=== PATIENT | male | born 1980 | race Caucasian/White ===

== ENCOUNTER 2020-04-30 06:59 | Inpatient (IN) | payer OTHER, SELFPAY ==
[2020-04-30] VITALS (28 sets, daily range): BP systolic 73–108; BP diastolic 28–63; PULSE 82–137; RESP 14–44; TEMP 35.7–36.3; O2SAT 95–100
--- NOTE | ~2020-04-30 | XR_ITS ---
EXAMINATION: XR chest port-a-cath/central EXAM DATE: 05/17/2020 18:12 INDICATION: Dialysis catheter placement. TECHNIQUE: Portable AP frontal chest x-ray was obtained. Comparison is made to prior examination from earlier same date. FINDINGS: Interval placement of a right IJ approach double lumen dialysis catheter. The tip appears t o have retracted compared to fluoroscopic images, tip is at mid SVC level. No postprocedure pneumotho rax. Endotracheal tube and nasogastric tube are both in position. Patchy bilateral atelectasis and/or pneu monia. No sizable pleural effusion. The cardiomediastinal silhouette is prominent but magnified on th is AP technique. There are no osseous abnormalities identified. IMPRESSION: 1. Dialysis catheter tip at mid SVC level. No postprocedure pneumothorax. 2. ET, NG tube in position. 3. Patchy bilateral airspace disease unchanged. Reviewed, dictated and finalized at location A. AND SCIENCE DIVISION CHAIR
--- NOTE | ~2020-04-30 | XR_ITS ---
EXAMINATION: XR chest 1V portable DATE: 05/12/2020 05:51 INDICATION: Respiratory failure. TECHNIQUE: A single frontal view of the chest was obtained. COMPARISON: Chest single view 05/11/2020 FINDINGS: There is airspace opacities in all lung zones bilaterally with a lower lung predominance. N o pleural effusion or pneumothorax. Cardiomegaly is noted. The endotracheal tube tip is 3.9 cm above the candy. The nasogastric tube tip is beyond the inferior margin of the radiograph, but at least to the stomach. A right internal jugular central venous catheter is seen with tip at the superior cavoa trial junction. IMPRESSION: 1. Stable diffuse lung disease, consistent with pulmonary edema versus pneumonia. 2. Cardiomegaly. Reviewed, dictated and finalized at location A. D LOGISTICS COORDINATOR IMPRESSION: 1. Stable diffuse lung disease, consistent with pulmonary edema versus pneumoni a. 2. Cardiomegaly.
--- NOTE | ~2020-04-30 | US_ITS ---
EXAMINATION: US venous doppler [facility] DATE: 05/01/2020 09:30 INDICATION: Lower limb edema. TECHNIQUE: Grayscale ultrasound images without and with compression and Doppler ultrasound images of the bilateral lower extremity veins were obtained. COMPARISON: Ultrasound 06/07/2016 FINDINGS: The visualized portions of right common femoral vein, profunda (deep) femoral vein, femoral vein, pop liteal vein, peroneal veins, posterior tibial veins, and greater saphenous vein outflow are patent. The visualized portions of left common femoral vein, profunda femoral vein, femoral vein, popliteal v ein, peroneal veins, posterior tibial veins, and greater saphenous vein outflow are patent. IMPRESSION: 1. No deep venous thrombosis. Reviewed, dictated and finalized at location A. HANDISE FLOW TEAM LEADER
--- NOTE | ~2020-04-30 | XR_ITS ---
EXAMINATION: XR chest 1V portable INDICATION: Respiratory failure TECHNIQUE: Portable AP chest at 0510 hours COMPARISON: 05/15/2020 FINDINGS: The endotracheal tube ends approximately 3.5 cm above the candy. The nasogastric tube is f ollowed as far as the stomach. Its tip is beyond the inferior margin of the radiograph. A right inter nal jugular central venous catheter ends with its tip in the superior cavoatrial junction. Patchy opa cities persist throughout all lung zones but have improved. There is no pleural effusion or pneumotho rax. Stable cardiomegaly is noted. IMPRESSION: 1. Diffuse lung disease with interval improvement, consistent with pneumonia and/or pulmonary edema. 2. Cardiomegaly. Reviewed, dictated and finalized at location A. ANALYST IMPRESSION: 1. Diffuse lung disease with interval improvement, consistent with pneumonia an d/or pulmonary edema. 2. Cardiomegaly.
--- NOTE | ~2020-04-30 | XR_ITS ---
XR chest 1V portable DATE: 05/05/2020 05:34 INDICATION: Acute respiratory failure TECHNIQUE: Portable AP chest on May 05, 2020 at 0507 hours COMPARISON: Portable AP chest on May 04, 2020 at 0029 hours FINDINGS: Left and right internal jugular central venous catheters are unchanged in position. ET tube satisfactory position. NG tube noted passing into the stomach. Stable patchy bilateral pulmonary infiltrates. Cardiomegaly. Elevated right diaphragm. No pleural effusion or pneumothorax is evident. Diffuse osteopenia. IMPRESSION: Bilateral patchy pulmonary infiltrates, not significant change since May 04, 2020 Reviewed, dictated and finalized at location A. ICE CENTER TECHNICIAN IMPRESSION: Bilateral patchy pulmonary infiltrates, not significant change sin e May 04, 2020
--- NOTE | ~2020-04-30 | XR_ITS ---
EXAMINATION: XR chest 1V portable INDICATION: Respiratory failure TECHNIQUE: Portable AP chest at 0507 hours COMPARISON: 05/14/2020 FINDINGS: The endotracheal tube ends approximately 2.9 cm above the candy. The nasogastric tube is f ollowed as far as the stomach. Its tip is beyond the inferior margin of the radiograph. A right inter nal jugular catheter ends with its tip in the distal superior vena cava. There is stable cardiomegaly . There are diffuse opacities in all lung zones without significant change. No definite pleural effus ion or pneumothorax is identified. IMPRESSION: 1. Stable diffuse lung disease, consistent with pneumonia and/or pulmonary edema. 2. Stable cardiomegaly. Reviewed, dictated and finalized at location A. TESTER AND INSPECTOR IMPRESSION: 1. Stable diffuse lung disease, consistent with pneumonia and/or pulmonary heber a. 2. Stable cardiomegaly.
--- NOTE | ~2020-04-30 | XR_ITS ---
XR chest 1V portable DATE: 05/04/2020 00:33 INDICATION: Acute respiratory failure TECHNIQUE: Portable AP chest on May 04, 2020 1229 hours COMPARISON: May 03, 2020 portable AP chest at 1110 hours FINDINGS: Bilateral internal jugular central venous catheters, the left in the proximal superior vena cava, the right near the superior cavoatrial junction. ET tube 3.8 cm (satisfactory position. A naso gastric tube is noted, but the distal portion is obscured. There are persistent patchy bilateral pulmonary infiltrates involving particularly the mid and lower lung zones. Moderate elevation of the right leaf of the diaphragm. No pleural effusion or pneumothorax. IMPRESSION: Persistent relatively stable bilateral pulmonary infiltrates Reviewed, dictated and finalized at location A. EAR WORKER TECHNICIAN
--- NOTE | ~2020-04-30 | XR_ITS ---
EXAMINATION: XR chest 1V portable DATE: 05/08/2020 05:59 INDICATION: Respiratory failure. TECHNIQUE: A single frontal view of the chest was obtained. COMPARISON: Chest single view 05/07/2020 FINDINGS: The patient is rotated to his right. Sensitivity is decreased by obesity. There are airspac e opacities in all lung zones bilaterally with a perihilar predominance. No pleural effusion or pneum othorax. Cardiomegaly is noted. The endotracheal tube tip is 3.8 cm above the candy. The nasogastric tube tip is beyond the inferior margin of the radiograph, but at least to the stomach. A right inter nal jugular central venous catheter is seen with tip at the superior cavoatrial junction. A left inte rnal jugular central venous catheter is seen with tip in the superior vena cava. IMPRESSION: 1. Diffuse lung disease with mild improvement, consistent with pulmonary edema versus pneumonia. 2. Cardiomegaly. Reviewed, dictated and finalized at location A. AL FITTER
--- NOTE | ~2020-04-30 | CT_ITS ---
EXAMINATION: CT chest abdomen pelvis wo con EXAM DATE: 05/22/2020 09:38 INDICATION: Abdomen wall abscess, necrotizing fasciitis. TECHNIQUE: Spiral CT of the chest, abdomen and pelvis was performed without contrast. Axial, lee l and sagittal images were reviewed. Coronal maximum intensity pixel images of chest reviewed. The dose-length product (DLP) for this examination was 1859.43 mGy-cm. The exposure was tailored accordi ng to patient size (auto mA exposure control), and iterative reconstruction (ASIR) was used as additi onal dose reduction technique. Comparison is made to prior examination from 07/26/2016. FINDINGS: CHEST: Endotracheal tube is in position. There is a right-sided PICC line in position. There is conf luent right lower lobe consolidation with volume loss, and left basilar subsegmental airspace disease , appearance most consistent with atelectasis and pneumonia. There are no pleural or pericardial eff usions. Tracheobronchial tree is patent. There is no mediastinal, hilar or axillary lymphadenopat hy. There is no pneumothorax. Heart normal in size. No evidence of coronary arterial calcificat ion. ABDOMEN PELVIS: Patient has a gastrostomy tube in position. Lateral to the gastrostomy tube along the left anterolateral aspect of abdominal wall extending to the pelvis there are numerous foci of gas. No tract of gas identified from the gastrostomy tube placement to the left abdominal superficial gas to explain this. Appearance is suspicious for gas forming bacteria, necrotizing fasciitis. No drainab le fluid collection. Small amount of pelvic fluid located anteriorly, and probable tiny amount of free intraperitoneal air . No contained appearing drainable intra-abdominal abscess. Possible atelectasis from the gastrostomy tube, may be could have been underlying etiology of the suspected fasciitis. The liver, spleen, adrenal glands and pancreas are unremarkable. Gallbladder is unremarkable. No bi liary obstruction. There is no nephrolithiasis or hydronephrosis. The prostate is unremarkable. T here is a Guan catheter. There is no retroperitoneal or pelvic lymphadenopathy. There are no findings to suggest appendicitis. The stomach and small bowel are unremarkable. There is a rectal tube. No free intraperitoneal gas. There are no osteoblastic or osteolytic lesions id entified. IMPRESSION: 1. Findings consistent with left-sided superficial gas forming bacteria, necrotizing fasciitis. 2. Small amount of pelvic fluid and probable small foci of free intraperitoneal gas. Could be from g astrostomy tube. No drainable intra-abdominal abscess. 3. Basilar atelectasis and pneumonia, with completely collapsed right lower lobe. I discussed suspected necrotizing fasciitis with Dr. Babatunde Root MD Reviewed, dictated and finalized at location B. RICT COMMERCIAL SUPERINTENDENT IMPRESSION: 1. Findings consistent with left-sided superficial gas forming bacteria, necro tizing fasciitis. 2. Small amount of pelvic fluid and probable small foci of free intraperitonea l gas. Could be from gastrostomy tube. No drainable intra-abdominal abscess. 3. Basilar atelectasis and pneumonia, with completely collapsed right lower lo be. I discussed suspected necrotizing fasciitis with Dr. Babatunde Root MD
--- NOTE | ~2020-04-30 | XR_ITS ---
EXAMINATION: XR chest ET placement INDICATION: Endotracheal tube repositioning TECHNIQUE: Portable AP chest at 1434 hours COMPARISON: 1336 hours FINDINGS: The repositioned endotracheal tube ends 3.6 cm above the candy. The nasogastric tube is fo llowed as far as the stomach. Its tip is beyond the inferior margin of the radiograph. A left interna l jugular central venous catheter ends with its tip in the proximal superior vena cava. A right inter nal jugular central venous catheter ends with its tip at the superior cavoatrial junction. The lung v olumes are low. Airspace opacities of the mid and lower lung zones persist with slight improvement in the left lung base. There is no pleural effusion or pneumothorax. Stable cardiomegaly is noted. IMPRESSION: 1. Repositioned endotracheal tube ending approximately 3.6 cm above the candy. 2. Opacities of the mid and lower lung zones with slight improvement in the left lung base, consisten t with pulmonary edema and/or pneumonia. 3. Stable cardiomegaly. Reviewed, dictated and finalized at location A. MACHINE OFFBEARER IMPRESSION: 1. Repositioned endotracheal tube ending approximately 3.6 cm above the candy. 2. Opacities of the mid and lower lung zones with slight improvement in the lef t lung base, consistent with pulmonary edema and/or pneumonia. 3. Stable cardiomegaly.
--- NOTE | ~2020-04-30 | US_ITS ---
EXAMINATION: US renal BI DATE: 05/01/2020 09:29 INDICATION: Acute kidney injury. TECHNIQUE: Multiple ultrasound grayscale images of the kidneys were obtained. COMPARISON: None. FINDINGS: Sensitivity is decreased by obesity. The right kidney measures 10.5 x 5.9 x 4.7 cm. The left kidney m easures 12.5 x 6.8 x 6.6 cm. The kidneys demonstrate normal parenchymal echogenicity. There is no hyd ronephrosis. The bladder is decompressed by a Guan catheter. IMPRESSION: 1. Normal kidneys. No hydronephrosis. Reviewed, dictated and finalized at location A. IC INFORMATION OFFICER
--- NOTE | ~2020-04-30 | XR_ITS ---
EXAMINATION: XR chest 1V portable DATE: 05/10/2020 05:46 INDICATION: Respiratory failure. TECHNIQUE: A single frontal view of the chest was obtained. COMPARISON: Chest single view 05/09/2020 FINDINGS: There are airspace opacities in the mid and lower lung zones. No pleural effusion or pneumo thorax. Cardiomegaly is noted. The endotracheal tube tip is 5.0 cm above the candy. A left internal jugular central venous catheter is seen with tip in the superior vena cava. A right internal jugular central venous catheter is seen with tip at the superior cavoatrial junction. IMPRESSION: 1. Stable airspace opacities in the mid and lower lung zones, consistent with pulmonary edema versus pneumonia. Sensitivity and specificity are decreased by obesity. 2. Cardiomegaly. Reviewed, dictated and finalized at location A. IN TRIMMER IMPRESSION: 1. Stable airspace opacities in the mid and lower lung zones, consistent with p ulmonary edema versus pneumonia. Sensitivity and specificity are decreased by o besity. 2. Cardiomegaly.
--- NOTE | ~2020-04-30 | US_ITS ---
EXAMINATION: US venous doppler [facility] DATE: 05/12/2020 15:26 INDICATION: Shortness of breath TECHNIQUE: Zepeda scale images without and with compression and Doppler images of the bilateral lower e xtremity veins were obtained. COMPARISON: 05/01/2020 FINDINGS: The right common femoral vein, profunda femoral vein, femoral vein, popliteal vein, peroneal trunk, p osterior tibial veins, and greater saphenous vein are patent. The left common femoral vein, profunda femoral vein, femoral vein, popliteal vein, peroneal trunk, po sterior tibial veins, and greater saphenous vein are patent. IMPRESSION: 1. Patent bilateral lower extremity veins. No evidence of deep venous thrombosis. Reviewed, dictated and finalized at location A. PMENT PROCESSOR IMPRESSION: 1. Patent bilateral lower extremity veins. No evidence of deep venous thrombosi s.
--- NOTE | ~2020-04-30 | XR_ITS ---
EXAMINATION: XR chest 1V portable INDICATION: Respiratory failure TECHNIQUE: Portable AP chest at 0518 hours COMPARISON: 05/17/2020 FINDINGS: The endotracheal tube ends approximately 3.4 cm above the candy. The nasogastric tube is f ollowed as far as the stomach. Its tip is beyond the inferior margin of the radiograph. A right inter nal jugular dialysis catheter ends with its tip in the midsuperior vena cava. Small pleural effusions are present. There is no pneumothorax. Cardiomegaly is noted. Diffuse airspace opacities persist wit h slight worsening in the lung bases. IMPRESSION: 1. Diffuse lung disease with interval worsening in the lung bases, consistent with pneumonia and/or p ulmonary edema and/or acute respiratory distress syndrome (ARDS). Reviewed, dictated and finalized at location A. T FACILITIES TECHNICIAN IMPRESSION: 1. Diffuse lung disease with interval worsening in the lung bases, consistent w ith pneumonia and/or pulmonary edema and/or acute respiratory distress syndrome (ARDS).
--- NOTE | ~2020-04-30 | XR_ITS ---
EXAMINATION: XR chest 1V portable DATE: 05/07/2020 05:43 INDICATION: Respiratory failure. TECHNIQUE: A single frontal view of the chest was obtained. COMPARISON: Chest single view 05/06/2020, chest CT 07/26/2016 FINDINGS: The patient is rotated to his right. There are airspace opacities in all lung zones bilater ally. No pleural effusion or pneumothorax. Cardiomegaly is noted. The endotracheal tube tip is 5.0 cm above the candy. The nasogastric tube tip is beyond the inferior margin of the radiograph, but at l east to the stomach. A right internal jugular central venous catheter is seen with tip at the superio r cavoatrial junction. A left internal jugular central venous catheter is seen with tip in the superi or vena cava. IMPRESSION: 1. Stable diffuse lung disease, consistent with pulmonary edema versus pneumonia. 2. Cardiomegaly. Reviewed, dictated and finalized at location A. LTY SUPPORT COORDINATOR IMPRESSION: 1. Stable diffuse lung disease, consistent with pulmonary edema versus pneumoni a. 2. Cardiomegaly.
--- NOTE | ~2020-04-30 | XR_ITS ---
EXAMINATION: XR chest 1V portable DATE: 05/11/2020 05:40 INDICATION: Respiratory failure. TECHNIQUE: A single frontal view of the chest was obtained. COMPARISON: Single view 05/10/2020 FINDINGS: There are airspace opacities in all lung zones bilaterally. No pleural effusion or pneumoth orax. Cardiomegaly is noted. The endotracheal tube tip is 3.1 cm above the candy. A left internal ju gular central venous catheter is seen with tip in the superior vena cava. A right internal jugular ce ntral venous catheter is seen with tip at the superior cavoatrial junction. The nasogastric tube tip is beyond the inferior margin of the radiograph, but at least to the stomach. IMPRESSION: 1. Worsened diffuse lung disease, consistent with pulmonary edema versus pneumonia. 2. Cardiomegaly. Reviewed, dictated and finalized at location A. R SHOVEL MECHANIC IMPRESSION: 1. Worsened diffuse lung disease, consistent with pulmonary edema versus pneumo [place]oston. 2. Cardiomegaly.
--- NOTE | ~2020-04-30 | US_ITS ---
US renal BI 05/16/2020 11:36 Procedure: Realtime transabdominal ultrasound of the kidneys and bladder. Indication: Elevated creatinine. Comparison: 05/01/2020 Findings: Renal echotexture is normal bilaterally without hydronephrosis, contour deforming mass or r enal calculus. The lower pole of the left kidney is obscured by bowel gas. The right kidney measures 13.6 cm and left kidney measures 11.7 cm. There is a Guan catheter in the bladder. Impression: 1: Unremarkable renal ultrasound. No stones, masses or hydronephrosis. Reviewed, dictated and finalized at location A. NG RAMMER Impression: 1: Unremarkable renal ultrasound. No stones, masses or hydronephrosis.
--- NOTE | ~2020-04-30 | XR_ITS ---
EXAMINATION: XR chest port-a-cath/central EXAM DATE: 05/03/2020 11:18 INDICATION: Dialysis catheter placement. TECHNIQUE: Portable AP frontal chest x-ray was obtained. Comparison is made to prior examination from earlier same date. FINDINGS: There is a new right-sided IJ venous catheter, double-lumen with tip overlying the cavoatr ial junction. There is a left subclavian venous line in position. The endotracheal and nasogastric tu bes are in position. Exam is somewhat underpenetrated. Moderate amount of bilateral edema and/or pneumonia. Cardiac silhou ette is enlarged but stable in size compared to prior exam. No sizable pleural effusion. There are bony degenerative changes. There is no significant interval change in airspace disease compared to prior exam. IMPRESSION: 1. Line and tube(s) in position. No evidence postprocedure pneumothorax. 2. Moderate bilateral edema and/or infection. Reviewed, dictated and finalized at location B. E SPLITTER
--- NOTE | ~2020-04-30 | XR_ITS ---
XR chest ET placement 05/10/2020 13:40 Indication: Respiratory failure Procedure: AP portable chest Comparison: Comparison to multiple prior studies sequentially, with oldest reviewed study dated 10/2020. Findings: Endotracheal tube tip 9.3 cm above the endotracheal tube. Left IJ central line tip in SVC. Right IJ large bore central venous catheter tip in the SVC. Cardiomegaly. Interstitial edema. Small r ight pleural effusion. No pneumothorax. Small right pleural effusion. Impression: 1: Cardiomegaly with interstitial edema. Superimposed pneumonia not excluded. 2: Small right pleural effusion. Reviewed, dictated and finalized at location B. NG MILL OPERATOR FOR METAL Impression: 1: Cardiomegaly with interstitial edema. Superimposed pneumonia not excluded. 2: Small right pleural effusion.
--- NOTE | ~2020-04-30 | XR_ITS ---
EXAMINATION: XR fl guide central line place EXAM DATE: 05/17/2020 17:35 INDICATION: Placement of tunneled dialysis catheter. TECHNIQUE: Fluoroscopy used during right-sided IJ dialysis catheter performed by Dr. Asim nieto MD. The DAP for this procedure was 1.7 mGym2. FINDINGS: Total/demonstrate a right-sided IJ approach double-lumen dialysis catheter, tip projecting over the cavoatrial junction. Correlate with procedure note. IMPRESSION: Fluoroscopy used during dialysis catheter placement. Reviewed, dictated and finalized at location A. OR LEGAL SECRETARY
--- NOTE | ~2020-04-30 | XR_ITS ---
EXAMINATION: XR chest 1V portable DATE: 04/30/2020 08:24 INDICATION: COVID positive. Shortness of breath. TECHNIQUE: frontal view of the chest was obtained. COMPARISON: Chest radiograph dated 06/06/2016 FINDINGS: Volume loss in the right hemithorax with elevation of the right hemidiaphragm. Patchy and bandlike op acities in the bilateral mid and lower lung zones. No pleural effusion or pneumothorax. Cardiomegaly. IMPRESSION: 1. Patchy and bandlike opacities in the bilateral mid and lower lung zones which could represent atel ectasis and/or pneumonia. 2. Volume loss in the right hemithorax with elevation the right hemidiaphragm. 3. Cardiomegaly. Reviewed, dictated and finalized at location A. MAKER IMPRESSION: 1. Patchy and bandlike opacities in the bilateral mid and lower lung zones whic h could represent atelectasis and/or pneumonia. 2. Volume loss in the right hemithorax with elevation the right hemidiaphragm. 3. Cardiomegaly.
--- NOTE | ~2020-04-30 | XR_ITS ---
XR chest 1V portable DATE: 05/13/2020 06:09 INDICATION: Respiratory failure TECHNIQUE: Portable AP chest on May 13, 2020 0505 hours COMPARISON: Portable AP chest on May 12, 2020 0521 hours FINDINGS: ET tube in satisfactory position 4.5 cm above candy. NG tube in stomach. Right internal ju gular central venous catheter tip is situated near the superior cavoatrial junction. Again noted are diffuse bilateral pulmonary infiltrates with mild improvement since May 12, 2020 . The right leaf of the diaphragm is elevated. No pneumothorax is evident. IMPRESSION: Mild improvement of diffuse bilateral pulmonary infiltrates since May 12, 2020 Reviewed, dictated and finalized at location A. E BEATER MACHINE OPERATOR IMPRESSION: Mild improvement of diffuse bilateral pulmonary infiltrates since [facility] 2020
--- NOTE | ~2020-04-30 | XR_ITS ---
EXAMINATION: XR chest 1V portable EXAM DATE: 05/01/2020 09:19 INDICATION: Acute respiratory failure, shock. Pulmonary arterial hypertension. TECHNIQUE: Portable AP frontal chest x-ray was obtained. Comparison is made to prior examination from 04/30. FINDINGS: The endotracheal tube has been retracted, is about 4 cm above the candy, adequate. Feedin g tube less well visualized on this exam but tip is below the left hemidiaphragm. There is a left IJ venous line. Lungs are considerably more opacified on this examination, could be partly technical from a less well penetrated study, but there may also be progression of airspace disease. There are no sizable pleura l effusions. There is no pneumothorax suspected. The cardiac silhouette is enlarged. The bones and soft tissues are unremarkable. IMPRESSION: 1. Line and tube(s) in position. 2. Increase in lung opacity, probably partly technical and partly progression of edema and/or pneumo [place]. Reviewed, dictated and finalized at location B. COATING OPERATOR METAL IMPRESSION: 1. Line and tube(s) in position. 2. Increase in lung opacity, probably partly technical and partly progression of edema and/or pneumonia.
--- NOTE | ~2020-04-30 | XR_ITS ---
EXAMINATION: XR chest port-a-cath/central DATE: 04/30/2020 09:57 INDICATION: Central line placement TECHNIQUE: frontal view of the chest was obtained. COMPARISON: Chest radiograph dated 04/30/2020 FINDINGS: Left internal jugular central venous catheter with distal tip at the cephalad superior vena cava. Vol ume loss right hemithorax with elevation the right hemidiaphragm. Unchanged airspace opacities in the bilateral mid and lower lung zones. Borderline heart size accounting for AP technique. IMPRESSION: 1. Left internal jugular central venous catheter with tip in the cephalad superior vena cava. 2. Unchanged opacities in the bilateral mid and lower lung zones which could represent atelectasis an d/or pneumonia. 3. Volume loss the right hemithorax with elevation of the right hemidiaphragm. 4. Borderline heart size. Reviewed, dictated and finalized at location A. E WORKER IMPRESSION: 1. Left internal jugular central venous catheter with tip in the cephalad super ior vena cava. 2. Unchanged opacities in the bilateral mid and lower lung zones which could re present atelectasis and/or pneumonia. 3. Volume loss the right hemithorax with elevation of the right hemidiaphragm. 4. Borderline heart size.
--- NOTE | ~2020-04-30 | XR_ITS ---
EXAMINATION: XR abdomen/kub 1V INDICATION: Femoral PICC insertion TECHNIQUE: Supine view of the abdomen is obtained. COMPARISON: 04/02/2020 FINDINGS: A nasogastric tube is in the stomach. The tip of a vascular catheter projects in the mid ab domen to the right of midline, likely within the inferior vena cava. The bowel gas pattern is unremar kable. IMPRESSION: 1. Catheter tip projecting in the expected location of the inferior vena cava. 2. Nasogastric tube in the stomach. Reviewed, dictated and finalized at location A. ATIONAL INTELLIGENCE OFFICER
--- NOTE | ~2020-04-30 | US_ITS ---
EXAMINATION: US venous doppler UE DATE: 05/12/2020 15:27 INDICATION: Arm edema TECHNIQUE: Zepeda scale images with and without compression and Doppler images of the upper extremity v eins were obtained. COMPARISON: None. FINDINGS: The axillary vein, brachial veins, basilic vein, cephalic vein, radial vein, and ulnar vein are paten t. The internal jugular veins are not visualized. IMPRESSION: 1. Patent bilateral upper extremity veins. No evidence of deep venous thrombosis. Internal jugular ve ins not visualized. Reviewed, dictated and finalized at location B. MOBILES SALESPERSON IMPRESSION: 1. Patent bilateral upper extremity veins. No evidence of deep venous thrombosi s. Internal jugular veins not visualized.
--- NOTE | ~2020-04-30 | XR_ITS ---
XR chest 1V portable DATE: 05/03/2020 05:30 INDICATION: Acute respiratory failure TECHNIQUE: Portable AP chest on May 03, 2020 at 0515 hours COMPARISON: May 01, 2020 portable AP chest at 0916 hours 04/30/2020 portable AP chest at 1049 hours FINDINGS: Left internal urinary stent of venous catheter tip overlies superior vena cava. ET tube tip approximately 3.8 cm above candy. A nasogastric tube appears to be extending as far as t he distal esophagus but is not optimally visualized due to underpenetration. Cardiomegaly. There is pulmonary vascular congestion. There are bilateral primarily central and lower lung zone infiltrates. Differential diagnosis includes pulmonary edema and bilateral pneumonia. There is elevation of the right leaf of the diaphragm. Diffuse osteopenia. IMPRESSION: Increased congestive changes and infiltrates since 04/30/2020 Reviewed, dictated and finalized at location A. CTOR OF LAND ACQUISITION
--- NOTE | ~2020-04-30 | XR_ITS ---
XR chest 1V portable DATE: 05/14/2020 06:22 INDICATION: Respiratory failure TECHNIQUE: Portable AP chest on May 14, 2020 at 0516 hours COMPARISON: May 13, 2020 portable AP chest at 0505 hours FINDINGS: Cardiomegaly. There is pulmonary vascular congestion. There are bilateral pulmonary infiltr ates which may be due to pulmonary edema and/or pneumonia. The infiltrates are increased since 021. Minimal if any pleural effusion. No pneumothorax. ET tube in satisfactory position. NG tube in stomach. Right internal jugular central venous catheter tip overlies the superior vena cava near the superior cavoatrial junction. IMPRESSION: Cardiomegaly, pulmonary vascular congestion and bilateral pulmonary infiltrates; the infi ltrates appear increased since May 13, 2020. Pulmonary edema is suggested. Pneumonia is not excl uded. Reviewed, dictated and finalized at location A. ICAL MACHINE TENDER IMPRESSION: Cardiomegaly, pulmonary vascular congestion and bilateral pulmonary infiltrates; the infiltrates appear increased since May 13, 2020. Pulmona ry edema is suggested. Pneumonia is not excluded.
--- NOTE | ~2020-04-30 | XR_ITS ---
EXAMINATION: XR chest 1V portable DATE: 05/09/2020 05:51 INDICATION: Respiratory failure. TECHNIQUE: A single frontal view of the chest was obtained. COMPARISON: Chest single view 05/08/2020 FINDINGS: There are airspace opacities in all lung zones bilaterally with a perihilar predominance. N o pleural effusion or pneumothorax. There are irregular is noted. The endotracheal tube tip is 3.5 cm above the candy. A right internal jugular central venous catheter is seen with tip at the superior vena cava. A left internal jugular central venous catheter is seen with tip in the superior vena cava . The nasogastric tube tip is beyond the inferior margin of the radiograph, but at least to the stoma ch. IMPRESSION: 1. Stable diffuse lung disease, consistent with pulmonary edema versus pneumonia. Sensitivity and spe cificity are decreased by obesity. 2. Cardiomegaly. Reviewed, dictated and finalized at location A. RTISING DISPATCH CLERKS SUPERVISOR IMPRESSION: 1. Stable diffuse lung disease, consistent with pulmonary edema versus pneumoni a. Sensitivity and specificity are decreased by obesity. 2. Cardiomegaly.
--- NOTE | ~2020-04-30 | CT_ITS ---
EXAMINATION: CT brain wo con DATE: 05/13/2020 16:56 INDICATION: Left sided weakness TECHNIQUE: Computed tomography (CT) of the head was performed without intravenous contrast. Sagittal and coronal reconstructions were performed. The mA was adjusted according to patient size. Iterative reconstruction technique was employed. The dose-length product was 681.00 mGy-cm. COMPARISON: None FINDINGS: No acute intracranial hemorrhage, acute infarction or abnormal extra axial fluid collection. Ventricl es are normal and symmetric. No mass/mass effect. Changes of bilateral intraocular lens replacement. Bilateral mastoid effusions, left greater than right. Mild mucosal thickening with small amount of de pendent mucus in the left sphenoid sinus. Orogastric tube and nasogastric tube extending across the o ral cavity. IMPRESSION: 1. Normal brain. No acute intracranial process. Reviewed, dictated and finalized at location A. BLE TRACER
--- NOTE | ~2020-04-30 | XR_ITS ---
EXAMINATION: XR abdomen NG/feed tube insert, XR chest ET placement DATE: 04/30/2020 10:54 INDICATION: Intubation and nasogastric tube insertion. TECHNIQUE: 1. Portable AP supine view of the chest was obtained. 2. A supine view of the abdomen and lower chest was obtained for evaluation of feeding tube placement . COMPARISON: None. FINDINGS: Chest: Endotracheal tube extends into the right mainstem bronchus with distal tip approximately 2 cm above t he candy. Left internal jugular central venous catheter with distal tip in the proximal superior nandini a cava. Again seen is volume loss in the right hemithorax with elevation of right hemidiaphragm. Unchanged ai rspace opacities in the bilateral mid and lower lung zones. No pleural effusion or pneumothorax. Card iomegaly. Abdomen: Nasogastric tube tip in proximal side port in the body of the stomach. Nonspecific bowel gas pattern with gas within a few nondilated loops of small bowel. IMPRESSION: 1. Endotracheal tube tip in the right mainstem bronchus. Recommend withdrawal by 3-[address] Barnett discussed these findings with Dr. Ortega at 11:15 AM. 2. Unchanged elevation of the right hemidiaphragm and airspace opacities in the bilateral mid and low er lung zones which could represent atelectasis and/or pneumonia. 3. Cardiomegaly. Reviewed, dictated and finalized at location A. ER HANDLER IMPRESSION: 1. Endotracheal tube tip in the right mainstem bronchus. Recommend withdrawal b y 3-[address] Barnett discussed these findings with Dr. Ortega at 11:15 AM. 2. Unchanged elevation of the right hemidiaphragm and airspace opacities in the bilateral mid and lower lung zones which could represent atelectasis and/or pn eumonia. 3. Cardiomegaly.
--- NOTE | ~2020-04-30 | XR_ITS ---
EXAMINATION: XR chest 1V portable DATE: 05/06/2020 05:54 INDICATION: Acute respiratory failure. TECHNIQUE: A single frontal view of the chest was obtained. COMPARISON: Chest single view 05/05/2010, chest CT 06/06/2016 FINDINGS: Sensitivity is decreased by obesity. There are airspace opacities in all lung zones bilater ally. No pleural effusion or pneumothorax. Cardiomegaly is noted. The endotracheal tube tip is 3.6 cm above the candy. A left internal jugular central venous catheter is seen with tip in the superior v anthony cava. The nasogastric tube is not well-visualized beyond the distal esophagus. A right internal j ugular central venous catheter is seen with tip at the superior cavoatrial junction. IMPRESSION: 1. Diffuse lung disease with worsening on the left, consistent with pulmonary edema versus pneumonia. 2. Cardiomegaly. Reviewed, dictated and finalized at location A. MAN OR SUPERVISOR AND OPERATOR IMPRESSION: 1. Diffuse lung disease with worsening on the left, consistent with pulmonary e deb versus pneumonia. 2. Cardiomegaly.
--- NOTE | ~2020-04-30 | XR_ITS ---
EXAMINATION: XR chest PICC line EXAM DATE: 05/21/2020 15:28 INDICATION: PICC line placement. TECHNIQUE: Portable AP frontal chest x-ray was obtained. Comparison is made to prior examination from 05/18/2020. FINDINGS: There is a right-sided PICC line with tip projecting over the cavoatrial junction. Endotra cheal tube is adequately positioned. Difficult to identify the orogastric tube. Removal of previously seen right-sided double-lumen dialysis catheter. Moderate amount of patchy bilateral nonspecific airspace disease, could be combination of atelectasis and pneumonia. Possible small pleural effusions. There is no pneumothorax suspected. The cardiom ediastinal silhouette is prominent but magnified on this AP technique. The bones and soft tissues a re unremarkable. Airspace disease not significantly changed. IMPRESSION: 1. Line and tube(s) in position. 2. Stable airspace disease . Reviewed, dictated and finalized at location A. ING EQUIPMENT OPERATOR
--- NOTE | ~2020-04-30 | XR_ITS ---
EXAMINATION: XR chest 1V portable INDICATION: Respiratory failure TECHNIQUE: Portable AP chest at 0520 hours COMPARISON: 05/16/2020 FINDINGS: The endotracheal tube ends approximately 3.2 cm above the candy. The nasogastric tube is f ollowed as far as the stomach. Its tip is beyond the inferior margin of the radiograph. A right inter nal jugular catheter ends with its tip at the superior cavoatrial junction. Diffuse airspace opacitie s persist with slight worsening in the lung bases and left midlung zone. Stable cardiomegaly is noted . IMPRESSION: 1. Diffuse lung disease with worsening in the lung bases and left midlung zone, consistent with pneum onia and/or pulmonary edema and/or atelectasis. Reviewed, dictated and finalized at location A. [facility] IMPRESSION: 1. Diffuse lung disease with worsening in the lung bases and left midlung zone, consistent with pneumonia and/or pulmonary edema and/or atelectasis.
--- NOTE | 2020-04-30 07:06 | ECG_ITS ---
Measurements Intervals [place] Rate: 105 P: 19 WV: 155 QRS: 15 QRSD: 103 T: 12 QT: 329 QTc: 436 Interpretive Statements SINUS TACHYCARDIA LOW QRS VOLTAGE IN PRECORDIAL LEADS BASELINE WANDER- I, II, AVR, V1, V3-V5 BORDERLINE ECG Electronically Signed On 04-30-2020 14:51:05 HORSE SHOER by Chito Patel D.O.
[2020-04-30] MEDS: SODIUM CHLORIDE 0.9% IV 1,000 ML 999 ML IV CONT ×3 (07:20→12:16)
--- NOTE | 2020-04-30 07:50 | ED.SOB ---
HPI - SOB/Dyspnea General Chief Complaint: Shortness of Breath/Dyspnea Stated Complaint: SOB Time Seen by Provider: 04/30/20 07:05 Source: EMS Mode of arrival: EMS Limitations: clinical condition History of Present Illness HPI Narrative: Patient is a 39 year old male with history of asthma, chronic respiratory failure, morbid obesity who presents from the senior care for evaluation shortness of breath. EMS reports patient's oxygen was 80% when nursing rounded this morning. EMS found patient to be 100% on his normal 4L NC but he is tachypneic. He was positive for covid in February 2020. Patient is awake but he is unable to give history. Related Data Home Medications Medication Instructions Recorded Confirmed montelukast 10 mg tablet 10 mg PO DAILY 05/12/19 04/30/20 ergocalciferol (vitamin D2) 1,250 mcg PO WEEKLY 04/30/20 04/30/20 ferrous sulfate 325 mg PO DAILY 04/30/20 04/30/20 fluticasone propionate 1 spray INTRANASAL DAILY 04/30/20 04/30/20 ipratropium-albuterol 3 ml INHALATION TID 04/30/20 04/30/20 loratadine 10 mg PO DAILY 04/30/20 04/30/20 metoprolol tartrate 25 mg PO DAILY 04/30/20 04/30/20 pantoprazole 40 mg PO DAILY 04/30/20 04/30/20 prednisone 5 mg PO DAILY 04/30/20 04/30/20 risperidone 2 mg PO HS 04/30/20 04/30/20 Allergies Allergy/AdvReac Type Severity Reaction Status Date / Time cefaclor Allergy Unknown Verified 07/25/17 07:48 latex Allergy Unknown Verified 07/28/17 09:37 Penicillins Allergy Unknown Verified 07/25/17 07:48 Review of Systems Review of Systems: ROS unobtainable: Yes unobtainable due to medical condition PMFSH Past Medical History Medical History (Updated 04/30/20 @ 18:35 by Shira Ortega MD) Asthma Atopy Autism Body mass index (BMI) of 50-59.9 in adult (01/26/18) Chronic respiratory failure with hypercapnia [place] (obstructive sleep apnea) It was noted on [facility] note from 05/14/2019 that it was a follow-up visit for trilogy. Pulmonary hypertension Seasonal allergic rhinitis Surgical History Surgical History History of carpal tunnel release History of eye surgery History of testicular surgery Family History Family History Father Diabetes mellitus, Onset Age: 46 Acute myocardial infarction, Onset Age: 46 Mother Family history of throat cancer Other Carcinoma of colon Family history of chronic obstructive pulmonary disease Social History Social History (Updated 04/30/20 @ 15:30 by Cathy Dunham NP) Social History: the patient is single and has no children. The patient is listed as a full code. He resides at at [facility]. The patient has only been a resident there for the last week. The brother Delgado his the contact lens flashing puncher at [phone]. the patient is disabled. Smoking status: Never smoker Second hand tobacco smoke exposure: Yes Exam Const: General: alert and ill appearing acutely Nutritional Appearance: obese HENMT: Head: normocephalic and atraumatic Face and sinus: face symmetric Mouth: Yes dry mucous membranes Eyes: EOM: EOMs intact bilaterally Resp: Effort & Inspection: labored, tachypneic and no use of accessory muscles Auscultation: clear to auscultation bilaterally Cardio: Rate: tachycardic Rhythm: regular rhythm Heart sounds: no murmurs GI: GI Palp: Yes Soft to palpation, No Tenderness to palpation present (GI) and No Guarding due to palpation present (GI) Auscultation: normal bowel sounds Skin: General skin exam: normal color Neuro: Other: disoriented Course Reevaluation(s) Reevaluation #1: Patient presented tachypneic likely due to septic shock. He was given IVF without improvement in pressure so CVL placed to start vasopressor. Will intubate given RR 40 Date: 04/30/20 Time: 09:15 Consultations Consultation #1: I discussed case with Dr. Naidu
[2020-04-30 08:01] LABS: Alveolar/Arterial O2 Gradient 125.9 mmHg; Base Excess ABG -10.7 mEq/l (+/-2.0); Carboxyhemoglobin 0.4 % THb (0-2.0); Fractional Inspired Oxygen 36 %; HCO3 ABG 15.6 mEq/l (22.0-26.0); Methemoglobin ABG 0.4 %THb (0-1.5); Oxygen Content ABG 11.8 %vol (16.0-22.0); Oxygen Saturation ABG 95.5 % (95.0-100.0); Oxyhemoglobin 93.8 % THb (90.0-100.0); PCO2 ABG 36.2 mmHg (35.0-45.0); PO2 ABG 88.8 mmHg (80.0-100.0); PO2 FiO2 Ratio Arterial Blood 2.47 %; Reduced Hemoglobin 5.4 %THb (0-5.0); Total Hemoglobin 8.8 g/dL (12.0-18.0)
[2020-04-30 08:02] LABS: Device NASAL CANNULA; Modified Allen's Test Pass; Site Drawn LEFT RADIAL; pH ABG 7.253 (7.350-7.450)
[2020-04-30 08:12] LABS: Glucose Point of Care 108 (65-105)
[2020-04-30 08:29] LABS: Hematocrit 25.3 % (42.0-52.0); Hemoglobin 7.7 g/dL (14.0-18.0); Mean Corpuscular HGB Conc 30.4 g/dl (32-36); Mean Corpuscular Hemoglobin 30.2 pg (26-34); Mean Corpuscular Volume 99.2 fl (80-100); Mean Platelet Volume 11.1 fl (7.4-10.4); Platelet Count Result 392 k/mm3 (150-375); Red Blood Count 2.55 M/mm3 (4.6-6.20); Red Cell Distribution Width 20.7 % (11.5-14.5); White Blood Count 23.7 K/mm3 (4.5-10.0)
[2020-04-30 08:36] LABS: Add Urine Microscopic? YES; Appearance Urine Turbid (Clear); Bacteria Urine 4+ /hpf; Bilirubin Urine Negative (Negative); Blood Urine 2+ (Negative); Color Urine Yellow (Yellow); Glucose Urine UA Negative (Negative); Ketones Urine Negative (Negative); Leukocyte Esterase Ur 2+ LEU/UL (Negative); Nitrate Urine Negative (Negative); Protein Urine 2+ mg/dL (Negative); RBC Urine 51-75 /hpf (0-2); Specific Grav Ur 1.014 (1.001-1.035); WBC Urine >75 /hpf
[2020-04-30 08:38] LABS: Band Neutrophils Percent 10 % (0-6); Lymphocytes Absolute Manual 2.37 K/mm3 (1.1-4.5); Monocytes Absolute Manual 1.18 K/mm3 (0.1-0.90); Monocytes Percent Manual 5 % (3-9); Neutrophils Absolute Manual 20.14 K/mm3 (1.3-6.7); Neutrophils Percent Manual 75 % (46-73); Platelet Estimate Adequate (Adequate); Polychromasia 1+ (NORMAL); Total Cells Counted 100
[2020-04-30 08:39] LABS: INR 1.1; Partial Thromboplastin Time 29.7 SECONDS (22.3-36.8); Prothrombin Time 15.1 Seconds (11.1-14.7)
[2020-04-30 08:41] LABS: Lactic Acid Reflex 1.5 mmol/L (0.7-2.1)
[2020-04-30 08:43] LABS: Alanine Aminotransferase 34 U/L (4-50); Albumin Level 2.6 g/dL (3.5-5.1); Alkaline Phosphatase 716 U/L (38-126); Anion Gap 11 mmol/L (8-16); Aspartate Amino Transferase 41 U/L (17-59); Bilirubin Direct 0.3 mg/dL (0-0.3); Bilirubin,Total 3.1 mg/dL (0.2-1.3); Blood Urea Nitrogen 102 mg/dL (9-20); Calcium 6.2 mg/dL (8.4-10.2); Carbon Dioxide 16 mmol/L (22-30); Chloride 102 mmol/L (98-107); Glucose 110 mg/dL (75-110); Magnesium 2.1 mg/dL (1.6-2.3); Potassium 5.8 mmol/L (3.4-5.0); Sodium 129 mmol/L (137-145)
[2020-04-30 08:53] LABS: NT Pro B Type Natriuretic Pept 1580 PG/ML (5-100); Troponin I < 0.012 ng/mL (0.000-0.034)
[2020-04-30] MEDS: ALBUTEROL SULFATE NEB 2.5 MG/0.5 ML INH 10 MG INHALATION (08:54)
--- NOTE | 2020-04-30 09:04 | PC.NURSE ---
Patient's brother attempted to contact for verbal consent for central line placement at this time. No answer and no ability to leave voicemail message at this time.
[2020-04-30 09:09] LABS: Estimated Glomerular Filt Rate 20
[2020-04-30] MEDS: DEXTROSE 50% 25 GM/50 ML SYRINGE IV PUSH (09:09)
[2020-04-30] MEDS: SODIUM BICARBONATE 8.4% 50 MEQ/50 ML VIAL IV PUSH (09:12)
--- NOTE | 2020-04-30 09:12 | PC.NURSE ---
EDP at bedside to place central line.
[2020-04-30] MEDS: INSULIN HUMAN REGULAR (*BKC) 100 UNITS/ML 10 UNITS IV PUSH (09:16)
[2020-04-30] MEDS: CALCIUM GLUC 1,000 MG/NS 50 ML 1,000 MG/50 ML BAG 100 MG IVPB (09:16)
[2020-04-30] MEDS: NOREPINEPHRINE 8 MG/D5W 250 ML 8 MG/250 ML BAG 9.38 MG IV CONT (09:27)
--- NOTE | 2020-04-30 10:32 | PC.NURSE ---
Intubated per Dr. Ortega using glidescope at this time. Etomidate 20 mg/10 ml IVP at this time v.o. Dr. Ortega. Intubated using a size 7.5 ET tube that is 26 at lip, good color change noted in CO2 detector with good rise and fall of chest using ventilation. Rocuronium 50 mg/5ml IVP verbal order Dr. Ortega at 1035. Versed 2 mg given IVP at [address] Ortega. Pulse rate 108, RR 37, Pulse ox 100% with BP 91/48.
--- NOTE | 2020-04-30 10:42 | PC.NURSE ---
OG placed at this time using 16 nigerian that is 60 at the lip. Patient tolerated well.
--- NOTE | 2020-04-30 10:50 | PC.NURSE ---
Spoke with [facility] states current weight per facility is 316 pounds/143.6 kg
--- NOTE | 2020-04-30 11:25 | PCDIET ---
Called patients brother Delgado Holbrook and updated him on patients condition and that he was now intubated. Told Delgado that his brother would be going to ICU. All questions were answered at this time.
--- NOTE | 2020-04-30 11:34 | PC.NURSE ---
Patient's tube now at 22 at the lip, respiratory at bedside.
[2020-04-30] MEDS: PROPOFOL IV EMULSION 100 ML 12.92 MG IV CONT (13:30)
--- NOTE | 2020-04-30 13:56 | PC.NURSE ---
Pt admitted to ICU 11 from ED, arrives intubated and on Norepi 15mcg, pt minimally arousable. Sats 100% on 40% Fio2, NS bolus infusing, MD aware of pt arrival. BP stable.
[2020-04-30] MEDS: SODIUM CHLORIDE 0.9% IV 1,000 ML 125 ML IV CONT (14:10)
--- NOTE | 2020-04-30 14:37 | WPDCNINT ---
Assessment and Plan Assessment and plan (1) Asthma: Qualifiers: Asthma severity: unspecified severity Asthma persistence: unspecified Asthma complication type: unspecified Qualified Code(s): J45.909 - Unspecified asthma, uncomplicated Code(s): J45.909 - Unspecified asthma, uncomplicated Status: Acute Assessment and Plan: Will start scheduled albuterol 2.5 mg q.6 hours along with Pulmicort 0.5 mg q.12 hours nebulized. (2) [place] (obstructive sleep apnea): Code(s): G47.33 - Obstructive sleep apnea (adult) (pediatric) Status: Acute (3) Septic shock: Code(s): A41.9 - Sepsis, unspecified organism; R65.21 - Severe sepsis with septic shock Status: Acute Assessment and Plan: Leukocytosis with significant bandemia and putrid urine consistent with UTI and septic shock Will start broad-spectrum antibiotics with cefepime, Levaquin and vancomycin with pharmacy to dose (4) UTI (urinary tract infection): Code(s): N39.0 - Urinary tract infection, site not specified Status: Acute Assessment and Plan: See above (5) COVID-19: Code(s): U07.1 - COVID-19 Status: Acute Assessment and Plan: Remote history of COVID-19 we are still trying to get details he was on prednisone at 5 mg daily were not sure how long he has been on systemic steroids and what doses. He does not appear to have any significant infiltrates on chest x-ray and he is not requiring high amounts of ventilator support or oxygenation. He will remain on isolation until we can get a clear history of when symptoms began and when he turned positive and how he was treated. Additional Plan Code Status is Full Total Critical Care Time - 34 minutes Due to a high probability of clinically significant, life threatening deterioration, the patient required my highest level of preparedness to intervene emergently and I personally spent this critical care time directly and personally managing the patient. This critical care time included obtaining a history; examining the patient; pulse oximetry; ordering and review of studies; arranging urgent treatment with development of a management plan; evaluation of patient's response to treatment; frequent reassessment; and discussions with other providers. It was exclusive of separately billable procedures and treating other patients and teaching time. Please see Assessment and Plan section and the rest of the note for further information on patient assessment and treatment Infant Lead Teacher Consult Note Consult date: 04/30/20 Time Seen: 14:00 HPI: Francisco Holbrook is a 39 year old male obese male who presents with septic shock, hypotension, tachypnea from a assisted. Apparently he recently had a history of COVID 19 but we do not know the exact timeline of when he was diagnosed and how he was treated. He was not hypoxic and saturating in the 90% on 4 L of blood he was intubated for mental status changes tachypnea and septic shock. His urine is putrid and consistent with urinary tract infection. Chest x-ray was normal and shows no significant pneumonia. I am not quite sure why he is in the assisted but he has a history of asthma and obstructive sleep apnea as well as allergic rhinitis. Review of Systems Review of Systems: All systems reviewed & are unremarkable except as noted in HPI and below PMFSH Past Medical History Medical History (Updated 04/30/20 @ 14:42 by Cherie Grant MD) Asthma Atopy Body mass index (BMI) of 50-59.9 in adult (01/26/18) Chronic respiratory failure with hypercapnia [place] (obstructive sleep apnea) Pulmonary hypertension Seasonal allergic rhinitis Surgical History Surgical History (Updated 05/12/19 @ 16:17 by Gonzalez Banerjee CMA) History of carpal tunnel release History of eye surgery History of testicular surgery Family History Family History (Updated 07/25/17 @ 07:54 by DOCTOR UNKNOWN) Father Diabetes m
--- NOTE | 2020-04-30 15:07 | PM.IMHP ---
H&P: HPI History of Present Illness Date/Time: 04/30/20 15:07 Chief Complaint: Shortness of breath Narrative: Francisco Holbrook is a 39 year old male WHO WAS A RESIDENT AT [facility]. The patient had tested positive for COVID-19 on 03/05/2020 and went to [facility] he was there until 03/10/2020 and he was transferred to [facility] he had been there until about a week ago and then was transferred to [facility]. It looks like the patient is still on Decadron. White count was noted to be 23.7, neutrophils 20.14. Arterial blood gases were performed pH was 7.253. Bicarb 15.6. BNP 1500. patient was positive for UTI. Patient was found to be septic. A central line was placed in the emergency room and the patient was intubated at that time. I am not able to obtain any information from the patient as he is intubated and on sedation. The patient came into the emergency room septic shock, hypotension, tachypnea from the long-term. Patient was intubated due to altered mental status changes. The patient has seen our lime kiln and recausticizing operator here in the past although it has been quite sometime it looks like a last note was from [facility] on 05/14/2019. Is a follow-up regarding [place] on trilogy in asthma. He also has a history of autism. He has hyper IgE syndrome. but he was not able to get xolair. however his insurance would not cover it. Chest x-ray was read as endotracheal tube tip and the right main stream bronchus recommend withdrawal he chest x-ray was read as patchy and bandlike opacities in the bilateral mid and lower lung zones which could represent atelectasis and/or pneumonia. Volume loss in the right hemo thorax with elevation the right hemidiaphragm. Cardiomegaly. The patient is on Levophed currently. He is also sedated with propofol. His potassium was found to be 5.8 is sodium 129. Creatinine 3.4. The patient was given a nebulizer treatment. He was given sodium bicarb, regular insulin and calcium gluconate. patient was started on Levaquin and vancomycin in the emergency room. The supervisor underwriting clerks has seen the patient. I did call the [facility]. They did give me the phone number of his brother Delgado. The [phone]. the patient is being admitted to ICU inpatient. Date of service 04/30/2020 Review of Systems Review of Systems: ROS unobtainable: Yes unobtainable due to endotracheal tube Constitutional: Constitutional: Reports as per HPI and Reports no additional constitutional complaints Eyes: Eyes: Reports as per HPI and Reports no additional eye complaints ENT: Reports system reviewed and no additional complaints, except as documented and Reports Normal hearing present Cardiovascular: Cardiovascular: Reports no additional cardiovascular complaints Respiratory: Respiratory: Reports no additional respiratory complaints and Reports no additional respiratory complaints Gastrointestinal: Gastrointestinal: Reports as per HPI and Reports no additional gastrointestinal complaints Musculoskeletal: Musculoskeletal: Reports no additional musculoskeletal complaints Integumentary/Breasts: Skin/Breast: Reports system reviewed and no additional complaints, except as docu and Reports as per HPI Neurologic: Reports system reviewed and no additional complaints, except as documented, Reports as per HPI and Reports Normal hearing present Psychiatric: Psychiatric: Reports no additional psychiatric complaints and Reports as per HPI Endocrine: Endocrine: Reports no additional endocrine complaints Hematologic/Lymphatic: Hematologic/Lymphatic: Reports no additional hematologic/lymphatic complaints Allergic/Immunologic: Allergic/Immunologic: Reports no additional allergic/immunologic complaints [facility] Past Medical History Medical History (Updated 04/30/20 @ 15:59 by Cathy Dunham NP) Asthma Atopy Autism Body mass index (BMI) of 50-59.9 in adult (01/26/18) Chronic r
[2020-04-30] MEDS: LACTATED RINGERS 1,000 ML 75 ML IV CONT (15:15)
[2020-04-30] MEDS: LACTATED RINGERS 1,000 ML 1000 ML IV CONT ×2 (15:15→19:56)
[2020-04-30] MEDS: CENTRAL LINE FLUSH 10 ML IV PUSH ×2 (15:22→21:39)
[2020-04-30 16:32] LABS: Anion Gap 8 mmol/L (8-16); Blood Urea Nitrogen 91 mg/dL (9-20); Calcium 5.7 mg/dL (8.4-10.2); Carbon Dioxide 18 mmol/L (22-30); Chloride 103 mmol/L (98-107); Glucose 144 mg/dL (75-110); Magnesium 1.8 mg/dL (1.6-2.3); Potassium 5.1 mmol/L (3.4-5.0); Sodium 129 mmol/L (137-145)
[2020-04-30 16:38] LABS: Estimated CRCL calculation 42 ml/min; Estimated Glomerular Filt Rate 22
--- NOTE | 2020-04-30 17:08 | PC.NURSE ---
Attempted to call patients brotherDelgado at [phone] and at [phone] with no answer x 2, will continue to try and contact for inpatient admission information.
[2020-04-30] MEDS: LACTATED RINGERS 1,000 ML 999 ML IV CONT ×2 (18:42→19:57)
[2020-04-30] MEDS: FENTANYL 2,500MCG/NS250ML(*CRX 2,500 MCG/250 ML BAG 7.5 MCG IV CONT (21:19)
[2020-04-30] MEDS: HEPARIN SODIUM 5,000 UNITS/ML VIAL 5000 UNITS SUB-Q (21:39)
[2020-04-30] MEDS: ALBUTEROL SULFATE NEB 2.5 MG/0.5 ML INH INHALATION (21:50)
[2020-04-30] MEDS: BUDESONIDE RESPULE NEB 0.5 MG/2 ML AMP INHALATION (21:51)
[2020-05-01] VITALS (48 sets, daily range): BP systolic 70–151; BP diastolic 38–92; PULSE 87–109; RESP 15–30; TEMP 36.2–37.1; O2SAT 95–99; BMI 41.9
[2020-05-01] MEDS: NOREPINEPHRINE 8 MG/D5W 250 ML 8 MG/250 ML BAG 82.5 MG IV CONT ×3 (00:08→06:03)
[2020-05-01] MEDS: SODIUM CHLORIDE 0.9% IV 500 ML IV CONT (00:40)
[2020-05-01] MEDS: VASOPRESSIN INJ 100 UNITS in DEXTROSE 5% 95 ML IV CONT (01:00)
[2020-05-01 01:10] LABS: Alveolar/Arterial O2 Gradient 90.4 mmHg; Carboxyhemoglobin 0.3 % THb (0-2.0); Fractional Inspired Oxygen 30 %; HCO3 ABG 15.1 mEq/l (22.0-26.0); Methemoglobin ABG 0.5 %THb (0-1.5); Oxygen Content ABG 12.1 %vol (16.0-22.0); Oxygen Saturation ABG 94.8 % (95.0-100.0); Oxyhemoglobin 92.9 % THb (90.0-100.0); PCO2 ABG 34.4 mmHg (35.0-45.0); PO2 ABG 83.1 mmHg (80.0-100.0); PO2 FiO2 Ratio Arterial Blood 2.77 %; Reduced Hemoglobin 6.3 %THb (0-5.0); Total Hemoglobin 9.2 g/dL (12.0-18.0)
[2020-05-01 01:11] LABS: Modified Allen's Test Pass; Site Drawn LEFT RADIAL; pH ABG 7.261 (7.350-7.450)
[2020-05-01 01:12] LABS: Arterial Blood Gas PEEP 8 cmH2O; Arterial Blood Gas Tidal Volume 450 ml; Arterial Blood Gas Vent Mode CMV; Arterial Blood Gas Ventilator rate 15 /MIN; Device VENTILATOR
[2020-05-01 01:31] LABS: Lactic Acid Reflex 1.2 mmol/L (0.7-2.1)
--- NOTE | 2020-05-01 01:59 | WPDPROCEDUR ---
Procedures Arterial Line Arterial Line Date: 05/01/20 Arterial Line Time: 01:45 Discussed with the patient/family/POA, the placement of an arterial catheter, including its clinical necessity/indication and associated potential risks, benefits and alternatives.: Yes Patient Position: supine Teletype Technician Prep: sterile gown, sterile gloves, mask and hat Site: right and radial Site Prep: chlorhexidine Skin Anesthesia: placed under general anesthesia Technique used: ultrasound-guided Size (Gauge): 16 Length: 4.4 cm Closure/Dressing: suture, transparent dressing and securement product Patient tolerated procedure: well and no complications Complications: none Additional comments: Date of service was 05/01/2020 01:45 am.
[2020-05-01] MEDS: SODIUM BICARBONATE 8.4% 50 MEQ/50 ML SYRINGE (02:24)
[2020-05-01] MEDS: ALBUTEROL SULFATE NEB 2.5 MG/0.5 ML INH INHALATION ×4 (02:56→19:58)
[2020-05-01] MEDS: SODIUM BICARBONATE 8.4% 150 MEQ in DEXTROSE 5% 1,000 ML 950 ML 100 MEQ IV CONT ×2 (03:00→15:30)
[2020-05-01 05:00] LABS: Alveolar/Arterial O2 Gradient 128.4 mmHg; Carboxyhemoglobin 0.3 % THb (0-2.0); Fractional Inspired Oxygen 40 %; HCO3 ABG 15.8 mEq/l (22.0-26.0); Methemoglobin ABG 0.6 %THb (0-1.5); Oxygen Saturation ABG 97.3 % (95.0-100.0); Oxyhemoglobin 96.1 % THb (90.0-100.0); Total Hemoglobin 8.7 g/dL (12.0-18.0)
[2020-05-01 05:03] LABS: Device VENTILATOR; Site Drawn ARTLINE; pH ABG 7.226 (7.350-7.450)
[2020-05-01 05:06] LABS: Arterial Blood Gas PEEP 5 cmH2O; Arterial Blood Gas Tidal Volume 450 ml; Arterial Blood Gas Vent Mode ASSIST CONTROL; Arterial Blood Gas Ventilator rate 15 /MIN
[2020-05-01 05:07] LABS: Hematocrit 25.2 % (42.0-52.0); Hemoglobin 7.5 g/dL (14.0-18.0); Mean Corpuscular HGB Conc 29.8 g/dl (32-36); Mean Corpuscular Hemoglobin 29.4 pg (26-34); Mean Corpuscular Volume 98.8 fl (80-100); Mean Platelet Volume 10.4 fl (7.4-10.4); Platelet Count Result 393 k/mm3 (150-375); Red Blood Count 2.55 M/mm3 (4.6-6.20); Red Cell Distribution Width 19.9 % (11.5-14.5); White Blood Count 39.5 K/mm3 (4.5-10.0)
[2020-05-01 05:36] LABS: Alanine Aminotransferase 30 U/L (4-50); Albumin Level 2.3 g/dL (3.5-5.1); Alkaline Phosphatase 666 U/L (38-126); Anion Gap 11 mmol/L (8-16); Aspartate Amino Transferase 35 U/L (17-59); Bilirubin,Total 2.4 mg/dL (0.2-1.3); Blood Urea Nitrogen 81 mg/dL (9-20); Calcium 6.2 mg/dL (8.4-10.2); Carbon Dioxide 17 mmol/L (22-30); Chloride 103 mmol/L (98-107); Estimated CRCL calculation 53 ml/min; Estimated Glomerular Filt Rate 29; Glucose 159 mg/dL (75-110); Potassium 4.8 mmol/L (3.4-5.0); Sodium 131 mmol/L (137-145)
[2020-05-01] MEDS: HYDROCORTISONE SODIUM SUCCINATE 100 MG/2 ML VIAL IV PUSH ×3 (05:51→20:43)
[2020-05-01] MEDS: CENTRAL LINE FLUSH 10 ML IV PUSH ×4 (05:51→21:02)
[2020-05-01] MEDS: HEPARIN SODIUM 5,000 UNITS/ML VIAL 5000 UNITS SUB-Q ×3 (05:52→21:02)
[2020-05-01 06:24] LABS: Band Neutrophils Percent 5 % (0-6); Lymphocytes Absolute Manual 1.97 K/mm3 (1.1-4.5); Metamyelocytes Percent 2 %; Monocytes Absolute Manual 0.79 K/mm3 (0.1-0.90); Monocytes Percent Manual 2 % (3-9); Neutrophils Absolute Manual 35.94 K/mm3 (1.3-6.7); Neutrophils Percent Manual 86 % (46-73); Nucleated Red Blood Cells 2 %; Platelet Estimate Adequate (Adequate); Total Cells Counted 100
[2020-05-01 06:25] LABS: Anisocytosis 1+ (NORMAL); Hypochromasia 1+ (NORMAL)
[2020-05-01] MEDS: BUDESONIDE RESPULE NEB 0.5 MG/2 ML AMP INHALATION ×2 (08:40→19:58)
[2020-05-01] MEDS: NOREPINEPHRINE 8 MG/D5W 250 ML 8 MG/250 ML BAG 56.25 MG IV CONT ×2 (09:11→13:47)
--- NOTE | 2020-05-01 10:47 | ECHO_ITS ---
Patient Info Name: Francisco Holbrook Age: 39 years : 1980 Gender: Male Ht: 72 in Wt: 309 lbs BSA: 2.73 m2 HR: 108 bpm BP: 70 / 38 mmHg Heart Rhythm: Tachycardia Technical Quality: Fair Exam Date: 05/01/2020 11:31 AM Exam Location: [facility] Patient Status: Inpatient Admit Date: 04/30/2020 Staff Ordering Physician: Babatunde Root MD Machine Turner: Dorcas Damon RDCS Attending Provider: Cornel Li MD Referring Physician: Ivett CERVANTES; Exam Type: CA echo doppler color flow Study Info Indications R57.0 - Cardiogenic shock Complete two-dimensional, color flow and Doppler transthoracic echocardiogram is performed. Summary 1. Complete two-dimensional, color flow and Doppler transthoracic echocardiogram is performed. 2. Technically difficult study with limited views. Regional wall motion assessment limited due to poor endomyocardial border definition. 3. Left ventricular chamber dimension is normal. 4. Left ventricular systolic function is hyperdynamic, estimated at >70%. 5. There is no aortic valve stenosis. 6. There is trace mitral valve regurgitation. 7. There is trace tricuspid valve regurgitation. 8. No pulmonary hypertension, estimated pulmonary arterial systolic pressure is 23 mmHg. 9. Normal inferior vena cava with >50% collapse upon inspiration consistent with normal right atrial pressure, 5 mmHg. 10. There is small pericardial effusion. Recommendations * Consider repeat study with echo contrast administration to delineate wall motion abnormality if clinically indicated. Left Ventricle Left ventricular chamber dimension is normal. Left ventricular systolic function is hyperdynamic, estimated at >70%. There is mildly increased left ventricular wall thickness. The left ventricular diastolic function is normal. Technically difficult study with limited views. Regional wall motion assessment limited due to poor endomyocardial border definition. Right Ventricle Right ventricular chamber dimension is not well visualized. Left Atria Left atrial chamber dimension is normal. Right Atria Right atrial chamber dimension is normal. Aortic Valve The aortic valve is not well visualized. There is no aortic valve stenosis. There is no aortic valve regurgitation. Pulmonic Valve The pulmonic valve is not well visualized. Mitral Valve The mitral valve has normal leaflets. There is trace mitral valve regurgitation. Tricuspid Valve The tricuspid valve leaflets are not well visualized. There is trace tricuspid valve regurgitation. No pulmonary hypertension, estimated pulmonary arterial systolic pressure is 23 mmHg. Pericardium/Pleural The pericardium appears normal. There is small pericardial effusion. Inferior Vena Cava Normal inferior vena cava with >50% collapse upon inspiration consistent with normal right atrial pressure, 5 mmHg. Aorta The aortic root size at the sinus of Valsalva is normal. Left Ventricular Outflow Tract Name Value Normal LVOT 2D LVOT Diameter 2.0 cm LVOT Doppler LVOT Peak Velocity 192 cm/s LVOT Peak Grad
--- NOTE | 2020-05-01 11:36 | WPDINFPN2 ---
Progress Note: A&P Assessment and Plan (1) Septic shock: Code(s): A41.9 - Sepsis, unspecified organism; R65.21 - Severe sepsis with septic shock Status: Acute Assessment and Plan: Septic shock due to gram negative bacteremia with infection REC Cefepime and levofloxacin #2, f/u micro Subjective Date/time seen: 05/01/20 11:36 Objective Data Vital Signs Vital Signs: Vital Signs - 24 hr 04/30/20 12:23 04/30/20 13:57 04/30/20 16:00 Temperature 35.7 C L Pulse Rate 112 H 103 H 93 Respiratory Rate 25 H 29 H 24 H Blood Pressure 82/32 L 91/46 L 106/63 Pulse Oximetry 98 95 97 04/30/20 17:57 04/30/20 18:09 04/30/20 18:19 Temperature Pulse Rate 84 82 87 Respiratory Rate 25 H 28 H Blood Pressure 93/31 L 93/38 L Pulse Oximetry 100 04/30/20 19:53 04/30/20 19:54 04/30/20 19:55 Temperature Pulse Rate 87 87 89 Respiratory Rate 28 H 26 H Blood Pressure 102/52 L Pulse Oximetry 100 99 04/30/20 20:00 04/30/20 21:19 04/30/20 21:21 Temperature Pulse Rate 95 96 96 Respiratory Rate 22 H 24 H 25 H Blood Pressure Pulse Oximetry 04/30/20 21:22 04/30/20 21:50 04/30/20 22:00 Temperature 36.2 C L Pulse Rate 96 95 95 Respiratory Rate 25 H 24 H 27 H Blood Pressure 108/55 L Pulse Oximetry 97 04/30/20 22:01 05/01/20 00:00 05/01/20 00:08 Temperature 36.2 C L Pulse Rate 97 99 100 Respiratory Rate 22 H 19 Blood Pressure 105/42 L 105/42 L Pulse Oximetry 97 05/01/20 01:00 05/01/20 02:00 05/01/20 02:56 Temperature 36.6 C Pulse Rate 95 94 95 Respiratory Rate 24 H 16 Blood Pressure 74/48 L 106/73 Pulse Oximetry 95 05/01/20 03:05 05/01/20 03:30 05/01/20 04:00 Temperature 36.4 C Pulse Rate 93 94 94 Respiratory Rate 20 20 Blood Pressure 104/60 100/39 L Pulse Oximetry 97 05/01/20 04:55 05/01/20 06:00 05/01/20 06:03 Temperature 36.6 C Pulse Rate 102 H 96 96 Respiratory Rate 25 H 20 Blood Pressure 105/56 L 108/44 L Pulse Oximetry 96 05/01/20 07:52 05/01/20 07:59 05/01/20 08:06 Temperature Pulse Rate 97 96 98 Respiratory Rate Blood Pressure 88/62 L 89/58 L 101/66 Pulse Oximetry 05/01/20 08:07 05/01/20 08:11 05/01/20 08:16 Temperature Pulse Rate 98 98 98 Respiratory Rate Blood Pressure 108/62 103/63 95/59 L Pulse Oximetry 05/01/20 08:17 05/01/20 08:41 05/01/20 08:55 Temperature Pulse Rate 97 99 101 H Respiratory Rate 20 30 H Blood Pressure 96/56 L 89/71 L Pulse Oximetry 05/01/20 08:56 05/01/20 09:09 05/01/20 09:11 Temperature Pulse Rate 101 H 99 100 Respiratory Rate 25 H 20 Blood Pressure 96/52 L Pulse Oximetry 05/01/20 09:19 05/01/20 10:03 05/01/20 10:34 Temperature Pulse Rate 100 105 H 109 H Respiratory Rate 25 H 26 H 27 H Blood Pressure 85/41 L Pulse Oximetry 05/01/20 10:35 Temperature Pulse Rate 109 H Respiratory Rate Blood Pressure 70/38 L Pulse Oximetry Intake/Output Intake/Output: Intake & Output 04/28/20 04/29/20 04/30/20 05/01/20 23:59 23:59 23:59 23:59 Intake Total 6352 1950 Output Total 90 205 Balance 6217 6442 Meds/Results Medications: Active Medications Generic Name Dose Route Start Last Admin Trade Name Freq PRN Reason Stop Dose Admin Albuterol 2.5 mg 04/30/20 14:55 05/01/20 08:40 Albuterol Sulfate Neb 2.5 Mg/0.5 Ml Inh INHALATION 2.5 mg Q6HRT DANIEL Administration Budesonide 0.5 mg 04/30/20 14:55 05/01/20 08:40 Budesonide Respule Neb 0.5 Mg/2 Ml Amp INHALATION 0.5 mg Q12HRT DANIEL Administration Heparin Sodium (Porcine) 5,000 units 04/30/20 22:00 05/01/20 05:52 Heparin Sodium 5,000 Units/Ml Vial SUB-Q 5,000 units Q8HR DANIEL Administration Hydrocortisone Sodium Succinate 100 mg 05/01/20 05:00 05/01/20 05:51 Hydrocortisone Sodium Succinate 100 Mg/2 Ml Vial IV PUSH 100 mg Q8H DANIEL Administration Lactated Ringer's 1,000 mls @ 75 mls/hr 04/30/20 16:50 05/01/20 06:
--- NOTE | 2020-05-01 11:51 | WPDINTPN ---
Progress Note: A&P Assessment and Plan (1) Acute respiratory failure: Code(s): J96.00 - Acute respiratory failure, unspecified whether with hypoxia or hypercapnia Status: Acute Assessment and Plan: Acute respiratory failure likely related to septic shock, altered mental status, metabolic acidosis -on CMV mode of ventilation peep of 5, 40% FiO2 (2) Septic shock: Code(s): A41.9 - Sepsis, unspecified organism; R65.21 - Severe sepsis with septic shock Status: Acute Assessment and Plan: Worsening leukocytosis bandemia, putrid urine consistent with UTI patient currently in septic shock -lactic acid 1.2 this morning -requiring Levophed, vasopressin and Zane-Synephrine. Maintain MAP > 65 mmHg -continue cefepime and Levaquin. Appreciate ID evaluation, vancomycin was discontinued -blood cultures growing gram-negative bacilli 2/2 bottles -urine cultures pending -echocardiogram has been ordered -venous Dopplers 05/01/2020: Negative for DVT (3) UTI (urinary tract infection): Code(s): N39.0 - Urinary tract infection, site not specified Status: Acute Assessment and Plan: See above (4) GONZALO (acute kidney injury): Code(s): N17.9 - Acute kidney failure, unspecified Status: Acute Assessment and Plan: Acute kidney injury, patient oliguric/anuric -adequate fluids were infused in the ED as well as in the ICU -patient on 3 pressors -nephrology has been consulted -renal ultrasound normal kidneys with no hydronephrosis -urine lytes have been ordered (5) COVID-19: Code(s): U07.1 - COVID-19 Status: Acute Assessment and Plan: Remote history of COVID-19 we are still trying to get details he was on prednisone at 5 mg daily were not sure how long he has been on systemic steroids and what doses. He does not appear to have any significant infiltrates on chest x-ray and he is not requiring high amounts of ventilator support or oxygenation. He will remain on isolation until we can get a clear history of when symptoms began and when he turned positive and how he was treated. (6) Asthma: Qualifiers: Asthma severity: unspecified severity Asthma persistence: unspecified Asthma complication type: unspecified Qualified Code(s): J45.909 - Unspecified asthma, uncomplicated Code(s): J45.909 - Unspecified asthma, uncomplicated Status: Acute Assessment and Plan: Continue scheduled albuterol 2.5 mg q.6 hours along with Pulmicort 0.5 mg q.12 hours nebulized. (7) DVT prophylaxis: Code(s): Z29.9 - Encounter for prophylactic measures, unspecified Status: Acute Assessment and Plan: Heparin subcu (8) Dietary counseling and surveillance: Code(s): Z71.3 - Dietary counseling and surveillance Status: Acute Assessment and Plan: Stress ulcer prophylaxis: Protonix Additional Plan Called Delgado Holbrook, Pt's brother, he does not have a voicemail on his phone so could not leave a message. Will try again Code Status is Full Total Critical Care Time -35 minutes Due to a high probability of clinically significant, life threatening deterioration, the patient required my highest level of preparedness to intervene emergently and I personally spent this critical care time directly and personally managing the patient. This critical care time included obtaining a history; examining the patient; pulse oximetry; ordering and review of studies; arranging urgent treatment with development of a management plan; evaluation of patient's response to treatment; frequent reassessment; and discussions with other providers. It was exclusive of separately billable procedures and treating other patients and teaching time. Please see Assessment and Plan section and the rest of the note for further information on patient assessment and treatment Subjective Date/time seen: 05/01/20 11:51 Interval history: Reason for consult: Septic shock, U
--- NOTE | 2020-05-01 12:52 | PM.CNNEP ---
Assessment and Plan Assessment and plan (1) GONZALO (acute kidney injury): Code(s): N17.9 - Acute kidney failure, unspecified Status: Acute Assessment and Plan: Francisco has acute kidney injury. He does not come to this hospital very often but in 2018 his creatinine was normal. Most likely is acute kidney injuries related to the severe hypotension and septic syndrome. He could have obstruction as well so ultrasound has been ordered. Allergic interstitial nephritis is possible because of the multiple medications he has been on over the last month or so but he does not have a rash or eosinophilia. He is unlikely to have glomerulonephritis in this setting. Will check urine electrolytes and eosinophils. Check an ultrasound of the kidneys. Will follow labs. (2) Hyponatremia: Code(s): E87.1 - Hypo-osmolality and hyponatremia Status: Acute Assessment and Plan: Sodium level is mildly low. This is most likely due to the renal failure. Will watch this as we go along. (3) Hyperkalemia: Code(s): E87.5 - Hyperkalemia Status: Acute Assessment and Plan: Potassium was high on admission but is normal now. We will keep an eye on this (4) Septic shock: Code(s): A41.9 - Sepsis, unspecified organism; R65.21 - Severe sepsis with septic shock Status: Acute Assessment and Plan: the patient has low blood pressure and is on pressors. Blood cultures are negative so far on paper. he is on antibiotics covering a broad-spectrum. (5) Acute respiratory failure: Code(s): J96.00 - Acute respiratory failure, unspecified whether with hypoxia or hypercapnia Status: Acute Assessment and Plan: He is now on the ventilator. He has multiple underlying diseases as well. (6) COVID-19: Code(s): U07.1 - COVID-19 Status: Acute Assessment and Plan: This was positive on 03/25. (7) Autism: Code(s): F84.0 - Autistic disorder Status: Chronic (8) UTI (urinary tract infection): Code(s): N39.0 - Urinary tract infection, site not specified Status: Acute Assessment and Plan: His urine has lots of white cells in it. This may be the source of his infection (9) [place] (obstructive sleep apnea): Code(s): G47.33 - Obstructive sleep apnea (adult) (pediatric) Status: Chronic History of Present Illness Reason for Consult Consult date: 05/01/20 Chief Complaint Chief complaint: septic shock/uti/chronic respiratory failure/acute History of Present Illness Narrative: Francisco is an unfortunate 39-year-old gentleman who has multiple medical problems including autism, obesity, chronic respiratory failure with hypercapnia, sleep apnea syndrome, pulmonary hypertension, asthma. in late February the patient had a positive COVID-19 test. He went to [facility] was there for a few days and was transferred to [facility] there. He apparently improved enough to be able to be discharged to rehab at [facility]. While he was there he was short of breath. He was evaluated by the staff and found to have an O2 sat of 80%. They called the EMT is and he was taken over to [facility] the emergency room. He did not go to his regular hospitals because of his current location. The patient was evaluated in the ER. He was intubated. He was also hypotensive and so is on pressors. His creatinine was high. He has made a little bit of urine. His potassium was high and he received medications for this and it is back to normal now he cannot give a history. Renal consultation was requested because of his high creatinine. Review of Systems Review of Systems: ROS unobtainable: Yes unobtainable due to medical condition PMFSH Past Medical History Medical History Asthma Atopy Autism Body mass index (BMI) of 50-59.9 in merly
--- NOTE | 2020-05-01 13:29 | CONS_ITS ---
DATE OF CONSULTATION: 05/01/2020 REASON FOR CONSULTATION: Shock. HISTORY OF PRESENT ILLNESS: A 39-year-old male who cannot provide any history as he is sedated and intubated. He was at his shelter for only the last week, prior living arrangements not available. He was sent from his shelter due to respiratory distress yesterday morning. He is now intubated. He was also hypotensive on arrival and remains on pressors. He has had a left IJ triple-lumen catheter, right radial arterial catheter placed. He also had placement of a Guan catheter in the emergency room, not present prior to admission according to the record. No other events here in the hospital and no other symptoms prior to admission noted. ALLERGIES: CEFACLOR, LATEX, PENICILLIN, REACTIONS NOT AVAILABLE. CURRENT MEDICATIONS: At his shelter, he is on prednisone 5 mg daily. He currently is on hydrocortisone. HABITS: No tobacco. No alcohol. PAST MEDICAL HISTORY: Morbid obesity, asthma, chronic respiratory failure, GE[place]GIA, pulmonary hypertension, carpal tunnel surgery, and unspecified eye and testicle surgery. He also carries a diagnosis of autism, developmental delay, and apparently bipolar as well. REVIEW OF SYSTEMS: Decreased urine output since arrival. 14-point review otherwise negative, though not obtainable from the patient in a direct way due to his intubated status. FAMILY HISTORY: Colon cancer, throat cancer, diabetes, [place]. Both parents have . SOCIAL HISTORY: Has a brother. He is single. No children. Disabled. PHYSICAL EXAMINATION: GENERAL: Young male who appears actual age. No respiratory distress. VITAL SIGNS: He is tachypneic on the ventilator at 26, 109, 70/38, MAP 48. He has been afebrile since arrival a day ago. SKIN: Multiple tattoos. No rashes. No skin breakdown. He does have some ecchymosis over the abdominal wall with appearance of mottling, although I cannot exclude port-wine stains. NODES: No cervical adenopathy. EENT: Conjunctivae are clear. There is no icterus. Orally intubated which compromises exam, but inspection otherwise normal. NECK: Without meningismus, mass, tenderness, abnormal contour. CHEST: He has no crepitus. No tenderness is apparent. LUNGS: Coarse breath sounds, vesicular. Clear to percussion. CARDIAC: Tachycardic, regular. No murmurs. No gallops. Unable to palpate PMI. He has no heaves. Pulses are 1+. ABDOMEN: Massively obese. No tenderness is apparent. No masses and no apparent distention. He has absent bowel sounds. : Guan catheter draining scant dark yellow urine. EXTREMITIES: 2+ nonpitting edema of distal legs, none in the upper extremities. LABORATORY DATA: Blood cultures done a day ago, 1 out of 2 sets gram-negative rods. Urine culture not yet available. White count 39.5, up from 23.7 yesterday. His white count 02/08/2018, 10.7, hemoglobin stable at 7.5, platelets 393. Differential shows less marked left shift than yesterday. Prothrombin time 15.1. His blood gases 7.23, 39, 112, 16, 97% on the noted ventilator settings. AA gradient 128, essentially same as yesterday. His sodium up to 131, CO2 is 17, his BUN is 81, creatinine 2.5 down from 3.2. Accu-Cheks mid 100s. Lactate normal. His bilirubin 2.4, down from 3.1. Transaminases normal. His alkaline phosphatase 666, down from 716. BNP 1580. His albumin is 2.3. His urinalysis, multiple abnormalities, which are reviewed. RADIOLOGY: Renal ultrasound normal. His venous Doppler ultrasound showed no DVT. His chest x-ray, bilateral lung opacities. ASSESSMENT: 1. Hypotension and shock. This is likely infectious in nature. He has gram-negative rods seen in 1 of his 2 blood cultures. Sources could include biliary, other right u
[2020-05-01] MEDS: PANTOPRAZOLE SODIUM IV 40 MG VIAL IV PUSH (13:47)
[2020-05-01 16:03] LABS: Creatine Kinase 228 U/L (55-170)
--- NOTE | 2020-05-01 16:49 | PM.IMPN ---
Progress Note: A&P Assessment and Plan (1) Septic shock: Code(s): A41.9 - Sepsis, unspecified organism; R65.21 - Severe sepsis with septic shock Status: Acute Assessment and Plan: Patient was hypotensive and was requiring vasopressors. The patient also is ventilated and sedated. Printer Operator has seen the patient. Most likely is related to his urinary tract infection. Unsure if he has a chronic indwelling Guan catheter. The patient has a Guan catheter now that is draining cloudy urine. Continue with cefepime and Levaquin. Please renal dose per pharmacist. Blood and urine cultures are pending. Lactic was normal 1.5. Further recommendations per stone grader. Patient's blood pressure is sustaining a map greater than 60. Pulse rate has improved to the lower 100s. 05/01/20 16:49 patient is a resident of with hx of autisim, sleep apnea chronic respiratory failure secondary to hypercapnia most likely secondary to hypoventilation patient was diagnosed with COVID-19 it initially he was at the [facility] from the he was transferred to [facility] will he was treated and improved and was sent back to residential for rehab however is today patient was quite hypoxic he would desaturate and patient was brought to the emergency department by EMT, upon arrival patient was hypotensive, and tachypneic with respiratory rate 40 patient was intubated emergency depart and transferred to ICU, patient is currently on vent unable to provide any review of symptom. Patient was seen by Dr. monson and suspect patient has a septic shock as patient is blood culture is growing gram-negative rods started the patient on levofloxacin correct to the dose for chronic kidney disease, patient is seen by stone grader, patient is seen by Nephrology appreciate (2) UTI (urinary tract infection): Code(s): N39.0 - Urinary tract infection, site not specified Status: Acute Assessment and Plan: See above under septic shock. . Renal does cefepime and Levaquin. Urine and blood cultures are pending. Patient has leukocytosis and became hypotensive. He required vasopressors. He had tachycardia as well. (3) GEORGIA (obstructive sleep apnea): Code(s): G47.33 - Obstructive sleep apnea (adult) (pediatric) Status: Chronic Assessment and Plan: The patient is currently intubated. There was some mention about a trilogy in pulmonology notes from 1 year ago. (4) Chronic respiratory failure with hypercapnia: Code(s): J96.12 - Chronic respiratory failure with hypercapnia Status: Acute Assessment and Plan: Patient currently is intubated. May consider a CT pulmonary once his renal function improved since he was diagnosed with covid 19 1 month ago. He could possibly have a PE. (5) Asthma: Qualifiers: Asthma severity: unspecified severity Asthma persistence: unspecified Asthma complication type: unspecified Qualified Code(s): J45.909 - Unspecified asthma, uncomplicated Code(s): J45.909 - Unspecified asthma, uncomplicated Status: Acute Assessment and Plan: Patient was known to have high for IgE syndrome but was not able to get approved for the treatment at the time. Continue with nebulizer treatments. (6) COVID-19: Code(s): U07.1 - COVID-19 Status: Acute Assessment and Plan: Patient was diagnosed earlier in February and we are awaiting records from [facility] as well as [facility]. Apparently the patient had been [facility]ated [facility]. (7) Autism: Code(s): F84.0 - Autistic disorder Status: Chronic Assessment and Plan: Unsure of baseline. The patient had lives home alone at 1 time. (8) GONZALO (acute kidney injury): Code(s): N17.9 - Acute kidney failure, unspecified Status: Acute Assessment and Plan: Continue to hydrate but gently. The patient does have cardiomegaly. Patient's creatinine is 3.4. Ple
[2020-05-01] MEDS: FENTANYL 2,500MCG/NS250ML(*CRX 2,500 MCG/250 ML BAG 7.5 MCG IV CONT (17:09)
[2020-05-01] MEDS: NOREPINEPHRINE 8 MG/D5W 250 ML 8 MG/250 ML BAG 43.13 MG IV CONT (18:19)
[2020-05-01 20:35] LABS: Cortisol Random > 123.00 ug/dL
[2020-05-01 23:15] LABS: Glucose Point of Care 174 (65-105)
[2020-05-02] VITALS (46 sets, daily range): BP systolic 88–170; BP diastolic 42–75; PULSE 77–106; RESP 20–23; TEMP 36.8–37.4; O2SAT 93–100
[2020-05-02] MEDS: NOREPINEPHRINE 8 MG/D5W 250 ML 8 MG/250 ML BAG 43.13 MG IV CONT (00:25)
[2020-05-02] MEDS: ALBUTEROL SULFATE NEB 2.5 MG/0.5 ML INH INHALATION ×4 (02:20→20:38)
[2020-05-02] MEDS: SODIUM BICARBONATE 8.4% 150 MEQ in DEXTROSE 5% 1,000 ML 950 ML 100 MEQ IV CONT ×3 (02:44→21:24)
[2020-05-02] MEDS: HYDROCORTISONE SODIUM SUCCINATE 100 MG/2 ML VIAL IV PUSH ×3 (04:28→21:23)
[2020-05-02] MEDS: CENTRAL LINE FLUSH 10 ML IV PUSH ×2 (04:29→21:22)
[2020-05-02 04:43] LABS: Hematocrit 23.6 % (42.0-52.0); Hemoglobin 7.1 g/dL (14.0-18.0); Mean Corpuscular HGB Conc 30.1 g/dl (32-36); Mean Corpuscular Hemoglobin 29.3 pg (26-34); Mean Corpuscular Volume 97.5 fl (80-100); Mean Platelet Volume 10.3 fl (7.4-10.4); Platelet Count Result 222 k/mm3 (150-375); Red Blood Count 2.42 M/mm3 (4.6-6.20); Red Cell Distribution Width 19.1 % (11.5-14.5); White Blood Count 43.5 K/mm3 (4.5-10.0)
[2020-05-02 05:15] LABS: Alveolar/Arterial O2 Gradient 149.6 mmHg; Base Excess ABG -7.9 mEq/l (+/-2.0); Carboxyhemoglobin 0.3 % THb (0-2.0); Fractional Inspired Oxygen 40 %; HCO3 ABG 18.1 mEq/l (22.0-26.0); Methemoglobin ABG 0.5 %THb (0-1.5); Oxygen Content ABG 10.3 %vol (16.0-22.0); Oxyhemoglobin 94.9 % THb (90.0-100.0); PCO2 ABG 39.3 mmHg (35.0-45.0); PO2 ABG 90.4 mmHg (80.0-100.0); PO2 FiO2 Ratio Arterial Blood 2.26 %; Reduced Hemoglobin 4.3 %THb (0-5.0)
[2020-05-02 05:16] LABS: Total Hemoglobin 7.6 g/dL (12.0-18.0); pH ABG 7.282 (7.350-7.450)
[2020-05-02 05:16] LABS: Anion Gap 11 mmol/L (8-16); Blood Urea Nitrogen 81 mg/dL (9-20); Calcium 5.8 mg/dL (8.4-10.2); Carbon Dioxide 20 mmol/L (22-30); Chloride 92 mmol/L (98-107); Estimated CRCL calculation 62 ml/min; Estimated Glomerular Filt Rate 34; Glucose 192 mg/dL (75-110); Magnesium 1.5 mg/dL (1.6-2.3); Potassium 4.7 mmol/L (3.4-5.0); Sodium 123 mmol/L (137-145)
[2020-05-02 05:17] LABS: Device VENTILATOR; Site Drawn ARTLINE
[2020-05-02 05:18] LABS: Arterial Blood Gas PEEP 5 cmH2O; Arterial Blood Gas Tidal Volume 450 ml; Arterial Blood Gas Vent Mode CMV; Arterial Blood Gas Ventilator rate 20 /MIN
[2020-05-02 05:25] LABS: Creatinine Urine 27.8 mg/dL; Total Protein Urine Random 37 mg/dL; Ur Ttl Prot Creatinine Ratio 1.33 mg/mg (0-0.20)
[2020-05-02] MEDS: NOREPINEPHRINE 8 MG/D5W 250 ML 8 MG/250 ML BAG 46.88 MG IV CONT ×4 (05:30→21:20)
[2020-05-02] MEDS: HEPARIN SODIUM 5,000 UNITS/ML VIAL 5000 UNITS SUB-Q ×3 (05:31→21:23)
[2020-05-02 05:33] LABS: Sodium Urine Random 34 meq/L
[2020-05-02 06:14] LABS: Band Neutrophils Percent 2 % (0-6); Metamyelocytes Percent 2 %; Monocytes Absolute Manual 0.87 K/mm3 (0.1-0.90); Monocytes Percent Manual 2 % (3-9); Neutrophils Absolute Manual 40.45 K/mm3 (1.3-6.7); Neutrophils Percent Manual 91 % (46-73); Total Cells Counted 100
[2020-05-02 06:15] LABS: Platelet Estimate Adequate (Adequate)
[2020-05-02] MEDS: BUDESONIDE RESPULE NEB 0.5 MG/2 ML AMP INHALATION ×2 (08:19→20:38)
[2020-05-02] MEDS: MAGNESIUM SULF 2 GM/WATER 50ML 2 GM/50 ML BAG IVPB (08:45)
[2020-05-02] MEDS: PANTOPRAZOLE SODIUM IV 40 MG VIAL IV PUSH (08:53)
--- NOTE | 2020-05-02 09:15 | PM.PNNEP ---
Progress Note: A&P Assessment and Plan (1) GONZALO (acute kidney injury): Code(s): N17.9 - Acute kidney failure, unspecified Status: Acute Assessment and Plan: Francisco has acute kidney injury. Renal ultrasound is unremarkable Urinalysis shows blood and leukocytes. Urine electrolytes are non pre renal Urine eosinophils pending Urine output is relatively meager. His creatinine has improved Most likely this is acute tubular necrosis secondary to septic shock. He is getting pressors, fluids, and antibiotics. Will check labs again tomorrow and monitor volume status. (2) Hyponatremia: Code(s): E87.1 - Hypo-osmolality and hyponatremia Status: Acute Assessment and Plan: Sodium level is lower. All of his fluids were placed in saline that could be. However he does have lots of hypotonic fluids going in just because of the number of IV meds he is on. He is not making much urine. Will give 3% saline to try to keep the sodium from dropping to much more. (3) Hyperkalemia: Code(s): E87.5 - Hyperkalemia Status: Acute Assessment and Plan: Resolved (4) Septic shock: Code(s): A41.9 - Sepsis, unspecified organism; R65.21 - Severe sepsis with septic shock Status: Acute Assessment and Plan: the patient has low blood pressure and is on pressors. Blood cultures are growing gram-negative rods.. he is on antibiotics covering a broad-spectrum. (5) Acute respiratory failure: Code(s): J96.00 - Acute respiratory failure, unspecified whether with hypoxia or hypercapnia Status: Acute Assessment and Plan: He is now on the ventilator. He has multiple underlying diseases as well. (6) COVID-19: Code(s): U07.1 - COVID-19 Status: Acute Assessment and Plan: This was positive on 03/25. He is in isolation (7) Autism: Code(s): F84.0 - Autistic disorder Status: Chronic (8) UTI (urinary tract infection): Code(s): N39.0 - Urinary tract infection, site not specified Status: Acute Assessment and Plan: His urine has lots of white cells in it. This may be the source of his infection On broad-spectrum antibiotics (9) [place] (obstructive sleep apnea): Code(s): G47.33 - Obstructive sleep apnea (adult) (pediatric) Status: Chronic Assessment and Plan: On the ventilator Subjective Date/time seen: 05/02/20 09:15 Interval history: Francisco looks about the same. Still intubated. He is on numerous pressors. Blood pressure seems relatively stable right now. Review of Systems Review of Systems: ROS unobtainable: Yes unobtainable due to medical condition Exam Narrative: Exam Narrative: WDWN male, intubated on the ventilator in the ICU. skin no rash head ncat lungs coarse bilaterally cor reg no rub abd BS+ nontender and soft ext trace to1+ edema. Objective Data Vital Signs Vital Signs: Vital Signs - 24 hr 05/01/20 09:19 05/01/20 10:03 05/01/20 10:34 Temperature Pulse Rate 100 105 H 109 H Respiratory Rate 25 H 26 H 27 H Blood Pressure 85/41 L Pulse Oximetry 05/01/20 10:35 05/01/20 12:00 05/01/20 13:38 Temperature 36.9 C Pulse Rate 109 H 99 92 Respiratory Rate 25 H Blood Pressure 70/38 L 124/47 L 106/65 Pulse Oximetry 97 05/01/20 13:47 05/01/20 13:48 05/01/20 13:51 Temperature Pulse Rate 92 92 91 Respiratory Rate 22 H Blood Pressure 108/84 103/80 Pulse Oximetry 05/01/20 14:00 05/01/20 14:25 05/01/20 15:48 Temperature Pulse Rate 88 89 90 Respiratory Rate 22 H 20 Blood Pressure 142/52 H 147/49 H Pulse Oximetry 95 05/01/20 16:00 05/01/20 17:09 05/01/20 18:00 Temperature 36.9 C Pulse Rate 88 94 92 Respiratory Rate 22 H 28 H 21 H Blood Pressure 149/51 H 148/55 H Pulse Oximetry 95 98 05/01/20 18:19 05/01/20 18:24 05/01/20 18:25 Temperature Pulse Rate 91 90 89 Respiratory Rate
--- NOTE | 2020-05-02 09:41 | WPDINTPN ---
Progress Note: A&P Assessment and Plan (1) Acute respiratory failure: Code(s): J96.00 - Acute respiratory failure, unspecified whether with hypoxia or hypercapnia Status: Acute Assessment and Plan: Acute respiratory failure likely related to septic shock, altered mental status, metabolic acidosis -on CMV mode of ventilation peep of 5, 40% FiO2 -chest x-ray and ABGs reviewed, ventilator adjusted -sedated with fentanyl and Versed infusion, maintain RASS of 0 to -2 -daily sedation vacation (2) Septic shock: Code(s): A41.9 - Sepsis, unspecified organism; R65.21 - Severe sepsis with septic shock Status: Acute Assessment and Plan: Worsening leukocytosis bandemia, putrid urine consistent with UTI patient currently in septic shock -lactic acid normalized -patient is off vasopressin, weaning Levophed and Zane-Synephrine. Maintain MAP > 70 mmHg for optimal end organ perfusion -continue cefepime and Levaquin. Appreciate ID evaluation, vancomycin was discontinued -blood cultures growing gram-negative bacilli /2 bottles -urine cultures also growing growing gram-negative bacilli -echocardiogram 05/01/2020: Showed EF of >70%, no pulmonary hypertension, no valvular issues -venous Dopplers 05/01/2020: Negative for DVT -continue stress dose steroids (3) UTI (urinary tract infection): Code(s): N39.0 - Urinary tract infection, site not specified Status: Acute Assessment and Plan: Urine cultures Gram-negative bacilli, identification pending continue antibiotics as above, infectious Disease following the patient (4) GONZALO (acute kidney injury): Code(s): N17.9 - Acute kidney failure, unspecified Status: Acute Assessment and Plan: Acute kidney injury, patient oliguric/anuric -adequate fluids were infused in the ED as well as in the ICU -continue pressors and maintain mean arterial pressures greater than 70 mmHg for adequate renal perfusion -continue bicarb infusion -nephrology has been consulted -renal ultrasound normal kidneys with no hydronephrosis -urine lytes have been ordered (5) COVID-19: Code(s): U07.1 - COVID-19 Status: Acute Assessment and Plan: Patient was positive on 03/25/2020 for COVID-19. (6) Asthma: Qualifiers: Asthma severity: unspecified severity Asthma persistence: unspecified Asthma complication type: unspecified Qualified Code(s): J45.909 - Unspecified asthma, uncomplicated Code(s): J45.909 - Unspecified asthma, uncomplicated Status: Acute Assessment and Plan: Continue scheduled albuterol 2.5 mg q.6 hours along with Pulmicort 0.5 mg q.12 hours nebulized. (7) DVT prophylaxis: Code(s): Z29.9 - Encounter for prophylactic measures, unspecified Status: Acute Assessment and Plan: Heparin subcu (8) Dietary counseling and surveillance: Code(s): Z71.3 - Dietary counseling and surveillance Status: Acute Assessment and Plan: Stress ulcer prophylaxis: Protonix -start tube feeds Additional Plan Called Deglado Holbrook, Pt's brother, he does not have a voicemail on his phone so could not leave a message. Will try again Code Status: Full code Total Critical Care Time: 33 minutes Due to a high probability of clinically significant, life threatening deterioration, the patient required my highest level of preparedness to intervene emergently and I personally spent this critical care time directly and personally managing the patient. This critical care time included obtaining a history; examining the patient; pulse oximetry; ordering and review of studies; arranging urgent treatment with development of a management plan; evaluation of patient's response to treatment; frequent reassessment; and discussions with other providers. It was exclusive of separately billable procedures and treating other patients and teaching time. Please see Assessment and Plan section and the rest of the no
--- NOTE | 2020-05-02 11:07 | PCDIET ---
Nutrition Follow-Up Complete: Nutrition Diagnosis: Inadequate oral intake related to oral intubation as evidenced by NPO status. Nutrition Goal: Patient to meet estimated nutritional needs. Goal in progress. MD order for Nepro at goal of 50mL/hr which will provide 1980kcal and 89g protein over 22 hours/day. Patient to receive 30mL water flush every 4 hours. Last recorded weight is 147.6 kg which has increased from last review. Decreased urine output noted. Bowel Motility: BM x 1 today. Labs Reviewed: Hgb (7.1), Hct (23.6), Glu (192), BUN (81), Cr (2.2), Na (123), Ca (5.8), Mg (1.5) Meds Noted: Albuterol, Fentanyl, Levaquin, Pulmicort, Heparin, Magnesium Sulfate, Levophed, Cefepime, Solu Cortef, Versed, Protonix, D5/150mEq Sodium Bicarbonate at 100mL/hr Additional Notes: Small area of breakdown on buttock, per RN. Also with left buttock blistering due to swelling. Wound nurse evaluated. Will continue to monitor with same goal. Nutrition Monitoring and Evaluation: Follow up every Friday/Friday. Follow daily in ICU rounds.
--- NOTE | 2020-05-02 11:31 | WPDINFPN2 ---
Progress Note: A&P Assessment and Plan (1) Septic shock: Code(s): A41.9 - Sepsis, unspecified organism; R65.21 - Severe sepsis with septic shock Status: Acute Assessment and Plan: 1. Septic shock due to E coli UTI with bacteremia. 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 MSOF REC (antibiotic # 3) Ctx #1. On multiple pressors with appropriate steroids. Subjective Date/time seen: 05/02/20 11:31 Interval history: ventilated Exam Narrative: Exam Narrative: afebrile Const: General: no acute distress Other: obese Resp: Effort & Inspection: normal respiratory effort Auscultation: clear to auscultation bilaterally Cardio: Rate: tachycardic Rhythm: regular rhythm Heart sounds: no gallops and no murmurs GI: Inspection: non-distended GI Palp: Yes Soft to palpation, No Tenderness to palpation present (GI) and No Guarding due to palpation present (GI) Percussion: Yes normal to percussion Urinary Catheter: Urinary Catheter: patent and draining and urine clear Skin: General skin exam: normal color and no rashes or lesions noted Objective Data Vital Signs Vital Signs: Vital Signs - 24 hr 05/01/20 12:00 05/01/20 13:38 05/01/20 13:47 Temperature 36.9 C Pulse Rate 99 92 92 Respiratory Rate 25 H Blood Pressure 124/47 L 106/65 108/84 Pulse Oximetry 97 05/01/20 13:48 05/01/20 13:51 05/01/20 14:00 Temperature Pulse Rate 92 91 88 Respiratory Rate 22 H 22 H Blood Pressure 103/80 142/52 H Pulse Oximetry 95 05/01/20 14:25 05/01/20 15:48 05/01/20 16:00 Temperature 36.9 C Pulse Rate 89 90 88 Respiratory Rate 20 22 H Blood Pressure 147/49 H 149/51 H Pulse Oximetry 95 05/01/20 17:09 05/01/20 18:00 05/01/20 18:19 Temperature Pulse Rate 94 92 91 Respiratory Rate 28 H 21 H Blood Pressure 148/55 H 146/54 H Pulse Oximetry 98 05/01/20 18:24 05/01/20 18:25 05/01/20 18:46 Temperature Pulse Rate 90 89 88 Respiratory Rate 23 H Blood Pressure 146/54 H 151/54 H Pulse Oximetry 05/01/20 19:55 05/01/20 20:00 05/01/20 22:00 Temperature 36.4 C L Pulse Rate 87 87 91 Respiratory Rate 20 22 H 23 H Blood Pressure 103/51 L 106/52 L Pulse Oximetry 97 95 05/01/20 22:45 05/02/20 00:00 05/02/20 00:25 Temperature 37.2 C Pulse Rate 90 87 96 Respiratory Rate 21 H Blood Pressure 152/56 H 116/42 L Pulse Oximetry 99 99 05/02/20 00:26 05/02/20 01:23 05/02/20 01:24 Temperature Pulse Rate 94 91 91 Respiratory Rate Blood Pressure 138/55 L 88/43 L 88/43 L Pulse Oximetry 05/02/20 02:00 05/02/20 02:05 05/02/20 02:45 Temperature Pulse Rate 91 89 89 Respiratory Rate 20 Blood Pressure 101/47 L 165/59 H Pulse Oximetry 95 95 05/02/20 04:00 05/02/20 05:29 05/02/20 06:00 Temperature 37.1 C Pulse Rate 90 91 90 Respiratory Rate 22 H 21 H Blood Pressure 147/52 H 101/51 L 136/58 L Pulse Oximetry 94 95 05/02/20 08:19 05/02/20 08:22 05/02/20 08:57 Temperature Pulse Rate 88 90 87 Respiratory Rate 20 Blood Pressure 153/65 H Pulse Oximetry 98 05/02/20 09:05 05/02/20 09:09 05/02/20 09:16 Temperature Pulse Rate 89 80 77 Respiratory Rate Blood Pressure 159/69 H 163/73 H 166/73 H Pulse Oximetry 05/02/20 09:20 05/02/20 09:25 05/02/20 10:18 Temperature Pulse Rate 79 79 103 H Respiratory Rate Blood Pressure 166/74 H 170/75 H 103/48 L Pulse Oximetry 05/02/20 10:28 05/02/20 10:40 05/02/20 11:01 Temperature Pulse Rate 106 H 105 H 102 H Respiratory Rate Blood Pressure 113/48 L 102/48 L Pulse Oximetry 100 05/02/20 11:03 Temperature Pulse Rate 103 H Respiratory Rate Blood Pressure 102/48 L Pulse Oximetry Intake/Output Intake/Output: Intake & Output 04/29/20 04/30/20 05/01/20 02/02/21 23:59 23:59 23:59 23:59 Intake Total 6352 4868.8 1872 Output Total 90 205 300 Balance 6262 4663.8 1572 Meds/Results Medications: Active Medications Generic Name Dose Route Start Last A
[2020-05-02 12:11] LABS: Glucose Point of Care 175 (65-105)
--- NOTE | 2020-05-02 16:24 | PM.IMPN ---
Progress Note: A&P Assessment and Plan (1) Septic shock: Code(s): A41.9 - Sepsis, unspecified organism; R65.21 - Severe sepsis with septic shock Status: Acute Assessment and Plan: Patient was hypotensive and was requiring vasopressors. The patient also is ventilated and sedated. [employer] Worker has seen the patient. Most likely is related to his urinary tract infection. Unsure if he has a chronic indwelling Guan catheter. The patient has a Guan catheter now that is draining cloudy urine. Continue with cefepime and Levaquin. Please renal dose per pharmacist. Blood and urine cultures are pending. Lactic was normal 1.5. Further recommendations per stock sorter. Patient's blood pressure is sustaining a map greater than 60. Pulse rate has improved to the lower 100s. 05/02/20 16:24 patient is a resident of with hx of autisim, sleep apnea chronic respiratory failure secondary to hypercapnia most likely secondary to hypoventilation patient was diagnosed with COVID-19 it initially he was at the [facility] from the he was transferred to [facility] will he was treated and improved and [facility] however is today patient was quite hypoxic he would desaturate and patient was brought to the emergency department by EMT, upon arrival patient was hypotensive, and tachypneic with respiratory rate 40 patient was intubated emergency depart and transferred to ICU, patient is currently on vent unable to provide any review of symptom. Patient was seen by Dr. monson and suspect patient has a septic shock as patient is blood culture is growing gram-negative rods started the patient on levofloxacin correct to the dose for chronic kidney disease, patient is seen by stock sorter, patient is seen by Nephrology appreciate. 05/02 patient remains on ventilator with respiratory failure secondary to septic shock due to UTI with E coli with bacteremia not a ESBL patient was seen by Dr. monson discontinue Levaquin and started the patient on ceftriaxone, remains on multiple pressors to maintain MAP >70, patient with metabolic acidosis remains bicarb drip, patient with hyponatremia seen by Nephrology was treated with 3% saline sodium is improving, patient is seen intensive, nephrology, and ID appreciate (2) UTI (urinary tract infection): Code(s): N39.0 - Urinary tract infection, site not specified Status: Acute Assessment and Plan: See above under septic shock. . Renal does cefepime and Levaquin. Urine and blood cultures are pending. Patient has leukocytosis and became hypotensive. He required vasopressors. He had tachycardia as well. (3) [place] (obstructive sleep apnea): Code(s): G47.33 - Obstructive sleep apnea (adult) (pediatric) Status: Chronic Assessment and Plan: The patient is currently intubated. There was some mention about a trilogy in pulmonology notes from 1 year ago. (4) Chronic respiratory failure with hypercapnia: Code(s): J96.12 - Chronic respiratory failure with hypercapnia Status: Acute Assessment and Plan: Patient currently is intubated. May consider a CT pulmonary once his renal function improved since he was diagnosed with covid 19 1 month ago. He could possibly have a PE. (5) Asthma: Qualifiers: Asthma severity: unspecified severity Asthma persistence: unspecified Asthma complication type: unspecified Qualified Code(s): J45.909 - Unspecified asthma, uncomplicated Code(s): J45.909 - Unspecified asthma, uncomplicated Status: Acute Assessment and Plan: Patient was known to have high for IgE syndrome but was not able to get approved for the treatment at the time. Continue with nebulizer treatments. (6) COVID-19: Code(s): U07.1 - COVID-19 Status: Acute Assessment and Plan: Patient was diagnosed earlier in February and we are awaiting records from [facility] as well as [facility]
[2020-05-02 17:41] LABS: Glucose Point of Care 179 (65-105)
[2020-05-02 23:47] LABS: Glucose Point of Care 215 (65-105)
[2020-05-03] VITALS (55 sets, daily range): BP systolic 84–161; BP diastolic 46–73; PULSE 81–103; RESP 20–22; TEMP 35.5–36.9; O2SAT 92–100
[2020-05-03] MEDS: ALBUTEROL SULFATE NEB 2.5 MG/0.5 ML INH INHALATION ×4 (01:38→20:26)
[2020-05-03] MEDS: FENTANYL 2,500MCG/NS250ML(*CRX 2,500 MCG/250 ML BAG 7.5 MCG IV CONT (02:30)
[2020-05-03 04:58] LABS: Alveolar/Arterial O2 Gradient 122.7 mmHg; Carboxyhemoglobin 0.3 % THb (0-2.0); Device VENTILATOR; Fractional Inspired Oxygen 35 %; HCO3 ABG 20.3 mEq/l (22.0-26.0); Methemoglobin ABG 0.3 %THb (0-1.5); Oxygen Content ABG 11.3 %vol (16.0-22.0); Oxygen Saturation ABG 96.8 % (95.0-100.0); Oxyhemoglobin 95.2 % THb (90.0-100.0); PCO2 ABG 33.4 mmHg (35.0-45.0); PO2 FiO2 Ratio Arterial Blood 2.51 %; Reduced Hemoglobin 4.2 %THb (0-5.0); Site Drawn ARTLINE; Total Hemoglobin 8.3 g/dL (12.0-18.0); pH ABG 7.401 (7.350-7.450)
[2020-05-03 04:59] LABS: Arterial Blood Gas Vent Mode CMV; Arterial Blood Gas Ventilator rate 20 /MIN
[2020-05-03 05:00] LABS: Arterial Blood Gas PEEP 5 cmH2O; Arterial Blood Gas Tidal Volume 500 ml
[2020-05-03 05:12] LABS: Hematocrit 22.5 % (42.0-52.0); Hemoglobin 7.1 g/dL (14.0-18.0); Mean Corpuscular HGB Conc 31.6 g/dl (32-36); Mean Corpuscular Hemoglobin 29.6 pg (26-34); Mean Corpuscular Volume 93.8 fl (80-100); Mean Platelet Volume 10.3 fl (7.4-10.4); Platelet Count Result 133 k/mm3 (150-375); Red Cell Distribution Width 18.6 % (11.5-14.5); White Blood Count 36.3 K/mm3 (4.5-10.0)
[2020-05-03 05:32] LABS: Alanine Aminotransferase 38 U/L (4-50); Albumin Level 2.1 g/dL (3.5-5.1); Alkaline Phosphatase 592 U/L (38-126); Anion Gap 12 mmol/L (8-16); Aspartate Amino Transferase 31 U/L (17-59); Bilirubin,Total 1.6 mg/dL (0.2-1.3); Blood Urea Nitrogen 84 mg/dL (9-20); Calcium 5.6 mg/dL (8.4-10.2); Carbon Dioxide 22 mmol/L (22-30); Chloride 88 mmol/L (98-107); Glucose 218 mg/dL (75-110); Magnesium 1.7 mg/dL (1.6-2.3); Phosphorus 7.4 mg/dL (2.5-4.5); Potassium 4.4 mmol/L (3.4-5.0); Sodium 122 mmol/L (137-145)
[2020-05-03 05:36] LABS: Estimated CRCL calculation 51 ml/min; Estimated Glomerular Filt Rate 27
[2020-05-03] MEDS: HYDROCORTISONE SODIUM SUCCINATE 100 MG/2 ML VIAL IV PUSH ×2 (05:45→12:25)
[2020-05-03] MEDS: CENTRAL LINE FLUSH 10 ML IV PUSH (05:45)
[2020-05-03] MEDS: HEPARIN SODIUM 5,000 UNITS/ML VIAL 5000 UNITS SUB-Q ×2 (05:45→13:30)
[2020-05-03 06:18] LABS: Lipase < 10 U/L (23-300)
[2020-05-03] MEDS: BUDESONIDE RESPULE NEB 0.5 MG/2 ML AMP INHALATION ×2 (07:15→20:25)
[2020-05-03] MEDS: NOREPINEPHRINE 8 MG/D5W 250 ML 8 MG/250 ML BAG 46.88 MG IV CONT ×4 (07:45→19:39)
[2020-05-03 08:10] LABS: Reflex Lactic Acid Yes or No Add Lactic
[2020-05-03] MEDS: TOLNAFTATE 1% POWDER 45 GM BTL 1 APPLIC TOPICAL (08:47)
[2020-05-03] MEDS: PANTOPRAZOLE SODIUM IV 40 MG VIAL IV PUSH (08:48)
[2020-05-03 08:52] LABS: Lactic Acid 3.8 mmol/L (0.7-2.1)
--- NOTE | 2020-05-03 09:07 | WPDINTPN ---
Progress Note: A&P Assessment and Plan (1) Acute respiratory failure: Code(s): J96.00 - Acute respiratory failure, unspecified whether with hypoxia or hypercapnia Status: Acute Assessment and Plan: Acute respiratory failure likely related to septic shock, altered mental status, metabolic acidosis -on CMV mode of ventilation peep of 5, 35% FiO2 -chest x-ray and ABGs reviewed, ventilator adjusted -sedated with fentanyl and Versed infusion, maintain RASS of 0 to -2 -daily sedation vacation (2) Septic shock: Code(s): A41.9 - Sepsis, unspecified organism; R65.21 - Severe sepsis with septic shock Status: Acute Assessment and Plan: Leukocytosis improving, -lactic acid has increased to 4.0 this morning -remains on Levophed and Zane-Synephrine. Maintain MAP > 70 mmHg for optimal end organ perfusion -patient growing E coli in blood and urine, on ceftriaxone per ID -echocardiogram 05/01/2020: Showed EF of >70%, no pulmonary hypertension, no valvular issues -venous Dopplers 05/01/2020: Negative for DVT -continue stress dose steroids (3) UTI (urinary tract infection): Code(s): N39.0 - Urinary tract infection, site not specified Status: Acute Assessment and Plan: E coli in urine, continue antibiotics as above (4) GONZALO (acute kidney injury): Code(s): N17.9 - Acute kidney failure, unspecified Status: Acute Assessment and Plan: Acute kidney injury, patient oliguric/anuric -adequate fluids were infused in the ED as well as in the ICU -continue pressors and maintain mean arterial pressures greater than 70 mmHg for adequate renal perfusion -continue bicarb infusion -appreciate Nephrology evaluation and recommendation -renal ultrasound normal kidneys with no hydronephrosis -urine lytes have been ordered -patient is anuric with worsening creatinine and BUN -will discuss with family regarding dialysis (5) COVID-19: Code(s): U07.1 - COVID-19 Status: Acute Assessment and Plan: Patient was positive on 03/25/2020 for COVID-19. (6) Asthma: Qualifiers: Asthma severity: unspecified severity Asthma persistence: unspecified Asthma complication type: unspecified Qualified Code(s): J45.909 - Unspecified asthma, uncomplicated Code(s): J45.909 - Unspecified asthma, uncomplicated Status: Acute Assessment and Plan: Continue scheduled albuterol 2.5 mg q.6 hours along with Pulmicort 0.5 mg q.12 hours nebulized. (7) DVT prophylaxis: Code(s): Z29.9 - Encounter for prophylactic measures, unspecified Status: Acute Assessment and Plan: Heparin subcu (8) Dietary counseling and surveillance: Code(s): Z71.3 - Dietary counseling and surveillance Status: Acute Assessment and Plan: Stress ulcer prophylaxis: Protonix -tolerating tube feeds Additional Plan Called eDlgado Holbrook, patient's brother, on [phone]. Updated him with patient's condition and plan of care. I did discuss with him regarding hypotension/septic shock requiring 2 blood pressure support medications, I also updated regarding infection in his urine and blood stream. I did tell him that he probably will require dialysis because his kidneys are not functioning, nephrology recommends dialysis. Delgado was okay with getting dialysis done. I also told him that if he cannot dialyze him here because of his blood pressure issues remain have to transfer into her larger center to which he agreed. Code Status: Full code Total Critical Care Time: 34 minutes Due to a high probability of clinically significant, life threatening deterioration, the patient required my highest level of preparedness to intervene emergently and I personally spent this critical care time directly and personally managing the patient. This critical care time included obtaining a history; examining the patient; pulse oximetry; ordering and review of studies; arranging u
[2020-05-03 09:22] LABS: Glucose Point of Care 179 (65-105)
--- NOTE | 2020-05-03 11:06 | P.PCNBED_ITS ---
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 Prep: sterile gown, sterile gloves, mask and hat Site: right Size (Gauge): 16 Hemodialysis Catheter Placement Right IJ: Discussed w/ patient and/or surrogate, the non-emergent placement of a hemodialysis catheter, including it's clinincal necessity/indication & associated potential risks & complications.: Yes The patient and/or surrogate understand(s) and acknowledge(s) the need to proceed with hemodialysis catheter insertion as an important element of the patient's clinical management.: Yes HD Catheter Date: 05/03/20 HD Catheter Time: 11:06 Pre-procedural Time-Out was completed immediately before starting the procedure and confirmed: Patient Identification, Site, Procedure, Patient Position and the Availability of Requisite Equipment.: Yes Patient Position: supine Patient Placed on Monitor/Pulse Ox: Yes Provider Prep: mask, sterile gown, sterile gloves, Max. sterile barrier precautions, cap and hand hygiene Hemodialysis Catheter Prep: Chlorhexidine scrub Local Anesthesia Used: lidocaine 1% Amount of anesthesia used (mL): 4 Ultrasound Used for Placement: Yes Hemodialysis Catheter Inserted: triple Length (cm): 16 Post Procedure: sutured in place, good blood return, transparent dressing, hemostatic product, antimicrobial product, securement product and aseptic technique maintained throughout procedure Post Procedure X-Ray: tip of catheter in good position and no pneumothorax seen Patient Tolerated Procedure: well Complications: none
[2020-05-03] MEDS: SODIUM BICARBONATE 8.4% 150 MEQ in DEXTROSE 5% 1,000 ML 950 ML 100 MEQ IV CONT ×2 (11:11→19:42)
[2020-05-03] MEDS: MIDAZOLAM HCL (*CRX) 2 MG/2 ML VIAL IV PUSH (11:11)
--- NOTE | 2020-05-03 11:23 | PCDIET ---
ICU Rounding Note: RN reports 250-300mL residuals overnight. Nepro tube feedings held and since resumed at 10mL/hr. MD adding Reglan. Last recorded weight is 150kg which is increased from last review. +I/O. Minimal urine output. Plan for dialysis today. Bowel Motility: BM x 1 on 05/02/20. Labs Reviewed: Hgb (7.1), Hct (23.6), Glu (192), BUN (81), Cr (2.2), Na (123), Ca (5.8), Mg (1.5) Meds Noted: Albuterol, Fentanyl, Protonix, Pulmicort, Solu Cortef, Phenylephrine, Rocephin, Versed, Levophed, Vasopressin, D5/150mEq Sodium Bicarbonate at 100mL/hr Additional Notes: Small area of breakdown on buttock and blistering; no significant change reported by RN. Following daily in ICU rounds. Assessing/reassessing every Friday/Friday.
--- NOTE | 2020-05-03 12:00 | WPDINFPN2 ---
Progress Note: A&P Assessment and Plan (1) Septic shock: Code(s): A41.9 - Sepsis, unspecified organism; R65.21 - Severe sepsis with septic shock Status: Acute Assessment and Plan: 1. Septic shock due to E coli UTI with bacteremia. 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 MSOF, HD planned today with 5 cc U.O past 24 hours 3. CoVid 19 infection 03/25/20 REC (antibiotic # 4) Ctx #2, continue. On multiple pressors with appropriate steroids. Weighing risks and benefits, I chose on initial evaluation not to use aminoglycosides, and same decision today. Subjective Date/time seen: 05/03/20 12:00 Interval history: intubated and sedated Exam Narrative: Exam Narrative: afebrile. Norepi and phenyephrine Const: Other: morbid obese Neck: Other: new R IJ krys Resp: Effort & Inspection: normal respiratory effort Auscultation: clear to auscultation bilaterally and diminished lung sounds Cardio: Rate: regular rate Rhythm: regular rhythm Heart sounds: no murmurs GI: GI Palp: Yes Soft to palpation, No Tenderness to palpation present (GI) and No Guarding due to palpation present (GI) Urinary Catheter: Urinary Catheter: patent and draining Skin: General skin exam: no rashes or lesions noted Objective Data Vital Signs Vital Signs: Vital Signs - 24 hr 05/02/20 13:15 05/02/20 14:00 05/02/20 14:07 Temperature Pulse Rate 97 94 93 Respiratory Rate 22 H 20 Blood Pressure 113/50 L 108/54 L Pulse Oximetry 95 95 05/02/20 16:00 05/02/20 16:11 05/02/20 17:15 Temperature 36.8 C Pulse Rate 93 90 93 Respiratory Rate 23 H Blood Pressure 126/53 L 128/54 L Pulse Oximetry 98 94 05/02/20 17:35 05/02/20 18:00 05/02/20 19:57 Temperature Pulse Rate 92 92 89 Respiratory Rate 22 H Blood Pressure 132/54 L 123/65 Pulse Oximetry 96 97 05/02/20 20:00 05/02/20 20:35 05/02/20 20:41 Temperature 37.2 C Pulse Rate 89 89 Respiratory Rate 22 H 21 H Blood Pressure 132/62 Pulse Oximetry 99 97 05/02/20 20:55 05/02/20 21:20 05/02/20 21:21 Temperature Pulse Rate 92 89 89 Respiratory Rate 21 H Blood Pressure 125/49 L 130/50 L Pulse Oximetry 05/02/20 22:00 05/02/20 23:15 05/03/20 00:00 Temperature 36.9 C Pulse Rate 88 87 97 Respiratory Rate 22 H 22 H Blood Pressure 135/52 L 133/54 L Pulse Oximetry 98 96 95 05/03/20 01:38 05/03/20 01:40 05/03/20 02:00 Temperature Pulse Rate 89 89 94 Respiratory Rate 20 22 H Blood Pressure 119/49 L Pulse Oximetry 95 97 05/03/20 02:34 05/03/20 02:40 05/03/20 04:00 Temperature 36.9 C Pulse Rate 86 86 102 H Respiratory Rate 22 H Blood Pressure 136/56 L 137/57 L 129/57 L Pulse Oximetry 97 05/03/20 04:50 05/03/20 06:00 05/03/20 07:16 Temperature Pulse Rate 91 87 84 Respiratory Rate 22 H 20 Blood Pressure 134/56 L Pulse Oximetry 97 97 05/03/20 07:17 05/03/20 07:45 05/03/20 08:00 Temperature 36.3 C L Pulse Rate 86 86 85 Respiratory Rate 22 H Blood Pressure 137/57 L 138/58 L Pulse Oximetry 98 100 05/03/20 08:46 05/03/20 10:00 05/03/20 10:27 Temperature Pulse Rate 86 91 91 Respiratory Rate 22 H Blood Pressure 136/56 L 142/61 H Pulse Oximetry 97 97 05/03/20 11:16 Temperature Pulse Rate 90 Respiratory Rate 22 H Blood Pressure Pulse Oximetry Intake/Output Intake/Output: Intake & Output 04/30/20 05/01/20 05/02/20 05/03/20 23:59 23:59 23:59 23:59 Intake Total 6352 4868.8 5524.2 2064 Output Total 90 205 355 10 Balance 6262 4663.8 5169.2 2054 Meds/Results Medications: Active Medications Generic Name Dose Route Start Last Admin Trade Name Freq PRN Reason Stop Dose Admin Albuterol 2.5 mg 04/30/20 14:55 05/03/20 07:15 Albuterol Sulfate Neb 2.5 Mg/0.5 Ml Inh INHALATION 2.5 mg Q6HRT DANIEL Administration Alteplase, Recombinant 2 mg 05/03/20 10:26 Alteplase 2 Mg Vial (Cathflo) IV PUSH ONCE PRN Line Occlusion Alteplase, Recombinant 2 mg 05/03/20
[2020-05-03] MEDS: INSULIN ASPART (*BKC) 100 UNITS/ML SUB-Q (12:11)
[2020-05-03] MEDS: METOCLOPRAMIDE HCL INJ 10 MG/2 ML VIAL IV PUSH ×2 (12:12→17:43)
[2020-05-03] MEDS: ALTEPLASE 2 MG VIAL (CATHFLO) IV PUSH ×3 (12:25→16:26)
[2020-05-03 12:42] LABS: Glucose Point of Care 208 (65-105)
--- NOTE | 2020-05-03 15:00 | PM.IMPN ---
Progress Note: A&P Assessment and Plan (1) Septic shock: Code(s): A41.9 - Sepsis, unspecified organism; R65.21 - Severe sepsis with septic shock Status: Acute Assessment and Plan: Patient was hypotensive and was requiring vasopressors. The patient also is ventilated and sedated. Director Of Physical Security has seen the patient. Most likely is related to his urinary tract infection. Unsure if he has a chronic indwelling Guan catheter. The patient has a Guan catheter now that is draining cloudy urine. Continue with cefepime and Levaquin. Please renal dose per pharmacist. Blood and urine cultures are pending. Lactic was normal 1.5. Further recommendations per cooling room attendant. Patient's blood pressure is sustaining a map greater than 60. Pulse rate has improved to the lower 100s. 05/03/20 15:00 patient is a resident of with hx of autisim, sleep apnea chronic respiratory failure secondary to hypercapnia most likely secondary to hypoventilation patient was diagnosed with COVID-19 it initially he was at the [facility] from the he was transferred to [facility] will he was treated and improved and was sent back to [facility] for [facility] however is today patient was quite hypoxic he would desaturate and patient was brought to the emergency department by EMT, upon arrival patient was hypotensive, and tachypneic with respiratory rate 40 patient was intubated emergency depart and transferred to ICU, patient is currently on vent unable to provide any review of symptom. Patient was seen by Dr. monson and suspect patient has a septic shock as patient is blood culture is growing gram-negative rods started the patient on levofloxacin correct to the dose for chronic kidney disease, patient is seen by cooling room attendant, patient is seen by Nephrology appreciate. 05/02 patient remains on ventilator with respiratory failure secondary to septic shock due to UTI with E coli with bacteremia not a ESBL patient was seen by Dr. monson discontinue Levaquin and started the patient on ceftriaxone, remains on multiple pressors to maintain MAP >70, patient with metabolic acidosis remains bicarb drip, patient with hyponatremia seen by Nephrology was treated with 3% saline sodium is improving, patient urine output is very poor seen by nephrology patient will need temporary dialysis and temporary access was placed, patient family would like do everything possible for the patient, patient is seen intensive, nephrology, and ID appreciate. 05/03 patient remains on ventilator with respiratory failure secondary to septic shock due to UTI with E coli with bacteremia not a ESBL patient was seen by Dr. monson discontinue Levaquin and started the patient on ceftriaxone, remains on multiple pressors to maintain MAP >70, patient with metabolic acidosis remains bicarb drip, patient with hyponatremia seen by Nephrology was treated with 3% saline sodium is improving, patient urine output is very poor seen by nephrology patient will need temporary dialysis and temporary access was placed, patient family would like do everything possible for the patient, patient is seen intensive, nephrology, and ID appreciate. (2) UTI (urinary tract infection): Code(s): N39.0 - Urinary tract infection, site not specified Status: Acute Assessment and Plan: See above under septic shock. . Renal does cefepime and Levaquin. Urine and blood cultures are pending. Patient has leukocytosis and became hypotensive. He required vasopressors. He had tachycardia as well. (3) [place] (obstructive sleep apnea): Code(s): G47.33 - Obstructive sleep apnea (adult) (pediatric) Status: Chronic Assessment and Plan: The patient is currently intubated. There was some mention about a trilogy in pulmonology notes from 1 year ago. (4) Chronic respiratory failure with hypercapnia: Code(s): J96.12 - Chronic respiratory failure with hypercapnia Status: Acute Assessment and Jazmyn
--- NOTE | 2020-05-03 16:16 | PM.PNNEP ---
Progress Note: A&P Assessment and Plan (1) GONZALO (acute kidney injury): Code(s): N17.9 - Acute kidney failure, unspecified Status: Acute Assessment and Plan: Francisco has acute kidney injury. Renal ultrasound is unremarkable Urinalysis shows blood and leukocytes. Urine electrolytes are non pre renal Urine eosinophils pending Urine output is very low. His creatinine Worsened once again. Most likely this is acute tubular necrosis secondary to septic shock. He is getting pressors, fluids, and antibiotics. He has swelling and chest x-ray looks wet I think we need to do dialysis. Will try a very gentle dialysis today. We may not be able to get much fluid off because of his blood pressure but at least we can improve kidney poisons. He may end up needing CRRT if he does not tolerate traditional dialysis. (2) Hyponatremia: Code(s): E87.1 - Hypo-osmolality and hyponatremia Status: Acute Assessment and Plan: Sodium level is About the same. Dialysis will probably help (3) Hyperkalemia: Code(s): E87.5 - Hyperkalemia Status: Acute Assessment and Plan: Resolved (4) Septic shock: Code(s): A41.9 - Sepsis, unspecified organism; R65.21 - Severe sepsis with septic shock Status: Acute Assessment and Plan: the patient has low blood pressure and is on pressors. Blood cultures are growing gram-negative rods.. he is on antibiotics covering a broad-spectrum. (5) Acute respiratory failure: Code(s): J96.00 - Acute respiratory failure, unspecified whether with hypoxia or hypercapnia Status: Acute Assessment and Plan: He is now on the ventilator. He has multiple underlying diseases as well. (6) COVID-19: Code(s): U07.1 - COVID-19 Status: Acute Assessment and Plan: This was positive on 03/25. this has run its course so is no longer on isolation (7) Autism: Code(s): F84.0 - Autistic disorder Status: Chronic (8) UTI (urinary tract infection): Code(s): N39.0 - Urinary tract infection, site not specified Status: Acute Assessment and Plan: His urine has lots of white cells in it. This may be the source of his infection On broad-spectrum antibiotics (9) [place] (obstructive sleep apnea): Code(s): G47.33 - Obstructive sleep apnea (adult) (pediatric) Status: Chronic Assessment and Plan: On the ventilator Subjective Date/time seen: 05/03/20 16:17 Interval history: Francisco looks about the same. Still intubated. On nor epi and phenylephrine but no longer on vasopressin. Blood pressure seems relatively stable right now. Review of Systems Review of Systems: ROS unobtainable: Yes unobtainable due to medical condition Exam Narrative: Exam Narrative: WDWN male, intubated on the ventilator in the ICU. skin no rash Or subcu nodules head ncat lungs coarse bilaterally cor reg no rub or gallop abd BS+ nontender and soft ext trace to1+ edema. Objective Data Vital Signs Vital Signs: Vital Signs - 24 hr 05/02/20 17:15 05/02/20 17:35 05/02/20 18:00 Temperature Pulse Rate 93 92 92 Respiratory Rate 22 H Blood Pressure 132/54 L 123/65 Pulse Oximetry 94 96 05/02/20 19:57 05/02/20 20:00 05/02/20 20:35 Temperature 37.2 C Pulse Rate 89 89 Respiratory Rate 22 H Blood Pressure 132/62 Pulse Oximetry 97 99 97 05/02/20 20:41 05/02/20 20:55 05/02/20 21:20 Temperature Pulse Rate 89 92 89 Respiratory Rate 21 H 21 H Blood Pressure 125/49 L Pulse Oximetry 05/02/20 21:21 05/02/20 22:00 05/02/20 23:15 Temperature Pulse Rate 89 88 87 Respiratory Rate 22 H Blood Pressure 130/50 L 135/52 L Pulse Oximetry 98 96 05/03/20 00:00 05/03/20 01:38 05/03/20 01:40 Temperature 36.9 C Pulse Rate 97 89 89 Respiratory Rate 22 H 20 Blood Pressure 133/54 L Pulse Oximetry 95 95 05/03/20 02:0
[2020-05-03 17:47] LABS: Glucose Point of Care 179 (65-105)
[2020-05-03] MEDS: ALBUMIN HUMAN 25% 25 GM/100 ML 100 ML IVPB (20:45)
[2020-05-03 22:09] LABS: Hepatitis B Surface Antigen Negative (Negative)
[2020-05-03 22:27] LABS: Hepatitis B Surface Antibody > 1000.00 s/c
[2020-05-03 22:32] LABS: Hepatitis B Surface Anti Res Positive
[2020-05-03] MEDS: EPOETIN ALFA-EPBX 10,000 UNITS/ML VIAL 10000 UNITS IV PUSH (22:44)
[2020-05-03] MEDS: HEPARIN SODIUM 1,000 UNITS/ML VIAL 1000 UNITS IV PUSH (23:22)
[2020-05-04] VITALS (70 sets, daily range): BP systolic 104–176; BP diastolic 37–69; PULSE 58–122; RESP 20–27; TEMP 35–37.1; O2SAT 91–100
[2020-05-04] MEDS: NOREPINEPHRINE 8 MG/D5W 250 ML 8 MG/250 ML BAG 46.88 MG IV CONT ×2 (00:27→06:01)
[2020-05-04] MEDS: CENTRAL LINE FLUSH 10 ML IV PUSH ×5 (00:30→21:42)
[2020-05-04] MEDS: ALBUTEROL SULFATE NEB 2.5 MG/0.5 ML INH INHALATION ×4 (02:26→19:53)
[2020-05-04 04:30] LABS: Mean Corpuscular HGB Conc 31.4 g/dl (32-36); Mean Corpuscular Hemoglobin 28.6 pg (26-34); Mean Corpuscular Volume 91.2 fl (80-100); Mean Platelet Volume 10.6 fl (7.4-10.4); Platelet Count Result 91 k/mm3 (150-375); Red Blood Count 2.27 M/mm3 (4.6-6.20); Red Cell Distribution Width 18.8 % (11.5-14.5); White Blood Count 27.7 K/mm3 (4.5-10.0)
[2020-05-04 04:35] LABS: Alveolar/Arterial O2 Gradient 134.5 mmHg; Base Excess ABG 0.7 mEq/l (+/-2.0); Carboxyhemoglobin 0.3 % THb (0-2.0); Fractional Inspired Oxygen 35 %; HCO3 ABG 24.7 mEq/l (22.0-26.0); Methemoglobin ABG 0.5 %THb (0-1.5); Oxygen Content ABG 10.4 %vol (16.0-22.0); Oxygen Saturation ABG 95.3 % (95.0-100.0); Oxyhemoglobin 92.5 % THb (90.0-100.0); PCO2 ABG 36.6 mmHg (35.0-45.0); PO2 ABG 72.5 mmHg (80.0-100.0); PO2 FiO2 Ratio Arterial Blood 2.07 %; Reduced Hemoglobin 6.7 %THb (0-5.0); pH ABG 7.447 (7.350-7.450)
[2020-05-04 04:39] LABS: Modified Allen's Test Pass; Site Drawn ARTLINE; Total Hemoglobin 7.9 g/dL (12.0-18.0)
[2020-05-04 04:40] LABS: Arterial Blood Gas Vent Mode CMV; Arterial Blood Gas Ventilator rate 22 /MIN; Device VENTILATOR
[2020-05-04 04:41] LABS: Arterial Blood Gas PEEP 5 cmH2O; Arterial Blood Gas Tidal Volume 450 ml
[2020-05-04 04:55] LABS: Hemoglobin 6.5 g/dL (14.0-18.0)
[2020-05-04 04:56] LABS: Hematocrit 20.7 % (42.0-52.0)
[2020-05-04 05:08] LABS: Lactic Acid Reflex 3.4 mmol/L (0.7-2.1)
[2020-05-04 05:15] LABS: Alanine Aminotransferase 40 U/L (4-50); Albumin Level 2.3 g/dL (3.5-5.1); Alkaline Phosphatase 725 U/L (38-126); Aspartate Amino Transferase 33 U/L (17-59); Bilirubin,Total 2.2 mg/dL (0.2-1.3); Blood Urea Nitrogen 52 mg/dL (9-20); Calcium 6.2 mg/dL (8.4-10.2); Carbon Dioxide 29 mmol/L (22-30); Estimated CRCL calculation 66 ml/min; Estimated Glomerular Filt Rate 36; Glucose 166 mg/dL (75-110); Magnesium 1.6 mg/dL (1.6-2.3); Phosphorus 5.3 mg/dL (2.5-4.5)
[2020-05-04] MEDS: METOCLOPRAMIDE HCL INJ 10 MG/2 ML VIAL IV PUSH ×5 (05:26→23:55)
[2020-05-04 05:33] LABS: Anion Gap 8 mmol/L (8-16); Chloride 86 mmol/L (98-107); Potassium 4.1 mmol/L (3.4-5.0); Sodium 123 mmol/L (137-145)
[2020-05-04] MEDS: HYDROCORTISONE SODIUM SUCCINATE 100 MG/2 ML VIAL IV PUSH ×4 (06:00→21:38)
[2020-05-04] MEDS: HEPARIN SODIUM 5,000 UNITS/ML VIAL 5000 UNITS SUB-Q ×4 (06:00→21:41)
[2020-05-04] MEDS: FENTANYL 2,500MCG/NS250ML(*CRX 2,500 MCG/250 ML BAG IV CONT (06:02)
[2020-05-04 07:44] LABS: Reflex Lactic Acid Yes or No Add Lactic
[2020-05-04] MEDS: BUDESONIDE RESPULE NEB 0.5 MG/2 ML AMP INHALATION ×2 (07:51→19:53)
[2020-05-04 08:58] LABS: Lactic Acid 2.8 mmol/L (0.7-2.1)
[2020-05-04] MEDS: VASOPRESSIN INJ 100 UNITS in DEXTROSE 5% 95 ML IV CONT (09:17)
[2020-05-04] MEDS: ALBUMIN HUMAN 25% 25 GM/100 ML 100 ML IVPB (09:18)
[2020-05-04] MEDS: DORNASE ALFA INH SOLN 1 MG/ML 2.5 ML AMP 2.5 MG INHALATION ×2 (10:48→19:56)
[2020-05-04] MEDS: NOREPINEPHRINE BITARTRATE 16 MG in DEXTROSE 5% IN WATER 234 ML 23.44 MG IV CONT (11:21)
[2020-05-04] MEDS: EPOETIN ALFA-EPBX 10,000 UNITS/ML VIAL 10000 UNITS IV PUSH (11:34)
--- NOTE | 2020-05-04 11:56 | PCDIET ---
ICU Rounding Note: Patient tolerating Nepro at 40mL/hr with 30mL water flush every 4 hours. Residuals 110mL and below. RN to increase to goal or 50mL/hr today. Last recorded weight is 150kg which is stable. Plan for hemodialysis today. Bowel Motility: Last documented BM on 05/02/20 x 1. Labs Reviewed: Hgb (6.5), Hct (20.7), Glu (166), BUN (52), Cr (2.1), Na (123), Alb (2.3), PO4 (5.3), Natalya Ca (7.56) Meds Noted: Albumin, Pulmicort, Reglan, Levophed, Protonix, Rocephin, Fentanyl, Versed, Solu Cortef, Novolog, Vasopressin Additional Notes: Patient to receive blood with dialysis today. Buttocks macerated with weeping blisters to abdomen. Following daily in ICU rounds. Assessing/reassessing every Friday/Friday.
[2020-05-04] MEDS: HEPARIN SODIUM 1,000 UNITS/ML VIAL 1000 UNITS IV PUSH (12:30)
--- NOTE | 2020-05-04 12:34 | PM.PNNEP ---
Progress Note: A&P Assessment and Plan (1) GONZALO (acute kidney injury): Code(s): N17.9 - Acute kidney failure, unspecified Status: Acute Assessment and Plan: Francisco has acute kidney injury. Renal ultrasound is unremarkable Urinalysis shows blood and leukocytes. Urine electrolytes are non pre renal Urine eosinophils pending Urine output is very low. GONZALO due to sepsis and shock had HD #2 today. seemed to tolerate this well. will DUF tomorrow so we can try for more fluid. (2) Hyponatremia: Code(s): E87.1 - Hypo-osmolality and hyponatremia Status: Acute Assessment and Plan: Sodium level is About the same. check sodium later today (3) Hyperkalemia: Code(s): E87.5 - Hyperkalemia Status: Acute Assessment and Plan: Resolved (4) Septic shock: Code(s): A41.9 - Sepsis, unspecified organism; R65.21 - Severe sepsis with septic shock Status: Acute Assessment and Plan: the patient has low blood pressure and is on pressors. Blood cultures are growing gram-negative rods.. he is on antibiotics covering a broad-spectrum. (5) Acute respiratory failure: Code(s): J96.00 - Acute respiratory failure, unspecified whether with hypoxia or hypercapnia Status: Acute Assessment and Plan: He is now on the ventilator. He has multiple underlying diseases as well. (6) COVID-19: Code(s): U07.1 - COVID-19 Status: Acute Assessment and Plan: This was positive on 03/25. this has run its course so is no longer on isolation (7) Autism: Code(s): F84.0 - Autistic disorder Status: Chronic (8) UTI (urinary tract infection): Code(s): N39.0 - Urinary tract infection, site not specified Status: Acute Assessment and Plan: His urine has lots of white cells in it. This may be the source of his infection On broad-spectrum antibiotics (9) [place] (obstructive sleep apnea): Code(s): G47.33 - Obstructive sleep apnea (adult) (pediatric) Status: Chronic Assessment and Plan: On the ventilator Subjective Date/time seen: 05/04/20 12:34 Interval history: Francisco looks about the same. Still intubated. On nor epi and phenylephrine but no longer on vasopressin. switching back to MOLD OPERATOR from PE as it requires less volume. On HD pari it well. seen at 12:12pm just coming off. removed some fluid and gave some blood. Blood pressure seems relatively stable right now. Exam Narrative: Exam Narrative: WDWN male, intubated on the ventilator in the ICU. skin no rash Or subcu nodules head ncat lungs coarse bilaterally cor reg no rub or gallop abd BS+ nontender and soft ext 1+ edema. Objective Data Vital Signs Vital Signs: Vital Signs - 24 hr 05/03/20 13:05 05/03/20 13:18 05/03/20 13:38 Temperature Pulse Rate 87 87 87 Respiratory Rate 20 Blood Pressure 138/54 L 138/54 L Pulse Oximetry 05/03/20 13:39 05/03/20 13:48 05/03/20 13:55 Temperature Pulse Rate 88 86 90 Respiratory Rate 20 Blood Pressure 139/60 Pulse Oximetry 97 05/03/20 14:00 05/03/20 16:00 05/03/20 16:37 Temperature 36.6 C Pulse Rate 90 83 87 Respiratory Rate 22 H 22 H Blood Pressure 143/60 H 145/60 H Pulse Oximetry 98 97 97 05/03/20 18:00 05/03/20 18:53 05/03/20 19:36 Temperature Pulse Rate 90 90 91 Respiratory Rate 22 H Blood Pressure 137/57 L 135/58 L 84/46 L Pulse Oximetry 94 05/03/20 19:39 05/03/20 19:42 05/03/20 19:43 Temperature Pulse Rate 94 85 85 Respiratory Rate 22 H 22 H Blood Pressure 161/73 H Pulse Oximetry 05/03/20 20:00 05/03/20 20:15 05/03/20 20:20 Temperature 36.0 C L Pulse Rate 90 87 89 Respiratory Rate 22 H 22 H Blood Pressure 139/58 L 135/56 L Pulse Oximetry 97 98 95 05/03/20 20:30 05/03/20 20:41 05/03/20 20:45 Temperature Pulse Rate 85 90 94 Respiratory Rate 20 Blood Pressure 140/6
[2020-05-04] MEDS: PHARMACIST COMMUNICATION ORDER 1 EACH XX (12:46)
[2020-05-04] MEDS: TOLNAFTATE 1% POWDER 45 GM BTL 1 APPLIC TOPICAL ×3 (12:46→21:39)
--- NOTE | 2020-05-04 13:12 | WPDINTPN ---
Progress Note: A&P Assessment and Plan (1) Acute respiratory failure: Code(s): J96.00 - Acute respiratory failure, unspecified whether with hypoxia or hypercapnia Status: Acute Assessment and Plan: Acute respiratory failure likely related to septic shock, altered mental status, metabolic acidosis -on CMV mode of ventilation peep of 5, 35% FiO2 -chest x-ray and ABGs reviewed, ventilator adjusted -sedated with fentanyl and Versed infusion, maintain RASS of 0 to -2 -daily sedation vacation -continue dialysis with removal of fluid (2) Septic shock: Code(s): A41.9 - Sepsis, unspecified organism; R65.21 - Severe sepsis with septic shock Status: Acute Assessment and Plan: Leukocytosis improving, -lactic acid has increased to 4.0 this morning -remains on Levophed and Zane-Synephrine. Maintain MAP > 70 mmHg for optimal end organ perfusion -patient growing E coli in blood and urine, on ceftriaxone per ID -echocardiogram 05/01/2020: Showed EF of >70%, no pulmonary hypertension, no valvular issues -venous Dopplers 05/01/2020: Negative for DVT -continue stress dose steroids (3) UTI (urinary tract infection): Code(s): N39.0 - Urinary tract infection, site not specified Status: Acute Assessment and Plan: E coli in urine, continue antibiotics as above (4) GONZALO (acute kidney injury): Code(s): N17.9 - Acute kidney failure, unspecified Status: Acute Assessment and Plan: Acute kidney injury, patient oliguric/anuric -adequate fluids were infused in the ED as well as in the ICU -continue pressors and maintain mean arterial pressures greater than 70 mmHg for adequate renal perfusion -dialysis catheter placed on 05/03/2020 and dialysis was started on the same day -dialysis will be done again today with removal of fluid -nephrology following the patient -renal ultrasound normal kidneys with no hydronephrosis (5) COVID-19: Code(s): U07.1 - COVID-19 Status: Acute Assessment and Plan: Patient was positive on 03/25/2020 for COVID-19. (6) Asthma: Qualifiers: Asthma severity: unspecified severity Asthma persistence: unspecified Asthma complication type: unspecified Qualified Code(s): J45.909 - Unspecified asthma, uncomplicated Code(s): J45.909 - Unspecified asthma, uncomplicated Status: Acute Assessment and Plan: Continue scheduled albuterol 2.5 mg q.6 hours along with Pulmicort 0.5 mg q.12 hours nebulized. (7) DVT prophylaxis: Code(s): Z29.9 - Encounter for prophylactic measures, unspecified Status: Acute Assessment and Plan: Heparin subcu (8) Dietary counseling and surveillance: Code(s): Z71.3 - Dietary counseling and surveillance Status: Acute Assessment and Plan: Stress ulcer prophylaxis: Protonix -tolerating tube feeds (9) Anemia: Code(s): D64.9 - Anemia, unspecified Status: Acute Assessment and Plan: Patient dropped his hemoglobin to 6.5 this morning, received 1 unit of packed RBCs with dialysis (patient had a hemoglobin of 7.7 on admission) -will check stool for occult blood Check iron panel, vitamin B12, folic acid Additional Plan Called Delgado Holbrook, patient's brother, on [phone]. Updated him with patient's condition and plan of care. I answered all questions Code Status: Full code Total Critical Care Time: 33 minutes Due to a high probability of clinically significant, life threatening deterioration, the patient required my highest level of preparedness to intervene emergently and I personally spent this critical care time directly and personally managing the patient. This critical care time included obtaining a history; examining the patient; pulse oximetry; ordering and review of studies; arranging urgent treatment with development of a management plan; evaluation of patient's response to treatment; frequent reassessment; and discussio
[2020-05-04] MEDS: PANTOPRAZOLE SODIUM IV 40 MG VIAL IV PUSH (14:06)
--- NOTE | 2020-05-04 14:16 | PM.IMPN ---
Progress Note: A&P Assessment and Plan (1) Septic shock: Code(s): A41.9 - Sepsis, unspecified organism; R65.21 - Severe sepsis with septic shock Status: Acute Assessment and Plan: 05/04/20 14:16 Patient was hypotensive and was requiring vasopressors. The patient also is ventilated and sedated. Medical Assisting Instructor has seen the patient. Most likely is related to his urinary tract infection. Unsure if he has a chronic indwelling Guan catheter. The patient has a Guan catheter now that is draining cloudy urine. Continue with cefepime and Levaquin. Please renal dose per pharmacist. Blood and urine cultures are pending. Lactic was normal 1.5. Further recommendations per cutter inspector. Patient's blood pressure is sustaining a map greater than 60. Pulse rate has improved to the lower 100s. 05/03/20 15:00 patient is a resident of with hx of autisim, sleep apnea chronic respiratory failure secondary to hypercapnia most likely secondary to hypoventilation patient was diagnosed with COVID-19 it initially he was at the [facility] from the he was transferred to [facility] will he was treated and improved and was sent [facility]hab however is today patient was quite hypoxic he would desaturate and patient was brought to the emergency department by EMT, upon arrival patient was hypotensive, and tachypneic with respiratory rate 40 patient was intubated emergency depart and transferred to ICU, patient is currently on vent unable to provide any review of symptom. Patient was seen by Dr. monson and suspect patient has a septic shock as patient is blood culture is growing gram-negative rods started the patient on levofloxacin correct to the dose for chronic kidney disease, patient is seen by cutter inspector, patient is seen by Nephrology appreciate. 05/02 patient remains on ventilator with respiratory failure secondary to septic shock due to UTI with E coli with bacteremia not a ESBL patient was seen by Dr. monson discontinue Levaquin and started the patient on ceftriaxone, remains on multiple pressors to maintain MAP >70, patient with metabolic acidosis remains bicarb drip, patient with hyponatremia seen by Nephrology was treated with 3% saline sodium is improving, patient urine output is very poor seen by nephrology patient will need temporary dialysis and temporary access was placed, patient family would like do everything possible for the patient, patient is seen intensive, nephrology, and ID appreciate. 05/03 patient remains on ventilator with respiratory failure secondary to septic shock due to UTI with E coli with bacteremia not a ESBL patient was seen by Dr. monson discontinue Levaquin and started the patient on ceftriaxone, remains on multiple pressors to maintain MAP >70, patient with metabolic acidosis remains bicarb drip, patient with hyponatremia seen by Nephrology was treated with 3% saline sodium is improving, patient urine output is very poor seen by nephrology patient will need temporary dialysis and temporary access was placed, patient family would like do everything possible for the patient, patient is seen intensive, nephrology, and ID appreciate. 05/04 patient is oliguric/anuric dialyzed yesterday and 2 L was removed, being dialyzed today, patient is on Levophed and Zane-Synephrine being sedated, off bicarb drip, prognosis is poor family wants to continue all the treatment, will continue to monitor (2) UTI (urinary tract infection): Code(s): N39.0 - Urinary tract infection, site not specified Status: Acute Assessment and Plan: See above under septic shock. . Renal does cefepime and Levaquin. Urine and blood cultures are pending. Patient has leukocytosis and became hypotensive. He required vasopressors. He had tachycardia as well. (3) GE[place]GIA (obstructive sleep apnea): Code(s): G47.33 - Obstructive sleep apnea (adult) (pediatric) Status: Chronic Assessment and Plan: The pa
[2020-05-04 14:20] LABS: Glucose Point of Care 175 (65-105)
[2020-05-04 15:09] LABS: Iron 63 ug/dL (49-181)
[2020-05-04 15:11] LABS: IFOB Positive Control Positive; Immunochemical Fecal Occult Bl Negative (N)
[2020-05-04 15:11] LABS: Hematocrit 24.1 % (42.0-52.0); Hemoglobin 7.7 g/dL (14.0-18.0)
[2020-05-04 15:19] LABS: Percent Iron Saturation 41 % (20-50)
[2020-05-04 15:22] LABS: Sodium 126 mmol/L (137-145)
--- NOTE | 2020-05-04 15:24 | WPDINFPN2 ---
Progress Note: A&P Assessment and Plan (1) Septic shock: Code(s): A41.9 - Sepsis, unspecified organism; R65.21 - Severe sepsis with septic shock Status: Acute Assessment and Plan: 1. Septic shock due to E coli UTI with bacteremia. Not ESBL producer director. Shock is improved though not resolved 2. MSOF, HD done again today 3. CoVid 19 infection 03/25/20 REC (antibiotic # 5) Ctx #3, continue. On multiple pressors with appropriate steroids. Subjective Date/time seen: 05/04/20 15:24 Interval history: sedated and intubated. Norepi and vasopressin now, doses being slowly tapered Exam Narrative: Exam Narrative: afebrile Const: General: no acute distress Resp: Effort & Inspection: normal respiratory effort Auscultation: clear to auscultation bilaterally and diminished lung sounds Cardio: Rate: tachycardic Rhythm: regular rhythm Heart sounds: no murmurs GI: Inspection: non-distended GI Palp: Yes Soft to palpation and No Tenderness to palpation present (GI) Urinary Catheter: Urinary Catheter: patent and draining and urine dark Skin: General skin exam: normal color Other: ecchymoses skin blisters over torso Objective Data Vital Signs Vital Signs: Vital Signs - 24 hr 05/03/20 16:00 05/03/20 16:37 05/03/20 18:00 Temperature 36.6 C Pulse Rate 83 87 90 Respiratory Rate 22 H 22 H Blood Pressure 145/60 H 137/57 L Pulse Oximetry 97 97 94 05/03/20 18:53 05/03/20 19:36 05/03/20 19:39 Temperature Pulse Rate 90 91 94 Respiratory Rate Blood Pressure 135/58 L 84/46 L 161/73 H Pulse Oximetry 05/03/20 19:42 05/03/20 19:43 05/03/20 20:00 Temperature Pulse Rate 85 85 90 Respiratory Rate 22 H 22 H 22 H Blood Pressure 139/58 L Pulse Oximetry 97 05/03/20 20:15 05/03/20 20:20 05/03/20 20:30 Temperature 36.0 C L Pulse Rate 87 89 85 Respiratory Rate 22 H 20 Blood Pressure 135/56 L Pulse Oximetry 98 95 05/03/20 20:41 05/03/20 20:45 05/03/20 21:00 Temperature Pulse Rate 90 94 95 Respiratory Rate Blood Pressure 140/60 117/50 L 119/52 L Pulse Oximetry 05/03/20 21:15 05/03/20 21:30 05/03/20 21:45 Temperature Pulse Rate 96 101 H 103 H Respiratory Rate Blood Pressure 114/52 L 112/52 L 105/48 L Pulse Oximetry 05/03/20 22:00 05/03/20 22:15 05/03/20 22:30 Temperature Pulse Rate 103 H 103 H 101 H Respiratory Rate 22 H Blood Pressure 106/47 L 108/49 L 113/51 L Pulse Oximetry 98 05/03/20 22:45 05/03/20 23:00 05/03/20 23:11 Temperature Pulse Rate 102 H 100 103 H Respiratory Rate Blood Pressure 110/48 L 110/48 L 113/49 L Pulse Oximetry 05/03/20 23:19 05/03/20 23:25 05/03/20 23:58 Temperature 36.2 C L Pulse Rate 100 100 98 Respiratory Rate 22 H Blood Pressure 133/53 L 140/56 L Pulse Oximetry 92 92 05/04/20 00:00 05/04/20 00:27 05/04/20 02:00 Temperature 36.6 C Pulse Rate 100 108 H 98 Respiratory Rate 22 H 22 H Blood Pressure 149/69 H 112/38 L 134/46 L Pulse Oximetry 99 93 05/04/20 02:26 05/04/20 02:29 05/04/20 04:00 Temperature 36.8 C Pulse Rate 99 100 88 Respiratory Rate 20 22 H Blood Pressure 135/48 L Pulse Oximetry 91 96 05/04/20 04:27 05/04/20 05:59 05/04/20 06:00 Temperature 36.6 C Pulse Rate 90 80 89 Respiratory Rate 22 H Blood Pressure 155/62 H 133/46 L Pulse Oximetry 97 96 05/04/20 06:01 05/04/20 06:02 05/04/20 06:03 Temperature Pulse Rate 80 80 80 Respiratory Rate 22 H 22 H Blood Pressure 146/55 H Pulse Oximetry 05/04/20 07:37 05/04/20 07:52 05/04/20 08:05 Temperature Pulse Rate 87 85 96 Respiratory Rate 22 H 20 Blood Pressure Pulse Oximetry 96 05/04/20 09:00 05/04/20 09:16 05/04/20 09:17 Temperature 36.6 C Pulse Rate 91 96 93 Respiratory Rate 22 H Blood Pressure 139/52 L 127/42 L 133/46 L Pulse Oximetry 95 05/04/20 09:30 05/04/20 09:45 05/04/20 10:00 Temperature Pulse Rate 86 83 84 Respiratory Rate B
[2020-05-04 16:01] LABS: Folic Acid 9.5 ng/mL (2.76->20); Vitamin B12 > 1000.0 pg/mL (239-931)
[2020-05-04 18:43] LABS: Glucose Point of Care 161 (65-105)
[2020-05-04] MEDS: NOREPINEPHRINE BITARTRATE 16 MG in DEXTROSE 5% IN WATER 234 ML 19.69 MG IV CONT (23:53)
[2020-05-05] VITALS (72 sets, daily range): BP systolic 100–130; BP diastolic 41–59; PULSE 88–131; RESP 18–32; TEMP 0–37.3; O2SAT 89–99
[2020-05-05 00:06] LABS: Glucose Point of Care 205 (65-105)
[2020-05-05] MEDS: INSULIN ASPART (*BKC) 100 UNITS/ML SUB-Q (00:06)
[2020-05-05] MEDS: ALBUTEROL SULFATE NEB 2.5 MG/0.5 ML INH INHALATION ×4 (02:05→19:35)
[2020-05-05 04:03] LABS: Alveolar/Arterial O2 Gradient 115.3 mmHg; Base Excess ABG 6.3 mEq/l (+/-2.0); Carboxyhemoglobin 0.9 % THb (0-2.0); Fractional Inspired Oxygen 35 %; HCO3 ABG 29.6 mEq/l (22.0-26.0); Methemoglobin ABG 0.5 %THb (0-1.5); Oxygen Content ABG 10.7 %vol (16.0-22.0); Oxygen Saturation ABG 97.7 % (95.0-100.0); Oxyhemoglobin 94.7 % THb (90.0-100.0); PCO2 ABG 36.8 mmHg (35.0-45.0); PO2 ABG 91.5 mmHg (80.0-100.0); PO2 FiO2 Ratio Arterial Blood 2.61 %; Reduced Hemoglobin 3.9 %THb (0-5.0)
[2020-05-05 04:04] LABS: Device VENTILATOR; Site Drawn ARTLINE; Total Hemoglobin 7.9 g/dL (12.0-18.0); pH ABG 7.523 (7.350-7.450)
[2020-05-05 04:05] LABS: Arterial Blood Gas PEEP 5 cmH2O; Arterial Blood Gas Tidal Volume 450 ml; Arterial Blood Gas Vent Mode CMV; Arterial Blood Gas Ventilator rate 22 /MIN
[2020-05-05 05:04] LABS: Hematocrit 21.4 % (42.0-52.0); Mean Corpuscular HGB Conc 31.8 g/dl (32-36); Mean Corpuscular Hemoglobin 29.3 pg (26-34); Mean Corpuscular Volume 92.2 fl (80-100); Mean Platelet Volume 11.2 fl (7.4-10.4); Platelet Count Result 79 k/mm3 (150-375); Red Blood Count 2.32 M/mm3 (4.6-6.20); Red Cell Distribution Width 17.7 % (11.5-14.5); White Blood Count 19.9 K/mm3 (4.5-10.0)
[2020-05-05 05:24] LABS: Hemoglobin 6.8 g/dL (14.0-18.0)
[2020-05-05 05:26] LABS: Alanine Aminotransferase 39 U/L (4-50); Albumin Level 2.4 g/dL (3.5-5.1); Alkaline Phosphatase 801 U/L (38-126); Anion Gap 6 mmol/L (8-16); Aspartate Amino Transferase 29 U/L (17-59); Bilirubin,Total 2.1 mg/dL (0.2-1.3); Blood Urea Nitrogen 41 mg/dL (9-20); Calcium 6.7 mg/dL (8.4-10.2); Carbon Dioxide 31 mmol/L (22-30); Chloride 90 mmol/L (98-107); Estimated CRCL calculation 72 ml/min; Estimated Glomerular Filt Rate 40; Glucose 177 mg/dL (75-110); Magnesium 1.6 mg/dL (1.6-2.3); Phosphorus 3.5 mg/dL (2.5-4.5); Potassium 3.3 mmol/L (3.4-5.0); Sodium 127 mmol/L (137-145)
[2020-05-05] MEDS: CENTRAL LINE FLUSH 10 ML IV PUSH ×4 (06:14→20:32)
[2020-05-05] MEDS: METOCLOPRAMIDE HCL INJ 10 MG/2 ML VIAL IV PUSH ×4 (06:14→23:34)
[2020-05-05] MEDS: HEPARIN SODIUM 5,000 UNITS/ML VIAL 5000 UNITS SUB-Q ×3 (06:14→20:32)
[2020-05-05] MEDS: HYDROCORTISONE SODIUM SUCCINATE 100 MG/2 ML VIAL IV PUSH ×3 (06:14→20:31)
[2020-05-05 06:25] LABS: Glucose Point of Care 177 (65-105)
--- NOTE | 2020-05-05 07:00 | WPDINTPN ---
Progress Note: A&P Assessment and Plan (1) Acute respiratory failure: Code(s): J96.00 - Acute respiratory failure, unspecified whether with hypoxia or hypercapnia Status: Acute Assessment and Plan: Acute respiratory failure likely related to septic shock, altered mental status, metabolic acidosis -on CMV mode of ventilation peep of 5, 35% FiO2 -chest x-ray and ABGs reviewed -decrease tidal volume to 380 and rate to 20 -sedated with fentanyl and Versed infusion, maintain RASS of 0 to -2 -daily sedation vacation -continue dialysis with removal of fluid (2) Septic shock: Code(s): A41.9 - Sepsis, unspecified organism; R65.21 - Severe sepsis with septic shock Status: Acute Assessment and Plan: Leukocytosis improving, -remains on Levophed but off of Zane-Synephrine. Maintain MAP > 70 mmHg for optimal end organ perfusion -patient growing E coli in blood and urine sensitive to Rocephin. Continue ceftriaxone per ID -echocardiogram 05/01/2020: Showed EF of >70%, no pulmonary hypertension, no valvular issues -venous Dopplers 05/01/2020: Negative for DVT -continue stress dose steroids -Add 25% albumin (3) UTI (urinary tract infection): Code(s): N39.0 - Urinary tract infection, site not specified Status: Acute Assessment and Plan: E coli in urine, continue antibiotics as above (4) GONZALO (acute kidney injury): Code(s): N17.9 - Acute kidney failure, unspecified Status: Acute Assessment and Plan: Acute kidney injury, patient oliguric/anuric -adequate fluids were infused in the ED as well as in the ICU -continue pressors and maintain mean arterial pressures greater than 70 mmHg for adequate renal perfusion -dialysis catheter placed on 05/03/2020 and dialysis was started on the same day -continue dialysis per Nephrology for essentially fluid removal as patient overall volume overloaded -renal ultrasound normal kidneys with no hydronephrosis -replace low potassium, calcium and magnesium (5) COVID-19: Code(s): U07.1 - COVID-19 Status: Acute Assessment and Plan: Patient was positive on 03/25/2020 for COVID-19. Currently not on any treatment or isolation (6) Asthma: Qualifiers: Asthma severity: unspecified severity Asthma persistence: unspecified Asthma complication type: unspecified Qualified Code(s): J45.909 - Unspecified asthma, uncomplicated Code(s): J45.909 - Unspecified asthma, uncomplicated Status: Acute Assessment and Plan: Continue scheduled albuterol 2.5 mg q.6 hours along with Pulmicort 0.5 mg q.12 hours nebulized. (7) DVT prophylaxis: Code(s): Z29.9 - Encounter for prophylactic measures, unspecified Status: Acute Assessment and Plan: Heparin subcu (8) Dietary counseling and surveillance: Code(s): Z71.3 - Dietary counseling and surveillance Status: Acute Assessment and Plan: Stress ulcer prophylaxis: Protonix -tolerating tube feeds (9) Anemia: Code(s): D64.9 - Anemia, unspecified Status: Acute Assessment and Plan: Patient dropped his hemoglobin to 6.8. -1 unit packed red cell transfusion ordered 5 this morning, received 1 unit of packed RBCs with dialysis (patient had a hemoglobin of 7.7 on admission) -Stool for occult blood was negative -normal vitamin B12, folic acid Additional Plan Code Status: Full code Total Critical Care Time: 30 minutes Due to a high probability of clinically significant, life threatening deterioration, the patient required my highest level of preparedness to intervene emergently and I personally spent this critical care time directly and personally managing the patient. This critical care time included obtaining a history; examining the patient; pulse oximetry; ordering and review of studies; arranging urgent treatment with development of a management plan; evaluation of patient's response to treatment; frequent
[2020-05-05] MEDS: TOLNAFTATE 1% POWDER 45 GM BTL 1 APPLIC TOPICAL ×2 (07:41→20:31)
[2020-05-05] MEDS: PANTOPRAZOLE SODIUM IV 40 MG VIAL IV PUSH (07:42)
[2020-05-05] MEDS: MAGNESIUM SULF 2 GM/WATER 50ML 2 GM/50 ML BAG IVPB (07:53)
[2020-05-05] MEDS: POTASSIUM CHLORIDE 20 MEQ PACKET (FOR LIQUID) 40 MEQ FEED TUBE (07:53)
[2020-05-05] MEDS: BUDESONIDE RESPULE NEB 0.5 MG/2 ML AMP INHALATION ×2 (09:16→19:35)
[2020-05-05] MEDS: DORNASE ALFA INH SOLN 1 MG/ML 2.5 ML AMP 2.5 MG INHALATION ×2 (09:16→19:36)
[2020-05-05] MEDS: CALCIUM GLUC 2,000 MG/NS 100ML 2,000 MG/100 ML BAG 100 MG IVPB (10:06)
--- NOTE | 2020-05-05 10:06 | PM.PNNEP ---
Progress Note: A&P Assessment and Plan (1) GONZALO (acute kidney injury): Code(s): N17.9 - Acute kidney failure, unspecified Status: Acute Assessment and Plan: Francisco has acute kidney injury. Renal ultrasound is unremarkable Urinalysis shows blood and leukocytes. Urine electrolytes are non pre renal Urine eosinophils pending Urine output is very low. Continue to dialyze every day removing fluid. Today it is a dry ultrafiltration. He is being set up for this (2) Hyponatremia: Code(s): E87.1 - Hypo-osmolality and hyponatremia Status: Acute Assessment and Plan: Sodium level is better. Less input and dialysis helping. (3) Hyperkalemia: Code(s): E87.5 - Hyperkalemia Status: Acute Assessment and Plan: Resolved (4) Septic shock: Code(s): A41.9 - Sepsis, unspecified organism; R65.21 - Severe sepsis with septic shock Status: Acute Assessment and Plan: the patient has low blood pressure and is on pressors. Blood cultures are growing gram-negative rods. he is on antibiotics covering a broad-spectrum. (5) Acute respiratory failure: Code(s): J96.00 - Acute respiratory failure, unspecified whether with hypoxia or hypercapnia Status: Acute Assessment and Plan: He is now on the ventilator. He has multiple underlying diseases as well. (6) COVID-19: Code(s): U07.1 - COVID-19 Status: Acute Assessment and Plan: This was positive on 03/25. this has run its course so is no longer on isolation (7) Autism: Code(s): F84.0 - Autistic disorder Status: Chronic (8) UTI (urinary tract infection): Code(s): N39.0 - Urinary tract infection, site not specified Status: Acute Assessment and Plan: His urine has lots of white cells in it. This may be the source of his infection On broad-spectrum antibiotics (9) [place] (obstructive sleep apnea): Code(s): G47.33 - Obstructive sleep apnea (adult) (pediatric) Status: Chronic Assessment and Plan: On the ventilator Subjective Date/time seen: 05/05/20 10:06 Interval history: Francisco looks about the same. Still intubated. Now on norepinephrine alone. Off the bicarb drip. He is being set up for another dry ultrafiltration Exam Narrative: Exam Narrative: WDWN male, intubated on the ventilator in the ICU. skin no rash Or subcu nodules head ncat lungs coarse bilaterally cor reg no rub or gallop abd BS+ nontender and soft ext 1+ edema. Objective Data Vital Signs Vital Signs: Vital Signs - 24 hr 05/04/20 10:15 05/04/20 10:30 05/04/20 10:44 Temperature 36.8 C Pulse Rate 81 87 90 Respiratory Rate 22 H Blood Pressure 150/63 H 153/64 H 149/58 H Pulse Oximetry 98 05/04/20 10:45 05/04/20 10:48 05/04/20 10:59 Temperature Pulse Rate 90 91 72 Respiratory Rate 20 Blood Pressure 104/37 L 172/68 H Pulse Oximetry 05/04/20 11:00 05/04/20 11:15 05/04/20 11:21 Temperature 36.3 C L Pulse Rate 73 78 97 Respiratory Rate 22 H Blood Pressure 172/67 H 165/66 H 143/57 H Pulse Oximetry 97 05/04/20 11:22 05/04/20 11:25 05/04/20 11:30 Temperature 36.1 C L Pulse Rate 98 96 102 H Respiratory Rate 22 H 22 H Blood Pressure 128/56 L 129/58 L Pulse Oximetry 100 05/04/20 11:45 05/04/20 11:48 05/04/20 12:00 Temperature 36.6 C Pulse Rate 100 100 94 Respiratory Rate 22 H Blood Pressure 132/58 L 143/60 H Pulse Oximetry 100 99 05/04/20 12:11 05/04/20 12:25 05/04/20 12:44 Temperature 36.1 C L Pulse Rate 93 58 L 60 Respiratory Rate 22 H Blood Pressure 147/61 H 169/64 H 170/62 H Pulse Oximetry 97 05/04/20 12:59 05/04/20 13:14 05/04/20 13:29 Temperature Pulse Rate 64 63 97 Respiratory Rate Blood Pressure 169/66 H 166/62 H 160/59 H Pulse Oximetry 05/04/20 13:57 05/04/20 14:00 05/04/20 14:02 Temperature Pulse Rate 92 95 93 Respi
--- NOTE | 2020-05-05 10:39 | PCDIET ---
Nutrition Follow-Up Complete: Nutrition Diagnosis: Inadequate oral intake related to oral intubation as evidenced by NPO status. Nutrition Goal: Patient to meet estimated nutritional needs. Goal met. Patient tolerating Nepro at 50mL/hr goal rate, although tube feedings held briefly overnight for 275mL residual. Last recorded weight is 152.9 kg which is increased from last review. Patient had 3L UF on 05/04/20 with plan for dialysis again today. Bowel Motility: BM x 1 on 05/04/20. Labs Reviewed: Hgb (6.8), Hct (21.4), Glu (177), BUN (41), Cr (1.9), K (3.3), Na (127), Alb (2.4), Natalya Ca (7.98) Meds Noted: Albumin, Albuterol, Heparin, Solu Cortef, Pulmicort, Rocephin, Magnesium Sulfate, Novolog, Reglan, Vasopressin, KCl, Versed, Levophed, Protonix Additional Notes: Coccyx macerated. Blistering to abdomen documented. Will continue to monitor with same goal. Nutrition Monitoring and Evaluation: Follow up every Friday/Friday. Follow daily in ICU rounds.
[2020-05-05] MEDS: ALBUMIN HUMAN 25% 25 GM/100 ML 100 ML IVPB ×3 (11:47→23:34)
[2020-05-05 11:52] LABS: Glucose Point of Care 176 (65-105)
[2020-05-05] MEDS: ALTEPLASE 2 MG VIAL (CATHFLO) IV PUSH ×2 (12:13→16:07)
--- NOTE | 2020-05-05 15:31 | WPDINFPN2 ---
Progress Note: A&P Assessment and Plan (1) Septic shock: Code(s): A41.9 - Sepsis, unspecified organism; R65.21 - Severe sepsis with septic shock Status: Acute Assessment and Plan: 1. Septic shock due to E coli UTI with bacteremia. Not ESBL gas producer. Shock is improved though not resolved. WBC finally declining. 2. MSOF, HD done again today 3. CoVid 19 infection 03/25/20 REC (antibiotic # 6) Ctx #4, continue. Modest improvement. On steroids, contributory to leukocytosis Subjective Date/time seen: 05/05/20 15:31 Interval history: intubated and sedated, just finished HD and no difficulties taking off 3 liters fluid Exam Narrative: Exam Narrative: afebrile. Norepi tapering, vasopresin off Const: General: no acute distress Other: appears acutely ill Neck: Neck: no JVD Other: lines in place bilaterally Resp: Auscultation: clear to auscultation bilaterally and diminished lung sounds Cardio: Rate: regular rate Rhythm: regular rhythm Heart sounds: no murmurs GI: Inspection: distended GI Palp: Yes Firmness to palpation present (GI) and No Tenderness to palpation present (GI) Urinary Catheter: Urinary Catheter: patent and draining and urine clear Skin: General skin exam: normal color and no rashes or lesions noted Objective Data Vital Signs Vital Signs: Vital Signs - 24 hr 05/04/20 16:00 05/04/20 16:21 05/04/20 17:15 Temperature 36.9 C Pulse Rate 122 H 121 H 112 H Respiratory Rate 24 H Blood Pressure 107/37 L 107/37 L Pulse Oximetry 96 96 05/04/20 18:00 05/04/20 18:29 05/04/20 18:31 Temperature Pulse Rate 121 H 107 H 107 H Respiratory Rate 23 H 22 H Blood Pressure 121/48 L 108/40 L Pulse Oximetry 97 05/04/20 18:32 05/04/20 18:35 05/04/20 19:56 Temperature Pulse Rate 107 H 108 H 112 H Respiratory Rate 22 H 22 H Blood Pressure 111/41 L Pulse Oximetry 05/04/20 19:58 05/04/20 20:00 05/04/20 20:19 Temperature 37.1 C Pulse Rate 108 H 118 H 119 H Respiratory Rate 22 H 23 H Blood Pressure 119/48 L Pulse Oximetry 95 96 05/04/20 22:00 05/04/20 22:42 05/04/20 23:53 Temperature Pulse Rate 102 H 104 H 102 H Respiratory Rate 22 H Blood Pressure 110/42 L 110/42 L Pulse Oximetry 96 95 05/05/20 00:00 05/05/20 02:00 05/05/20 02:05 Temperature 37.3 C Pulse Rate 100 95 98 Respiratory Rate 22 H 22 H 22 H Blood Pressure 111/41 L 114/45 L Pulse Oximetry 96 96 05/05/20 02:08 05/05/20 02:11 05/05/20 02:12 Temperature Pulse Rate 95 95 95 Respiratory Rate 22 H Blood Pressure 114/45 L Pulse Oximetry 96 05/05/20 04:00 05/05/20 04:29 05/05/20 06:00 Temperature 36.6 C Pulse Rate 109 H 120 H 93 Respiratory Rate 22 H 22 H Blood Pressure 114/49 L 119/47 L Pulse Oximetry 97 97 96 05/05/20 06:02 05/05/20 06:09 05/05/20 06:11 Temperature Pulse Rate 88 88 89 Respiratory Rate 22 H 22 H Blood Pressure 114/45 L Pulse Oximetry 05/05/20 07:23 05/05/20 07:29 05/05/20 07:38 Temperature Pulse Rate 90 91 104 H Respiratory Rate 22 H 20 Blood Pressure 119/46 L Pulse Oximetry 96 05/05/20 07:39 05/05/20 07:44 05/05/20 08:00 Temperature 37.3 C 37.3 C 37.2 C Pulse Rate 105 H 101 H 105 H Respiratory Rate 18 23 H 22 H Blood Pressure 118/47 L 122/47 L 127/51 L Pulse Oximetry 92 93 94 05/05/20 09:00 05/05/20 09:09 05/05/20 09:18 Temperature 37.1 C Pulse Rate 100 97 103 H Respiratory Rate 19 24 H Blood Pressure 125/51 L Pulse Oximetry 94 95 05/05/20 09:40 05/05/20 09:42 05/05/20 09:45 Temperature Pulse Rate 107 H 107 H 103 H Respiratory Rate 24 H Blood Pressure 126/52 L 123/50 L Pulse Oximetry 05/05/20 09:50 05/05/20 09:58 05/05/20 10:00 Temperature 37.1 C 37.1 C Pulse Rate 106 H 107 H 110 H Respiratory Rate 25 H 25 H Blood Pressure 125/52 L 124/51 L 130/55 L Pulse Oximetry 94 96 05/05/20 10:33 05/05/20 10:41 05/05/20 11:00 Temperature 37.1 C Pulse Rate 108
--- NOTE | 2020-05-05 15:55 | PM.IMPN ---
Progress Note: A&P Assessment and Plan (1) Septic shock: Code(s): A41.9 - Sepsis, unspecified organism; R65.21 - Severe sepsis with septic shock Status: Acute Assessment and Plan: 05/05/20 15:55 Patient was hypotensive and was requiring vasopressors. The patient also is ventilated and sedated. Maintenance Mechanic Helper has seen the patient. Most likely is related to his urinary tract infection. Unsure if he has a chronic indwelling Guan catheter. The patient has a Guan catheter now that is draining cloudy urine. Continue with cefepime and Levaquin. Please renal dose per pharmacist. Blood and urine cultures are pending. Lactic was normal 1.5. Further recommendations per assembler deck and hull. Patient's blood pressure is sustaining a map greater than 60. Pulse rate has improved to the lower 100s. 05/03/20 15:00 patient is a resident of with hx of autisim, sleep apnea chronic respiratory failure secondary to hypercapnia most likely secondary to hypoventilation patient was diagnosed with COVID-19 it initially he was at the [facility] from the he was transferred to [facility] will he was treated and improved and was sent back to long-term for rehab however is today patient was quite hypoxic he would desaturate and patient was brought to the emergency department by EMT, upon arrival patient was hypotensive, and tachypneic with respiratory rate 40 patient was intubated emergency depart and transferred to ICU, patient is currently on vent unable to provide any review of symptom. Patient was seen by Dr. monson and suspect patient has a septic shock as patient is blood culture is growing gram-negative rods started the patient on levofloxacin correct to the dose for chronic kidney disease, patient is seen by assembler deck and hull, patient is seen by Nephrology appreciate. 05/02 patient remains on ventilator with respiratory failure secondary to septic shock due to UTI with E coli with bacteremia not a ESBL patient was seen by Dr. monson discontinue Levaquin and started the patient on ceftriaxone, remains on multiple pressors to maintain MAP >70, patient with metabolic acidosis remains bicarb drip, patient with hyponatremia seen by Nephrology was treated with 3% saline sodium is improving, patient urine output is very poor seen by nephrology patient will need temporary dialysis and temporary access was placed, patient family would like do everything possible for the patient, patient is seen intensive, nephrology, and ID appreciate. 05/03 patient remains on ventilator with respiratory failure secondary to septic shock due to UTI with E coli with bacteremia not a ESBL patient was seen by Dr. monson discontinue Levaquin and started the patient on ceftriaxone, remains on multiple pressors to maintain MAP >70, patient with metabolic acidosis remains bicarb drip, patient with hyponatremia seen by Nephrology was treated with 3% saline sodium is improving, patient urine output is very poor seen by nephrology patient will need temporary dialysis and temporary access was placed, patient family would like do everything possible for the patient, patient is seen intensive, nephrology, and ID appreciate. 05/04 patient is oliguric/anuric dialyzed yesterday and 2 L was removed, being dialyzed today, patient is on Levophed and Zane-Synephrine being sedated, off bicarb drip, prognosis is poor family wants to continue all the treatment, will continue to monitor. 05/05 patient remains on ventilator secondary to septic shock due to UTI with E coli not ESBL seen by Dr. monson started the patient Rocephin 05/02 #4, patient had dialysis yesterday is also receiving dialysis today plan is to remove 4L today seen by Dr. Menendez. Still sedated on ventilator, seen by assembler deck and hull and appreciate. (2) UTI (urinary tract infection): Code(s): N39.0 - Urinary tract infection, site not specified Status: Acute Assessment and Plan: See above under septic shock. . Renal does c
[2020-05-05] MEDS: NOREPINEPHRINE BITARTRATE 16 MG in DEXTROSE 5% IN WATER 234 ML 10.31 ML IV CONT (16:07)
[2020-05-05 17:33] LABS: Glucose Point of Care 166 (65-105)
[2020-05-05 23:43] LABS: Glucose Point of Care 174 (65-105)
[2020-05-06] VITALS (60 sets, daily range): BP systolic 97–126; BP diastolic 45–91; PULSE 19–139; RESP 18–32; TEMP 35.5–37.5; O2SAT 90–100
[2020-05-06] MEDS: ALBUTEROL SULFATE NEB 2.5 MG/0.5 ML INH INHALATION ×4 (01:41→20:32)
[2020-05-06] MEDS: CENTRAL LINE FLUSH 10 ML IV PUSH ×4 (03:30→20:05)
[2020-05-06] MEDS: FENTANYL 2,500MCG/NS250ML(*CRX 2,500 MCG/250 ML BAG 7.5 MCG IV CONT (03:31)
[2020-05-06 04:15] LABS: Alveolar/Arterial O2 Gradient 160.7 mmHg; Base Excess ABG 1.6 mEq/l (+/-2.0); Carboxyhemoglobin 0.6 % THb (0-2.0); Fractional Inspired Oxygen 40 %; HCO3 ABG 25.8 mEq/l (22.0-26.0); Methemoglobin ABG 0.5 %THb (0-1.5); Oxygen Content ABG 10.4 %vol (16.0-22.0); Oxygen Saturation ABG 96.2 % (95.0-100.0); Oxyhemoglobin 94.5 % THb (90.0-100.0); PCO2 ABG 38.9 mmHg (35.0-45.0); PO2 ABG 79.8 mmHg (80.0-100.0); Reduced Hemoglobin 4.4 %THb (0-5.0)
[2020-05-06 04:19] LABS: Device VENTILATOR; Site Drawn ARTLINE; Total Hemoglobin 7.7 g/dL (12.0-18.0)
[2020-05-06 04:20] LABS: Arterial Blood Gas PEEP 5 cmH2O; Arterial Blood Gas Vent Mode ASSIST CONTROL; Arterial Blood Gas Ventilator rate 20 /MIN
[2020-05-06 04:21] LABS: Arterial Blood Gas Tidal Volume 380 ml
[2020-05-06] MEDS: METOCLOPRAMIDE HCL INJ 10 MG/2 ML VIAL IV PUSH ×4 (05:34→23:25)
[2020-05-06] MEDS: HEPARIN SODIUM 5,000 UNITS/ML VIAL 5000 UNITS SUB-Q ×3 (05:34→23:25)
[2020-05-06] MEDS: HYDROCORTISONE SODIUM SUCCINATE 100 MG/2 ML VIAL IV PUSH ×3 (05:34→23:25)
[2020-05-06] MEDS: ALBUMIN HUMAN 25% 25 GM/100 ML 100 ML IVPB ×4 (05:35→23:25)
[2020-05-06 06:36] LABS: Hematocrit 22.8 % (42.0-52.0); Immature Platelet Fraction Pct 10.6 % (0.9-11.2); Mean Corpuscular HGB Conc 30.7 g/dl (32-36); Mean Corpuscular Hemoglobin 28.9 pg (26-34); Mean Corpuscular Volume 94.2 fl (80-100); Mean Platelet Volume 11.1 fl (7.4-10.4); Platelet Count Result 71 k/mm3 (150-375); Red Blood Count 2.42 M/mm3 (4.6-6.20); Red Cell Distribution Width 17.5 % (11.5-14.5); White Blood Count 15.6 K/mm3 (4.5-10.0)
[2020-05-06 06:53] LABS: Glucose Point of Care 153 (65-105)
[2020-05-06 07:02] LABS: Alanine Aminotransferase 29 U/L (4-50); Albumin Level 3.3 g/dL (3.5-5.1); Alkaline Phosphatase 514 U/L (38-126); Anion Gap 9 mmol/L (8-16); Aspartate Amino Transferase 25 U/L (17-59); Bilirubin,Total 2.3 mg/dL (0.2-1.3); Blood Urea Nitrogen 53 mg/dL (9-20); Calcium 7.7 mg/dL (8.4-10.2); Carbon Dioxide 31 mmol/L (22-30); Chloride 91 mmol/L (98-107); Estimated CRCL calculation 78 ml/min; Estimated Glomerular Filt Rate 42; Glucose 163 mg/dL (75-110); Phosphorus 3.7 mg/dL (2.5-4.5); Potassium 3.7 mmol/L (3.4-5.0); Sodium 131 mmol/L (137-145)
[2020-05-06] MEDS: DORNASE ALFA INH SOLN 1 MG/ML 2.5 ML AMP 2.5 MG INHALATION ×2 (08:00→20:34)
[2020-05-06] MEDS: BUDESONIDE RESPULE NEB 0.5 MG/2 ML AMP INHALATION ×2 (08:00→20:33)
--- NOTE | 2020-05-06 08:31 | WPDINTPN ---
Progress Note: A&P Assessment and Plan (1) Acute respiratory failure: Code(s): J96.00 - Acute respiratory failure, unspecified whether with hypoxia or hypercapnia Status: Acute Assessment and Plan: Acute respiratory failure likely related to septic shock, altered mental status, metabolic acidosis -on CMV mode of ventilation peep of 5, 40% FiO2 -chest x-ray and ABGs reviewed -continue tidal volume to 380 and rate to 20 -sedated with fentanyl and Versed infusion, maintain RASS of 0 to -2 -daily sedation vacation -continue dialysis with removal of fluid. Fluid removed before attempt for weaning as chest x-ray still shows persistent bilateral infiltrates suggestive of pulmonary edema (2) Septic shock: Code(s): A41.9 - Sepsis, unspecified organism; R65.21 - Severe sepsis with septic shock Status: Acute Assessment and Plan: Leukocytosis improving, -remains on Levophed but off of Zane-Synephrine. Maintain MAP > 70 mmHg for optimal end organ perfusion -patient growing E coli in blood and urine sensitive to Rocephin. Continue ceftriaxone per ID -echocardiogram 05/01/2020: Showed EF of >70%, no pulmonary hypertension, no valvular issues -venous Dopplers 05/01/2020: Negative for DVT -continue stress dose steroids -continue 25% albumin (3) UTI (urinary tract infection): Code(s): N39.0 - Urinary tract infection, site not specified Status: Acute Assessment and Plan: E coli in urine, continue antibiotics as above (4) GONZALO (acute kidney injury): Code(s): N17.9 - Acute kidney failure, unspecified Status: Acute Assessment and Plan: Acute kidney injury, patient oliguric/anuric -adequate fluids were infused in the ED as well as in the ICU -continue pressors and maintain mean arterial pressures greater than 70 mmHg for adequate renal perfusion -dialysis catheter placed on 05/03/2020 and dialysis was started on the same day -continue dialysis per Nephrology for essentially fluid removal as patient overall volume overloaded -renal ultrasound normal kidneys with no hydronephrosis (5) COVID-19: Code(s): U07.1 - COVID-19 Status: Acute Assessment and Plan: Patient was positive on 03/25/2020 for COVID-19. Currently not on any treatment or isolation (6) Asthma: Qualifiers: Asthma severity: unspecified severity Asthma persistence: unspecified Asthma complication type: unspecified Qualified Code(s): J45.909 - Unspecified asthma, uncomplicated Code(s): J45.909 - Unspecified asthma, uncomplicated Status: Acute Assessment and Plan: Continue scheduled albuterol 2.5 mg q.6 hours along with Pulmicort 0.5 mg q.12 hours nebulized. (7) DVT prophylaxis: Code(s): Z29.9 - Encounter for prophylactic measures, unspecified Status: Acute Assessment and Plan: Heparin subcu (8) Dietary counseling and surveillance: Code(s): Z71.3 - Dietary counseling and surveillance Status: Acute Assessment and Plan: Stress ulcer prophylaxis: Protonix -tolerating tube feeds (9) Anemia: Code(s): D64.9 - Anemia, unspecified Status: Acute Assessment and Plan: 2/ 1 unit packed red cell transfusion -hemoglobin 7 today. Continue to monitor and transfuse as needed -Stool for occult blood was negative -normal vitamin B12, folic acid Additional Plan Code Status: Full code Total Critical Care Time: 32 minutes Due to a high probability of clinically significant, life threatening deterioration, the patient required my highest level of preparedness to intervene emergently and I personally spent this critical care time directly and personally managing the patient. This critical care time included obtaining a history; examining the patient; pulse oximetry; ordering and review of studies; arranging urgent treatment with development of a management plan; evaluation of patient's response to treatment; frequ
[2020-05-06] MEDS: TOLNAFTATE 1% POWDER 45 GM BTL 1 APPLIC TOPICAL ×2 (09:12→20:05)
[2020-05-06] MEDS: PANTOPRAZOLE SODIUM IV 40 MG VIAL IV PUSH (09:12)
--- NOTE | 2020-05-06 10:49 | PM.PNNEP ---
Progress Note: A&P Assessment and Plan (1) GONZALO (acute kidney injury): Code(s): N17.9 - Acute kidney failure, unspecified Status: Acute Assessment and Plan: Francisco has acute kidney injury. Renal ultrasound is unremarkable Urinalysis shows blood and leukocytes. Urine electrolytes are non pre renal Urine eosinophils pending Urine output is very low. He still has a catheter in. I think we can take this out Will do another treatment today; start slow but still try to take fluid off (2) Hyponatremia: Code(s): E87.1 - Hypo-osmolality and hyponatremia Status: Acute Assessment and Plan: Sodium level is doing well at (3) Hyperkalemia: Code(s): E87.5 - Hyperkalemia Status: Acute Assessment and Plan: Resolved (4) Septic shock: Code(s): A41.9 - Sepsis, unspecified organism; R65.21 - Severe sepsis with septic shock Status: Acute Assessment and Plan: the patient has low blood pressure and is on pressors. Blood cultures are growing gram-negative rods. he is on antibiotics covering a broad-spectrum. No fevers and his white blood cell count is improving (5) Acute respiratory failure: Code(s): J96.00 - Acute respiratory failure, unspecified whether with hypoxia or hypercapnia Status: Acute Assessment and Plan: He is now on the ventilator. Try to remove as much fluid as possible. (6) COVID-19: Code(s): U07.1 - COVID-19 Status: Acute Assessment and Plan: This was positive on 03/25. this has run its course so is no longer on isolation (7) Autism: Code(s): F84.0 - Autistic disorder Status: Chronic (8) UTI (urinary tract infection): Code(s): N39.0 - Urinary tract infection, site not specified Status: Acute Assessment and Plan: His urine has lots of white cells in it. This may be the source of his infection On broad-spectrum antibiotics (9) [place] (obstructive sleep apnea): Code(s): G47.33 - Obstructive sleep apnea (adult) (pediatric) Status: Chronic Assessment and Plan: On the ventilator Subjective Date/time seen: 05/06/20 10:49 Interval history: Francisco looks about the same. Still intubated. Resting comfortably on the ventilator. He did well with his dry ultrafiltration yesterday getting more than 3L off. Will do a regular treatment today and try to take more fluid off as well Exam Narrative: Exam Narrative: WDWN male, intubated on the ventilator in the ICU. skin no rash Or subcu nodules head ncat lungs coarse bilaterally cor reg no rub or gallop abd BS+ nontender and soft ext 1-2 + edema. Objective Data Vital Signs Vital Signs: Vital Signs - 24 hr 05/05/20 11:00 05/05/20 11:05 05/05/20 11:15 Temperature Pulse Rate 105 H 104 H 107 H Respiratory Rate Blood Pressure 120/51 L 116/50 L Pulse Oximetry 94 05/05/20 11:30 05/05/20 11:38 05/05/20 11:45 Temperature Pulse Rate 109 H 109 H 110 H Respiratory Rate 27 H Blood Pressure 122/54 L 115/50 L Pulse Oximetry 96 05/05/20 12:00 05/05/20 12:15 05/05/20 12:41 Temperature 37.2 C Pulse Rate 110 H 108 H 116 H Respiratory Rate 24 H Blood Pressure 122/54 L 118/56 L 125/51 L Pulse Oximetry 95 05/05/20 12:54 05/05/20 13:00 05/05/20 13:30 Temperature Pulse Rate 119 H 118 H 121 H Respiratory Rate Blood Pressure 125/53 L 118/56 L 115/50 L Pulse Oximetry 05/05/20 13:33 05/05/20 14:00 05/05/20 14:14 Temperature Pulse Rate 122 H 123 H 124 H Respiratory Rate 22 H Blood Pressure 120/51 L 120/54 L 110/48 L Pulse Oximetry 96 05/05/20 14:15 05/05/20 14:45 05/05/20 14:54 Temperature Pulse Rate 118 H 121 H 119 H Respiratory Rate Blood Pressure 118/56 L 117/50 L Pulse Oximetry 95 05/05/20 15:00 05/05/20 15:02 05/05/20 15:15 Temperature 37.2 C Pulse Rate 117 H 118 H 122 H Respiratory Rate 2
--- NOTE | 2020-05-06 13:58 | PM.IMPN ---
Progress Note: A&P Assessment and Plan (1) Septic shock: Code(s): A41.9 - Sepsis, unspecified organism; R65.21 - Severe sepsis with septic shock Status: Acute Assessment and Plan: 05/06/20 13:58 Patient was hypotensive and was requiring vasopressors. The patient also is ventilated and sedated. Certified Respiratory Therapist has seen the patient. Most likely is related to his urinary tract infection. Unsure if he has a chronic indwelling Guan catheter. The patient has a Guan catheter now that is draining cloudy urine. Continue with cefepime and Levaquin. Please renal dose per pharmacist. Blood and urine cultures are pending. Lactic was normal 1.5. Further recommendations per lead javascript engineer. Patient's blood pressure is sustaining a map greater than 60. Pulse rate has improved to the lower 100s. 05/03/20 15:00 patient is a resident of with hx of autisim, sleep apnea chronic respiratory failure secondary to hypercapnia most likely secondary to hypoventilation patient was diagnosed with COVID-19 it initially he was at the [facility] from the he was transferred to [facility] will he was treated and improved and was sent back to [facility] for rehab however is today patient was quite hypoxic he would desaturate and patient was brought to the emergency department by EMT, upon arrival patient was hypotensive, and tachypneic with respiratory rate 40 patient was intubated emergency depart and transferred to ICU, patient is currently on vent unable to provide any review of symptom. Patient was seen by Dr. monson and suspect patient has a septic shock as patient is blood culture is growing gram-negative rods started the patient on levofloxacin correct to the dose for chronic kidney disease, patient is seen by lead javascript engineer, patient is seen by Nephrology appreciate. 05/02 patient remains on ventilator with respiratory failure secondary to septic shock due to UTI with E coli with bacteremia not a ESBL patient was seen by Dr. monson discontinue Levaquin and started the patient on ceftriaxone, remains on multiple pressors to maintain MAP >70, patient with metabolic acidosis remains bicarb drip, patient with hyponatremia seen by Nephrology was treated with 3% saline sodium is improving, patient urine output is very poor seen by nephrology patient will need temporary dialysis and temporary access was placed, patient family would like do everything possible for the patient, patient is seen intensive, nephrology, and ID appreciate. 05/03 patient remains on ventilator with respiratory failure secondary to septic shock due to UTI with E coli with bacteremia not a ESBL patient was seen by Dr. monosn discontinue Levaquin and started the patient on ceftriaxone, remains on multiple pressors to maintain MAP >70, patient with metabolic acidosis remains bicarb drip, patient with hyponatremia seen by Nephrology was treated with 3% saline sodium is improving, patient urine output is very poor seen by nephrology patient will need temporary dialysis and temporary access was placed, patient family would like do everything possible for the patient, patient is seen intensive, nephrology, and ID appreciate. 05/04 patient is oliguric/anuric dialyzed yesterday and 2 L was removed, being dialyzed today, patient is on Levophed and Zane-Synephrine being sedated, off bicarb drip, prognosis is poor family wants to continue all the treatment, will continue to monitor. 05/05 patient remains on ventilator secondary to septic shock due to UTI with E coli not ESBL seen by Dr. monson started the patient Rocephin 05/02 #4, patient had dialysis yesterday is also receiving dialysis today plan is to remove 4L today seen by Dr. Menendez. Still sedated on ventilator, seen by lead javascript engineer and appreciate. 05/06 patient remains on ventilator secondary to septic shock due to UTI with E coli not ESBL seen by Dr. monson started the patient Rocephin 05/02 #5, patient had dialysis yesterday, patient urine out
[2020-05-06 18:29] LABS: Glucose Point of Care 150 (65-105)
[2020-05-06] MEDS: HEPARIN SODIUM 1,000 UNITS/ML VIAL 1000 UNITS IV PUSH (22:26)
[2020-05-06] MEDS: NOREPINEPHRINE BITARTRATE 16 MG in DEXTROSE 5% IN WATER 234 ML IV CONT (23:24)
[2020-05-06 23:40] LABS: Glucose Point of Care 148 (65-105)
[2020-05-07] VITALS (44 sets, daily range): BP systolic 84–155; BP diastolic 44–81; PULSE 30–120; RESP 22–96; TEMP 36.1–38.2; O2SAT 92–100
[2020-05-07] MEDS: ALBUTEROL SULFATE NEB 2.5 MG/0.5 ML INH INHALATION ×4 (02:45→20:07)
[2020-05-07] MEDS: METOCLOPRAMIDE HCL INJ 10 MG/2 ML VIAL IV PUSH ×3 (04:45→17:49)
[2020-05-07] MEDS: HYDROCORTISONE SODIUM SUCCINATE 100 MG/2 ML VIAL IV PUSH ×3 (04:45→21:36)
[2020-05-07] MEDS: HEPARIN SODIUM 5,000 UNITS/ML VIAL 5000 UNITS SUB-Q ×3 (04:45→21:35)
[2020-05-07] MEDS: ALBUMIN HUMAN 25% 25 GM/100 ML 100 ML IVPB (04:47)
[2020-05-07] MEDS: CENTRAL LINE FLUSH 10 ML IV PUSH ×4 (04:48→21:36)
[2020-05-07 05:29] LABS: Alveolar/Arterial O2 Gradient 163.8 mmHg; Base Excess ABG 2.2 mEq/l (+/-2.0); Carboxyhemoglobin 1.2 % THb (0-2.0); Fractional Inspired Oxygen 40 %; HCO3 ABG 27.1 mEq/l (22.0-26.0); Methemoglobin ABG 0.3 %THb (0-1.5); Oxygen Content ABG 10.3 %vol (16.0-22.0); Oxygen Saturation ABG 94.5 % (95.0-100.0); Oxyhemoglobin 92.5 % THb (90.0-100.0); PCO2 ABG 43.6 mmHg (35.0-45.0); PO2 ABG 71.3 mmHg (80.0-100.0); PO2 FiO2 Ratio Arterial Blood 1.78 %; pH ABG 7.411 (7.350-7.450)
[2020-05-07 05:30] LABS: Arterial Blood Gas Ventilator rate 20 /MIN; Device VENTILATOR; Modified Allen's Test Unable to perform; Site Drawn RIGHT RADIAL; Total Hemoglobin 7.8 g/dL (12.0-18.0)
[2020-05-07 05:31] LABS: Arterial Blood Gas PEEP 5 cmH2O; Arterial Blood Gas Tidal Volume 380 ml; Arterial Blood Gas Vent Mode ASSIST CONTROL
[2020-05-07 06:30] LABS: Hematocrit 21.2 % (42.0-52.0); Immature Platelet Fraction Pct 14.7 % (0.9-11.2); Mean Corpuscular HGB Conc 30.7 g/dl (32-36); Mean Corpuscular Hemoglobin 29.7 pg (26-34); Mean Corpuscular Volume 96.8 fl (80-100); Mean Platelet Volume 11.6 fl (7.4-10.4); Platelet Count Result 78 k/mm3 (150-375); Red Blood Count 2.19 M/mm3 (4.6-6.20); Red Cell Distribution Width 17.3 % (11.5-14.5); White Blood Count 13.9 K/mm3 (4.5-10.0)
[2020-05-07 06:41] LABS: Hemoglobin 6.5 g/dL (14.0-18.0)
[2020-05-07 06:54] LABS: Alanine Aminotransferase 27 U/L (4-50); Albumin Level 3.6 g/dL (3.5-5.1); Alkaline Phosphatase 404 U/L (38-126); Anion Gap 9 mmol/L (8-16); Aspartate Amino Transferase 25 U/L (17-59); Bilirubin,Total 2.2 mg/dL (0.2-1.3); Blood Urea Nitrogen 36 mg/dL (9-20); Carbon Dioxide 32 mmol/L (22-30); Chloride 93 mmol/L (98-107); Estimated CRCL calculation 93 ml/min; Estimated Glomerular Filt Rate 52; Glucose 162 mg/dL (75-110); Magnesium 1.8 mg/dL (1.6-2.3); Phosphorus 2.5 mg/dL (2.5-4.5); Potassium 3.5 mmol/L (3.4-5.0); Sodium 134 mmol/L (137-145)
--- NOTE | 2020-05-07 07:56 | WPDINTPN ---
Progress Note: A&P Assessment and Plan (1) Acute respiratory failure: Code(s): J96.00 - Acute respiratory failure, unspecified whether with hypoxia or hypercapnia Status: Acute Assessment and Plan: Acute respiratory failure likely related to septic shock, altered mental status, metabolic acidosis -on CMV mode of ventilation peep of 5, 40% FiO2 -chest x-ray and ABGs reviewed -continue tidal volume to 380 and rate to 20 -sedated with fentanyl and Versed infusion, maintain RASS of 0 to -2 -daily sedation vacation -will try breathing trial today. Start Precedex infusion to counter agitation during breathing trial -continue dialysis with removal of fluid. Fluid removed before attempt for weaning as chest x-ray still shows persistent bilateral infiltrates suggestive of pulmonary edema (2) Septic shock: Code(s): A41.9 - Sepsis, unspecified organism; R65.21 - Severe sepsis with septic shock Status: Acute Assessment and Plan: Leukocytosis improving, -remains on Levophed but off of Zane-Synephrine. Maintain MAP > 70 mmHg for optimal end organ perfusion -patient growing E coli in blood and urine sensitive to Rocephin. Continue ceftriaxone per ID -echocardiogram 05/01/2020: Showed EF of >70%, no pulmonary hypertension, no valvular issues -venous Dopplers 05/01/2020: Negative for DVT -continue stress dose steroids -discontinue 25% albumin at this time (3) UTI (urinary tract infection): Code(s): N39.0 - Urinary tract infection, site not specified Status: Acute Assessment and Plan: E coli in urine, continue antibiotics as above (4) GONZALO (acute kidney injury): Code(s): N17.9 - Acute kidney failure, unspecified Status: Acute Assessment and Plan: Acute kidney injury, patient oliguric/anuric -adequate fluids were infused in the ED as well as in the ICU -continue pressors and maintain mean arterial pressures greater than 70 mmHg for adequate renal perfusion -dialysis catheter placed on 05/03/2020 and dialysis was started on the same day -continue dialysis per Nephrology for essentially fluid removal as patient overall volume overloaded -renal ultrasound normal kidneys with no hydronephrosis (5) COVID-19: Code(s): U07.1 - COVID-19 Status: Acute Assessment and Plan: Patient was positive on 03/25/2020 for COVID-19. Currently not on any treatment or isolation (6) Asthma: Qualifiers: Asthma severity: unspecified severity Asthma persistence: unspecified Asthma complication type: unspecified Qualified Code(s): J45.909 - Unspecified asthma, uncomplicated Code(s): J45.909 - Unspecified asthma, uncomplicated Status: Acute Assessment and Plan: Continue scheduled albuterol 2.5 mg q.6 hours along with Pulmicort 0.5 mg q.12 hours nebulized. (7) DVT prophylaxis: Code(s): Z29.9 - Encounter for prophylactic measures, unspecified Status: Acute Assessment and Plan: Heparin subcu (8) Dietary counseling and surveillance: Code(s): Z71.3 - Dietary counseling and surveillance Status: Acute Assessment and Plan: Stress ulcer prophylaxis: Protonix -tolerating tube feeds (9) Anemia: Code(s): D64.9 - Anemia, unspecified Status: Acute Assessment and Plan: 2/5 1 unit packed red cell transfusion 2/ Hemoglobin 6.5 again today transfuse 1 more unit of packed red cells. Change PPI to q.12 hours Continue to monitor and transfuse as needed -Stool for occult blood was negative -normal vitamin B12, folic acid Additional Plan Code Status: Full code Total Critical Care Time: 33 minutes Due to a high probability of clinically significant, life threatening deterioration, the patient required my highest level of preparedness to intervene emergently and I personally spent this critical care time directly and personally managing the patient. This critical care time included obtaining a hi
[2020-05-07] MEDS: BUDESONIDE RESPULE NEB 0.5 MG/2 ML AMP INHALATION ×2 (08:00→20:07)
[2020-05-07] MEDS: DORNASE ALFA INH SOLN 1 MG/ML 2.5 ML AMP 2.5 MG INHALATION ×2 (08:01→20:07)
[2020-05-07] MEDS: dexmedeTOMIDine 400 MCG/100 ML 400 MCG/100 ML BAG 19.69 MCG IV CONT (08:02)
[2020-05-07] MEDS: TOLNAFTATE 1% POWDER 45 GM BTL 1 APPLIC TOPICAL ×2 (08:03→21:36)
--- NOTE | 2020-05-07 09:52 | PM.PNNEP ---
Progress Note: A&P Assessment and Plan (1) GONZALO (acute kidney injury): Code(s): N17.9 - Acute kidney failure, unspecified Status: Acute Assessment and Plan: Francisco has acute kidney injury. Renal ultrasound is unremarkable Urinalysis shows blood and leukocytes. Urine electrolytes are non pre renal Urine eosinophils pending Hopefully his urine output will improve soon. However, Urine output is very low. Will check Guan catheter to be sure that it is still working. Check bladder scan. Will try a couple doses of Bumex. Will do another treatment Tomorrow early. (2) Hyponatremia: Code(s): E87.1 - Hypo-osmolality and hyponatremia Status: Acute Assessment and Plan: Sodium level is Slowly normalizing. (3) Hyperkalemia: Code(s): E87.5 - Hyperkalemia Status: Acute Assessment and Plan: Resolved (4) Septic shock: Code(s): A41.9 - Sepsis, unspecified organism; R65.21 - Severe sepsis with septic shock Status: Acute Assessment and Plan: Blood pressure is improved. Only on norepinephrine 2 mics. Blood cultures are growing gram-negative rods. he is on antibiotics covering a broad-spectrum. No fevers and his white blood cell count is improving (5) Acute respiratory failure: Code(s): J96.00 - Acute respiratory failure, unspecified whether with hypoxia or hypercapnia Status: Acute Assessment and Plan: He is now on the ventilator. Try to remove as much fluid as possible. (6) COVID-19: Code(s): U07.1 - COVID-19 Status: Acute Assessment and Plan: This was positive on 03/25. this has run its course so is no longer on isolation (7) Autism: Code(s): F84.0 - Autistic disorder Status: Chronic (8) UTI (urinary tract infection): Code(s): N39.0 - Urinary tract infection, site not specified Status: Acute Assessment and Plan: His urine has lots of white cells in it. This may be the source of his infection On broad-spectrum antibiotics (9) [place] (obstructive sleep apnea): Code(s): G47.33 - Obstructive sleep apnea (adult) (pediatric) Status: Chronic Assessment and Plan: On the ventilator Subjective Date/time seen: 05/07/20 09:52 Interval history: Francisco looks about the same. Still intubated. Edema seems a little bit better. Review of Systems Review of Systems: ROS unobtainable: Yes unobtainable due to medical condition Exam Narrative: Exam Narrative: WDWN male, intubated on the ventilator in the ICU. skin no rash Or subcu nodules head ncat lungs coarse bilaterally cor reg no rub or gallop abd BS+ nontender and soft ext 1-2 + edema. Objective Data Vital Signs Vital Signs: Vital Signs - 24 hr 05/06/20 10:00 05/06/20 10:25 05/06/20 10:48 Temperature Pulse Rate 120 H 126 H 127 H Respiratory Rate 27 H Blood Pressure 113/48 L 99/51 L Pulse Oximetry 93 94 05/06/20 12:00 05/06/20 13:40 05/06/20 14:00 Temperature 37.4 C Pulse Rate 119 H 126 H 117 H Respiratory Rate 22 H 21 H Blood Pressure 118/53 L 126/57 L Pulse Oximetry 100 92 05/06/20 14:15 05/06/20 14:16 05/06/20 14:23 Temperature Pulse Rate 125 H 125 H 120 H Respiratory Rate 30 H 25 H Blood Pressure Pulse Oximetry 90 05/06/20 15:43 05/06/20 15:47 05/06/20 16:35 Temperature 37.2 C Pulse Rate 117 H 117 H 112 H Respiratory Rate 27 H 27 H Blood Pressure 120/60 Pulse Oximetry 93 93 92 05/06/20 18:00 05/06/20 18:30 05/06/20 18:42 Temperature 37.3 C Pulse Rate 113 H 113 H 114 H Respiratory Rate 28 H 28 H Blood Pressure 113/49 L 123/56 L 113/49 L Pulse Oximetry 92 93 05/06/20 18:45 05/06/20 19:00 05/06/20 19:15 Temperature Pulse Rate 108 H 108 H 109 H Respiratory Rate Blood Pressure 112/48 L 109/45 L 108/46 L Pulse Oximetry 05/06/20 19:30 05/06/20 19:45 05/06/20 20:00 Temperature
[2020-05-07] MEDS: dexmedeTOMIDine 400 MCG/100 ML 400 MCG/100 ML BAG 39.38 MCG IV CONT ×5 (12:39→23:10)
[2020-05-07 12:54] LABS: Glucose Point of Care 172 (65-105)
[2020-05-07] MEDS: FENTANYL 2,500MCG/NS250ML(*CRX 2,500 MCG/250 ML BAG IV CONT (13:13)
--- NOTE | 2020-05-07 14:37 | PM.IMPN ---
Progress Note: A&P Assessment and Plan (1) Septic shock: Code(s): A41.9 - Sepsis, unspecified organism; R65.21 - Severe sepsis with septic shock Status: Acute Assessment and Plan: 05/06/20 13:58 Patient was hypotensive and was requiring vasopressors. The patient also is ventilated and sedated. Dock Grader has seen the patient. Most likely is related to his urinary tract infection. Unsure if he has a chronic indwelling Guan catheter. The patient has a Guan catheter now that is draining cloudy urine. Continue with cefepime and Levaquin. Please renal dose per pharmacist. Blood and urine cultures are pending. Lactic was normal 1.5. Further recommendations per sole buffer. Patient's blood pressure is sustaining a map greater than 60. Pulse rate has improved to the lower 100s. 05/03/20 15:00 patient is a resident of with hx of autisim, sleep apnea chronic respiratory failure secondary to hypercapnia most likely secondary to hypoventilation patient was diagnosed with COVID-19 it initially he was at the [facility] from the he was transferred to [facility] will he was treated and improved and was sent back to [facility] for rehab however is today patient was quite hypoxic he would desaturate and patient was brought to the emergency department by EMT, upon arrival patient was hypotensive, and tachypneic with respiratory rate 40 patient was intubated emergency depart and transferred to ICU, patient is currently on vent unable to provide any review of symptom. Patient was seen by Dr. monson and suspect patient has a septic shock as patient is blood culture is growing gram-negative rods started the patient on levofloxacin correct to the dose for chronic kidney disease, patient is seen by sole buffer, patient is seen by Nephrology appreciate. 05/02 patient remains on ventilator with respiratory failure secondary to septic shock due to UTI with E coli with bacteremia not a ESBL patient was seen by Dr. monson discontinue Levaquin and started the patient on ceftriaxone, remains on multiple pressors to maintain MAP >70, patient with metabolic acidosis remains bicarb drip, patient with hyponatremia seen by Nephrology was treated with 3% saline sodium is improving, patient urine output is very poor seen by nephrology patient will need temporary dialysis and temporary access was placed, patient family would like do everything possible for the patient, patient is seen intensive, nephrology, and ID appreciate. 05/03 patient remains on ventilator with respiratory failure secondary to septic shock due to UTI with E coli with bacteremia not a ESBL patient was seen by Dr. monson discontinue Levaquin and started the patient on ceftriaxone, remains on multiple pressors to maintain MAP >70, patient with metabolic acidosis remains bicarb drip, patient with hyponatremia seen by Nephrology was treated with 3% saline sodium is improving, patient urine output is very poor seen by nephrology patient will need temporary dialysis and temporary access was placed, patient family would like do everything possible for the patient, patient is seen intensive, nephrology, and ID appreciate. 05/04 patient is oliguric/anuric dialyzed yesterday and 2 L was removed, being dialyzed today, patient is on Levophed and Zane-Synephrine being sedated, off bicarb drip, prognosis is poor family wants to continue all the treatment, will continue to monitor. 05/05 patient remains on ventilator secondary to septic shock due to UTI with E coli not ESBL seen by Dr. monson started the patient Rocephin 05/02 #4, patient had dialysis yesterday is also receiving dialysis today plan is to remove 4L today seen by Dr. Menendez. Still sedated on ventilator, seen by sole buffer and appreciate. 05/06 patient remains on ventilator secondary to septic shock due to UTI with E coli not ESBL seen by Dr. monson started the patient Rocephin 05/02 #5, patient had dialysis yesterday, patient urine out
[2020-05-07 17:57] LABS: Glucose Point of Care 179 (65-105)
[2020-05-07 18:02] LABS: Hematocrit 26.2 % (42.0-52.0); Hemoglobin 8.2 g/dL (14.0-18.0); Immature Platelet Fraction Pct 16.5 % (0.9-11.2); Mean Corpuscular HGB Conc 31.3 g/dl (32-36); Mean Corpuscular Hemoglobin 29.8 pg (26-34); Mean Corpuscular Volume 95.3 fl (80-100); Mean Platelet Volume 12.1 fl (7.4-10.4); Platelet Count Result 88 k/mm3 (150-375); Red Blood Count 2.75 M/mm3 (4.6-6.20); Red Cell Distribution Width 17.6 % (11.5-14.5); White Blood Count 13.4 K/mm3 (4.5-10.0)
[2020-05-07] MEDS: PANTOPRAZOLE SODIUM IV 40 MG VIAL IV PUSH (21:34)
[2020-05-07] MEDS: ACETAMINOPHEN 325 MG TABLET 650 MG PO (21:39)
[2020-05-08] VITALS (66 sets, daily range): BP systolic 96–143; BP diastolic 52–82; PULSE 73–118; RESP 21–32; TEMP 36.1–37.3; O2SAT 91–99
[2020-05-08 00:20] LABS: Glucose Point of Care 201 (65-105)
[2020-05-08] MEDS: METOCLOPRAMIDE HCL INJ 10 MG/2 ML VIAL IV PUSH ×4 (00:20→18:34)
[2020-05-08] MEDS: INSULIN ASPART (*BKC) 100 UNITS/ML SUB-Q ×3 (00:20→18:29)
[2020-05-08] MEDS: dexmedeTOMIDine 400 MCG/100 ML 400 MCG/100 ML BAG 39.38 MCG IV CONT ×6 (01:52→21:05)
[2020-05-08] MEDS: ALBUTEROL SULFATE NEB 2.5 MG/0.5 ML INH INHALATION ×4 (02:13→19:44)
[2020-05-08] MEDS: HEPARIN SODIUM 5,000 UNITS/ML VIAL 5000 UNITS SUB-Q ×2 (05:15→20:43)
[2020-05-08] MEDS: HYDROCORTISONE SODIUM SUCCINATE 100 MG/2 ML VIAL IV PUSH ×3 (05:15→20:43)
[2020-05-08] MEDS: CENTRAL LINE FLUSH 10 ML IV PUSH ×4 (05:16→21:08)
[2020-05-08 05:22] LABS: Hematocrit 24.8 % (42.0-52.0); Hemoglobin 7.5 g/dL (14.0-18.0); Mean Corpuscular HGB Conc 30.2 g/dl (32-36); Mean Corpuscular Hemoglobin 29.1 pg (26-34); Mean Corpuscular Volume 96.1 fl (80-100); Mean Platelet Volume 12.2 fl (7.4-10.4); Platelet Count Result 92 k/mm3 (150-375); Red Blood Count 2.58 M/mm3 (4.6-6.20); White Blood Count 10.3 K/mm3 (4.5-10.0)
[2020-05-08 05:41] LABS: Alanine Aminotransferase 27 U/L (4-50); Albumin Level 3.1 g/dL (3.5-5.1); Alkaline Phosphatase 385 U/L (38-126); Anion Gap 8 mmol/L (8-16); Aspartate Amino Transferase 22 U/L (17-59); Bilirubin,Total 1.5 mg/dL (0.2-1.3); Blood Urea Nitrogen 52 mg/dL (9-20); Calcium 7.9 mg/dL (8.4-10.2); Carbon Dioxide 31 mmol/L (22-30); Chloride 95 mmol/L (98-107); Estimated CRCL calculation 92 ml/min; Estimated Glomerular Filt Rate 52; Glucose 197 mg/dL (75-110); Magnesium 1.8 mg/dL (1.6-2.3); Phosphorus 3.4 mg/dL (2.5-4.5); Potassium 3.4 mmol/L (3.4-5.0); Sodium 134 mmol/L (137-145)
[2020-05-08 06:08] LABS: Alveolar/Arterial O2 Gradient 126.3 mmHg; Carboxyhemoglobin 0.6 % THb (0-2.0); Fractional Inspired Oxygen 35 %; HCO3 ABG 27.9 mEq/l (22.0-26.0); Methemoglobin ABG 0.4 %THb (0-1.5); Oxygen Content ABG 11.4 %vol (16.0-22.0); Oxygen Saturation ABG 94.6 % (95.0-100.0); Oxyhemoglobin 92.2 % THb (90.0-100.0); PCO2 ABG 44.4 mmHg (35.0-45.0); PO2 ABG 71.6 mmHg (80.0-100.0); PO2 FiO2 Ratio Arterial Blood 2.05 %; Reduced Hemoglobin 6.8 %THb (0-5.0); Total Hemoglobin 8.7 g/dL (12.0-18.0); pH ABG 7.416 (7.350-7.450)
[2020-05-08 06:09] LABS: Device VENTILATOR; Site Drawn LEFT BRACHIAL
[2020-05-08 06:10] LABS: Arterial Blood Gas PEEP 5 cmH2O; Arterial Blood Gas Tidal Volume 380 ml; Arterial Blood Gas Vent Mode ASSIST CONTROL; Arterial Blood Gas Ventilator rate 20 /MIN
[2020-05-08] MEDS: dexmedeTOMIDine 400 MCG/100 ML 400 MCG/100 ML BAG 35.44 MCG IV CONT ×2 (07:33→10:21)
[2020-05-08] MEDS: TOLNAFTATE 1% POWDER 45 GM BTL 1 APPLIC TOPICAL ×2 (08:32→20:44)
[2020-05-08] MEDS: PANTOPRAZOLE SODIUM IV 40 MG VIAL IV PUSH ×2 (08:32→20:44)
[2020-05-08] MEDS: BUDESONIDE RESPULE NEB 0.5 MG/2 ML AMP INHALATION ×2 (09:01→19:43)
[2020-05-08] MEDS: DORNASE ALFA INH SOLN 1 MG/ML 2.5 ML AMP 2.5 MG INHALATION (09:01)
--- NOTE | 2020-05-08 09:50 | WPDINTPN ---
Progress Note: A&P Assessment and Plan (1) Acute respiratory failure: Code(s): J96.00 - Acute respiratory failure, unspecified whether with hypoxia or hypercapnia Status: Acute Assessment and Plan: Acute respiratory failure likely related to septic shock, altered mental status, metabolic acidosis -on CMV mode of ventilation peep of 5, 40% FiO2 -chest x-ray and ABGs reviewed -decrease tidal volume to 350 2/7 -try pressure support ventilation but patient required high pressure support for adequate tidal volumes and was tachypneic after short while. Things did not improve despite Precedex. -patient is scheduled for hemodialysis this morning and will try to remove more fluid and then re-attempt pressure support ventilation SBT -sedated with Precedex, fentanyl and Versed infusion, maintain RASS of 0 to -2 -daily sedation vacation (2) Septic shock: Code(s): A41.9 - Sepsis, unspecified organism; R65.21 - Severe sepsis with septic shock Status: Acute Assessment and Plan: Improved as patient is now currently off of Levophed -patient growing E coli in blood and urine sensitive to Rocephin. Continue ceftriaxone per ID -echocardiogram 05/01/2020: Showed EF of >70%, no pulmonary hypertension, no valvular issues -venous Dopplers 05/01/2020: Negative for DVT -continue stress dose steroids (3) UTI (urinary tract infection): Code(s): N39.0 - Urinary tract infection, site not specified Status: Acute Assessment and Plan: E coli in urine, continue antibiotics as above (4) GONZALO (acute kidney injury): Code(s): N17.9 - Acute kidney failure, unspecified Status: Acute Assessment and Plan: Acute kidney injury, patient oliguric/anuric -adequate fluids were infused in the ED as well as in the ICU -continue pressors and maintain mean arterial pressures greater than 70 mmHg for adequate renal perfusion -dialysis catheter placed on 05/03/2020 and dialysis was started on the same day -continue dialysis per Nephrology for essentially fluid removal as patient overall volume overloaded. Patient scheduled for another session today -renal ultrasound normal kidneys with no hydronephrosis -patient had minimal urine output yesterday. Due to his body habitus bladder scan was not helpful. His Guan was flushed and large amount of urine with sediments came out. After playing with it appears that patient's Guan gets canker due to his massive pannus, and once you pulled his pannus up or put in poorly horizontal position, urine starts flowing out of his Guan. I have discussed with the nurse and will flush Guan q.4 hours along with optimizing Guan direction to let urine output. Will discuss with Dr. Menendez (5) COVID-19: Code(s): U07.1 - COVID-19 Status: Acute Assessment and Plan: Patient was positive on 03/25/2020 for COVID-19. Currently not on any treatment or isolation (6) Asthma: Qualifiers: Asthma severity: unspecified severity Asthma persistence: unspecified Asthma complication type: unspecified Qualified Code(s): J45.909 - Unspecified asthma, uncomplicated Code(s): J45.909 - Unspecified asthma, uncomplicated Status: Acute Assessment and Plan: Continue scheduled albuterol 2.5 mg q.6 hours along with Pulmicort 0.5 mg q.12 hours nebulized. (7) DVT prophylaxis: Code(s): Z29.9 - Encounter for prophylactic measures, unspecified Status: Acute Assessment and Plan: Heparin subcu (8) Dietary counseling and surveillance: Code(s): Z71.3 - Dietary counseling and surveillance Status: Acute Assessment and Plan: Stress ulcer prophylaxis: Protonix -tolerating tube feeds (9) Anemia: Code(s): D64.9 - Anemia, unspecified Status: Acute Assessment and Plan: 2/ 1 unit packed red cell transfusion 05/07 Hemoglobin 6.5 again today transfuse 1 more unit of packed red cells. Changed PPI to q.12 ho
--- NOTE | 2020-05-08 11:52 | PCDIET ---
ICU Rounding Note: Patient tolerating Nepro at 50mL/hr with 30mL water flush every 4 hours. Residuals 200mL and below. Last recorded weight is 153.9kg which is increased from last review. Last dialysis on 05/06/20 with 4L removed. Plan for dialysis again today. Bowel Motility: +BM today x 1. Labs Reviewed: Hgb (7.5), Hct (24.8), Glu (197), BUN (52), Cr (1.5), Na (134), Alb (3.1), Natalya Ca (8.62) Meds Noted: Albuterol, Precedex, Pulmicort, Fentanyl, Rocephin, Heparin, Solu Cortef, Novolog, Reglan, Versed, Protonix, Vasopressin Additional Notes: Coccyx with deep tissue injury. Blisters to abdomen. Following daily in ICU rounds. Assessing/reassessing every Friday/Friday.
[2020-05-08 12:38] LABS: Glucose Point of Care 222 (65-105)
--- NOTE | 2020-05-08 13:55 | WPDINFPN2 ---
Progress Note: A&P Assessment and Plan (1) Septic shock: Code(s): A41.9 - Sepsis, unspecified organism; R65.21 - Severe sepsis with septic shock Status: Acute Assessment and Plan: 1. Septic shock due to E coli UTI with bacteremia. 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 WBC almost back to normal, but temperature as above . Shock resolved. 2. MSOF, HD planned for today 3. CoVid 19 infection 03/25/20 REC (antibiotic # 9) Ctx #5, continue at least one more day. Subjective Date/time seen: 05/08/20 13:55 Interval history: sedated, ventilator No pressors Exam Narrative: Exam Narrative: t max 38.2 axillary Const: General: no acute distress Resp: Effort & Inspection: normal respiratory effort Auscultation: clear to auscultation bilaterally Cardio: Rate: regular rate and tachycardic Heart sounds: no gallops GI: Inspection: non-distended GI Palp: Yes Soft to palpation and No Tenderness to palpation present (GI) Urinary Catheter: Urinary Catheter: patent and draining Skin: Other: ecchymoses and bullae Objective Data Vital Signs Vital Signs: Vital Signs - 24 hr 05/07/20 14:00 05/07/20 16:00 05/07/20 17:37 Temperature 37.2 C Pulse Rate 96 80 74 Respiratory Rate 32 H 27 H Blood Pressure 115/54 L 155/81 H Pulse Oximetry 98 96 98 05/07/20 17:48 05/07/20 18:00 05/07/20 18:28 Temperature Pulse Rate 82 78 78 Respiratory Rate 28 H 23 H 28 H Blood Pressure 143/73 H Pulse Oximetry 96 05/07/20 20:00 05/07/20 20:08 05/07/20 20:14 Temperature 37.9 C H Pulse Rate 78 78 80 Respiratory Rate 27 H 29 H Blood Pressure 137/66 Pulse Oximetry 94 95 05/07/20 20:18 05/07/20 20:40 05/07/20 21:00 Temperature Pulse Rate 80 85 85 Respiratory Rate 28 H 28 H 28 H Blood Pressure Pulse Oximetry 05/07/20 21:05 05/07/20 21:39 05/07/20 22:00 Temperature 38.1 C H 38.2 C H Pulse Rate 84 85 Respiratory Rate 28 H 27 H Blood Pressure 141/63 H Pulse Oximetry 94 05/07/20 22:40 05/07/20 23:04 05/08/20 00:00 Temperature 38.2 C H 37.3 C Pulse Rate 84 84 Respiratory Rate 25 H Blood Pressure 134/60 Pulse Oximetry 92 93 05/08/20 02:00 05/08/20 02:13 05/08/20 02:18 Temperature Pulse Rate 82 82 82 Respiratory Rate 25 H 26 H Blood Pressure 136/66 Pulse Oximetry 93 94 05/08/20 02:20 05/08/20 04:00 05/08/20 04:25 Temperature 37.1 C Pulse Rate 82 85 83 Respiratory Rate 27 H 31 H Blood Pressure 142/82 H Pulse Oximetry 93 05/08/20 04:35 05/08/20 05:30 05/08/20 05:45 Temperature Pulse Rate 83 76 75 Respiratory Rate 25 H 24 H Blood Pressure Pulse Oximetry 95 05/08/20 06:00 05/08/20 06:48 05/08/20 07:10 Temperature Pulse Rate 80 76 76 Respiratory Rate 31 H 26 H 25 H Blood Pressure 137/69 Pulse Oximetry 96 05/08/20 07:33 05/08/20 08:00 05/08/20 09:00 Temperature 36.8 C Pulse Rate 76 76 76 Respiratory Rate 25 H 22 H Blood Pressure 136/68 Pulse Oximetry 93 93 05/08/20 10:00 05/08/20 10:21 05/08/20 10:43 Temperature Pulse Rate 82 86 117 H Respiratory Rate 22 H 30 H 30 H Blood Pressure 135/63 Pulse Oximetry 91 05/08/20 10:44 05/08/20 11:21 05/08/20 12:00 Temperature Pulse Rate 118 H 76 81 Respiratory Rate 30 H Blood Pressure Pulse Oximetry 93 05/08/20 12:56 05/08/20 13:00 05/08/20 13:02 Temperature 36.4 C Pulse Rate 76 89 76 Respiratory Rate 25 H 31 H 25 H Blood Pressure 124/59 L Pulse Oximetry 98 05/08/20 13:06 05/08/20 13:07 05/08/20 13:31 Temperature Pulse Rate 76 76 98 Respiratory Rate 25 H 25 H Blood Pressure 137/74 Pulse Oximetry 05/08/20 13:45 Temperature Pulse Rate 105 H Respiratory Rate Blood Pressure 143/74 H Pulse Oximetry Intake/Output Intake/Output: Intake & Output 05/05/20 05/06/20 05/07/20 05/08/20 23:59 23:59 23:59 23:59 Intake Total 2048 2187 2703 1280 Output Total 3850 4000 1660 870 Balance -1802 -4744 1043 410 Me
--- NOTE | 2020-05-08 15:57 | PM.PNNEP ---
Progress Note: A&P Assessment and Plan (1) GONZALO (acute kidney injury): Code(s): N17.9 - Acute kidney failure, unspecified Status: Acute Assessment and Plan: improvement noted(?) evaluation to date demonstrates: - renal ultrasound unremarkable - urinalysis shows blood and leukocytes - urine electrolytes are non pre renal better urine output in the last 24 hours -- obstruction may be playing a role although issues with kinked norris due to his pannus noted DUF/ultrafiltration today for more fluid removal follow for potential renal recovery -- may require HD tomorrow (2) Hyponatremia: Code(s): E87.1 - Hypo-osmolality and hyponatremia Status: Acute Assessment and Plan: slow improvement noted probably from GONZALO/ARF (3) Hyperkalemia: Code(s): E87.5 - Hyperkalemia Status: Acute Assessment and Plan: resolved follow repeat values (4) Septic shock: Code(s): A41.9 - Sepsis, unspecified organism; R65.21 - Severe sepsis with septic shock Status: Acute Assessment and Plan: off pressor therapy at this time blood cultures with E.coli on antibiotics per Infectious Disease (5) Acute respiratory failure: Code(s): J96.00 - Acute respiratory failure, unspecified whether with hypoxia or hypercapnia Status: Acute Assessment and Plan: on ventilator support ongoing fluid removal as tolerated wean as tolerated (6) UTI (urinary tract infection): Code(s): N39.0 - Urinary tract infection, site not specified Status: Acute Assessment and Plan: urine culture with E. coli on antibiotics Will continue to follow. Subjective Date/time seen: 05/08/20 15:57 Tolerating dry ultrafiltration treatment at the time of my visit (seen on DUF at 3:48PM); remains intubated/sedated but in no apparent distress; swelling/edema is better but still present; no other acute issues or problems overnight or this AM; hemodynamically stable off pressors. Exam Narrative: Exam Narrative: General: Large male intubated/sedated but in NAD Heart: normal S1 and S2; no rub Lungs: coarse bilaterally Abdomen: soft, nontender, nondistended, positive bowel sounds Extremities: no cyanosis or clubbing; 1 - 2+ edema Skin: warm and dry Objective Data Vital Signs Vital Signs: Vital Signs Temp Pulse Resp BP Pulse Ox 05/08/20 15:51 82 32 H 05/08/20 15:50 82 32 H 05/08/20 15:49 82 32 H 05/08/20 15:45 91 118/67 05/08/20 15:35 82 32 H 05/08/20 15:30 86 124/68 05/08/20 15:15 94 129/78 05/08/20 15:00 107 H 126/71 05/08/20 14:45 113 H 135/78 05/08/20 14:30 117 H 138/69 05/08/20 14:20 113 H 30 H 05/08/20 14:15 111 H 139/77 05/08/20 14:10 100 31 H 93 05/08/20 14:00 106 H 142/72 H 05/08/20 13:45 105 H 143/74 H 05/08/20 13:31 98 137/74 05/08/20 13:07 76 25 H 05/08/20 13:06 76 25 H 05/08/20 13:02 76 25 H 05/08/20 13:00 36.4 C 89 31 H 124/59 L 98 05/08/20 12:56 76 25 H 05/08/20 12:00 81 05/08/20 11:21 76 93 05/08/20 10:44 118 H 30 H 05/08/20 10:43 117 H 30 H 05/08/20 10:21 86 30 H 05/08/20 10:00 82 22 H 135/63 91 05/08/20 09:10 88 27 H 05/08/20 09:00 85 26 H 93 05/08/20 08:00 36.8 C 76 22 H 136/68 93 05/08/20 07:33 76 25 H 05/08/20 07:10 76 25 H 05/08/20 06:48 76 26 H 05/08/20 06:00 80 31 H 137/69 96 05/08/20 05:45 75 24 H 05/08/20 05:30 76 95 05/08/20 04:35 83 25 H 05/08/20 04:25 83 05/08/20 04:00 37.1 C 85 31 H 142/82 H 93 05/08/20 02:20 82 27 H 05/08/20 02:18 82 94 05/08/20 02:13 82 26 H 05/08/20 02:00 82 25 H 136/66 93 05/08/20 00:00 37.3 C 84 25 H 134/60 93 05/07/20 23:04 84 92 05/07/20 22:40 38.2 C H 05/07/20 22
[2020-05-08] MEDS: HEPARIN SODIUM 1,000 UNITS/ML VIAL 1000 UNITS IV PUSH (16:35)
--- NOTE | 2020-05-08 16:35 | PM.IMPN ---
Progress Note: A&P Assessment and Plan (1) Septic shock: Code(s): A41.9 - Sepsis, unspecified organism; R65.21 - Severe sepsis with septic shock Status: Acute Assessment and Plan: 05/08/20 16:35 Patient was hypotensive and was requiring vasopressors. The patient also is ventilated and sedated. Test Specialist has seen the patient. Most likely is related to his urinary tract infection. Unsure if he has a chronic indwelling Guan catheter. The patient has a Guan catheter now that is draining cloudy urine. Continue with cefepime and Levaquin. Please renal dose per pharmacist. Blood and urine cultures are pending. Lactic was normal 1.5. Further recommendations per lightning rod erector. Patient's blood pressure is sustaining a map greater than 60. Pulse rate has improved to the lower 100s. 05/03/20 15:00 patient is a resident of with hx of autisim, sleep apnea chronic respiratory failure secondary to hypercapnia most likely secondary to hypoventilation patient was diagnosed with COVID-19 it initially he was at the [facility] from the he was transferred to [facility] will he was treated and improved and was sent back to longterm for rehab however is today patient was quite hypoxic he would desaturate and patient was brought to the emergency department by EMT, upon arrival patient was hypotensive, and tachypneic with respiratory rate 40 patient was intubated emergency depart and transferred to ICU, patient is currently on vent unable to provide any review of symptom. Patient was seen by Dr. monson and suspect patient has a septic shock as patient is blood culture is growing gram-negative rods started the patient on levofloxacin correct to the dose for chronic kidney disease, patient is seen by lightning rod erector, patient is seen by Nephrology appreciate. 05/02 patient remains on ventilator with respiratory failure secondary to septic shock due to UTI with E coli with bacteremia not a ESBL patient was seen by Dr. monson discontinue Levaquin and started the patient on ceftriaxone, remains on multiple pressors to maintain MAP >70, patient with metabolic acidosis remains bicarb drip, patient with hyponatremia seen by Nephrology was treated with 3% saline sodium is improving, patient urine output is very poor seen by nephrology patient will need temporary dialysis and temporary access was placed, patient family would like do everything possible for the patient, patient is seen intensive, nephrology, and ID appreciate. 05/03 patient remains on ventilator with respiratory failure secondary to septic shock due to UTI with E coli with bacteremia not a ESBL patient was seen by Dr. monson discontinue Levaquin and started the patient on ceftriaxone, remains on multiple pressors to maintain MAP >70, patient with metabolic acidosis remains bicarb drip, patient with hyponatremia seen by Nephrology was treated with 3% saline sodium is improving, patient urine output is very poor seen by nephrology patient will need temporary dialysis and temporary access was placed, patient family would like do everything possible for the patient, patient is seen intensive, nephrology, and ID appreciate. 05/04 patient is oliguric/anuric dialyzed yesterday and 2 L was removed, being dialyzed today, patient is on Levophed and Zane-Synephrine being sedated, off bicarb drip, prognosis is poor family wants to continue all the treatment, will continue to monitor. 05/05 patient remains on ventilator secondary to septic shock due to UTI with E coli not ESBL seen by Dr. monson started the patient Rocephin 05/02 #4, patient had dialysis yesterday is also receiving dialysis today plan is to remove 4L today seen by Dr. Menendez. Still sedated on ventilator, seen by lightning rod erector and appreciate. 05/06 patient remains on ventilator secondary to septic shock due to UTI with E coli not ESBL seen by Dr. monson started the patient Rocephin 05/02 #5, patient had dialysis yesterday, patient urine out
[2020-05-08 18:55] LABS: Glucose Point of Care 226 (65-105)
[2020-05-08] MEDS: dexmedeTOMIDine 400 MCG/100 ML 400 MCG/100 ML BAG 43.31 MCG IV CONT (23:40)
[2020-05-09] VITALS (59 sets, daily range): BP systolic 91–145; BP diastolic 48–80; PULSE 71–139; RESP 20–36; TEMP 36.2–37.6; O2SAT 90–99
[2020-05-09 00:23] LABS: Glucose Point of Care 215 (65-105)
[2020-05-09] MEDS: INSULIN ASPART (*BKC) 100 UNITS/ML SUB-Q (00:23)
[2020-05-09] MEDS: METOCLOPRAMIDE HCL INJ 10 MG/2 ML VIAL IV PUSH ×4 (00:24→17:04)
[2020-05-09] MEDS: ALBUTEROL SULFATE NEB 2.5 MG/0.5 ML INH INHALATION ×4 (01:36→21:10)
[2020-05-09] MEDS: dexmedeTOMIDine 400 MCG/100 ML 400 MCG/100 ML BAG 43.31 MCG IV CONT (02:13)
[2020-05-09 04:20] LABS: Hematocrit 26.5 % (42.0-52.0); Hemoglobin 7.9 g/dL (14.0-18.0); Mean Corpuscular HGB Conc 29.8 g/dl (32-36); Mean Corpuscular Hemoglobin 29.3 pg (26-34); Mean Corpuscular Volume 98.1 fl (80-100); Platelet Count Result 131 k/mm3 (150-375); Red Cell Distribution Width 18.4 % (11.5-14.5)
[2020-05-09 04:34] LABS: Alanine Aminotransferase 30 U/L (4-50); Albumin Level 2.9 g/dL (3.5-5.1); Alkaline Phosphatase 378 U/L (38-126); Anion Gap 5 mmol/L (8-16); Aspartate Amino Transferase 24 U/L (17-59); Bilirubin,Total 1.1 mg/dL (0.2-1.3); Blood Urea Nitrogen 68 mg/dL (9-20); Calcium 7.9 mg/dL (8.4-10.2); Carbon Dioxide 31 mmol/L (22-30); Chloride 96 mmol/L (98-107); Estimated CRCL calculation 82 ml/min; Estimated Glomerular Filt Rate 45; Glucose 197 mg/dL (75-110); Magnesium 1.9 mg/dL (1.6-2.3); Phosphorus 4.5 mg/dL (2.5-4.5); Potassium 3.6 mmol/L (3.4-5.0); Sodium 132 mmol/L (137-145)
[2020-05-09] MEDS: dexmedeTOMIDine 400 MCG/100 ML 400 MCG/100 ML BAG 39.38 MCG IV CONT ×4 (04:35→23:28)
[2020-05-09 05:02] LABS: Alveolar/Arterial O2 Gradient 151.2 mmHg; Base Excess ABG 0.4 mEq/l (+/-2.0); Carboxyhemoglobin 0.3 % THb (0-2.0); Device VENTILATOR; Fractional Inspired Oxygen 40 %; HCO3 ABG 26.1 mEq/l (22.0-26.0); Methemoglobin ABG 0.2 %THb (0-1.5); Modified Allen's Test Unable to perform; Oxygen Content ABG 13.8 %vol (16.0-22.0); Oxygen Saturation ABG 95.3 % (95.0-100.0); Oxyhemoglobin 94.3 % THb (90.0-100.0); Reduced Hemoglobin 5.2 %THb (0-5.0); Site Drawn RIGHT RADIAL; Total Hemoglobin 10.3 g/dL (12.0-18.0); pH ABG 7.362 (7.350-7.450)
[2020-05-09 05:03] LABS: Arterial Blood Gas PEEP 5 cmH2O; Arterial Blood Gas Tidal Volume 350 ml; Arterial Blood Gas Vent Mode CMV; Arterial Blood Gas Ventilator rate 20 /MIN
[2020-05-09] MEDS: HYDROCORTISONE SODIUM SUCCINATE 100 MG/2 ML VIAL IV PUSH ×3 (05:08→21:19)
[2020-05-09] MEDS: CENTRAL LINE FLUSH 10 ML IV PUSH ×4 (05:09→21:21)
[2020-05-09] MEDS: BUDESONIDE RESPULE NEB 0.5 MG/2 ML AMP INHALATION ×2 (08:25→21:09)
[2020-05-09] MEDS: HEPARIN SODIUM 5,000 UNITS/ML VIAL 5000 UNITS SUB-Q ×2 (08:30→21:19)
[2020-05-09] MEDS: TOLNAFTATE 1% POWDER 45 GM BTL 1 APPLIC TOPICAL ×2 (08:31→21:20)
[2020-05-09] MEDS: PANTOPRAZOLE SODIUM IV 40 MG VIAL IV PUSH ×2 (08:32→21:20)
--- NOTE | 2020-05-09 08:32 | WPDINTPN ---
Progress Note: A&P Assessment and Plan (1) Acute respiratory failure: Code(s): J96.00 - Acute respiratory failure, unspecified whether with hypoxia or hypercapnia Status: Acute Assessment and Plan: Acute respiratory failure likely related to septic shock, altered mental status, metabolic acidosis -on CMV mode of ventilation peep of 5, 40% FiO2 -chest x-ray and ABGs reviewed -decrease tidal volume to 350 2/7 -try pressure support ventilation but patient required high pressure support for adequate tidal volumes and was tachypneic after short while. Things did not improve despite Precedex. -patient is scheduled for hemodialysis this morning and will try to remove more fluid and then re-attempt pressure support ventilation SBT -sedated with Precedex. fentanyl and Versed infusion have been on hold since yesterday. Will continue to hold and use propofol if needed -decrease Precedex dose (2) Septic shock: Code(s): A41.9 - Sepsis, unspecified organism; R65.21 - Severe sepsis with septic shock Status: Acute Assessment and Plan: Improved as patient is now currently off of Levophed -patient growing E coli in blood and urine sensitive to Rocephin. Continue ceftriaxone per ID -echocardiogram 05/01/2020: Showed EF of >70%, no pulmonary hypertension, no valvular issues -venous Dopplers 05/01/2020: Negative for DVT -continue stress dose steroids (3) UTI (urinary tract infection): Code(s): N39.0 - Urinary tract infection, site not specified Status: Acute Assessment and Plan: E coli in urine, continue antibiotics as above (4) GONZALO (acute kidney injury): Code(s): N17.9 - Acute kidney failure, unspecified Status: Acute Assessment and Plan: Acute kidney injury, patient oliguric/anuric -adequate fluids were infused in the ED as well as in the ICU -continue pressors and maintain mean arterial pressures greater than 70 mmHg for adequate renal perfusion -dialysis catheter placed on 05/03/2020 and dialysis was started on the same day -continue dialysis per Nephrology for essentially fluid removal as patient overall volume overloaded. Patient scheduled for another session today -renal ultrasound normal kidneys with no hydronephrosis - Due to his body habitus bladder scan was not helpful. His Guan was flushed and large amount of urine with sediments came out. After playing with it, it appears that patient's Guan gets kinked due to his massive pannus, and once you pull his pannus up or put in fully horizontal position, urine starts flowing out of his Guan. I have discussed with the nurse and will flush Guan q.4 hours along with optimizing Guan direction to let urine output. -patient scheduled for dialysis again today (5) COVID-19: Code(s): U07.1 - COVID-19 Status: Acute Assessment and Plan: Patient was positive on 03/25/2020 for COVID-19. Currently not on any treatment or isolation (6) Asthma: Qualifiers: Asthma severity: unspecified severity Asthma persistence: unspecified Asthma complication type: unspecified Qualified Code(s): J45.909 - Unspecified asthma, uncomplicated Code(s): J45.909 - Unspecified asthma, uncomplicated Status: Acute Assessment and Plan: Continue scheduled albuterol 2.5 mg q.6 hours along with Pulmicort 0.5 mg q.12 hours nebulized. (7) DVT prophylaxis: Code(s): Z29.9 - Encounter for prophylactic measures, unspecified Status: Acute Assessment and Plan: Heparin subcu (8) Dietary counseling and surveillance: Code(s): Z71.3 - Dietary counseling and surveillance Status: Acute Assessment and Plan: Stress ulcer prophylaxis: Protonix -tolerating tube feeds (9) Anemia: Code(s): D64.9 - Anemia, unspecified Status: Acute Assessment and Plan: 2 1 unit packed red cell transfusion 05/07 Hemoglobin 6.5 again today transfuse 1 more unit of packed red
[2020-05-09] MEDS: dexmedeTOMIDine 400 MCG/100 ML 400 MCG/100 ML BAG 31.5 MCG IV CONT ×2 (08:38→10:24)
--- NOTE | 2020-05-09 11:15 | PCDIET ---
Nutrition Follow-Up Complete: Nutrition Diagnosis: Inadequate oral intake related to oral intubation as evidenced by NPO status. Nutrition Goal: Patient to meet estimated nutritional needs. Goal met. Patient tolerating Nepro at 50mL/hr goal rate with 30mL water flush every 4 hours. No residuals reported. Last recorded weight is 154.1 kg which is stable with last review. Patient had 3.7L UF on 05/08/20 with plan to dialyze again today. Bowel Motility: Last documented BM on 05/08/20 x 1. Labs Reviewed: Hgb (7.9), Hct (26.5), Glu (197), BUN (68), Cr (1.7), Na (132), Alb (2.9), Natalya Ca (8.78) Meds Noted: Albuterol, Pulmicort, Rocephin, Epogen, Solu Cortef, Reglan, Protonix Additional Notes: Coccyx with deep tissue injury, and blisters to abdomen. Weeping areas also documented. MD to check TG level. Will continue to monitor with same goal. Nutrition Monitoring and Evaluation: Follow up every Friday/Friday. Follow daily in ICU rounds.
[2020-05-09 11:16] LABS: Triglycerides 233 mg/dL (<150)
[2020-05-09 11:32] LABS: Glucose Point of Care 193 (65-105)
--- NOTE | 2020-05-09 11:54 | PM.PNNEP ---
Progress Note: A&P Assessment and Plan (1) GONZALO (acute kidney injury): Code(s): N17.9 - Acute kidney failure, unspecified Status: Acute Assessment and Plan: improvement noted(?) evaluation to date demonstrates: - renal ultrasound unremarkable - urinalysis shows blood and leukocytes - urine electrolytes are non pre renal better urine output in the last 24 hours -- obstruction may be playing a role although issues with kinked norris due to his pannus noted DUF/ultrafiltration yesterday for more fluid removal HD today follow for potential renal recovery (2) Hyponatremia: Code(s): E87.1 - Hypo-osmolality and hyponatremia Status: Acute Assessment and Plan: slow improvement noted probably from GONZALO/ARF (3) Hyperkalemia: Code(s): E87.5 - Hyperkalemia Status: Acute Assessment and Plan: resolved follow repeat values (4) Septic shock: Code(s): A41.9 - Sepsis, unspecified organism; R65.21 - Severe sepsis with septic shock Status: Acute Assessment and Plan: off pressor therapy at this time blood cultures with E.coli on antibiotics per Infectious Disease (5) Acute respiratory failure: Code(s): J96.00 - Acute respiratory failure, unspecified whether with hypoxia or hypercapnia Status: Acute Assessment and Plan: on ventilator support ongoing fluid removal as tolerated wean as tolerated (6) UTI (urinary tract infection): Code(s): N39.0 - Urinary tract infection, site not specified Status: Acute Assessment and Plan: urine culture with E. coli on antibiotics Will continue to follow. Subjective Date/time seen: 05/09/20 11:54 Remains on ventilator support at this time; tolerated dry ultrafiltration yesterday afternoon without any issues or problems; due for diaysis this afternoon; no apparent distress noted; no real significant change Exam Narrative: Exam Narrative: General: Large male intubated/sedated but in NAD Heart: normal S1 and S2; no rub Lungs: coarse bilaterally Abdomen: soft, nontender, nondistended, positive bowel sounds Extremities: no cyanosis or clubbing; 1 - 2+ edema Skin: warm and intact Objective Data Vital Signs Vital Signs: Vital Signs Temp Pulse Resp BP Pulse Ox 05/09/20 10:50 99 95 05/09/20 10:45 91 30 H 05/09/20 10:30 97 94 05/09/20 10:00 36.6 C 100 28 H 134/66 93 05/09/20 08:43 90 27 H 05/09/20 08:38 83 28 H 05/09/20 08:27 81 96 05/09/20 08:26 80 27 H 05/09/20 08:23 81 28 H 05/09/20 08:22 78 28 H 05/09/20 08:00 36.6 C 101 H 28 H 134/66 94 05/09/20 06:00 71 24 H 119/67 98 05/09/20 05:09 76 28 H 05/09/20 04:35 76 24 H 98 05/09/20 04:00 36.2 C L 79 23 H 124/61 95 05/09/20 02:13 83 22 H 05/09/20 02:00 85 27 H 131/55 L 95 05/09/20 01:37 79 97 05/09/20 01:36 80 20 05/09/20 00:00 36.5 C 80 24 H 145/62 H 92 05/08/20 23:40 106 H 30 H 05/08/20 22:50 75 95 05/08/20 22:00 80 21 H 125/60 95 05/08/20 21:04 85 25 H 05/08/20 20:00 36.6 C 80 25 H 126/64 95 05/08/20 19:55 79 24 H 05/08/20 19:45 77 96 05/08/20 19:44 77 22 H 05/08/20 18:31 78 26 H 05/08/20 18:22 78 26 H 05/08/20 18:13 76 25 H 05/08/20 18:12 76 25 H 05/08/20 18:00 78 30 H 113/52 L 98 05/08/20 17:40 75 94 05/08/20 17:30 74 25 H 05/08/20 16:40 36.1 C L 73 27 H 126/70 99 05/08/20 16:31 75 111/61 05/08/20 16:25 78 111/65 05/08/20 16:20 78 104/64 05/08/20 16:15 82 96/62 L 05/08/20 16:00 36.6 C 82 24 H 109/65 98 05/08/20 15:51 82 32 H 05/08/20 15:50 82 32 H 05/08/20 15:49 82 32 H 05/08/20 15:45 91 118/67 05/08/20 15:35 82 32 H 05/08/20 15:30 86 124/68 05/08/20 15:15 94 129/7
[2020-05-09 17:03] LABS: Glucose Point of Care 155 (65-105)
[2020-05-09] MEDS: EPOETIN ALFA-EPBX 10,000 UNITS/ML VIAL 10000 UNITS IV PUSH (17:32)
[2020-05-09] MEDS: dexmedeTOMIDine 400 MCG/100 ML 400 MCG/100 ML BAG 59.06 MCG IV CONT ×2 (17:34→19:22)
[2020-05-09] MEDS: dexmedeTOMIDine 400 MCG/100 ML 400 MCG/100 ML BAG 51.19 MCG IV CONT (21:17)
[2020-05-10] VITALS (47 sets, daily range): BP systolic 104–149; BP diastolic 26–66; PULSE 88–144; RESP 21–42; TEMP 36.9–39.2; O2SAT 93–100; BMI 64.5
[2020-05-10] MEDS: INSULIN ASPART (*BKC) 100 UNITS/ML SUB-Q ×4 (00:02→23:49)
[2020-05-10] MEDS: METOCLOPRAMIDE HCL INJ 10 MG/2 ML VIAL IV PUSH ×5 (00:02→23:52)
[2020-05-10 00:26] LABS: Glucose Point of Care 219 (65-105)
[2020-05-10] MEDS: ALBUTEROL SULFATE NEB 2.5 MG/0.5 ML INH INHALATION ×4 (01:46→19:54)
[2020-05-10] MEDS: dexmedeTOMIDine 400 MCG/100 ML 400 MCG/100 ML BAG 31.5 MCG IV CONT (02:18)
[2020-05-10 04:10] LABS: Alveolar/Arterial O2 Gradient 157.5 mmHg; Base Excess ABG -1.7 mEq/l (+/-2.0); Carboxyhemoglobin 0.1 % THb (0-2.0); Fractional Inspired Oxygen 40 %; HCO3 ABG 23.9 mEq/l (22.0-26.0); Methemoglobin ABG 0.4 %THb (0-1.5); Oxygen Content ABG 11.5 %vol (16.0-22.0); Oxygen Saturation ABG 94.6 % (95.0-100.0); Oxyhemoglobin 93.4 % THb (90.0-100.0); PCO2 ABG 44.6 mmHg (35.0-45.0); PO2 ABG 76.4 mmHg (80.0-100.0); PO2 FiO2 Ratio Arterial Blood 1.91 %; Reduced Hemoglobin 6.1 %THb (0-5.0); Total Hemoglobin 8.7 g/dL (12.0-18.0); pH ABG 7.347 (7.350-7.450)
[2020-05-10 04:11] LABS: Device VENTILATOR; Modified Allen's Test Unable to perform; Site Drawn RIGHT RADIAL
[2020-05-10 04:12] LABS: Arterial Blood Gas PEEP 5 cmH2O; Arterial Blood Gas Vent Mode ASV
[2020-05-10] MEDS: dexmedeTOMIDine 400 MCG/100 ML 400 MCG/100 ML BAG 39.38 MCG IV CONT (05:30)
[2020-05-10] MEDS: CENTRAL LINE FLUSH 10 ML IV PUSH ×4 (05:49→20:22)
[2020-05-10] MEDS: HYDROCORTISONE SODIUM SUCCINATE 100 MG/2 ML VIAL IV PUSH ×3 (05:49→20:02)
[2020-05-10 05:57] LABS: Alanine Aminotransferase 36 U/L (4-50); Albumin Level 2.9 g/dL (3.5-5.1); Alkaline Phosphatase 582 U/L (38-126); Anion Gap 7 mmol/L (8-16); Aspartate Amino Transferase 32 U/L (17-59); Blood Urea Nitrogen 53 mg/dL (9-20); Carbon Dioxide 28 mmol/L (22-30); Chloride 100 mmol/L (98-107); Estimated CRCL calculation 98 ml/min; Estimated Glomerular Filt Rate 57; Glucose 194 mg/dL (75-110); Magnesium 1.9 mg/dL (1.6-2.3); Potassium 3.3 mmol/L (3.4-5.0); Sodium 135 mmol/L (137-145)
[2020-05-10 06:12] LABS: Hematocrit 27.3 % (42.0-52.0); Hemoglobin 8.1 g/dL (14.0-18.0); Mean Corpuscular HGB Conc 29.7 g/dl (32-36); Mean Corpuscular Hemoglobin 29.5 pg (26-34); Mean Corpuscular Volume 99.3 fl (80-100); Mean Platelet Volume 11.9 fl (7.4-10.4); Platelet Count Result 150 k/mm3 (150-375); Red Blood Count 2.75 M/mm3 (4.6-6.20); Red Cell Distribution Width 18.7 % (11.5-14.5); White Blood Count 10.9 K/mm3 (4.5-10.0)
[2020-05-10] MEDS: dexmedeTOMIDine 400 MCG/100 ML 400 MCG/100 ML BAG 59.06 MCG IV CONT (07:22)
[2020-05-10] MEDS: BUDESONIDE RESPULE NEB 0.5 MG/2 ML AMP INHALATION ×2 (07:49→19:54)
--- NOTE | 2020-05-10 08:18 | WPDINTPN ---
Progress Note: A&P Assessment and Plan (1) Acute respiratory failure: Code(s): J96.00 - Acute respiratory failure, unspecified whether with hypoxia or hypercapnia Status: Acute Assessment and Plan: Acute respiratory failure likely related to septic shock, altered mental status, metabolic acidosis -chest x-ray and ABGs reviewed -currently in ASV mode, patient is being tried on pressure support ventilation daily but requires pressure support of 15 or 20 for adequate tidal volumes -he is off of all sedation except Precedex and his mental status is improving -continue daily weaning intense but at this time he is not ready for extubation -significant amount of volume has been removed with hemodialysis over last week and will be continued -hopefully as the accumulated Versed and fentanyl is clear his mental status will further improve (2) Septic shock: Code(s): A41.9 - Sepsis, unspecified organism; R65.21 - Severe sepsis with septic shock Status: Acute Assessment and Plan: Improved as patient is now currently off of Levophed -patient growing E coli in blood and urine sensitive to Rocephin. Continue ceftriaxone per ID -echocardiogram 05/01/2020: Showed EF of >70%, no pulmonary hypertension, no valvular issues -venous Dopplers 05/01/2020: Negative for DVT -continue stress dose steroids (3) UTI (urinary tract infection): Code(s): N39.0 - Urinary tract infection, site not specified Status: Acute Assessment and Plan: E coli in urine, continue antibiotics as above (4) GONZALO (acute kidney injury): Code(s): N17.9 - Acute kidney failure, unspecified Status: Acute Assessment and Plan: Acute kidney injury, patient oliguric/anuric -adequate fluids were infused in the ED as well as in the ICU -continue pressors and maintain mean arterial pressures greater than 70 mmHg for adequate renal perfusion -dialysis catheter placed on 05/03/2020 and dialysis was started on the same day -continue dialysis per Nephrology for essentially fluid removal as patient overall volume overloaded. Patient scheduled for another session today -renal ultrasound normal kidneys with no hydronephrosis - Due to his body habitus bladder scan was not helpful. His Guan was flushed and large amount of urine with sediments came out. After playing with it, it appears that patient's Guan gets kinked due to his massive pannus, and once you pull his pannus up or put in fully horizontal position, urine starts flowing out of his Guan. I have discussed with the nurse and will flush Guan q.4 hours along with optimizing Guan direction to let urine output. -Dialysis as per nephrology -replace low potassium (5) COVID-19: Code(s): U07.1 - COVID-19 Status: Acute Assessment and Plan: Patient was positive on 03/25/2020 for COVID-19. Currently not on any treatment or isolation (6) Asthma: Qualifiers: Asthma severity: unspecified severity Asthma persistence: unspecified Asthma complication type: unspecified Qualified Code(s): J45.909 - Unspecified asthma, uncomplicated Code(s): J45.909 - Unspecified asthma, uncomplicated Status: Acute Assessment and Plan: Continue scheduled albuterol 2.5 mg q.6 hours along with Pulmicort 0.5 mg q.12 hours nebulized. (7) DVT prophylaxis: Code(s): Z29.9 - Encounter for prophylactic measures, unspecified Status: Acute Assessment and Plan: Heparin subcu (8) Dietary counseling and surveillance: Code(s): Z71.3 - Dietary counseling and surveillance Status: Acute Assessment and Plan: Stress ulcer prophylaxis: Protonix -tolerating tube feeds (9) Anemia: Code(s): D64.9 - Anemia, unspecified Status: Acute Assessment and Plan: 2/ 1 unit packed red cell transfusion 05/07 Hemoglobin 6.5 again today transfuse 1 more unit of packed red cells. Changed PPI to q.12 hours Continue to m
[2020-05-10] MEDS: TOLNAFTATE 1% POWDER 45 GM BTL 1 APPLIC TOPICAL ×2 (08:28→20:03)
[2020-05-10] MEDS: POTASSIUM CHLORIDE 20 MEQ PACKET (FOR LIQUID) 40 MEQ FEED TUBE (08:28)
[2020-05-10] MEDS: PANTOPRAZOLE SODIUM IV 40 MG VIAL IV PUSH ×2 (08:29→20:03)
[2020-05-10] MEDS: HEPARIN SODIUM 5,000 UNITS/ML VIAL 5000 UNITS SUB-Q ×2 (08:34→20:02)
[2020-05-10] MEDS: dexmedeTOMIDine 400 MCG/100 ML 400 MCG/100 ML BAG 55.13 MCG IV CONT ×2 (09:17→13:23)
[2020-05-10] MEDS: ACETAMINOPHEN 325 MG TABLET 650 MG PO ×2 (09:18→20:04)
--- NOTE | 2020-05-10 10:55 | PCDIET ---
ICU Rounding Note: Patient tolerating Nepro at 50mL/hr with 30mL water flush every 4 hours. Residuals 200mL and below. Last recorded weight is 150kg which is down from last review. -I/O. Patient had 3L UF on 05/09/20. Bowel Motility: Last documented BM on 05/08/20 x 1. Labs Reviewed: Hgb (8.1), Hct (27.3), Glu (194), BUN (53), Cr (1.4), Alb (2.9), Na (135), TG (233), K (3.3) Meds Noted: Albumin, Albuterol, Pulmicort, Rocephin, Precedex, Heparin, Reglan, Solu Cortef, KCl Additional Notes: Left groin macerated. Coccyx with deep tissue injury. Abdomen with blisters. Following daily in ICU rounds. Assessing/reassessing every Friday/Friday.
[2020-05-10] MEDS: dexmedeTOMIDine 400 MCG/100 ML 400 MCG/100 ML BAG 51.19 MCG IV CONT ×2 (11:16→15:20)
[2020-05-10 11:25] LABS: Glucose Point of Care 287 (65-105)
--- NOTE | 2020-05-10 12:35 | PM.PNNEP ---
Progress Note: A&P Assessment and Plan (1) GONZALO (acute kidney injury): Code(s): N17.9 - Acute kidney failure, unspecified Status: Acute Assessment and Plan: improvement noted(?) evaluation to date demonstrates: - renal ultrasound unremarkable - urinalysis shows blood and leukocytes - urine electrolytes are non pre renal better urine output in the last 24 hours -- obstruction may be playing a role although issues with kinked norris due to his pannus noted HD/DUF tomorrow follow for potential renal recovery (2) Hyponatremia: Code(s): E87.1 - Hypo-osmolality and hyponatremia Status: Acute Assessment and Plan: slow improvement noted probably from GONZALO/ARF (3) Hyperkalemia: Code(s): E87.5 - Hyperkalemia Status: Acute Assessment and Plan: resolved follow repeat values (4) Septic shock: Code(s): A41.9 - Sepsis, unspecified organism; R65.21 - Severe sepsis with septic shock Status: Acute Assessment and Plan: off pressor therapy at this time blood cultures with E.coli on antibiotics per Infectious Disease (5) Acute respiratory failure: Code(s): J96.00 - Acute respiratory failure, unspecified whether with hypoxia or hypercapnia Status: Acute Assessment and Plan: on ventilator support ongoing fluid removal as tolerated wean as tolerated (6) UTI (urinary tract infection): Code(s): N39.0 - Urinary tract infection, site not specified Status: Acute Assessment and Plan: urine culture with E. coli on antibiotics Will continue to follow. Subjective Date/time seen: 05/10/20 12:35 Remains intubated and on mechanical ventilation; remains hemodynamically stable off pressor therapy; tolerated dialysis yesterday afternoon as well; making some urine; has been febrile earlier today/this AM. Exam Narrative: Exam Narrative: General: Large male intubated/sedated but in NAD Heart: normal S1 and S2; no rub Lungs: coarse bilaterally Abdomen: soft, nontender, nondistended, positive bowel sounds Extremities: no cyanosis or clubbing; 1 - 2+ edema Skin: warm and intact Objective Data Vital Signs Vital Signs: Vital Signs Temp Pulse Resp BP Pulse Ox 05/10/20 12:00 95 05/10/20 11:48 38.5 C H 96 30 H 104/43 L 98 05/10/20 11:25 38.5 C H 05/10/20 11:16 102 H 42 H 05/10/20 11:03 95 100 05/10/20 10:01 106 H 41 H 120/55 L 100 05/10/20 10:00 101 H 05/10/20 09:58 101 H 38 H 115/50 L 100 05/10/20 09:18 39.1 C H 05/10/20 09:17 117 H 37 H 05/10/20 09:00 104 H 31 H 120/52 L 96 05/10/20 08:38 39.1 C H 107 H 37 H 114/48 L 96 05/10/20 08:07 103 H 33 H 05/10/20 08:03 103 H 33 H 05/10/20 08:00 106 H 05/10/20 07:52 103 H 93 05/10/20 07:50 108 H 34 H 05/10/20 07:22 132 H 21 H 05/10/20 06:00 135 H 30 H 119/52 L 98 05/10/20 05:30 144 H 30 H 05/10/20 04:30 118 H 99 05/10/20 04:00 36.9 C 102 H 30 H 104/26 L 99 05/10/20 02:18 107 H 32 H 05/10/20 02:00 110 H 32 H 111/42 L 99 05/10/20 01:55 112 H 32 H 05/10/20 01:46 115 H 35 H 94 05/10/20 00:00 37.1 C 104 H 32 H 114/45 L 96 05/09/20 23:29 94 98 05/09/20 23:28 100 33 H 05/09/20 22:00 91 30 H 117/51 L 97 05/09/20 21:19 100 28 H 05/09/20 21:17 91 30 H 05/09/20 21:10 98 29 H 98 05/09/20 20:00 36.8 C 101 H 30 H 101/48 L 98 05/09/20 19:22 109 H 30 H 05/09/20 19:16 111 H 30 H 05/09/20 18:47 37.6 C 112 H 36 H 94/52 L 97 05/09/20 18:45 126 H 91/54 L 05/09/20 18:30 127 H 97/55 L 05/09/20 18:15 122 H 95/55 L 05/09/20 18:00 125 H 102/61 05/09/20 17:45 118 H 91/54 L Intake/Output Intake/Output: Intake & Output 05/07/20 05/08/20 05/09/20 05/10/20 23:59 23:59 23:59 23:59 Int
--- NOTE | 2020-05-10 13:34 | WPDINFPN2 ---
Progress Note: A&P Assessment and Plan (1) Septic shock: Code(s): A41.9 - Sepsis, unspecified organism; R65.21 - Severe sepsis with septic shock Status: Acute Assessment and Plan: 1. Septic shock due to E coli UTI with bacteremia. 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 WBC almost back to normal, but temperature as above . Shock resolved. 2. MSOF 3. CoVid 19 infection 03/25/20 REC (antibiotic # 11) Ctx #7, continue. BCs for his breakthrough fever, lines may need to be changed. Subjective Date/time seen: 05/10/20 13:34 Interval history: no pressors, ventilated Exam Narrative: Exam Narrative: t max 39.1 Const: General: no acute distress Neck: Neck: supple Resp: Effort & Inspection: normal respiratory effort Auscultation: rhonchi Cardio: Rate: regular rate Rhythm: regular rhythm Heart sounds: no murmurs GI: Inspection: distended GI Palp: Yes Firmness to palpation present (GI), No Tenderness to palpation present (GI) and No Guarding due to palpation present (GI) Urinary Catheter: Urinary Catheter: patent and draining and urine clear Skin: General skin exam: normal color and no rashes or lesions noted Objective Data Vital Signs Vital Signs: Vital Signs - 24 hr 05/09/20 13:58 05/09/20 14:01 05/09/20 14:06 Temperature Pulse Rate 98 97 98 Respiratory Rate 32 H 32 H Blood Pressure Pulse Oximetry 92 05/09/20 15:00 05/09/20 15:24 05/09/20 15:30 Temperature 37.6 C H 36.9 C Pulse Rate 126 H 117 H 125 H Respiratory Rate 27 H 26 H 30 H Blood Pressure 126/64 121/58 L Pulse Oximetry 96 96 05/09/20 15:37 05/09/20 15:45 05/09/20 16:00 Temperature Pulse Rate 122 H 128 H 132 H Respiratory Rate Blood Pressure 126/58 L 123/62 122/57 L Pulse Oximetry 05/09/20 16:15 05/09/20 16:26 05/09/20 16:30 Temperature Pulse Rate 139 H 137 H 137 H Respiratory Rate 28 H Blood Pressure 138/80 108/63 Pulse Oximetry 05/09/20 16:45 05/09/20 17:00 05/09/20 17:02 Temperature Pulse Rate 137 H 130 H 130 H Respiratory Rate 30 H Blood Pressure 119/71 108/64 Pulse Oximetry 05/09/20 17:05 05/09/20 17:10 05/09/20 17:15 Temperature 37.2 C Pulse Rate 132 H 131 H 135 H Respiratory Rate 30 H Blood Pressure 108/64 98/60 L Pulse Oximetry 99 98 05/09/20 17:30 05/09/20 17:34 05/09/20 17:45 Temperature Pulse Rate 124 H 130 H 118 H Respiratory Rate 30 H Blood Pressure 96/61 L 91/54 L Pulse Oximetry 05/09/20 18:00 05/09/20 18:15 05/09/20 18:30 Temperature Pulse Rate 125 H 122 H 127 H Respiratory Rate Blood Pressure 102/61 95/55 L 97/55 L Pulse Oximetry 05/09/20 18:45 05/09/20 18:47 05/09/20 19:16 Temperature 37.6 C Pulse Rate 126 H 112 H 111 H Respiratory Rate 36 H 30 H Blood Pressure 91/54 L 94/52 L Pulse Oximetry 97 05/09/20 19:22 05/09/20 20:00 05/09/20 21:10 Temperature 36.8 C Pulse Rate 109 H 101 H 98 Respiratory Rate 30 H 30 H 29 H Blood Pressure 101/48 L Pulse Oximetry 98 98 05/09/20 21:17 05/09/20 21:19 05/09/20 22:00 Temperature Pulse Rate 91 100 91 Respiratory Rate 30 H 28 H 30 H Blood Pressure 117/51 L Pulse Oximetry 97 05/09/20 23:28 05/09/20 23:29 05/10/20 00:00 Temperature 37.1 C Pulse Rate 100 94 104 H Respiratory Rate 33 H 32 H Blood Pressure 114/45 L Pulse Oximetry 98 96 05/10/20 01:46 05/10/20 01:55 05/10/20 02:00 Temperature Pulse Rate 115 H 112 H 110 H Respiratory Rate 35 H 32 H 32 H Blood Pressure 111/42 L Pulse Oximetry 94 99 05/10/20 02:18 05/10/20 04:00 05/10/20 04:30 Temperature 36.9 C Pulse Rate 107 H 102 H 118 H Respiratory Rate 32 H 30 H Blood Pressure 104/26 L Pulse Oximetry 99 99 05/10/20 05:30 05/10/20 06:00 05/10/20 07:22 Temperature Pulse Rate 144 H 135 H 132 H Respiratory Rate 30 H 30 H 21 H Blood Pressure 119/52 L Pulse Oximetry 98 05/10/20 07:50 05/10/20 07:52 05/10/20 08:00 Temperature Pulse Rate 108
--- NOTE | 2020-05-10 13:36 | PC.NURSE ---
notified dr. briseno that ET tube was out to 19. Original measurement was 22. Orders to reinsert ET tube to 22 and order stat xray.
[2020-05-10] MEDS: dexmedeTOMIDine 400 MCG/100 ML 400 MCG/100 ML BAG 47.25 MCG IV CONT (17:26)
[2020-05-10 17:36] LABS: Glucose Point of Care 250 (65-105)
[2020-05-10] MEDS: dexmedeTOMIDine 400 MCG/100 ML 400 MCG/100 ML BAG 48.75 MCG IV CONT ×3 (19:35→23:26)
[2020-05-11] VITALS (55 sets, daily range): BP systolic 92–151; BP diastolic 50–81; PULSE 89–151; RESP 21–38; TEMP 35.2–38.3; O2SAT 95–100
[2020-05-11 00:20] LABS: Glucose Point of Care 259 (65-105)
[2020-05-11] MEDS: dexmedeTOMIDine 400 MCG/100 ML 400 MCG/100 ML BAG 48.75 MCG IV CONT ×2 (01:15→03:09)
[2020-05-11] MEDS: BUMETANIDE INJ 1 MG/4 ML VIAL 2 MG IV PUSH (01:19)
[2020-05-11] MEDS: ALBUTEROL SULFATE NEB 2.5 MG/0.5 ML INH INHALATION ×3 (02:05→13:42)
[2020-05-11 04:48] LABS: Hematocrit 23.7 % (42.0-52.0); Hemoglobin 7.1 g/dL (14.0-18.0); Mean Corpuscular Hemoglobin 29.8 pg (26-34); Mean Corpuscular Volume 99.6 fl (80-100); Mean Platelet Volume 11.3 fl (7.4-10.4); Platelet Count Result 158 k/mm3 (150-375); Red Blood Count 2.38 M/mm3 (4.6-6.20); Red Cell Distribution Width 18.5 % (11.5-14.5); White Blood Count 8.5 K/mm3 (4.5-10.0)
[2020-05-11 04:55] LABS: Base Excess ABG -0.8 mEq/l (+/-2.0); Carboxyhemoglobin 0.8 % THb (0-2.0); Fractional Inspired Oxygen 40 %; HCO3 ABG 24.1 mEq/l (22.0-26.0); Methemoglobin ABG 0.4 %THb (0-1.5); Oxygen Content ABG 10.9 %vol (16.0-22.0); Oxygen Saturation ABG 96.4 % (95.0-100.0); Oxyhemoglobin 94.8 % THb (90.0-100.0); PCO2 ABG 40.8 mmHg (35.0-45.0); PO2 ABG 85.3 mmHg (80.0-100.0); PO2 FiO2 Ratio Arterial Blood 2.13 %; Total Hemoglobin 8.1 g/dL (12.0-18.0); pH ABG 7.389 (7.350-7.450)
[2020-05-11 04:59] LABS: Arterial Blood Gas PEEP 8 cmH2O; Arterial Blood Gas Vent Mode ASV; Device VENTILATOR; Site Drawn LEFT BRACHIAL
[2020-05-11 05:00] LABS: Arterial Blood Gas Minute Volume 5 LPM
[2020-05-11 05:03] LABS: Potassium 3.8 mmol/L (3.4-5.0)
[2020-05-11] MEDS: dexmedeTOMIDine 400 MCG/100 ML 400 MCG/100 ML BAG 37.5 MCG IV CONT ×2 (05:21→08:24)
[2020-05-11] MEDS: INSULIN ASPART (*BKC) 100 UNITS/ML SUB-Q ×3 (05:26→17:52)
[2020-05-11 05:27] LABS: Glucose Point of Care 218 (65-105)
[2020-05-11] MEDS: METOCLOPRAMIDE HCL INJ 10 MG/2 ML VIAL IV PUSH ×3 (05:27→17:53)
[2020-05-11] MEDS: HYDROCORTISONE SODIUM SUCCINATE 100 MG/2 ML VIAL IV PUSH ×3 (05:27→22:46)
[2020-05-11 05:28] LABS: Alanine Aminotransferase 36 U/L (4-50); Albumin Level 2.7 g/dL (3.5-5.1); Alkaline Phosphatase 449 U/L (38-126); Anion Gap 8 mmol/L (8-16); Aspartate Amino Transferase 28 U/L (17-59); Bilirubin,Total 0.8 mg/dL (0.2-1.3); Blood Urea Nitrogen 77 mg/dL (9-20); Calcium 7.3 mg/dL (8.4-10.2); Carbon Dioxide 24 mmol/L (22-30); Chloride 97 mmol/L (98-107); Estimated CRCL calculation 72 ml/min; Estimated Glomerular Filt Rate 49; Glucose 248 mg/dL (75-110); Magnesium 1.9 mg/dL (1.6-2.3); Sodium 129 mmol/L (137-145)
[2020-05-11] MEDS: CENTRAL LINE FLUSH 10 ML IV PUSH ×4 (05:28→22:47)
[2020-05-11] MEDS: BUDESONIDE RESPULE NEB 0.5 MG/2 ML AMP INHALATION ×2 (08:00→20:51)
[2020-05-11 09:07] LABS: Lipase 79 U/L (23-300)
[2020-05-11] MEDS: PANTOPRAZOLE SODIUM IV 40 MG VIAL IV PUSH ×2 (10:46→22:46)
[2020-05-11] MEDS: HEPARIN SODIUM 5,000 UNITS/ML VIAL 5000 UNITS SUB-Q ×2 (10:46→22:46)
[2020-05-11] MEDS: TOLNAFTATE 1% POWDER 45 GM BTL 1 APPLIC TOPICAL ×2 (10:47→22:47)
--- NOTE | 2020-05-11 10:52 | WPDINTPN ---
Progress Note: A&P Assessment and Plan (1) Acute respiratory failure: Code(s): J96.00 - Acute respiratory failure, unspecified whether with hypoxia or hypercapnia Status: Acute Assessment and Plan: Acute respiratory failure likely related to septic shock, altered mental status, metabolic acidosis -chest x-ray and ABGs reviewed -currently in ASV mode, patient is being tried on pressure support ventilation daily but requires pressure support of 15 or 20 for adequate tidal volumes -placed on PSV of 15 over rate again this morning -he is off of all sedation except Precedex which he is on as he becomes tachypneic and tachycardic. I will continue to try to achieve the lowest dose needed. -will do complete sedation vacation after dialysis today -continue daily weaning trial but at this time he is not ready for extubation -significant amount of volume has been removed with hemodialysis over last week and will be continued today -hopefully as the accumulated Versed and fentanyl is clear his mental status will further improve (2) Fever: Code(s): R50.9 - Fever, unspecified Status: Acute Assessment and Plan: New onset fever. White count is normal. Hemodynamically stable and not on any pressors at this time Blood cultures were repeated yesterday I will send sputum culture and check lipase He will complete his course of Rocephin today If possible will take out central venous catheter on the left side. Await culture results Will discuss with infectious disease (3) Septic shock: Code(s): A41.9 - Sepsis, unspecified organism; R65.21 - Severe sepsis with septic shock Status: Acute Assessment and Plan: Improved as patient is now currently off of Levophed -patient growing E coli in blood and urine sensitive to Rocephin. Continue ceftriaxone per ID -echocardiogram 05/01/2020: Showed EF of >70%, no pulmonary hypertension, no valvular issues -venous Dopplers 05/01/2020: Negative for DVT -continue stress dose steroids (4) UTI (urinary tract infection): Code(s): N39.0 - Urinary tract infection, site not specified Status: Acute Assessment and Plan: E coli in urine, continue antibiotics as above (5) GONZALO (acute kidney injury): Code(s): N17.9 - Acute kidney failure, unspecified Status: Acute Assessment and Plan: Acute kidney injury, patient oliguric/anuric -adequate fluids were infused in the ED as well as in the ICU -continue pressors and maintain mean arterial pressures greater than 70 mmHg for adequate renal perfusion -dialysis catheter placed on 05/03/2020 and dialysis was started on the same day -continue dialysis per Nephrology for essentially fluid removal as patient overall volume overloaded. Patient scheduled for another session today -renal ultrasound normal kidneys with no hydronephrosis - Due to his body habitus bladder scan was not helpful. His Guan was flushed and large amount of urine with sediments came out. After playing with it, it appears that patient's Guan gets kinked due to his massive pannus, and once you pull his pannus up or put in fully horizontal position, urine starts flowing out of his Guan. I have discussed with the nurse and will flush Guan q.4 hours along with optimizing Guan direction to let urine output. -Dialysis as per nephrology Patient is currently being dialyzed (6) COVID-19: Code(s): U07.1 - COVID-19 Status: Acute Assessment and Plan: Patient was positive on 03/25/2020 for COVID-19. Currently not on any treatment or isolation (7) Asthma: Qualifiers: Asthma severity: unspecified severity Asthma persistence: unspecified Asthma complication type: unspecified Qualified Code(s): J45.909 - Unspecified asthma, uncomplicated Code(s): J45.909 - Unspecified asthma, uncomplicated Status: Acute Assessment and Plan: Continue scheduled albuterol 2.5 mg q.6 hours along with Pu
[2020-05-11] MEDS: EPOETIN ALFA 20,000 UNITS/ML VIAL 20000 UNITS IV PUSH (10:58)
--- NOTE | 2020-05-11 11:06 | PCDIET ---
ICU Rounding Note: Patient tolerating Nepro at 50mL/hr goal rate with 30mL water flush every 4 hours. Last recorded weight is 152.5kg which is increased from last review. Patient undergoing dialysis at this time. Bowel Motility: Last documented BM on 05/08/20 x 1. Labs Reviewed: Hgb (7.1), Hct (23.7), Glu (248), BUN (77), Cr (1.6), Na (129), Alb (2.7), Natalya Ca (8.34) Meds Noted: Albumin, Rocephin, Albuterol, Precedex, Heparin, Bumex, Pulmicort, Epogen, Solu Cortef, Novolog, Reglan, Protonix Additional Notes: Abdomen with blisters; coccyx deep tissue injury; left groin macerated. Following daily in ICU rounds. Assessing/reassessing every Friday/Friday.
--- NOTE | 2020-05-11 12:18 | PM.PNNEP ---
Progress Note: A&P Assessment and Plan (1) GONZALO (acute kidney injury): Code(s): N17.9 - Acute kidney failure, unspecified Status: Acute Assessment and Plan: evaluation to date demonstrates: - renal ultrasound unremarkable - urinalysis shows blood and leukocytes - urine electrolytes are non pre renal better urine output in the last 24 hours -- obstruction may be playing a role although issues with kinked norris due to his pannus noted HD/DUF today remains oliguric follow for potential renal recovery (2) Hyponatremia: Code(s): E87.1 - Hypo-osmolality and hyponatremia Status: Acute Assessment and Plan: slow improvement noted probably from GONZALO/ARF (3) Hyperkalemia: Code(s): E87.5 - Hyperkalemia Status: Acute Assessment and Plan: resolved follow repeat values (4) Septic shock: Code(s): A41.9 - Sepsis, unspecified organism; R65.21 - Severe sepsis with septic shock Status: Acute Assessment and Plan: off pressor therapy at this time blood cultures with E.coli on antibiotics per Infectious Disease (5) Acute respiratory failure: Code(s): J96.00 - Acute respiratory failure, unspecified whether with hypoxia or hypercapnia Status: Acute Assessment and Plan: on ventilator support ongoing fluid removal as tolerated wean as tolerated (6) UTI (urinary tract infection): Code(s): N39.0 - Urinary tract infection, site not specified Status: Acute Assessment and Plan: urine culture with E. coli on antibiotics Will continue to follow. Subjective Date/time seen: 05/11/20 12:18 Patient tolerating dialysis/DUF at the time of my visit (seen on treatment at 12:00PM); remains about the same -- on ventilator support and hemodynamically stable off pressor therapy; no other events/issues overnight or earlir this AM. Exam Narrative: Exam Narrative: General: Large male intubated/sedated but in NAD Heart: normal S1 and S2; no rub Lungs: coarse bilaterally Abdomen: soft, nontender, nondistended, positive bowel sounds Extremities: no cyanosis or clubbing; 1 - 2+ edema Skin: no nodules Objective Data Vital Signs Vital Signs: Vital Signs Temp Pulse Resp BP Pulse Ox 05/11/20 11:45 106 H 100/57 L 05/11/20 11:30 102 H 105/58 L 05/11/20 11:15 101 H 106/59 L 05/11/20 11:06 106 H 99 05/11/20 11:00 109 H 106/60 05/11/20 10:45 106 H 101/58 L 05/11/20 10:30 105 H 104/58 L 05/11/20 10:15 103 H 105/65 05/11/20 10:00 109 H 33 H 111/61 99 05/11/20 09:45 106 H 116/65 05/11/20 09:30 106 H 122/68 05/11/20 09:15 104 H 133/71 05/11/20 09:00 99 131/68 05/11/20 08:46 103 H 144/68 H 05/11/20 08:24 92 30 H 05/11/20 08:06 103 H 95 05/11/20 08:03 107 H 38 H 05/11/20 08:00 37.4 C 104 H 32 H 136/62 97 05/11/20 07:45 92 30 H 05/11/20 06:00 103 H 05/11/20 05:32 37.7 C H 91 34 H 125/50 L 100 05/11/20 05:21 89 30 H 05/11/20 05:13 89 30 H 05/11/20 04:45 97 99 05/11/20 04:00 38.3 C H 90 30 H 136/53 L 99 05/11/20 03:09 92 31 H 05/11/20 02:13 91 30 H 05/11/20 02:05 90 32 H 99 05/11/20 02:00 92 29 H 130/56 L 99 05/11/20 01:15 92 30 H 05/11/20 00:00 38.3 C H 100 29 H 137/58 L 98 05/10/20 23:26 94 29 H 05/10/20 23:10 94 99 05/10/20 22:00 100 34 H 149/66 H 97 05/10/20 21:31 109 H 38 H 05/10/20 21:04 38.6 C H 05/10/20 20:04 39.2 C H 05/10/20 20:03 105 H 36 H 05/10/20 20:00 39.2 C H 106 H 26 H 119/51 L 99 05/10/20 19:54 108 H 35 H 99 05/10/20 19:35 107 H 27 H 05/10/20 18:00 90 30 H 106/44 L 98 05/10/20 17:26 93 32 H 05/10/20 16:53 88 97 05/10/20 16:00 107 H 05/10/20 15:29 37.8 C H 96 28 H 106/49 L 99
[2020-05-11 12:22] LABS: Glucose Point of Care 236 (65-105)
[2020-05-11] MEDS: HEPARIN SODIUM 1,000 UNITS/ML VIAL 4000 UNITS (12:29)
[2020-05-11] MEDS: ACETAMINOPHEN 325 MG TABLET 650 MG PO (15:01)
--- NOTE | 2020-05-11 15:11 | WPDINFPN2 ---
Progress Note: A&P Assessment and Plan (1) Septic shock: Code(s): A41.9 - Sepsis, unspecified organism; R65.21 - Severe sepsis with septic shock Status: Acute Assessment and Plan: 1. Septic shock due to E coli UTI with bacteremia. 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 WBC back to normal, but temperature as above . Shock resolved. 2. MSOF 3. CoVid 19 infection 03/25/20 REC (antibiotic # 12) Ctx #8, continue. BCs ngsf. Discussed, to remove l IJ CVC (exam = no redness no pus). Trialysis or equivalent in place on R, along with peripheral IV Subjective Date/time seen: 05/11/20 15:11 Interval history: ventilated, no pressors Exam Narrative: Exam Narrative: t max 39.2 Const: General: no acute distress Resp: Effort & Inspection: normal respiratory effort Auscultation: rales Cardio: Rate: tachycardic Rhythm: regular rhythm Heart sounds: no murmurs GI: GI Palp: Yes Soft to palpation, No Tenderness to palpation present (GI) and No Guarding due to palpation present (GI) Percussion: Yes normal to percussion Urinary Catheter: Urinary Catheter: patent and draining and urine clear Skin: Other: redness and skin desquamation and ecchymoses abd wall Objective Data Vital Signs Vital Signs: Vital Signs - 24 hr 05/10/20 15:20 05/10/20 15:29 05/10/20 16:00 Temperature 37.8 C H Pulse Rate 101 H 96 107 H Respiratory Rate 35 H 28 H Blood Pressure 106/49 L Pulse Oximetry 99 05/10/20 16:53 05/10/20 17:26 05/10/20 18:00 Temperature Pulse Rate 88 93 90 Respiratory Rate 32 H 30 H Blood Pressure 106/44 L Pulse Oximetry 97 98 05/10/20 19:35 05/10/20 19:54 05/10/20 20:00 Temperature 39.2 C H Pulse Rate 107 H 108 H 106 H Respiratory Rate 27 H 35 H 26 H Blood Pressure 119/51 L Pulse Oximetry 99 99 05/10/20 20:03 05/10/20 20:04 05/10/20 21:04 Temperature 39.2 C H 38.6 C H Pulse Rate 105 H Respiratory Rate 36 H Blood Pressure Pulse Oximetry 05/10/20 21:31 05/10/20 22:00 05/10/20 23:10 Temperature Pulse Rate 109 H 100 94 Respiratory Rate 38 H 34 H Blood Pressure 149/66 H Pulse Oximetry 97 99 05/10/20 23:26 05/11/20 00:00 05/11/20 01:15 Temperature 38.3 C H Pulse Rate 94 100 92 Respiratory Rate 29 H 29 H 30 H Blood Pressure 137/58 L Pulse Oximetry 98 05/11/20 02:00 05/11/20 02:05 05/11/20 02:13 Temperature Pulse Rate 92 90 91 Respiratory Rate 29 H 32 H 30 H Blood Pressure 130/56 L Pulse Oximetry 99 99 05/11/20 03:09 05/11/20 04:00 05/11/20 04:45 Temperature 38.3 C H Pulse Rate 92 90 97 Respiratory Rate 31 H 30 H Blood Pressure 136/53 L Pulse Oximetry 99 99 05/11/20 05:13 05/11/20 05:21 05/11/20 05:32 Temperature 37.7 C H Pulse Rate 89 89 91 Respiratory Rate 30 H 30 H 34 H Blood Pressure 125/50 L Pulse Oximetry 100 05/11/20 06:00 05/11/20 07:45 05/11/20 08:00 Temperature 37.4 C Pulse Rate 103 H 92 104 H Respiratory Rate 30 H 32 H Blood Pressure 136/62 Pulse Oximetry 97 05/11/20 08:03 05/11/20 08:06 05/11/20 08:24 Temperature Pulse Rate 107 H 103 H 92 Respiratory Rate 38 H 30 H Blood Pressure Pulse Oximetry 95 05/11/20 08:46 05/11/20 09:00 05/11/20 09:15 Temperature Pulse Rate 103 H 99 104 H Respiratory Rate Blood Pressure 144/68 H 131/68 133/71 Pulse Oximetry 05/11/20 09:30 05/11/20 09:45 05/11/20 10:00 Temperature Pulse Rate 106 H 106 H 109 H Respiratory Rate 33 H Blood Pressure 122/68 116/65 111/61 Pulse Oximetry 99 05/11/20 10:15 05/11/20 10:30 05/11/20 10:45 Temperature Pulse Rate 103 H 105 H 106 H Respiratory Rate Blood Pressure 105/65 104/58 L 101/58 L Pulse Oximetry 05/11/20 11:00 05/11/20 11:06 05/11/20 11:15 Temperature Pulse Rate 109 H 106 H 101 H Respiratory Rate Blood Pressure 106/60 106/59 L Pulse Oximetry 99 05/11/20 11:30 05/11/20 11:45 05/11/20 12:00 Temperature Pulse Rate 102 H 106 H 101 H Respi
[2020-05-11 18:25] LABS: Glucose Point of Care 221 (65-105)
[2020-05-11] MEDS: dexmedeTOMIDine 400 MCG/100 ML 400 MCG/100 ML BAG 11.25 MCG IV CONT (18:33)
[2020-05-11] MEDS: dexmedeTOMIDine 400 MCG/100 ML 400 MCG/100 ML BAG 22.88 MCG IV CONT (23:09)
[2020-05-12] VITALS (35 sets, daily range): BP systolic 111–140; BP diastolic 51–64; PULSE 104–135; RESP 20–34; TEMP 36.7–38.6; O2SAT 91–100
[2020-05-12] MEDS: INSULIN ASPART (*BKC) 100 UNITS/ML SUB-Q ×3 (00:48→13:04)
[2020-05-12] MEDS: METOCLOPRAMIDE HCL INJ 10 MG/2 ML VIAL IV PUSH ×4 (00:48→23:41)
[2020-05-12 00:55] LABS: Glucose Point of Care 247 (65-105)
[2020-05-12] MEDS: dexmedeTOMIDine 400 MCG/100 ML 400 MCG/100 ML BAG 22.88 MCG IV CONT (03:04)
[2020-05-12 05:35] LABS: Hematocrit 26.4 % (42.0-52.0); Mean Corpuscular HGB Conc 30.3 g/dl (32-36); Mean Corpuscular Volume 98.9 fl (80-100); Mean Platelet Volume 11.4 fl (7.4-10.4); Platelet Count Result 159 k/mm3 (150-375); Red Blood Count 2.67 M/mm3 (4.6-6.20); Red Cell Distribution Width 19.1 % (11.5-14.5); White Blood Count 10.1 K/mm3 (4.5-10.0)
[2020-05-12 05:42] LABS: Alanine Aminotransferase 49 U/L (4-50); Albumin Level 2.8 g/dL (3.5-5.1); Alkaline Phosphatase 521 U/L (38-126); Anion Gap 7 mmol/L (8-16); Aspartate Amino Transferase 49 U/L (17-59); Blood Urea Nitrogen 69 mg/dL (9-20); Calcium 7.4 mg/dL (8.4-10.2); Carbon Dioxide 26 mmol/L (22-30); Chloride 98 mmol/L (98-107); Estimated CRCL calculation 69 ml/min; Estimated Glomerular Filt Rate 45; Glucose 254 mg/dL (75-110); Magnesium 1.9 mg/dL (1.6-2.3); Potassium 3.7 mmol/L (3.4-5.0); Sodium 131 mmol/L (137-145)
[2020-05-12 05:44] LABS: Alveolar/Arterial O2 Gradient 129.5 mmHg; Base Excess ABG -4.2 mEq/l (+/-2.0); Carboxyhemoglobin 0.3 % THb (0-2.0); Fractional Inspired Oxygen 40 %; HCO3 ABG 21.7 mEq/l (22.0-26.0); Methemoglobin ABG 0.2 %THb (0-1.5); Oxygen Saturation ABG 97.5 % (95.0-100.0); Oxyhemoglobin 96.8 % THb (90.0-100.0); PCO2 ABG 42.9 mmHg (35.0-45.0); PO2 ABG 106.4 mmHg (80.0-100.0); PO2 FiO2 Ratio Arterial Blood 2.66 %; Reduced Hemoglobin 2.7 %THb (0-5.0); Total Hemoglobin 10.9 g/dL (12.0-18.0); pH ABG 7.321 (7.350-7.450)
[2020-05-12 05:45] LABS: Arterial Blood Gas PEEP 8 cmH2O; Arterial Blood Gas Vent Mode ASV; Device VENTILATOR; Modified Allen's Test Pass; Site Drawn LEFT RADIAL
[2020-05-12] MEDS: HYDROCORTISONE SODIUM SUCCINATE 100 MG/2 ML VIAL IV PUSH (06:03)
[2020-05-12] MEDS: CENTRAL LINE FLUSH 10 ML IV PUSH ×3 (06:06→20:15)
[2020-05-12 06:10] LABS: Glucose Point of Care 248 (65-105)
[2020-05-12] MEDS: INSULIN GLARGINE (*BKC) 100 UNITS/ML 20 UNITS SUB-Q (08:09)
[2020-05-12] MEDS: PANTOPRAZOLE SODIUM IV 40 MG VIAL IV PUSH ×2 (08:10→20:14)
[2020-05-12] MEDS: HEPARIN SODIUM 5,000 UNITS/ML VIAL 5000 UNITS SUB-Q ×2 (08:10→20:16)
[2020-05-12] MEDS: TOLNAFTATE 1% POWDER 45 GM BTL 1 APPLIC TOPICAL ×2 (08:11→20:15)
[2020-05-12] MEDS: ACETAMINOPHEN 325 MG TABLET 650 MG PO (08:16)
[2020-05-12] MEDS: BUDESONIDE RESPULE NEB 0.5 MG/2 ML AMP INHALATION ×2 (08:20→19:20)
[2020-05-12 12:09] LABS: Glucose Point of Care 220 (65-105)
--- NOTE | 2020-05-12 12:24 | PCNFU ---
Nutrition Follow-Up Complete: Inadequate oral intake related to oral intubation as evidenced by NPO status. Goal: Patient to meet estimated nutritional needs. Progressing towards goal. We will continue current goal. Pt current nutrition is Nepro at 50 ml/hr. Last recorded weight is 145.5 kg, up from 140.3 kg on admit. Bowel Motility:+BM reported 05/12 Labs Reviewed: Na 131,GFR 45,BUN 69,Cr 1.7,Alb 2.8 Meds Noted:Reglan, Precedex,Protonix,NovoLog,Lantus Additional Notes: Nutrition follow up. Patient remains on mechanical vent and tube feedings of Nepro at 50 ml/hr and tolerating. Current tube feedings are providing 1980 kcals and 89 gms protein with 30 ml q 4 hr free water flushes. Abdomen with blisters; coccyx deep tissue injury; left groin macerated. Breathing trial today. Monitoring: Reassessing Friday/Friday. Follow daily in ICU rounds.
--- NOTE | 2020-05-12 13:40 | PM.IMPN ---
Progress Note: A&P Assessment and Plan (1) Septic shock: Code(s): A41.9 - Sepsis, unspecified organism; R65.21 - Severe sepsis with septic shock Status: Acute Assessment and Plan: Will continue with the current plan of management. Will monitor electrolytes and hemoglobin. Unstable will try to extubate patient. Patient is not on any pressors at present time. (2) UTI (urinary tract infection): Code(s): N39.0 - Urinary tract infection, site not specified Status: Acute Assessment and Plan: Will continue antibiotics. Monitor cultures. (3) GE[place]IA (obstructive sleep apnea): Code(s): G47.33 - Obstructive sleep apnea (adult) (pediatric) Status: Chronic Assessment and Plan: The patient is currently intubated. (4) Chronic respiratory failure with hypercapnia: Code(s): J96.12 - Chronic respiratory failure with hypercapnia Status: Acute Assessment and Plan: Patient currently is intubated. Monitor ABG. (5) Asthma: Qualifiers: Asthma severity: unspecified severity Asthma persistence: unspecified Asthma complication type: unspecified Qualified Code(s): J45.909 - Unspecified asthma, uncomplicated Code(s): J45.909 - Unspecified asthma, uncomplicated Status: Acute Assessment and Plan: Will continue with ventilation support. (6) COVID-19: Code(s): U07.1 - COVID-19 Status: Acute Assessment and Plan: Patient was diagnosed earlier in February and we are awaiting records from [facility] as well as [facility]. [facility] the [facility] (7) Autism: Code(s): F84.0 - Autistic disorder Status: Chronic Assessment and Plan: Unsure of baseline. The patient had lives home alone at 1 time. (8) GONZALO (acute kidney injury): Code(s): N17.9 - Acute kidney failure, unspecified Status: Acute Assessment and Plan: Continue to hydrate but gently. Monitor electrolytes (9) Hyperkalemia: Code(s): E87.5 - Hyperkalemia Status: Acute Assessment and Plan: patient did received medication the emergency room. Will monitor electrolytes. (10) Hyponatremia: Code(s): E87.1 - Hypo-osmolality and hyponatremia Status: Acute Assessment and Plan: continue to hydrate and check BMP. Subjective Date/time seen: 05/12/20 13:40 Interval history: Patient was seen during the monitor rounds today. Patient is on ventilator and sedated. Patient is on no pressors. Review of Systems Review of Systems: ROS unobtainable: Yes unobtainable due to endotracheal tube Constitutional: Constitutional: Reports as per HPI and Reports no additional constitutional complaints Eyes: Eyes: Reports as per HPI and Reports no additional eye complaints ENT: Reports system reviewed and no additional complaints, except as documented and Reports Normal hearing present Cardiovascular: Cardiovascular: Reports no additional cardiovascular complaints Respiratory: Respiratory: Reports no additional respiratory complaints and Reports no additional respiratory complaints Gastrointestinal: Gastrointestinal: Reports as per HPI and Reports no additional gastrointestinal complaints Musculoskeletal: Musculoskeletal: Reports no additional musculoskeletal complaints Integumentary/Breasts: Skin/Breast: Reports system reviewed and no additional complaints, except as docu and Reports as per HPI Neurologic: Reports system reviewed and no additional complaints, except as documented, Reports as per HPI and Reports Normal hearing present Psychiatric: Psychiatric: Reports no additional psychiatric complaints and Reports as per HPI Endocrine: Endocrine: Reports no additional endocrine complaints Hematologic/Lymphatic: Hematologic/Lymphatic: Reports no additional hematologic/lymphatic complaints Allergic/Immunologic: Allergic/Immunologic: Reports no additional aller
--- NOTE | 2020-05-12 13:48 | WPDINTPN ---
Progress Note: A&P Assessment and Plan (1) Acute respiratory failure: Code(s): J96.00 - Acute respiratory failure, unspecified whether with hypoxia or hypercapnia Status: Acute Assessment and Plan: Acute respiratory failure likely related to septic shock, altered mental status, metabolic acidosis -chest x-ray and ABGs reviewed -currently in ASV mode, patient is being tried on pressure support ventilation daily but requires pressure support of 15 or 20 for adequate tidal volumes -placed on PSV of 20/8 rate again this morning -he is off of all sedation except on and off Precedex which he is on as he becomes tachypneic and tachycardic. I will continue to try to achieve the lowest dose needed. -will do complete sedation vacation today -continue daily weaning trial but at this time he is not ready for extubation. I anticipate he will need tracheostomy as he is not ready to be weaned and requiring high pressure support for adequate tidal volumes -significant amount of volume has been removed with hemodialysis over last week and will be continued. He was dialyzed again yesterday -continue to minimize use of sedation (2) Fever: Code(s): R50.9 - Fever, unspecified Status: Acute Assessment and Plan: New onset fever. White count close to normal. Hemodynamically stable and not on any pressors at this time He has completed a 10 day course of Rocephin for his E coli bacteremia and UTI Blood cultures were repeated 05/10 sputum culture 05/11 negative till now Lipase was normal Central venous catheter in left IJ was removed Repeat venous Dopplers Await recommendations from infectious disease (3) Septic shock: Code(s): A41.9 - Sepsis, unspecified organism; R65.21 - Severe sepsis with septic shock Status: Acute Assessment and Plan: Improved as patient is now currently off of Levophed -patient growing E coli in blood and urine sensitive to Rocephin. Continue ceftriaxone per ID -echocardiogram 05/01/2020: Showed EF of >70%, no pulmonary hypertension, no valvular issues -venous Dopplers 05/01/2020: Negative for DVT -of stress dose steroids (4) UTI (urinary tract infection): Code(s): N39.0 - Urinary tract infection, site not specified Status: Acute Assessment and Plan: E coli in urine, completed 10 day course of Rocephin (5) GONZALO (acute kidney injury): Code(s): N17.9 - Acute kidney failure, unspecified Status: Acute Assessment and Plan: Acute kidney injury, patient oliguric/anuric -adequate fluids were infused in the ED as well as in the ICU -continue pressors and maintain mean arterial pressures greater than 70 mmHg for adequate renal perfusion -dialysis catheter placed on 05/03/2020 and dialysis was started on the same day -continue dialysis per Nephrology for essentially fluid removal as patient overall volume overloaded. Patient scheduled for another session today -renal ultrasound normal kidneys with no hydronephrosis - Due to his body habitus bladder scan was not helpful. His Guan was flushed and large amount of urine with sediments came out. After playing with it, it appears that patient's Guan gets kinked due to his massive pannus, and once you pull his pannus up or put in fully horizontal position, urine starts flowing out of his Guan. I have discussed with the nurse and will flush Guan q.4 hours along with optimizing Guan direction to let urine output. - Dialysis as per nephrology. Last session yesterday (6) COVID-19: Code(s): U07.1 - COVID-19 Status: Acute Assessment and Plan: Patient was positive on 03/25/2020 for COVID-19. Currently not on any treatment or isolation (7) Asthma: Qualifiers: Asthma severity: unspecified severity Asthma persistence: unspecified Asthma complication type: unspecified Qualified Code(s): J45.909 - Unspecified asthma, uncomplicated Code(s): J45.909 - Unspecified asthma,
--- NOTE | 2020-05-12 14:15 | PM.PNNEP ---
Progress Note: A&P Assessment and Plan (1) GONZALO (acute kidney injury): Code(s): N17.9 - Acute kidney failure, unspecified Status: Acute Assessment and Plan: evaluation to date demonstrates: - renal ultrasound unremarkable - urinalysis shows blood and leukocytes - urine electrolytes are non pre renal better urine output in the last 24 hours -- obstruction may be playing a role although issues with kinked norris due to his pannus noted HD/DUF tomorrow remains oliguric follow for potential renal recovery (2) Hyponatremia: Code(s): E87.1 - Hypo-osmolality and hyponatremia Status: Acute Assessment and Plan: slow improvement noted probably from GONZALO/ARF (3) Hyperkalemia: Code(s): E87.5 - Hyperkalemia Status: Acute Assessment and Plan: resolved follow repeat values (4) Septic shock: Code(s): A41.9 - Sepsis, unspecified organism; R65.21 - Severe sepsis with septic shock Status: Acute Assessment and Plan: off pressor therapy at this time blood cultures with E.coli on antibiotics per Infectious Disease (5) Acute respiratory failure: Code(s): J96.00 - Acute respiratory failure, unspecified whether with hypoxia or hypercapnia Status: Acute Assessment and Plan: on ventilator support ongoing fluid removal as tolerated wean as tolerated need tracheostomy?? (6) UTI (urinary tract infection): Code(s): N39.0 - Urinary tract infection, site not specified Status: Acute Assessment and Plan: urine culture with E. coli on antibiotics Will continue to follow. Subjective Date/time seen: 05/12/20 14:15 No real change although he appears to respond to his name being called; tolerated dialysis/DUF yesterday without any issues or problems; no other significant changes/issues to report at this time. Exam Narrative: Exam Narrative: General: Large male intubated/sedated but in NAD Heart: normal S1 and S2; no rub Lungs: coarse bilaterally Abdomen: soft, nontender, nondistended, positive bowel sounds Extremities: no cyanosis or clubbing; 1 - 2+ edema Skin: warm and dry Objective Data Vital Signs Vital Signs: Vital Signs Temp Pulse Resp BP Pulse Ox 05/12/20 14:06 132 H 34 H 05/12/20 14:04 132 H 96 05/12/20 14:00 135 H 34 H 138/64 95 05/12/20 12:00 127 H 05/12/20 11:58 38.2 C H 126 H 27 H 129/63 97 05/12/20 11:26 128 H 97 05/12/20 10:00 120 H 22 H 132/59 L 97 05/12/20 09:27 130 H 97 05/12/20 09:16 38.1 C H 05/12/20 08:26 112 H 96 05/12/20 08:24 115 H 31 H 05/12/20 08:16 38.6 C H 05/12/20 08:00 38.6 C H 114 H 31 H 128/62 98 05/12/20 07:49 113 H 30 H 05/12/20 06:00 105 H 28 H 111/56 L 100 05/12/20 05:38 108 H 26 H 05/12/20 05:00 36.7 C 108 H 26 H 126/62 97 05/12/20 04:16 109 H 97 05/12/20 04:00 112 H 05/12/20 03:22 106 H 24 H 05/12/20 03:04 110 H 24 H 05/12/20 02:52 109 H 24 H 98 05/12/20 02:00 104 H 25 H 120/61 98 05/12/20 00:30 36.9 C 110 H 29 H 127/57 L 98 05/12/20 00:00 104 H 05/11/20 23:10 104 H 98 05/11/20 23:09 110 H 21 H 05/11/20 22:00 106 H 27 H 118/55 L 98 05/11/20 21:30 37.2 C 134 H 35 H 132/73 95 05/11/20 21:00 142 H 34 H 05/11/20 20:59 143 H 38 H 05/11/20 20:53 141 H 37 H 05/11/20 20:15 146 H 35 H 05/11/20 20:00 145 H 05/11/20 19:44 144 H 95 05/11/20 19:30 147 H 34 H 05/11/20 18:33 151 H 36 H 05/11/20 18:10 142 H 95 05/11/20 18:00 37.6 C 140 H 35 H 149/71 H 96 05/11/20 16:38 144 H 96 05/11/20 16:00 36.8 C 139 H 27 H 148/77 H 97 Intake/Output Intake/Output: Intake & Output 05/09/20 05/10/20 05/11/20 05/12/20 23:59 23:59 23:59 23:59 Intake Total 2255 2250 1717 959 Output Total
--- NOTE | 2020-05-12 15:37 | WPDINFPN2 ---
Progress Note: A&P Assessment and Plan (1) Septic shock: Code(s): A41.9 - Sepsis, unspecified organism; R65.21 - Severe sepsis with septic shock Status: Acute Assessment and Plan: 1. Septic shock due to E coli UTI with bacteremia. 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 WBC back up. Shock resolved. 2. MSOF 3. CoVid 19 infection 03/25/20 REC (antibiotic # 13) Ctx #9, stop after tomorrow. BCs ngsf. Left IJ CVC is out, HD cath (with extra lumen) remains Subjective Date/time seen: 05/12/20 15:37 Exam Narrative: Exam Narrative: t max 38.6 Resp: Auscultation: rales Other: vesicular Cardio: Rate: tachycardic Rhythm: regular rhythm Heart sounds: no murmurs GI: Inspection: non-distended GI Palp: Yes Soft to palpation and No Tenderness to palpation present (GI) Urinary Catheter: Urinary Catheter: patent and draining and urine clear Skin: General skin exam: normal color Other: abd wall desquamation as before Objective Data Vital Signs Vital Signs: Vital Signs - 24 hr 05/11/20 16:00 05/11/20 16:38 05/11/20 18:00 Temperature 36.8 C 37.6 C Pulse Rate 139 H 144 H 140 H Respiratory Rate 27 H 35 H Blood Pressure 148/77 H 149/71 H Pulse Oximetry 97 96 96 05/11/20 18:10 05/11/20 18:33 05/11/20 19:30 Temperature Pulse Rate 142 H 151 H 147 H Respiratory Rate 36 H 34 H Blood Pressure Pulse Oximetry 95 05/11/20 19:44 05/11/20 20:00 05/11/20 20:15 Temperature Pulse Rate 144 H 145 H 146 H Respiratory Rate 35 H Blood Pressure Pulse Oximetry 95 05/11/20 20:53 05/11/20 20:59 05/11/20 21:00 Temperature Pulse Rate 141 H 143 H 142 H Respiratory Rate 37 H 38 H 34 H Blood Pressure Pulse Oximetry 05/11/20 21:30 05/11/20 22:00 05/11/20 23:09 Temperature 37.2 C Pulse Rate 134 H 106 H 110 H Respiratory Rate 35 H 27 H 21 H Blood Pressure 132/73 118/55 L Pulse Oximetry 95 98 05/11/20 23:10 05/12/20 00:00 05/12/20 00:30 Temperature 36.9 C Pulse Rate 104 H 104 H 110 H Respiratory Rate 29 H Blood Pressure 127/57 L Pulse Oximetry 98 98 05/12/20 02:00 05/12/20 02:52 05/12/20 03:04 Temperature Pulse Rate 104 H 109 H 110 H Respiratory Rate 25 H 24 H 24 H Blood Pressure 120/61 Pulse Oximetry 98 98 05/12/20 03:22 05/12/20 04:00 05/12/20 04:16 Temperature Pulse Rate 106 H 112 H 109 H Respiratory Rate 24 H Blood Pressure Pulse Oximetry 97 05/12/20 05:00 05/12/20 05:38 05/12/20 06:00 Temperature 36.7 C Pulse Rate 108 H 108 H 105 H Respiratory Rate 26 H 26 H 28 H Blood Pressure 126/62 111/56 L Pulse Oximetry 97 100 05/12/20 07:49 05/12/20 08:00 05/12/20 08:16 Temperature 38.6 C H 38.6 C H Pulse Rate 113 H 114 H Respiratory Rate 30 H 31 H Blood Pressure 128/62 Pulse Oximetry 98 05/12/20 08:24 05/12/20 08:26 05/12/20 09:16 Temperature 38.1 C H Pulse Rate 115 H 112 H Respiratory Rate 31 H Blood Pressure Pulse Oximetry 96 05/12/20 09:27 05/12/20 10:00 05/12/20 11:26 Temperature Pulse Rate 130 H 120 H 128 H Respiratory Rate 22 H Blood Pressure 132/59 L Pulse Oximetry 97 97 97 05/12/20 11:58 05/12/20 12:00 05/12/20 14:00 Temperature 38.2 C H Pulse Rate 126 H 127 H 135 H Respiratory Rate 27 H 34 H Blood Pressure 129/63 138/64 Pulse Oximetry 97 95 05/12/20 14:04 05/12/20 14:06 Temperature Pulse Rate 132 H 132 H Respiratory Rate 34 H Blood Pressure Pulse Oximetry 96 Intake/Output Intake/Output: Intake & Output 05/09/20 05/10/20 05/11/20 05/12/20 23:59 23:59 23:59 23:59 Intake Total 2255 2250 1717 959 Output Total 3375 450 4350 5 Balance -1120 1800 -2633 954 Meds/Results Medications: Active Medications Generic Name Dose Route Start Last Admin Trade Name Freq PRN Reason Stop Dose Admin Acetaminophen 650 mg 05/06/20 10:08 05/12/20 08:16 Acetaminophen 325 Mg Tablet PO 650 mg Q4H PRN Administration Mild Pain (1-3) or Fever Altepla
[2020-05-12 17:16] LABS: Glucose Point of Care 171 (65-105)
[2020-05-12 23:41] LABS: Glucose Point of Care 148 (65-105)
[2020-05-13] VITALS (45 sets, daily range): BP systolic 83–142; BP diastolic 43–76; PULSE 71–138; RESP 13–28; TEMP 36.1–39.1; O2SAT 93–100
[2020-05-13 05:23] LABS: Glucose Point of Care 214 (65-105)
[2020-05-13] MEDS: CENTRAL LINE FLUSH 10 ML IV PUSH ×3 (05:25→19:57)
[2020-05-13] MEDS: METOCLOPRAMIDE HCL INJ 10 MG/2 ML VIAL IV PUSH ×3 (05:25→18:20)
[2020-05-13] MEDS: INSULIN ASPART (*BKC) 100 UNITS/ML SUB-Q (05:25)
[2020-05-13 05:51] LABS: Hematocrit 25.8 % (42.0-52.0); Hemoglobin 7.7 g/dL (14.0-18.0); Mean Corpuscular HGB Conc 29.8 g/dl (32-36); Mean Corpuscular Hemoglobin 29.6 pg (26-34); Mean Corpuscular Volume 99.2 fl (80-100); Mean Platelet Volume 11.2 fl (7.4-10.4); Platelet Count Result 209 k/mm3 (150-375); Red Cell Distribution Width 19.1 % (11.5-14.5); White Blood Count 13.9 K/mm3 (4.5-10.0)
[2020-05-13 06:13] LABS: Potassium 3.7 mmol/L (3.4-5.0)
[2020-05-13 06:18] LABS: Base Excess ABG -6.8 mEq/l (+/-2.0); Carboxyhemoglobin 0.6 % THb (0-2.0); Fractional Inspired Oxygen 40 %; HCO3 ABG 21.4 mEq/l (22.0-26.0); Methemoglobin ABG 0.5 %THb (0-1.5); Oxygen Content ABG 13.2 %vol (16.0-22.0); Oxygen Saturation ABG 95.8 % (95.0-100.0); Oxyhemoglobin 94.9 % THb (90.0-100.0); PCO2 ABG 56.9 mmHg (35.0-45.0); PO2 ABG 97.8 mmHg (80.0-100.0); PO2 FiO2 Ratio Arterial Blood 2.45 %; Total Hemoglobin 9.8 g/dL (12.0-18.0)
[2020-05-13 06:19] LABS: Device VENTILATOR; Modified Allen's Test Pass; Site Drawn RIGHT RADIAL; pH ABG 7.194 (7.350-7.450)
[2020-05-13 06:21] LABS: Arterial Blood Gas PEEP 8 cmH2O; Arterial Blood Gas Vent Mode ASV
[2020-05-13 06:29] LABS: Alanine Aminotransferase 56 U/L (4-50); Albumin Level 2.7 g/dL (3.5-5.1); Alkaline Phosphatase 545 U/L (38-126); Anion Gap 12 mmol/L (8-16); Aspartate Amino Transferase 57 U/L (17-59); Blood Urea Nitrogen 94 mg/dL (9-20); Calcium 7.3 mg/dL (8.4-10.2); Carbon Dioxide 22 mmol/L (22-30); Chloride 98 mmol/L (98-107); Estimated CRCL calculation 55 ml/min; Estimated Glomerular Filt Rate 38; Glucose 221 mg/dL (75-110); Sodium 132 mmol/L (137-145)
[2020-05-13] MEDS: BUDESONIDE RESPULE NEB 0.5 MG/2 ML AMP INHALATION ×2 (08:09→19:59)
[2020-05-13 08:22] LABS: Glucose Point of Care 177 (65-105)
[2020-05-13] MEDS: HEPARIN SODIUM 5,000 UNITS/ML VIAL 5000 UNITS SUB-Q ×2 (08:25→19:56)
[2020-05-13] MEDS: INSULIN GLARGINE (*BKC) 100 UNITS/ML 20 UNITS SUB-Q (08:28)
[2020-05-13] MEDS: SODIUM CHLORIDE 0.9% IV 1,000 ML 100 ML IV CONT (08:30)
[2020-05-13] MEDS: PANTOPRAZOLE SODIUM IV 40 MG VIAL IV PUSH ×2 (08:31→19:55)
[2020-05-13] MEDS: TOLNAFTATE 1% POWDER 45 GM BTL 1 APPLIC TOPICAL ×2 (08:35→19:56)
[2020-05-13 08:40] LABS: Alveolar/Arterial O2 Gradient 124.3 mmHg; Base Excess ABG -6.4 mEq/l (+/-2.0); Fractional Inspired Oxygen 40 %; HCO3 ABG 21.2 mEq/l (22.0-26.0); Oxygen Saturation ABG 96.1 % (95.0-100.0); Oxyhemoglobin 95.3 % THb (90.0-100.0); PCO2 ABG 53.6 mmHg (35.0-45.0); PO2 ABG 99.3 mmHg (80.0-100.0); PO2 FiO2 Ratio Arterial Blood 2.48 %; Total Hemoglobin 8.8 g/dL (12.0-18.0)
[2020-05-13 08:55] LABS: pH ABG 7.215 (7.350-7.450)
[2020-05-13 08:56] LABS: Device VENTILATOR; Site Drawn LEFT BRACHIAL
[2020-05-13 08:58] LABS: Arterial Blood Gas Minute Volume 5 LPM; Arterial Blood Gas PEEP 8 cmH2O; Arterial Blood Gas Vent Mode ASV
--- NOTE | 2020-05-13 09:05 | PM.IMPN ---
Progress Note: A&P Assessment and Plan (1) Septic shock: Code(s): A41.9 - Sepsis, unspecified organism; R65.21 - Severe sepsis with septic shock Status: Acute Assessment and Plan: Will continue with the current plan of management. Will monitor electrolytes and hemoglobin. Unstable will try to extubate patient. Patient is not on any pressors at present time. (2) UTI (urinary tract infection): Code(s): N39.0 - Urinary tract infection, site not specified Status: Acute Assessment and Plan: Will continue antibiotics. Monitor cultures. (3) [place] (obstructive sleep apnea): Code(s): G47.33 - Obstructive sleep apnea (adult) (pediatric) Status: Chronic Assessment and Plan: The patient is currently intubated. (4) Chronic respiratory failure with hypercapnia: Code(s): J96.12 - Chronic respiratory failure with hypercapnia Status: Acute Assessment and Plan: Patient currently is intubated. Monitor ABG. (5) Asthma: Qualifiers: Asthma severity: unspecified severity Asthma persistence: unspecified Asthma complication type: unspecified Qualified Code(s): J45.909 - Unspecified asthma, uncomplicated Code(s): J45.909 - Unspecified asthma, uncomplicated Status: Acute Assessment and Plan: Will continue with ventilation support. (6) COVID-19: Code(s): U07.1 - COVID-19 Status: Acute Assessment and Plan: Patient was diagnosed earlier in February and we are awaiting records from [facility] well as [facility]. [facility] (7) Autism: Code(s): F84.0 - Autistic disorder Status: Chronic Assessment and Plan: Unsure of baseline. The patient had lives home alone at 1 time. (8) GONZALO (acute kidney injury): Code(s): N17.9 - Acute kidney failure, unspecified Status: Acute Assessment and Plan: Continue to hydrate but gently. Monitor electrolytes (9) Hyperkalemia: Code(s): E87.5 - Hyperkalemia Status: Acute Assessment and Plan: patient did received medication the emergency room. Will monitor electrolytes. (10) Hyponatremia: Code(s): E87.1 - Hypo-osmolality and hyponatremia Status: Acute Assessment and Plan: continue to hydrate and check BMP. Dialysis to Subjective Date/time seen: 05/13/20 09:05 Interval history: Patient was seen during the monitor rounds today. Patient is on ventilator, slightly awake. Patient is on no pressors. Review of Systems Review of Systems: ROS unobtainable: Yes unobtainable due to endotracheal tube Constitutional: Constitutional: Reports as per HPI and Reports no additional constitutional complaints Eyes: Eyes: Reports as per HPI and Reports no additional eye complaints ENT: Reports system reviewed and no additional complaints, except as documented and Reports Normal hearing present Cardiovascular: Cardiovascular: Reports no additional cardiovascular complaints Respiratory: Respiratory: Reports no additional respiratory complaints and Reports no additional respiratory complaints Gastrointestinal: Gastrointestinal: Reports as per HPI and Reports no additional gastrointestinal complaints Musculoskeletal: Musculoskeletal: Reports no additional musculoskeletal complaints Integumentary/Breasts: Skin/Breast: Reports system reviewed and no additional complaints, except as docu and Reports as per HPI Neurologic: Reports system reviewed and no additional complaints, except as documented, Reports as per HPI and Reports Normal hearing present Psychiatric: Psychiatric: Reports no additional psychiatric complaints and Reports as per HPI Endocrine: Endocrine: Reports no additional endocrine complaints Hematologic/Lymphatic: Hematologic/Lymphatic: Reports no additional hematologic/lymphatic complaints Allergic/Immunologic: Allergic/Immunologic: Reports
[2020-05-13 11:20] LABS: Add Urine Microscopic? YES; Appearance Urine Turbid (Clear); Bilirubin Urine Negative (Negative); Blood Urine 2+ (Negative); Color Urine Yellow (Yellow); Glucose Urine UA Negative (Negative); Ketones Urine Negative (Negative); Leukocyte Esterase Ur 1+ LEU/UL (Negative); Nitrate Urine Negative (Negative); Protein Urine 2+ mg/dL (Negative); RBC Urine >75 /hpf (0-2); Specific Grav Ur 1.017 (1.001-1.035); Urobilinogen Urine Negative mg/dL (<2.0); WBC Clumps Urine Present /HPF; WBC Urine >75 /hpf
--- NOTE | 2020-05-13 11:38 | WPDINTPN ---
Progress Note: A&P Assessment and Plan (1) Acute respiratory failure: Code(s): J96.00 - Acute respiratory failure, unspecified whether with hypoxia or hypercapnia Status: Acute Assessment and Plan: Acute respiratory failure likely related to septic shock, altered mental status, metabolic acidosis -chest x-ray and ABGs reviewed -patient with hypercapnic respiratory failure, respiratory acidosis. Patient was switched to CMV mode of ventilation as his pH was 7.19, pCO2 56.9 and pO2 of 99 on ABGs -placed on PSV of 20/8 rate again this morning -Patient is off all sedation -patient was tried on spontaneous breathing trial but has been requiring high pressure support with inspiratory pressure of 20. -significant amount of volume has been removed with hemodialysis over last week and will be continued. -dialysis today -keep off all sedation for now (2) Fever: Code(s): R50.9 - Fever, unspecified Status: Acute Assessment and Plan: New onset fever. White count close to normal. Hemodynamically stable and not on any pressors at this time He has completed a 10 day course of Rocephin for his E coli bacteremia and UTI Blood cultures were repeated 05/10 sputum culture 05/11 negative till now Lipase was normal Central venous catheter in left IJ was removed Repeat venous Dopplers Await recommendations from infectious disease -purulent urine output, will obtain a UA and urine culture (3) Septic shock: Code(s): A41.9 - Sepsis, unspecified organism; R65.21 - Severe sepsis with septic shock Status: Acute Assessment and Plan: RESOLVED: off Levophed -patient growing E coli in blood and urine sensitive to Rocephin. Continue ceftriaxone per ID -echocardiogram 05/01/2020: Showed EF of >70%, no pulmonary hypertension, no valvular issues -venous Dopplers 05/01/2020: Negative for DVT -off of stress dose steroids (4) UTI (urinary tract infection): Code(s): N39.0 - Urinary tract infection, site not specified Status: Acute Assessment and Plan: E coli in urine, completed 10 day course of Rocephin (5) GONZALO (acute kidney injury): Code(s): N17.9 - Acute kidney failure, unspecified Status: Acute Assessment and Plan: Acute kidney injury, patient oliguric/anuric -adequate fluids were infused in the ED as well as in the ICU -continue pressors and maintain mean arterial pressures greater than 70 mmHg for adequate renal perfusion -dialysis catheter placed on 05/03/2020 and dialysis was started on the same day -continue dialysis per Nephrology for essentially fluid removal as patient overall volume overloaded. Patient scheduled for another session today -renal ultrasound normal kidneys with no hydronephrosis - Due to his body habitus bladder scan was not helpful. His Guan was flushed and large amount of urine with sediments came out. After playing with it, it appears that patient's Guan gets kinked due to his massive pannus, and once you pull his pannus up or put in fully horizontal position, urine starts flowing out of his Guan. I have discussed with the nurse and will flush Guan q.4 hours along with optimizing Guan direction to let urine output. - Dialysis as per nephrology. (6) COVID-19: Code(s): U07.1 - COVID-19 Status: Acute Assessment and Plan: Patient was positive on 03/25/2020 for COVID-19. Currently not on any treatment or isolation (7) Asthma: Qualifiers: Asthma severity: unspecified severity Asthma persistence: unspecified Asthma complication type: unspecified Qualified Code(s): J45.909 - Unspecified asthma, uncomplicated Code(s): J45.909 - Unspecified asthma, uncomplicated Status: Acute Assessment and Plan: Continue scheduled albuterol 2.5 mg q.6 hours along with Pulmicort 0.5 mg q.12 hours nebulized. (8) DVT prophylaxis: Code(s): Z29.9 - Encounter for prophylactic measures, unspecified
[2020-05-13] MEDS: EPOETIN ALFA-EPBX 10,000 UNITS/ML VIAL 10000 UNITS IV PUSH (11:46)
[2020-05-13 11:51] LABS: Glucose Point of Care 149 (65-105)
--- NOTE | 2020-05-13 12:54 | P.PNNP_ITS ---
Progress Note: A&P Assessment and Plan (1) GONZALO (acute kidney injury): Code(s): N17.9 - Acute kidney failure, unspecified Status: Acute Assessment and Plan: * evaluation to date demonstrates: - renal ultrasound unremarkable - urinalysis shows blood and leukocytes - urine electrolytes are non pre renal * better urine output in the last 24 hours -- obstruction may be playing a role although issues with kinked norris due to his pannus noted * HD today (for fluid and toxin removal) * remains oliguric * follow for potential renal recovery (2) Hyponatremia: Code(s): E87.1 - Hypo-osmolality and hyponatremia Status: Acute Assessment and Plan: * slow improvement noted * probably from GONZALO/ARF (3) Hyperkalemia: Code(s): E87.5 - Hyperkalemia Status: Acute Assessment and Plan: * resolved * follow repeat values (4) Septic shock: Code(s): A41.9 - Sepsis, unspecified organism; R65.21 - Severe sepsis with septic shock Status: Acute Assessment and Plan: * off pressor therapy at this time * blood cultures with E.coli * on antibiotics per Infectious Disease (5) Acute respiratory failure: Code(s): J96.00 - Acute respiratory failure, unspecified whether with hypoxia or hypercapnia Status: Acute Assessment and Plan: * on ventilator support * ongoing fluid removal as tolerated * wean as tolerated * need tracheostomy?? (6) UTI (urinary tract infection): Code(s): N39.0 - Urinary tract infection, site not specified Status: Acute Assessment and Plan: * urine culture with E. coli * on antibiotics Will continue to follow. Subjective Date/time seen: 05/13/20 12:54 Tolerating dialysis at the time of my visit (seen on HD at 12:00PM); no real starr nge noted; remains on venitlator support and otherwise hemodynamically stable; some response to simple camoon Exam Narrative: Exam Narrative: General: Large male intubated/sedated but in NAD Heart: normal S1 and S2; no rub; tachycardic Lungs: coarse bilaterally Abdomen: soft, nontender, nondistended, positive bowel sounds Extremities: no cyanosis or clubbing; 1 - 2+ edema Skin: warm and dry Objective Data Vital Signs Vital Signs: Vital Signs Temp Pulse Resp BP Pulse Ox 05/13/20 12:47 123 H 86/45 L 05/13/20 12:38 126 H 98 05/13/20 12:30 129 H 90/53 L 05/13/20 12:15 128 H 88/56 L 05/13/20 12:00 125 H 85/50 L 97 05/13/20 11:45 127 H 97/54 L 05/13/20 11:30 128 H 89/53 L 05/13/20 11:15 130 H 98/58 L 05/13/20 11:00 128 H 99/54 L 05/13/20 10:45 126 H 100/48 L 05/13/20 10:30 125 H 97/54 L 05/13/20 10:15 125 H 100/50 L 05/13/20 10:00 123 H 22 H 106/55 L 98 05/13/20 09:45 121 H 99/50 L 05/13/20 09:30 119 H 108/53 L 05/13/20 09:15 117 H 113/48 L 05/13/20 09:05 119 H 109/43 L 05/13/20 09:04 117 H 99 05/13/20 08:59 117 H 22 H 05/13/20 08:45 36.6 C 118 H 20 131/52 L 99 05/13/20 08:24 121 H 23 H 05/13/20 08:00 37.4 C 122 H 19 127/54 L 98 05/13/20 05:51 122 H 05/13/20 05:50 124 H 28 H 133/54 L 97 05/13/20 05:45 120 H 98
--- NOTE | 2020-05-13 12:54 | PM.PNNEP ---
Progress Note: A&P Assessment and Plan (1) GONZALO (acute kidney injury): Code(s): N17.9 - Acute kidney failure, unspecified Status: Acute Assessment and Plan: evaluation to date demonstrates: - renal ultrasound unremarkable - urinalysis shows blood and leukocytes - urine electrolytes are non pre renal better urine output in the last 24 hours -- obstruction may be playing a role although issues with kinked norris due to his pannus noted HD today (for fluid and toxin removal) remains oliguric follow for potential renal recovery (2) Hyponatremia: Code(s): E87.1 - Hypo-osmolality and hyponatremia Status: Acute Assessment and Plan: slow improvement noted probably from GONZALO/ARF (3) Hyperkalemia: Code(s): E87.5 - Hyperkalemia Status: Acute Assessment and Plan: resolved follow repeat values (4) Septic shock: Code(s): A41.9 - Sepsis, unspecified organism; R65.21 - Severe sepsis with septic shock Status: Acute Assessment and Plan: off pressor therapy at this time blood cultures with E.coli on antibiotics per Infectious Disease (5) Acute respiratory failure: Code(s): J96.00 - Acute respiratory failure, unspecified whether with hypoxia or hypercapnia Status: Acute Assessment and Plan: on ventilator support ongoing fluid removal as tolerated wean as tolerated need tracheostomy?? (6) UTI (urinary tract infection): Code(s): N39.0 - Urinary tract infection, site not specified Status: Acute Assessment and Plan: urine culture with E. coli on antibiotics Will continue to follow. Subjective Date/time seen: 05/13/20 12:54 Tolerating dialysis at the time of my visit (seen on HD at 12:00PM); no real change noted; remains on venitlator support and otherwise hemodynamically stable; some response to simple camoon Exam Narrative: Exam Narrative: General: Large male intubated/sedated but in NAD Heart: normal S1 and S2; no rub; tachycardic Lungs: coarse bilaterally Abdomen: soft, nontender, nondistended, positive bowel sounds Extremities: no cyanosis or clubbing; 1 - 2+ edema Skin: warm and dry Objective Data Vital Signs Vital Signs: Vital Signs Temp Pulse Resp BP Pulse Ox 05/13/20 12:47 123 H 86/45 L 05/13/20 12:38 126 H 98 05/13/20 12:30 129 H 90/53 L 05/13/20 12:15 128 H 88/56 L 05/13/20 12:00 125 H 85/50 L 97 05/13/20 11:45 127 H 97/54 L 05/13/20 11:30 128 H 89/53 L 05/13/20 11:15 130 H 98/58 L 05/13/20 11:00 128 H 99/54 L 05/13/20 10:45 126 H 100/48 L 05/13/20 10:30 125 H 97/54 L 05/13/20 10:15 125 H 100/50 L 05/13/20 10:00 123 H 22 H 106/55 L 98 05/13/20 09:45 121 H 99/50 L 05/13/20 09:30 119 H 108/53 L 05/13/20 09:15 117 H 113/48 L 05/13/20 09:05 119 H 109/43 L 05/13/20 09:04 117 H 99 05/13/20 08:59 117 H 22 H 05/13/20 08:45 36.6 C 118 H 20 131/52 L 99 05/13/20 08:24 121 H 23 H 05/13/20 08:00 37.4 C 122 H 19 127/54 L 98 05/13/20 05:51 122 H 05/13/20 05:50 124 H 28 H 133/54 L 97 05/13/20 05:45 120 H 98 05/13/20 04:00 123 H 05/13/20 03:54 37.3 C 125 H 22 H 142/64 H 97 05/13/20 02:55 126 H 19 05/13/20 02:52 126 H 98 05/13/20 01:59 120 H 13 139/58 L 96 05/13/20 00:00 125 H 05/12/20 23:36 37.4 C 128 H 25 H 122/51 L 94 05/12/20 22:50 128 H 93 05/12/20 22:00 128 H 25 H 119/56 L 93 05/12/20 20:00 37.6 C 128 H 20 118/55 L 97 05/12/20 19:40 124 H 24 H 05/12/20 19:25 128 H 25 H 05/12/20 19:24 128 H 96 05/12/20 18:00 128 H 25 H 121/55 L 94 05/12/20 16:37 131 H 93 05/12/20 16:00 37.9 C H 134 H 26 H 140/64 91 05/12/20 14:06 132 H 34 H 05/12/20 14:04 132 H 96 05/12/20 14:00 135 H 34 H
[2020-05-13 18:18] LABS: Glucose Point of Care 186 (65-105)
[2020-05-13] MEDS: ACETAMINOPHEN 325 MG TABLET 650 MG PO (19:57)
[2020-05-14] VITALS (36 sets, daily range): BP systolic 98–140; BP diastolic 36–73; PULSE 111–131; RESP 19–28; TEMP 37.1–38.6; O2SAT 96–100
[2020-05-14 00:02] LABS: Glucose Point of Care 219 (65-105)
[2020-05-14] MEDS: INSULIN ASPART (*BKC) 100 UNITS/ML SUB-Q (00:24)
[2020-05-14] MEDS: METOCLOPRAMIDE HCL INJ 10 MG/2 ML VIAL IV PUSH ×4 (00:26→17:48)
[2020-05-14 04:46] LABS: Alveolar/Arterial O2 Gradient 137.3 mmHg; Base Excess ABG -0.4 mEq/l (+/-2.0); HCO3 ABG 25.1 mEq/l (22.0-26.0); PCO2 ABG 45.2 mmHg (35.0-45.0); PO2 ABG 95.9 mmHg (80.0-100.0); Total Hemoglobin 8.7 g/dL (12.0-18.0); pH ABG 7.362 (7.350-7.450)
[2020-05-14 04:47] LABS: Carboxyhemoglobin 0.4 % THb (0-2.0); Device VENTILATOR; Fractional Inspired Oxygen 40 %; Methemoglobin ABG 0.3 %THb (0-1.5); Modified Allen's Test Pass; Oxygen Content ABG 11.9 %vol (16.0-22.0); Reduced Hemoglobin 3.3 %THb (0-5.0); Site Drawn RIGHT RADIAL
[2020-05-14 04:48] LABS: Arterial Blood Gas PEEP 8 cmH2O; Arterial Blood Gas Tidal Volume 350 ml; Arterial Blood Gas Vent Mode CMV; Arterial Blood Gas Ventilator rate 20 /MIN
[2020-05-14] MEDS: CENTRAL LINE FLUSH 10 ML IV PUSH ×3 (05:23→20:52)
[2020-05-14] MEDS: ACETAMINOPHEN 325 MG TABLET 650 MG PO ×2 (05:34→12:39)
[2020-05-14 05:45] LABS: Hematocrit 24.6 % (42.0-52.0); Hemoglobin 7.4 g/dL (14.0-18.0); Mean Corpuscular HGB Conc 30.1 g/dl (32-36); Mean Corpuscular Hemoglobin 29.8 pg (26-34); Mean Corpuscular Volume 99.2 fl (80-100); Mean Platelet Volume 11.5 fl (7.4-10.4); Platelet Count Result 149 k/mm3 (150-375); Red Blood Count 2.48 M/mm3 (4.6-6.20); Red Cell Distribution Width 19.6 % (11.5-14.5)
[2020-05-14 05:55] LABS: Glucose Point of Care 193 (65-105)
[2020-05-14 06:11] LABS: Alanine Aminotransferase 82 U/L (4-50); Albumin Level 2.7 g/dL (3.5-5.1); Alkaline Phosphatase 747 U/L (38-126); Anion Gap 7 mmol/L (8-16); Aspartate Amino Transferase 77 U/L (17-59); Blood Urea Nitrogen 46 mg/dL (9-20); Calcium 7.8 mg/dL (8.4-10.2); Carbon Dioxide 29 mmol/L (22-30); Chloride 99 mmol/L (98-107); Estimated CRCL calculation 71 ml/min; Estimated Glomerular Filt Rate 52; Glucose 201 mg/dL (75-110); Sodium 135 mmol/L (137-145)
[2020-05-14 06:47] LABS: Potassium 2.8 mmol/L (3.4-5.0)
[2020-05-14] MEDS: BUDESONIDE RESPULE NEB 0.5 MG/2 ML AMP INHALATION ×2 (07:13→20:28)
[2020-05-14] MEDS: HEPARIN SODIUM 5,000 UNITS/ML VIAL 5000 UNITS SUB-Q ×2 (08:02→20:52)
[2020-05-14] MEDS: INSULIN GLARGINE (*BKC) 100 UNITS/ML 20 UNITS SUB-Q (08:04)
[2020-05-14] MEDS: TOLNAFTATE 1% POWDER 45 GM BTL 1 APPLIC TOPICAL ×2 (08:06→20:52)
[2020-05-14] MEDS: PANTOPRAZOLE SODIUM IV 40 MG VIAL IV PUSH ×2 (08:07→20:53)
[2020-05-14 08:16] LABS: Glucose Point of Care 208 (65-105)
--- NOTE | 2020-05-14 10:21 | PM.IMPN ---
Progress Note: A&P Assessment and Plan (1) Septic shock: Code(s): A41.9 - Sepsis, unspecified organism; R65.21 - Severe sepsis with septic shock Status: Acute Assessment and Plan: Will continue with the current plan of management. Will monitor electrolytes and hemoglobin. Unstable will try to extubate patient. Patient is not on any pressors at present time. (2) UTI (urinary tract infection): Code(s): N39.0 - Urinary tract infection, site not specified Status: Acute Assessment and Plan: Will continue antibiotics. Monitor cultures. (3) [place] (obstructive sleep apnea): Code(s): G47.33 - Obstructive sleep apnea (adult) (pediatric) Status: Chronic Assessment and Plan: The patient is currently intubated. (4) Chronic respiratory failure with hypercapnia: Code(s): J96.12 - Chronic respiratory failure with hypercapnia Status: Acute Assessment and Plan: Patient currently is intubated. Monitor ABG. (5) Asthma: Qualifiers: Asthma severity: unspecified severity Asthma persistence: unspecified Asthma complication type: unspecified Qualified Code(s): J45.909 - Unspecified asthma, uncomplicated Code(s): J45.909 - Unspecified asthma, uncomplicated Status: Acute Assessment and Plan: Will continue with ventilation support. (6) COVID-19: Code(s): U07.1 - COVID-19 Status: Acute Assessment and Plan: Patient was diagnosed earlier in February and we are awaiting records from [facility] as well as [facility]. Apparently the [facility]. (7) Autism: Code(s): F84.0 - Autistic disorder Status: Chronic Assessment and Plan: Unsure of baseline. The patient had lives home alone at 1 time. (8) GONZALO (acute kidney injury): Code(s): N17.9 - Acute kidney failure, unspecified Status: Acute Assessment and Plan: Continue to hydrate but gently. Monitor electrolytes (9) Hyperkalemia: Code(s): E87.5 - Hyperkalemia Status: Acute Assessment and Plan: patient did received medication the emergency room. Will monitor electrolytes. (10) Hyponatremia: Code(s): E87.1 - Hypo-osmolality and hyponatremia Status: Acute Assessment and Plan: continue to hydrate and check BMP. Dialysis to Subjective Date/time seen: 05/14/20 10:22 Interval history: Patient was seen during the monitor rounds today. Patient is on ventilator, slightly awake. Patient is on no pressors. Off sedation today. No new complaints. Review of Systems Review of Systems: ROS unobtainable: Yes unobtainable due to endotracheal tube Constitutional: Constitutional: Reports as per HPI and Reports no additional constitutional complaints Eyes: Eyes: Reports as per HPI and Reports no additional eye complaints ENT: Reports system reviewed and no additional complaints, except as documented and Reports Normal hearing present Cardiovascular: Cardiovascular: Reports no additional cardiovascular complaints Respiratory: Respiratory: Reports no additional respiratory complaints and Reports no additional respiratory complaints Gastrointestinal: Gastrointestinal: Reports as per HPI and Reports no additional gastrointestinal complaints Musculoskeletal: Musculoskeletal: Reports no additional musculoskeletal complaints Integumentary/Breasts: Skin/Breast: Reports system reviewed and no additional complaints, except as docu and Reports as per HPI Neurologic: Reports system reviewed and no additional complaints, except as documented, Reports as per HPI and Reports Normal hearing present Psychiatric: Psychiatric: Reports no additional psychiatric complaints and Reports as per HPI Endocrine: Endocrine: Reports no additional endocrine complaints Hematologic/Lymphatic: Hematologic/Lymphatic: Reports no additional hematologic/lymphatic complaints Allergic/Immu
--- NOTE | 2020-05-14 12:18 | WPDINTPN ---
Progress Note: A&P Assessment and Plan (1) Acute respiratory failure: Code(s): J96.00 - Acute respiratory failure, unspecified whether with hypoxia or hypercapnia Status: Acute Assessment and Plan: Acute respiratory failure likely related to septic shock, altered mental status, metabolic acidosis -chest x-ray and ABGs reviewed -patient with hypercapnic respiratory failure, respiratory acidosis. Patient was switched to CMV mode of ventilation as his pH was 7.19, pCO2 56.9 and pO2 of 99 on ABGs -will place patient on ASV mode of ventilation and match the minute ventilation with a CMV mode -Patient is off all sedation -will try on spontaneous trial in a.m., of note patient has been requiring inspiratory pressures of 20 -significant amount of volume has been removed with hemodialysis over last week and will be continued. -keep off all sedation for now (2) Fever: Code(s): R50.9 - Fever, unspecified Status: Acute Assessment and Plan: New onset fever. White count close to normal. Hemodynamically stable and not on any pressors at this time He has completed a 10 day course of Rocephin for his E coli bacteremia and UTI Blood cultures were repeated 05/10 sputum culture 05/11 negative till now Lipase was normal Central venous catheter in left IJ was removed Venous Dopplers on 05/12/2020 upper and lower extremities were negative for DVT Await recommendations from infectious disease -purulent urine output, will obtain a UA and urine culture -may need to remove temporary dialysis catheter and place a tunneled dialysis catheter (3) Septic shock: Code(s): A41.9 - Sepsis, unspecified organism; R65.21 - Severe sepsis with septic shock Status: Acute Assessment and Plan: RESOLVED: off Levophed -patient growing E coli in blood and urine sensitive to Rocephin. Continue ceftriaxone per ID -echocardiogram 05/01/2020: Showed EF of >70%, no pulmonary hypertension, no valvular issues -venous Dopplers 05/01/2020: Negative for DVT -off of stress dose steroids (4) UTI (urinary tract infection): Code(s): N39.0 - Urinary tract infection, site not specified Status: Acute Assessment and Plan: E coli in urine, completed 10 day course of Rocephin (5) GONZALO (acute kidney injury): Code(s): N17.9 - Acute kidney failure, unspecified Status: Acute Assessment and Plan: Acute kidney injury, patient oliguric/anuric -adequate fluids were infused in the ED as well as in the ICU -continue pressors and maintain mean arterial pressures greater than 70 mmHg for adequate renal perfusion -dialysis catheter placed on 05/03/2020 and dialysis was started on the same day -continue dialysis per Nephrology for essentially fluid removal as patient overall volume overloaded. Patient scheduled for another session today -renal ultrasound normal kidneys with no hydronephrosis - Due to his body habitus bladder scan was not helpful. His Guan was flushed and large amount of urine with sediments came out. After playing with it, it appears that patient's Guan gets kinked due to his massive pannus, and once you pull his pannus up or put in fully horizontal position, urine starts flowing out of his Guan. I have discussed with the nurse and will flush Guan q.4 hours along with optimizing Guan direction to let urine output. - Dialysis as per nephrology. (6) COVID-19: Code(s): U07.1 - COVID-19 Status: Acute Assessment and Plan: Patient was positive on 03/25/2020 for COVID-19. Currently not on any treatment or isolation (7) Asthma: Qualifiers: Asthma severity: unspecified severity Asthma persistence: unspecified Asthma complication type: unspecified Qualified Code(s): J45.909 - Unspecified asthma, uncomplicated Code(s): J45.909 - Unspecified asthma, uncomplicated Status: Acute Assessment and Plan: Continue scheduled albuterol 2.5 mg q.6 hours al
[2020-05-14 12:30] LABS: Glucose Point of Care 155 (65-105)
--- NOTE | 2020-05-14 13:08 | PM.PNNEP ---
Progress Note: A&P Assessment and Plan (1) GONZALO (acute kidney injury): Code(s): N17.9 - Acute kidney failure, unspecified Status: Acute Assessment and Plan: evaluation to date demonstrates: - renal ultrasound unremarkable - urinalysis shows blood and leukocytes - urine electrolytes are non pre renal better urine output in the last 24 hours -- obstruction may be playing a role although issues with kinked norris due to his pannus noted HD yesterday and continue T/T/S schedule for now remains oliguric follow for potential renal recovery (2) Hyponatremia: Code(s): E87.1 - Hypo-osmolality and hyponatremia Status: Acute Assessment and Plan: slow improvement noted probably from GONZALO/ARF (3) Hyperkalemia: Code(s): E87.5 - Hyperkalemia Status: Acute Assessment and Plan: resolved follow repeat values (4) Septic shock: Code(s): A41.9 - Sepsis, unspecified organism; R65.21 - Severe sepsis with septic shock Status: Acute Assessment and Plan: off pressor therapy at this time blood cultures with E.coli on antibiotics per Infectious Disease (5) Acute respiratory failure: Code(s): J96.00 - Acute respiratory failure, unspecified whether with hypoxia or hypercapnia Status: Acute Assessment and Plan: on ventilator support ongoing fluid removal as tolerated wean as tolerated need tracheostomy?? (6) UTI (urinary tract infection): Code(s): N39.0 - Urinary tract infection, site not specified Status: Acute Assessment and Plan: urine culture with E. coli on antibiotics Will continue to follow. Subjective Date/time seen: 05/14/20 13:08 Still spiking fevers in the last 24 hours; some improvement in mentation as able to follow some simple commands and opening eyes; tolerated dialysis yesterday without any issues or problems; remains on ventilator support at thie time. Exam Narrative: Exam Narrative: General: Large male intubated/sedated but in NAD Heart: normal S1 and S2; no rub; tachycardic Lungs: coarse bilaterally Abdomen: soft, nontender, nondistended, positive bowel sounds Extremities: no cyanosis or clubbing; 1 - 2+ edema Skin: warm and intact Objective Data Vital Signs Vital Signs: Vital Signs Temp Pulse Resp BP Pulse Ox 05/14/20 12:00 38.6 C H 126 H 24 H 103/49 L 100 05/14/20 10:42 123 H 99 05/14/20 10:00 122 H 24 H 100/72 97 05/14/20 08:00 37.7 C H 120 H 25 H 102/50 L 100 05/14/20 07:14 123 H 100 05/14/20 07:13 121 H 21 H 05/14/20 05:34 38.1 C H 05/14/20 04:51 122 H 100 05/14/20 04:00 37.1 C 125 H 24 H 122/55 L 100 05/14/20 02:30 120 H 97 05/14/20 02:05 120 H 24 H 05/14/20 01:54 128 H 24 H 140/58 L 99 05/14/20 01:53 126 H 05/14/20 00:00 37.9 C H 123 H 20 121/47 L 98 05/13/20 23:30 119 H 100 05/13/20 21:46 71 26 H 125/76 93 05/13/20 21:45 133 H 05/13/20 21:32 37.6 C H 05/13/20 20:01 130 H 95 05/13/20 20:00 39.1 C H 130 H 28 H 121/66 95 05/13/20 19:57 39.1 C H 05/13/20 18:00 134 H 15 135/74 93 05/13/20 17:14 124 H 96 Intake/Output Intake/Output: Intake & Output 05/11/20 05/12/20 05/13/20 05/14/20 23:59 23:59 23:59 23:59 Intake Total 1717 1776 1129 618 Output Total 4350 5 3060 50 Balance -2633 1771 1931 568 Meds/Results Medications: Active Medications Generic Name Dose Route Start Last Admin Trade Name Freq PRN Reason Stop Dose Admin Acetaminophen 650 mg 05/06/20 10:08 05/14/20 12:39 Acetaminophen 325 Mg Tablet PO 650 mg Q4H PRN Administration Mild Pain (1-3) or Fever Alteplase, Recombinant 2 mg 05/03/20 10:26 05/05/20 12:13 Alteplase 2 Mg Vial (Cathflo) IV PUSH 2 mg ONCE PRN Administration Line Occlusion Alteplase, Recombinant 2 mg 05/03
[2020-05-14] MEDS: hetaSTARCH 6%/NACL 500 ML 250 ML IV CONT (13:44)
[2020-05-14 17:51] LABS: Glucose Point of Care 155 (65-105)
[2020-05-14] MEDS: SODIUM CHLORIDE 0.9% IV 500 ML 999 ML IV CONT (18:25)
[2020-05-14] MEDS: NOREPINEPHRINE 8 MG/D5W 250 ML 8 MG/250 ML BAG 9.38 MG IV CONT (19:00)
[2020-05-14] MEDS: ACETAMINOPHEN ELIXIR 325 MG/10.15 ML UDC 650 MG PO (20:51)
[2020-05-15] VITALS (37 sets, daily range): BP systolic 108–134; BP diastolic 45–64; PULSE 93–121; RESP 20–32; TEMP 37.3–38.2; O2SAT 95–99
[2020-05-15] MEDS: METOCLOPRAMIDE HCL INJ 10 MG/2 ML VIAL IV PUSH ×5 (00:02→23:18)
[2020-05-15 00:19] LABS: Glucose Point of Care 142 (65-105)
[2020-05-15] MEDS: ACETAMINOPHEN ELIXIR 325 MG/10.15 ML UDC 650 MG PO ×3 (00:52→19:38)
[2020-05-15 04:32] LABS: Hematocrit 23.3 % (42.0-52.0); Hemoglobin 7.2 g/dL (14.0-18.0); Mean Corpuscular HGB Conc 30.9 g/dl (32-36); Mean Corpuscular Hemoglobin 30.4 pg (26-34); Mean Corpuscular Volume 98.3 fl (80-100); Mean Platelet Volume 11.2 fl (7.4-10.4); Platelet Count Result 145 k/mm3 (150-375); Red Blood Count 2.37 M/mm3 (4.6-6.20); Red Cell Distribution Width 20.5 % (11.5-14.5); White Blood Count 11.7 K/mm3 (4.5-10.0)
[2020-05-15 04:49] LABS: Alanine Aminotransferase 64 U/L (4-50); Albumin Level 2.4 g/dL (3.5-5.1); Alkaline Phosphatase 647 U/L (38-126); Anion Gap 8 mmol/L (8-16); Aspartate Amino Transferase 46 U/L (17-59); Bilirubin,Total 0.9 mg/dL (0.2-1.3); Blood Urea Nitrogen 64 mg/dL (9-20); Calcium 7.9 mg/dL (8.4-10.2); Carbon Dioxide 25 mmol/L (22-30); Chloride 102 mmol/L (98-107); Estimated CRCL calculation 56 ml/min; Estimated Glomerular Filt Rate 40; Glucose 178 mg/dL (75-110); Magnesium 2.1 mg/dL (1.6-2.3); Phosphorus 4.4 mg/dL (2.5-4.5); Potassium 3.2 mmol/L (3.4-5.0); Sodium 135 mmol/L (137-145)
[2020-05-15] MEDS: CENTRAL LINE FLUSH 10 ML IV PUSH ×3 (05:41→19:30)
[2020-05-15 05:52] LABS: Alveolar/Arterial O2 Gradient 134.2 mmHg; Base Excess ABG -2.6 mEq/l (+/-2.0); Carboxyhemoglobin 0.6 % THb (0-2.0); Fractional Inspired Oxygen 40 %; HCO3 ABG 22.6 mEq/l (22.0-26.0); Methemoglobin ABG 0.4 %THb (0-1.5); Oxygen Content ABG 10.7 %vol (16.0-22.0); Oxygen Saturation ABG 97.6 % (95.0-100.0); Oxyhemoglobin 96.1 % THb (90.0-100.0); PCO2 ABG 40.4 mmHg (35.0-45.0); PO2 ABG 104.5 mmHg (80.0-100.0); PO2 FiO2 Ratio Arterial Blood 2.61 %; Reduced Hemoglobin 2.9 %THb (0-5.0); pH ABG 7.365 (7.350-7.450)
[2020-05-15 05:54] LABS: Device VENTILATOR; Modified Allen's Test Pass; Site Drawn LEFT RADIAL; Total Hemoglobin 7.8 g/dL (12.0-18.0)
[2020-05-15 05:55] LABS: Arterial Blood Gas PEEP 8 cmH2O; Arterial Blood Gas Tidal Volume 350 ml; Arterial Blood Gas Vent Mode CMV; Arterial Blood Gas Ventilator rate 20 /MIN
[2020-05-15] MEDS: BUDESONIDE RESPULE NEB 0.5 MG/2 ML AMP INHALATION ×2 (07:36→19:59)
[2020-05-15] MEDS: HEPARIN SODIUM 5,000 UNITS/ML VIAL 5000 UNITS SUB-Q ×2 (07:46→19:29)
[2020-05-15] MEDS: PANTOPRAZOLE SODIUM IV 40 MG VIAL IV PUSH ×2 (07:46→19:29)
[2020-05-15] MEDS: INSULIN GLARGINE (*BKC) 100 UNITS/ML 20 UNITS SUB-Q (07:46)
[2020-05-15] MEDS: TOLNAFTATE 1% POWDER 45 GM BTL 1 APPLIC TOPICAL ×2 (07:46→19:29)
--- NOTE | 2020-05-15 08:35 | PM.PNNEP ---
Progress Note: A&P Assessment and Plan (1) GONZALO (acute kidney injury): Code(s): N17.9 - Acute kidney failure, unspecified Status: Acute Assessment and Plan: evaluation to date demonstrates: - renal ultrasound unremarkable - urinalysis shows blood and leukocytes - urine electrolytes are non pre renal u.o. not so great lately. check renal u/s follow for potential renal recovery (2) Hyponatremia: Code(s): E87.1 - Hypo-osmolality and hyponatremia Status: Acute Assessment and Plan: just barely low. (3) Hyperkalemia: Code(s): E87.5 - Hyperkalemia Status: Acute Assessment and Plan: resolved (4) Septic shock: Code(s): A41.9 - Sepsis, unspecified organism; R65.21 - Severe sepsis with septic shock Status: Acute Assessment and Plan: off pressor therapy at this time blood cultures with E.coli off antibiotics. (5) Acute respiratory failure: Code(s): J96.00 - Acute respiratory failure, unspecified whether with hypoxia or hypercapnia Status: Acute Assessment and Plan: on ventilator support ongoing fluid removal as tolerated wean as tolerated need tracheostomy?? (6) UTI (urinary tract infection): Code(s): N39.0 - Urinary tract infection, site not specified Status: Acute Assessment and Plan: finished atbs. Will continue to follow. Subjective Date/time seen: 05/15/20 16:28 Interval history: Francisco looks about the same. still on the vent. Exam Narrative: Exam Narrative: General: Large male intubated/sedated but in NAD Heart: normal S1 and S2; no rub; tachycardic Lungs: coarse bilaterally Abdomen: soft, nontender, nondistended, positive bowel sounds Extremities: no cyanosis or clubbing; no edema Skin: no rash Objective Data Vital Signs Vital Signs: Vital Signs - 24 hr 05/14/20 18:00 05/14/20 18:27 05/14/20 19:00 Temperature Pulse Rate 119 H 117 H Respiratory Rate 25 H 28 H Blood Pressure 102/37 L 102/36 L 101/37 L Pulse Oximetry 96 97 05/14/20 20:00 05/14/20 20:08 05/14/20 20:20 Temperature 38.2 C H Pulse Rate 124 H 118 H 122 H Respiratory Rate 27 H 25 H Blood Pressure 98/45 L Pulse Oximetry 98 96 97 05/14/20 20:28 05/14/20 20:30 05/14/20 20:51 Temperature 38.2 C H Pulse Rate 120 H 122 H Respiratory Rate 24 H 27 H Blood Pressure 102/44 L Pulse Oximetry 98 05/14/20 21:00 05/14/20 22:00 05/14/20 22:30 Temperature Pulse Rate 131 H 121 H 120 H Respiratory Rate 28 H 21 H Blood Pressure 114/73 114/54 L 124/49 L Pulse Oximetry 98 99 05/14/20 23:00 05/14/20 23:12 05/14/20 23:30 Temperature Pulse Rate 119 H 119 H 116 H Respiratory Rate 25 H Blood Pressure 117/47 L 122/51 L Pulse Oximetry 99 99 05/14/20 23:46 05/15/20 00:00 05/15/20 00:52 Temperature 38.2 C H 38.2 C H Pulse Rate 111 H 112 H Respiratory Rate 28 H 28 H Blood Pressure 111/48 L Pulse Oximetry 99 99 05/15/20 02:00 05/15/20 02:14 05/15/20 03:47 Temperature Pulse Rate 118 H 115 H 114 H Respiratory Rate 25 H 26 H Blood Pressure 108/48 L Pulse Oximetry 99 99 99 05/15/20 04:00 05/15/20 05:03 05/15/20 05:16 Temperature 37.3 C Pulse Rate 110 H 108 H 110 H Respiratory Rate 26 H 25 H Blood Pressure 120/51 L 111/47 L Pulse Oximetry 99 99 99 05/15/20 06:00 05/15/20 06:06 05/15/20 07:36 Temperature Pulse Rate 110 H 112 H 109 H Respiratory Rate 24 H 22 H Blood Pressure 114/56 L 114/56 L Pulse Oximetry 98 98 05/15/20 07:41 05/15/20 08:00 05/15/20 08:07 Temperature 37.4 C Pulse Rate 110 H 112 H 112 H Respiratory Rate 31 H Blood Pressure 114/46 L 114/46 L Pulse Oximetry 98 98 05/15/20 09:11 05/15/20 10:00 05/15/20 10:12 Temperature Pulse Rate 113 H 108 H 108 H Respiratory Rate 31 H Blood Pressure 123/54 L 121/49 L 121/49 L Pulse Oximetry 99
--- NOTE | 2020-05-15 08:56 | WPDINTPN ---
Progress Note: A&P Assessment and Plan (1) Acute respiratory failure: Code(s): J96.00 - Acute respiratory failure, unspecified whether with hypoxia or hypercapnia Status: Acute Assessment and Plan: Acute respiratory failure likely related to septic shock, altered mental status, metabolic acidosis -chest x-ray and ABGs reviewed -patient with hypercapnic respiratory failure, respiratory acidosis. Patient was switched to CMV mode of ventilation as his pH was 7.19, pCO2 56.9 and pO2 of 99 on ABGs - Placed patient on pressure support ventilation 13/11. Patient still not getting optimal tidal volumes but slightly tachypneic so matching the minute ventilation which she was on CMV mode -Patient is off all sedation keep him off all sedation for now -significant amount of volume has been removed with hemodialysis, currently on Levophed, will not dialyze today per Nephrology (2) Fever: Code(s): R50.9 - Fever, unspecified Status: Acute Assessment and Plan: New onset fever. White count close to normal. Hemodynamically stable and not on any pressors at this time He has completed a 10 day course of Rocephin for his E coli bacteremia and UTI Blood cultures were repeated 05/10 sputum culture 05/11 negative till now Lipase was normal Central venous catheter in left IJ was removed Venous Dopplers on 05/12/2020 upper and lower extremities were negative for DVT Await recommendations from infectious disease -purulent urine output, blood, sputum, urine cultures obtained and pending -may need to remove temporary dialysis catheter and place a tunneled dialysis catheter -will discuss with infectious disease (3) Septic shock: Code(s): A41.9 - Sepsis, unspecified organism; R65.21 - Severe sepsis with septic shock Status: Acute Assessment and Plan: Patient had to be restarted on Levophed on 05/14/2020, after giving almost a L of fluids -pancultured and awaiting culture results -infectious disease following the patient, will discuss -04/30/2020 E coli bacteremia and UTI status post 10 days of ceftriaxone -echocardiogram 05/01/2020: Showed EF of >70%, no pulmonary hypertension, no valvular issues -venous Dopplers 05/01/2020: Negative for DVT -off of stress dose steroids (4) UTI (urinary tract infection): Code(s): N39.0 - Urinary tract infection, site not specified Status: Acute Assessment and Plan: E coli in urine, completed 10 day course of Rocephin (5) GONZALO (acute kidney injury): Code(s): N17.9 - Acute kidney failure, unspecified Status: Acute Assessment and Plan: Acute kidney injury, patient oliguric/anuric -adequate fluids were infused in the ED as well as in the ICU -continue pressors and maintain mean arterial pressures greater than 70 mmHg for adequate renal perfusion -dialysis catheter placed on 05/03/2020 and dialysis was started on the same day -continue dialysis per Nephrology for essentially fluid removal as patient overall volume overloaded. Patient scheduled for another session today -renal ultrasound normal kidneys with no hydronephrosis - Due to his body habitus bladder scan was not helpful. His Guan was flushed and large amount of urine with sediments came out. After playing with it, it appears that patient's Guan gets kinked due to his massive pannus, and once you pull his pannus up or put in fully horizontal position, urine starts flowing out of his Guan. I have discussed with the nurse and will flush Guan q.4 hours along with optimizing Guan direction to let urine output. - Dialysis as per nephrology. (6) COVID-19: Code(s): U07.1 - COVID-19 Status: Acute Assessment and Plan: Patient was positive on 03/25/2020 for COVID-19. Currently not on any treatment or isolation (7) Asthma: Qualifiers: Asthma severity: unspecified severity Asthma persistence: unspecified Asthma complication type: unspecified Q
--- NOTE | 2020-05-15 10:46 | PM.IMPN ---
Progress Note: A&P Assessment and Plan (1) Septic shock: Code(s): A41.9 - Sepsis, unspecified organism; R65.21 - Severe sepsis with septic shock Status: Acute Assessment and Plan: Will continue with the current plan of management. Will monitor electrolytes and hemoglobin. Unstable will try to extubate patient. Patient is not on any pressors at present time. (2) UTI (urinary tract infection): Code(s): N39.0 - Urinary tract infection, site not specified Status: Acute Assessment and Plan: Will continue antibiotics. Monitor cultures. (3) [place] (obstructive sleep apnea): Code(s): G47.33 - Obstructive sleep apnea (adult) (pediatric) Status: Chronic Assessment and Plan: The patient is currently intubated. (4) Chronic respiratory failure with hypercapnia: Code(s): J96.12 - Chronic respiratory failure with hypercapnia Status: Acute Assessment and Plan: Patient currently is intubated. Monitor ABG. (5) Asthma: Qualifiers: Asthma complication type: unspecified Asthma persistence: unspecified Asthma severity: unspecified severity Qualified Code(s): J45.909 - Unspecified asthma, uncomplicated Code(s): J45.909 - Unspecified asthma, uncomplicated Status: Acute Assessment and Plan: Will continue with ventilation support. (6) COVID-19: Code(s): U07.1 - COVID-19 Status: Acute Assessment and Plan: Patient was diagnosed earlier in February and we are awaiting records from [facility] as well as [facility]. Apparently the [facility] had [facility]. (7) Autism: Code(s): F84.0 - Autistic disorder Status: Chronic Assessment and Plan: Unsure of baseline. The patient had lives home alone at 1 time. (8) GONZALO (acute kidney injury): Code(s): N17.9 - Acute kidney failure, unspecified Status: Acute Assessment and Plan: Continue to hydrate but gently. Monitor electrolytes (9) Hyperkalemia: Code(s): E87.5 - Hyperkalemia Status: Acute Assessment and Plan: patient did received medication the emergency room. Will monitor electrolytes. (10) Hyponatremia: Code(s): E87.1 - Hypo-osmolality and hyponatremia Status: Acute Assessment and Plan: continue to hydrate and check BMP. Dialysis to Additional Plan Plan is to continue current treatment at present time. Wean off ventilator and if fails will recommend trach. Subjective Date/time seen: 05/15/20 10:46 Interval history: Patient was seen during the monitor rounds today. Patient is on ventilator, more awake awake. Patient is on no pressors. Off sedation today. No new complaints. Review of Systems Review of Systems: ROS unobtainable: Yes unobtainable due to endotracheal tube Constitutional: Constitutional: Reports as per HPI and Reports no additional constitutional complaints Eyes: Eyes: Reports as per HPI and Reports no additional eye complaints ENT: Reports system reviewed and no additional complaints, except as documented and Reports Normal hearing present Cardiovascular: Cardiovascular: Reports no additional cardiovascular complaints Respiratory: Respiratory: Reports no additional respiratory complaints and Reports no additional respiratory complaints Gastrointestinal: Gastrointestinal: Reports as per HPI and Reports no additional gastrointestinal complaints Musculoskeletal: Musculoskeletal: Reports no additional musculoskeletal complaints Integumentary/Breasts: Skin/Breast: Reports system reviewed and no additional complaints, except as docu and Reports as per HPI Neurologic: Reports system reviewed and no additional complaints, except as documented, Reports as per HPI and Reports Normal hearing present Psychiatric: Psychiatric: Reports no additional psychiatric complaints and Reports as per HPI Endocrine: Endocrine: Reports no additional endocrin
--- NOTE | 2020-05-15 11:15 | PCDIET ---
Nutrition Follow-Up Complete: Nutrition Diagnosis: Inadequate oral intake related to oral intubation as evidenced by NPO status. Nutrition Goal: Patient to meet estimated nutritional needs. Goal in progress. Patient tolerating Nepro at 50mL/hr with 30mL water flush every 4 hours. Residuals 200mL and below, per RN. Discussed with MD recommendation to add Pro-Stat flush BID for additional 30g protein and 200kcal daily. Verbal order obtained. Last recorded weight is 139.5 kg which is decreased from last review. Last dialysis on 05/13/20 with 3L fluid removed. Bowel Motility: BM x 2 today. Labs Reviewed: Hgb (7.2), Hct (23.3), Glu (178), BUN (64), Cr (1.9), K (3.2), Na (135), Alb (2.4), Natalya Ca (9.18) Meds Noted: Pulmicort, Lantus, Reglan, Xopenex, Levophed, Protonix Additional Notes: K+ replaced 05/14/20. Recommend additional replacement, as medically appropriate. Multiple skin issues discussed during rounds. Additional protein ordered to support healing. Nutrition Monitoring and Evaluation: Follow up every Friday/Friday. Follow daily in ICU rounds.
[2020-05-15 12:04] LABS: Glucose Point of Care 118 (65-105)
--- NOTE | 2020-05-15 14:03 | WPDINFPN2 ---
Progress Note: A&P Assessment and Plan (1) Septic shock: Code(s): A41.9 - Sepsis, unspecified organism; R65.21 - Severe sepsis with septic shock Status: Acute Assessment and Plan: 1. Septic shock due to E coli UTI with bacteremia. 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 WBC back down to 11. Shock resolved. 2. MSOF 3. CoVid 19 infection 03/25/20 4. Persistent fever, ?lower respiratory tract infection source. Sputum non diagnostic. BCs ng 1 and 5 days incubation. REC Off antibiotic (13 days). The repeat BCs will help determine if tunneled HD catheter is ok I do not think the present catheter needs to be removed. Would not re-institute antibiotics without more helpful diagnostic info. Subjective Date/time seen: 05/15/20 14:03 Interval history: no pressors no sedation Exam Narrative: Exam Narrative: past 2 hr: 38.6 t max. Prior evening 39.1 Const: General: no acute distress Neck: Neck: supple Resp: Auscultation: rales and rhonchi Cardio: Rate: tachycardic Rhythm: regular rhythm Heart sounds: no murmurs GI: Inspection: distended GI Palp: Yes Soft to palpation and No Tenderness to palpation present (GI) Other: skin erosions UQs now have some slough Urinary Catheter: Urinary Catheter: patent and draining and urine clear Objective Data Vital Signs Vital Signs: Vital Signs - 24 hr 05/14/20 14:15 05/14/20 14:20 05/14/20 16:00 Temperature 38.0 C H Pulse Rate 122 H 116 H Respiratory Rate 25 H Blood Pressure 126/52 L 126/40 L Pulse Oximetry 99 99 05/14/20 16:22 05/14/20 18:00 05/14/20 18:27 Temperature Pulse Rate 112 H 119 H Respiratory Rate 25 H Blood Pressure 102/37 L 102/36 L Pulse Oximetry 99 96 05/14/20 19:00 05/14/20 20:00 05/14/20 20:08 Temperature 38.2 C H Pulse Rate 117 H 124 H 118 H Respiratory Rate 28 H 27 H 25 H Blood Pressure 101/37 L 98/45 L Pulse Oximetry 97 98 96 05/14/20 20:20 05/14/20 20:28 05/14/20 20:30 Temperature Pulse Rate 122 H 120 H 122 H Respiratory Rate 24 H 27 H Blood Pressure 102/44 L Pulse Oximetry 97 98 05/14/20 20:51 05/14/20 21:00 05/14/20 22:00 Temperature 38.2 C H Pulse Rate 131 H 121 H Respiratory Rate 28 H 21 H Blood Pressure 114/73 114/54 L Pulse Oximetry 98 99 05/14/20 22:30 05/14/20 23:00 05/14/20 23:12 Temperature Pulse Rate 120 H 119 H 119 H Respiratory Rate 25 H Blood Pressure 124/49 L 117/47 L Pulse Oximetry 99 99 05/14/20 23:30 05/14/20 23:46 05/15/20 00:00 Temperature 38.2 C H Pulse Rate 116 H 111 H 112 H Respiratory Rate 28 H 28 H Blood Pressure 122/51 L 111/48 L Pulse Oximetry 99 99 05/15/20 00:52 05/15/20 02:00 05/15/20 02:14 Temperature 38.2 C H Pulse Rate 118 H 115 H Respiratory Rate 25 H Blood Pressure 108/48 L Pulse Oximetry 99 99 05/15/20 03:47 05/15/20 04:00 05/15/20 05:03 Temperature 37.3 C Pulse Rate 114 H 110 H 108 H Respiratory Rate 26 H 26 H 25 H Blood Pressure 120/51 L 111/47 L Pulse Oximetry 99 99 99 05/15/20 05:16 05/15/20 06:00 05/15/20 06:06 Temperature Pulse Rate 110 H 110 H 112 H Respiratory Rate 24 H Blood Pressure 114/56 L 114/56 L Pulse Oximetry 99 98 05/15/20 07:36 05/15/20 07:41 05/15/20 08:00 Temperature 37.4 C Pulse Rate 109 H 110 H 112 H Respiratory Rate 22 H 31 H Blood Pressure 114/46 L Pulse Oximetry 98 98 98 05/15/20 08:07 05/15/20 09:11 05/15/20 10:00 Temperature Pulse Rate 112 H 113 H 108 H Respiratory Rate 31 H Blood Pressure 114/46 L 123/54 L 121/49 L Pulse Oximetry 99 05/15/20 10:12 05/15/20 11:03 05/15/20 12:00 Temperature 38.2 C H Pulse Rate 108 H 111 H 121 H Respiratory Rate 31 H Blood Pressure 121/49 L 134/64 Pulse Oximetry 98 98 05/15/20 12:04 05/15/20 12:19 05/15/20 13:46 Temperature 38.2 C H Pulse Rate 119 H 115 H Respiratory Rate 28 H Blood Pressure 134/64 Pulse Oximetry 98 Intake/Output Intake/Output: Intake & Output 05/12/20 02
[2020-05-15 18:21] LABS: Glucose Point of Care 120 (65-105)
[2020-05-16] VITALS (58 sets, daily range): BP systolic 87–130; BP diastolic 38–70; PULSE 91–116; RESP 15–29; TEMP 36.6–38; O2SAT 96–100
[2020-05-16 00:45] LABS: Glucose Point of Care 107 (65-105)
[2020-05-16 04:16] LABS: Alveolar/Arterial O2 Gradient 135.5 mmHg; Base Excess ABG -5.9 mEq/l (+/-2.0); Carboxyhemoglobin 0.6 % THb (0-2.0); Fractional Inspired Oxygen 40 %; HCO3 ABG 19.6 mEq/l (22.0-26.0); Methemoglobin ABG 0.4 %THb (0-1.5); Oxygen Content ABG 10.8 %vol (16.0-22.0); Oxygen Saturation ABG 97.5 % (95.0-100.0); Oxyhemoglobin 96.2 % THb (90.0-100.0); PCO2 ABG 38.2 mmHg (35.0-45.0); PO2 ABG 105.8 mmHg (80.0-100.0); PO2 FiO2 Ratio Arterial Blood 2.64 %; Reduced Hemoglobin 2.8 %THb (0-5.0); pH ABG 7.327 (7.350-7.450)
[2020-05-16 04:18] LABS: Arterial Blood Gas PEEP 8 cmH2O; Arterial Blood Gas Vent Mode CMV; Arterial Blood Gas Ventilator rate 20 /MIN; Device VENTILATOR; Modified Allen's Test Pass; Site Drawn RIGHT RADIAL; Total Hemoglobin 7.8 g/dL (12.0-18.0)
[2020-05-16 04:19] LABS: Arterial Blood Gas Tidal Volume 350 ml
[2020-05-16 04:33] LABS: Hematocrit 22.5 % (42.0-52.0); Mean Corpuscular HGB Conc 29.8 g/dl (32-36); Mean Corpuscular Volume 100.9 fl (80-100); Mean Platelet Volume 11.3 fl (7.4-10.4); Platelet Count Result 140 k/mm3 (150-375); Red Blood Count 2.23 M/mm3 (4.6-6.20); Red Cell Distribution Width 20.5 % (11.5-14.5); White Blood Count 8.5 K/mm3 (4.5-10.0)
[2020-05-16 04:34] LABS: Hemoglobin 6.7 g/dL (14.0-18.0)
[2020-05-16 04:54] LABS: Albumin Level 2.4 g/dL (3.5-5.1); Anion Gap 12 mmol/L (8-16); Blood Urea Nitrogen 87 mg/dL (9-20); Calcium 7.9 mg/dL (8.4-10.2); Carbon Dioxide 22 mmol/L (22-30); Chloride 100 mmol/L (98-107); Estimated CRCL calculation 46 ml/min; Estimated Glomerular Filt Rate 30; Glucose 140 mg/dL (75-110); Magnesium 2.3 mg/dL (1.6-2.3); Phosphorus 6.3 mg/dL (2.5-4.5); Potassium 3.2 mmol/L (3.4-5.0); Sodium 134 mmol/L (137-145)
[2020-05-16] MEDS: METOCLOPRAMIDE HCL INJ 10 MG/2 ML VIAL IV PUSH ×4 (06:11→23:14)
[2020-05-16] MEDS: CENTRAL LINE FLUSH 10 ML IV PUSH ×3 (06:11→20:39)
--- NOTE | 2020-05-16 08:10 | PM.PNNEP ---
Progress Note: A&P Assessment and Plan (1) GONZALO (acute kidney injury): Code(s): N17.9 - Acute kidney failure, unspecified Status: Acute Assessment and Plan: evaluation to date demonstrates: - renal ultrasound unremarkable - urinalysis shows blood and leukocytes - urine electrolytes are non pre renal u.o. not so great lately. check renal u/s. to be done today follow for potential renal recovery (2) Hyponatremia: Code(s): E87.1 - Hypo-osmolality and hyponatremia Status: Acute Assessment and Plan: just barely low. (3) Hyperkalemia: Code(s): E87.5 - Hyperkalemia Status: Acute Assessment and Plan: resolved (4) Septic shock: Code(s): A41.9 - Sepsis, unspecified organism; R65.21 - Severe sepsis with septic shock Status: Acute Assessment and Plan: off pressor therapy at this time blood cultures with E.coli off antibiotics. (5) Acute respiratory failure: Code(s): J96.00 - Acute respiratory failure, unspecified whether with hypoxia or hypercapnia Status: Acute Assessment and Plan: on ventilator support ongoing fluid removal as tolerated wean as tolerated need tracheostomy?? (6) UTI (urinary tract infection): Code(s): N39.0 - Urinary tract infection, site not specified Status: Acute Assessment and Plan: finished atbs. Will continue to follow. Subjective Date/time seen: 05/16/20 16:10 Interval history: Francisco looks about the same. not much swelling. due for dialysis today Exam Narrative: Exam Narrative: General: Large male intubated/sedated but in NAD Heart: normal S1 and S2; no rub; tachycardic Lungs: coarse bilaterally Abdomen: soft, nontender, nondistended, positive bowel sounds Extremities: no cyanosis or clubbing; no edema Skin: no rash Objective Data Vital Signs Vital Signs: Vital Signs - 24 hr 05/15/20 16:58 05/15/20 17:54 05/15/20 17:55 Temperature 37.6 C Pulse Rate 110 H 108 H 112 H Respiratory Rate 20 Blood Pressure 110/48 L Pulse Oximetry 98 99 05/15/20 19:31 05/15/20 19:38 05/15/20 20:00 Temperature 37.9 C H 37.9 C H Pulse Rate 103 H 108 H Respiratory Rate 30 H 30 H Blood Pressure 112/48 L Pulse Oximetry 95 95 05/15/20 20:15 05/15/20 20:58 05/15/20 22:00 Temperature Pulse Rate 99 99 93 Respiratory Rate 25 H 32 H Blood Pressure 109/46 L Pulse Oximetry 98 97 05/15/20 22:55 05/15/20 23:31 05/16/20 00:00 Temperature 38.0 C H Pulse Rate 98 103 H 111 H Respiratory Rate 26 H 25 H Blood Pressure 130/58 L Pulse Oximetry 98 99 96 05/16/20 01:54 05/16/20 01:57 05/16/20 02:00 Temperature Pulse Rate 110 H 110 H 96 Respiratory Rate 21 H 29 H Blood Pressure 115/46 L Pulse Oximetry 99 96 05/16/20 03:14 05/16/20 04:00 05/16/20 04:59 Temperature 37.6 C Pulse Rate 109 H 110 H 112 H Respiratory Rate 28 H 28 H Blood Pressure 108/39 L Pulse Oximetry 99 100 100 05/16/20 06:00 05/16/20 08:00 05/16/20 08:19 Temperature 36.8 C Pulse Rate 96 94 94 Respiratory Rate 20 20 17 Blood Pressure 119/65 111/43 L Pulse Oximetry 100 100 05/16/20 08:20 05/16/20 08:28 05/16/20 09:37 Temperature 36.8 C Pulse Rate 95 99 94 Respiratory Rate 15 18 Blood Pressure 103/38 L Pulse Oximetry 100 100 05/16/20 09:52 05/16/20 10:00 05/16/20 10:25 Temperature 36.8 C Pulse Rate 93 91 92 Respiratory Rate 18 18 Blood Pressure 115/46 L 110/40 L 106/41 L Pulse Oximetry 100 100 05/16/20 10:52 05/16/20 11:00 05/16/20 11:12 Temperature 36.8 C Pulse Rate 91 94 93 Respiratory Rate 21 H 21 H Blood Pressure 113/46 L Pulse Oximetry 100 100 100 05/16/20 11:52 05/16/20 12:00 05/16/20 13:40 Temperature 36.8 C 36.8 C Pulse Rate 99 98 101 H Respiratory Rate 19 16 Blood Pressure 123/49 L 123/49 L Pulse Oximetry 98 100 05/16/20 13:
[2020-05-16] MEDS: BUDESONIDE RESPULE NEB 0.5 MG/2 ML AMP INHALATION ×2 (08:15→20:08)
[2020-05-16] MEDS: TOLNAFTATE 1% POWDER 45 GM BTL 1 APPLIC TOPICAL ×2 (08:25→20:39)
--- NOTE | 2020-05-16 08:47 | WPDINTPN ---
Progress Note: A&P Assessment and Plan (1) Acute respiratory failure: Code(s): J96.00 - Acute respiratory failure, unspecified whether with hypoxia or hypercapnia Status: Acute Assessment and Plan: Acute respiratory failure likely related to septic shock, altered mental status, metabolic acidosis -chest x-ray and ABGs reviewed -patient on CMV mode of ventilation, peep of 8 in 40% FiO2. -patient did tolerate pressure support ventilation / whole day yesterday. Will place again on pressure support ventilation decreased inspiratory pressures -patient very weak and may not be able to wean off the ventilator, I have discussed with the brother Delgado and he is agreeable for tracheostomy and PEG tube placement patient fails is spontaneous trials. -Patient is off all sedation keep him off all sedation for now -significant amount of volume has been removed with hemodialysis, currently on Levophed, will not dialyze today per Nephrology (2) Fever: Code(s): R50.9 - Fever, unspecified Status: Acute Assessment and Plan: New onset fever. White count close to normal. Hemodynamically stable and not on any pressors at this time He has completed a 10 day course of Rocephin for his E coli bacteremia and UTI Blood cultures were repeated 05/10 sputum culture 05/11 negative till now Lipase was normal Central venous catheter in left IJ was removed Venous Dopplers on 05/12/2020 upper and lower extremities were negative for DVT Await recommendations from infectious disease -purulent urine output, blood, sputum, urine cultures obtained and pending -may need to remove temporary dialysis catheter and place a tunneled dialysis catheter -will discuss with infectious disease (3) Septic shock: Code(s): A41.9 - Sepsis, unspecified organism; R65.21 - Severe sepsis with septic shock Status: Acute Assessment and Plan: OFF LEVOPHED since 05/15/2020 Patient had to be restarted on Levophed on 05/14/2020, after giving almost a L of fluids -05/13/2020 urine cultures growing Lindy albicans, sputum cultures negative, blood cultures negative x2 -appreciate infectious disease recommendations hold of antibiotics at this time, -04/30/2020 E coli bacteremia and UTI status post 10 days of ceftriaxone -echocardiogram 05/01/2020: Showed EF of >70%, no pulmonary hypertension, no valvular issues -venous Dopplers 05/01/2020: Negative for DVT -off of stress dose steroids (4) UTI (urinary tract infection): Code(s): N39.0 - Urinary tract infection, site not specified Status: Acute Assessment and Plan: E coli in urine, completed 10 day course of Rocephin (5) GONZALO (acute kidney injury): Code(s): N17.9 - Acute kidney failure, unspecified Status: Acute Assessment and Plan: Acute kidney injury, patient oliguric/anuric -dialysis catheter placed on 05/03/2020 and dialysis was started on the same day -renal ultrasound normal kidneys with no hydronephrosis - Due to his body habitus bladder scan was not helpful. His Guan was flushed and large amount of urine with sediments came out. After playing with it, it appears that patient's Guan gets kinked due to his massive pannus, and once you pull his pannus up or put in fully horizontal position, urine starts flowing out of his Guan. I have discussed with the nurse and will flush Guan q.4 hours along with optimizing Guan direction to let urine output. - Dialysis as per nephrology. (6) COVID-19: Code(s): U07.1 - COVID-19 Status: Acute Assessment and Plan: Patient was positive on 03/25/2020 for COVID-19. Currently not on any treatment or isolation (7) Asthma: Qualifiers: Asthma severity: unspecified severity Asthma persistence: unspecified Asthma complication type: unspecified Qualified Code(s): J45.909 - Unspecified asthma, uncomplicated Code(s): J45.909 - Unspecified asthma, uncomplicated
[2020-05-16 08:53] LABS: Glucose Point of Care 145 (65-105)
[2020-05-16] MEDS: INSULIN GLARGINE (*BKC) 100 UNITS/ML 20 UNITS SUB-Q (08:57)
[2020-05-16] MEDS: HEPARIN SODIUM 5,000 UNITS/ML VIAL 5000 UNITS SUB-Q ×2 (08:57→20:39)
[2020-05-16] MEDS: PANTOPRAZOLE SODIUM IV 40 MG VIAL IV PUSH ×2 (10:17→20:39)
--- NOTE | 2020-05-16 10:24 | PCDIET ---
Nutrition Follow-Up Complete: Nutrition Diagnosis: Inadequate oral intake related to oral intubation as evidenced by NPO status. Nutrition Goal: Patient to meet estimated nutritional needs. Goal met. Patient tolerating Nepro at 50mL/hr goal rate with Pro-Stat flush BID. No issues, per RN. Residuals 200mL and below. Plan for dialysis today. Recommend K+ replacement, if medically appropriate, and/or use of 4K dialysate. Last recorded weight is 138.5 kg which is down from last review. +I/O noted. Bowel Motility: BM x 2 today. Labs Reviewed: Hgb (6.7), Hct (22.5), Glu (140), BUN (87), Cr (2.4), K (3.2), Na (134), Alb (2.4), Natalya Ca (9.18), PO4 (6.3) Meds Noted: Pulmicort, Heparin, Lantus, Reglan, Xopenex, Levophed, Protonix Additional Notes: No change in skin reported. Will continue to monitor with same goal. Nutrition Monitoring and Evaluation: Follow up every Friday/Friday. Follow daily in ICU rounds.
[2020-05-16 11:31] LABS: Glucose Point of Care 128 (65-105)
[2020-05-16] MEDS: HEPARIN SODIUM 1,000 UNITS/ML VIAL 1000 UNITS (15:35)
[2020-05-16 16:30] LABS: Hematocrit 29.4 % (42.0-52.0); Hemoglobin 9.1 g/dL (14.0-18.0)
[2020-05-16 16:58] LABS: Glucose Point of Care 136 (65-105)
--- NOTE | 2020-05-16 17:19 | PM.IMPN ---
Progress Note: A&P Assessment and Plan (1) Acute respiratory failure: Code(s): J96.00 - Acute respiratory failure, unspecified whether with hypoxia or hypercapnia Status: Acute Assessment and Plan: Patient currently intubated. He is off sedation now. Plan for weaning trial but may need trach if unsuccessful. Sputum growing candidia of unclear significance. Appreciate real estate photographer input. (2) Septic shock: Code(s): A41.9 - Sepsis, unspecified organism; R65.21 - Severe sepsis with septic shock Status: Acute Assessment and Plan: Related to EColi septicemia but this has resolved and nate still requiring Levophed. Related to skin infection? Wean Levophed as toelrated. Will continue with the current plan of management. Will monitor electrolytes and hemoglobin. (3) GONZALO (acute kidney injury): Code(s): N17.9 - Acute kidney failure, unspecified Status: Acute Assessment and Plan: Nate has developed renal failure to the point of requiring replacment therapy. Contienu HD as needed. Monitor UOP. Monitor electrolytes (4) Skin ulcer of abdomen: Code(s): L98.499 - Non-pressure chronic ulcer of skin of other sites with unspecified severity Status: Acute Assessment and Plan: Noted on exam and extensive. Contiue curernt wound care. (5) UTI (urinary tract infection): Code(s): N39.0 - Urinary tract infection, site not specified Status: Acute Assessment and Plan: On admission, blood culture (1of2) growing EColi; UCx also growing EColi. Repeat BCx negative. Repeat UCx growing candidia. Off abx currently. (6) [place] (obstructive sleep apnea): Code(s): G47.33 - Obstructive sleep apnea (adult) (pediatric) Status: Chronic Assessment and Plan: The patient is currently intubated. (7) Chronic respiratory failure with hypercapnia: Code(s): J96.12 - Chronic respiratory failure with hypercapnia Status: Acute Assessment and Plan: Patient currently is intubated. As above (8) Asthma: Qualifiers: Asthma complication type: unspecified Asthma persistence: unspecified Asthma severity: unspecified severity Qualified Code(s): J45.909 - Unspecified asthma, uncomplicated Code(s): J45.909 - Unspecified asthma, uncomplicated Status: Acute Assessment and Plan: Patietn with hx of asthma. no wheezing. Has atopy as well. IgE level 6400 in 2019. Will continue with ventilation support. (9) Anemia: Code(s): D64.9 - Anemia, unspecified Status: Acute Assessment and Plan: Hemoglobin 7.7 on admission and has been running in the 6-7 range mostly. Hemoglobin 6.7 this morning and patient received transfusion. He has received 4 units of packed red blood cells since admission. Stool for occult blood is negative. Iron studies more consistent with anemia of chronic disease. Continue to follow. (10) Hyponatremia: Code(s): E87.1 - Hypo-osmolality and hyponatremia Status: Acute Assessment and Plan: Sodium better. Continue monitor. (11) COVID-19: Code(s): U07.1 - COVID-19 Status: Acute Assessment and Plan: Patient was diagnosed earlier in February. Apparently the patient had been intubated at [facility]. (12) Autism: Code(s): F84.0 - Autistic disorder Status: Chronic Assessment and Plan: Unsure of baseline. The patient had lived home alone at 1 time. (13) DVT prophylaxis: Code(s): Z29.9 - Encounter for prophylactic measures, unspecified Status: Acute Assessment and Plan: Heparin (14) Hyperkalemia: Code(s): E87.5 - Hyperkalemia Status: Acute Assessment and Plan: Resolved Subjective Date/time seen: 05/16/20 17:19 Interval history: Date of service 05/16 39yo male with asthma, autism and GEORGIA here for septic shock and
[2020-05-16 23:38] LABS: Glucose Point of Care 155 (65-105)
[2020-05-17] VITALS (33 sets, daily range): BP systolic 105–135; BP diastolic 44–75; PULSE 97–124; RESP 19–35; TEMP 37.2–38; O2SAT 95–100
[2020-05-17 04:27] LABS: Hematocrit 27.3 % (42.0-52.0); Hemoglobin 8.3 g/dL (14.0-18.0); Mean Corpuscular HGB Conc 30.4 g/dl (32-36); Mean Corpuscular Hemoglobin 29.7 pg (26-34); Mean Corpuscular Volume 97.8 fl (80-100); Mean Platelet Volume 11.5 fl (7.4-10.4); Platelet Count Result 165 k/mm3 (150-375); Red Blood Count 2.79 M/mm3 (4.6-6.20); White Blood Count 9.3 K/mm3 (4.5-10.0)
[2020-05-17 04:55] LABS: Alanine Aminotransferase 58 U/L (4-50); Albumin Level 2.6 g/dL (3.5-5.1); Alkaline Phosphatase 1245 U/L (38-126); Anion Gap 9 mmol/L (8-16); Aspartate Amino Transferase 61 U/L (17-59); Bilirubin,Total 1.1 mg/dL (0.2-1.3); Blood Urea Nitrogen 40 mg/dL (9-20); Calcium 8.3 mg/dL (8.4-10.2); Carbon Dioxide 29 mmol/L (22-30); Chloride 96 mmol/L (98-107); Estimated CRCL calculation 83 ml/min; Estimated Glomerular Filt Rate > 60; Glucose 187 mg/dL (75-110); Magnesium 2.1 mg/dL (1.6-2.3); Phosphorus 2.8 mg/dL (2.5-4.5); Potassium 2.7 mmol/L (3.4-5.0); Sodium 134 mmol/L (137-145)
[2020-05-17 05:05] LABS: Anisocytosis 1+ (NORMAL); Band Neutrophils Percent 10 % (0-6); Lymphocytes Absolute Manual 0.65 K/mm3 (1.1-4.5); Metamyelocytes Percent 3 %; Monocytes Absolute Manual 0.83 K/mm3 (0.1-0.90); Monocytes Percent Manual 9 % (3-9); Neutrophils Absolute Manual 7.53 K/mm3 (1.3-6.7); Neutrophils Percent Manual 71 % (46-73); Platelet Estimate Adequate (Adequate); Total Cells Counted 100
--- NOTE | 2020-05-17 05:53 | PCRCNOTE ---
RT was unable to obtain abg; RN is aware and did not want further attempts at this time
[2020-05-17] MEDS: CENTRAL LINE FLUSH 10 ML IV PUSH ×5 (06:04→21:20)
[2020-05-17] MEDS: METOCLOPRAMIDE HCL INJ 10 MG/2 ML VIAL IV PUSH ×3 (06:04→18:08)
[2020-05-17] MEDS: TOLNAFTATE 1% POWDER 45 GM BTL 1 APPLIC TOPICAL ×2 (07:40→21:19)
[2020-05-17] MEDS: PANTOPRAZOLE SODIUM IV 40 MG VIAL IV PUSH ×2 (07:41→21:20)
[2020-05-17] MEDS: BUDESONIDE RESPULE NEB 0.5 MG/2 ML AMP INHALATION ×2 (08:06→20:42)
--- NOTE | 2020-05-17 09:05 | WPDINTPN ---
Progress Note: A&P Assessment and Plan (1) Acute respiratory failure: Code(s): J96.00 - Acute respiratory failure, unspecified whether with hypoxia or hypercapnia Status: Acute Assessment and Plan: Acute respiratory failure likely related to septic shock, altered mental status, metabolic acidosis. Intubated on 04/30/2020 -chest x-ray and ABGs reviewed -patient on CMV mode of ventilation, peep of 8 in 40% FiO2. -patient did tolerate pressure support ventilation 13/11 until dialysis yesterday and was tachypneic, tachycardic with low tidal volumes. Patient was placed back on CMV mode. -patient very weak and it may take him time to wean of the ventilator. Has been intubated for almost 17 days. Discussed with brother Delgado and he is agreeable for tracheostomy and PEG tube placement. Will have ENT and GI consulted -Patient is off all sedation keep him off all sedation for now -significant amount of volume has been removed with hemodialysis, currently on Levophed, will not dialyze today per Nephrology (2) Septic shock: Code(s): A41.9 - Sepsis, unspecified organism; R65.21 - Severe sepsis with septic shock Status: Acute Assessment and Plan: Back on Levophed since 05/16/2020 -05/13/2020 urine cultures growing Lindy albicans, sputum cultures negative, blood cultures negative x2 -appreciate infectious disease recommendations hold of antibiotics at this time, -04/30/2020 E coli bacteremia and UTI status post 10 days of ceftriaxone -echocardiogram 05/01/2020: Showed EF of >70%, no pulmonary hypertension, no valvular issues -venous Dopplers 05/01/2020: Negative for DVT -off of stress dose steroids (3) Fever: Code(s): R50.9 - Fever, unspecified Status: Acute Assessment and Plan: Fevers improving, White count normal He has completed a 10 day course of Rocephin for his E coli bacteremia and UTI Blood cultures were repeated 05/10 sputum culture 05/11 negative till now Central venous catheter in left IJ was removed Venous Dopplers on 05/12/2020 upper and lower extremities were negative for DVT -may need to remove temporary dialysis catheter and place a tunneled dialysis catheter -will discuss with infectious disease (4) UTI (urinary tract infection): Code(s): N39.0 - Urinary tract infection, site not specified Status: Acute Assessment and Plan: E coli in urine, completed 10 day course of Rocephin (5) GONZALO (acute kidney injury): Code(s): N17.9 - Acute kidney failure, unspecified Status: Acute Assessment and Plan: Acute kidney injury, patient oliguric/anuric -dialysis catheter placed on 05/03/2020 and dialysis was started on the same day -renal ultrasound normal kidneys with no hydronephrosis - Due to his body habitus bladder scan was not helpful. His Guan was flushed and large amount of urine with sediments came out. After playing with it, it appears that patient's Guan gets kinked due to his massive pannus, and once you pull his pannus up or put in fully horizontal position, urine starts flowing out of his Guan. I have discussed with the nurse and will flush Guan q.4 hours along with optimizing Guan direction to let urine output. - Dialysis as per nephrology. (6) COVID-19: Code(s): U07.1 - COVID-19 Status: Acute Assessment and Plan: Patient was positive on 03/25/2020 for COVID-19. Currently not on any treatment or isolation (7) Asthma: Qualifiers: Asthma severity: unspecified severity Asthma persistence: unspecified Asthma complication type: unspecified Qualified Code(s): J45.909 - Unspecified asthma, uncomplicated Code(s): J45.909 - Unspecified asthma, uncomplicated Status: Acute Assessment and Plan: Continue scheduled albuterol 2.5 mg q.6 hours along with Pulmicort 0.5 mg q.12 hours nebulized. (8) DVT prophylaxis: Code(s): Z29.9 - Encounter for prophylactic m
--- NOTE | 2020-05-17 10:42 | PCDIET ---
ICU Rounding Note: Patient currently NPO for placement of dialysis cath. Previously tolerating Nepro at 50mL/hr goal rate with Pro-Stat BID and 30mL water flush every 4 hours. Last recorded weight is 136.5kg which is decreased from last review. -I/O. 1.3L UF on 05/16/20. Bowel Motility: BM x 2 today. Labs Reviewed: Hgb (8.3), Hct (27.3), Glu (187), BUN (40), K (2.7), Na (134), Alb (2.6) Meds Noted: Pulmicort, Cleocin, Levophed, Protonix, KCl, Lantus, Xopenex, Reglan Additional Notes: Leg wounds appear necrotic, per RN; wound nurse consulted. GI and ENT consulted for PEG and tracheostomy. Patient received 1u RBC on 05/16/20. Following daily in ICU rounds. Assessing/reassessing every Friday/Friday.
[2020-05-17] MEDS: LIDOCAINE HCL 1% PF INJ 5 ML VIAL INFILTRATE (11:40)
[2020-05-17 12:15] LABS: Glucose Point of Care 105 (65-105)
[2020-05-17 12:46] LABS: Potassium 3.8 mmol/L (3.4-5.0)
--- NOTE | 2020-05-17 14:55 | P.PNNP_ITS ---
Progress Note: A&P Assessment and Plan (1) GONZALO (acute kidney injury): Code(s): N17.9 - Acute kidney failure, unspecified Status: Acute Assessment and Plan: * evaluation to date demonstrates: - renal ultrasound unremarkable - urinalysis shows blood and leukocytes - urine electrolytes are non pre renal * u.o. not so great lately. * renal ultrasound shows no obstruction. Bladder demonstrates Guan catheter in place. * follow for potential renal recovery * Will have surgery place a PermCath. (2) Hyponatremia: Code(s): E87.1 - Hypo-osmolality and hyponatremia Status: Acute Assessment and Plan: * just barely low. (3) Hyperkalemia: Code(s): E87.5 - Hyperkalemia Status: Acute Assessment and Plan: * resolved (4) Septic shock: Code(s): A41.9 - Sepsis, unspecified organism; R65.21 - Severe sepsis with septic shock Status: Acute Assessment and Plan: * off pressor therapy * blood cultures with E.coli * off antibiotics. (5) Acute respiratory failure: Code(s): J96.00 - Acute respiratory failure, unspecified whether with hypoxia or hypercapnia Status: Acute Assessment and Plan: * on ventilator support * ongoing fluid removal as tolerated * wean as tolerated * Family deciding about tracheostomy. (6) UTI (urinary tract infection): Code(s): N39.0 - Urinary tract infection, site not specified Status: Acute Assessment and Plan: * finished atbs. Subjective Date/time seen: 05/17/20 14:55 Interval history: Patient is still on the ventilator. not much swelling. due for dialysis Tomorrow Review of Systems Review of Systems: ROS unobtainable: Yes unobtainable due to medical condition Exam Narrative: Exam Narrative: General: Large male intubated/sedated but in NAD Heart: normal S1 and S2; no rub; tachycardic Lungs: coarse bilaterally Abdomen: soft, nontender, nondistended, positive bowel sounds Extremities: minimal edema Skin: no rash or sq nodules Objective Data Vital Signs Vital Signs: Vital Signs - 24 hr 05/16/20 15:00 05/16/20 15:15 05/16/20 15:22 Temperature Pulse Rate 116 H 114 H 116 H Respiratory Rate Blood Pressure 107/62 87/45 L 87/45 L Pulse Oximetry 05/16/20 15:24 05/16/20 15:30 05/16/20 15:35 Temperature Pulse Rate 116 H 113 H 114 H Respiratory Rate 24 H Blood Pressure 99/52 L 108/68 Pulse Oximetry 100 05/16/20 15:40 05/16/20 16:00 05/16/20 16:22 Temperature 36.8 C 37.1 C Pulse Rate 112 H 116 H 105 H Respiratory Rate 27 H 28 H Blood Pressure 108/54 L 116/56 L Pulse Oximetry 100 96 100 05/16/20 17:47 05/16/20 18:00 05/16/20 20:00 Temperature 37.6 C Pulse Rate 115 H 114 H 112 H Respiratory Rate 20 21 H Blood Pressure 97/70 L 106/55 L 104/45 L Pulse Oximetry 100 98 05/16/20 20:11 05/16/20 20:14 05/16/20 20:32 Temperature Pulse Rate 109 H 109 H 107 H Respiratory Rate 23 H 22 H Blood Pressure Pulse Oximetry 99
--- NOTE | 2020-05-17 14:55 | PM.PNNEP ---
Progress Note: A&P Assessment and Plan (1) GONZALO (acute kidney injury): Code(s): N17.9 - Acute kidney failure, unspecified Status: Acute Assessment and Plan: evaluation to date demonstrates: - renal ultrasound unremarkable - urinalysis shows blood and leukocytes - urine electrolytes are non pre renal u.o. not so great lately. renal ultrasound shows no obstruction. Bladder demonstrates Guan catheter in place. follow for potential renal recovery Will have surgery place a PermCath. (2) Hyponatremia: Code(s): E87.1 - Hypo-osmolality and hyponatremia Status: Acute Assessment and Plan: just barely low. (3) Hyperkalemia: Code(s): E87.5 - Hyperkalemia Status: Acute Assessment and Plan: resolved (4) Septic shock: Code(s): A41.9 - Sepsis, unspecified organism; R65.21 - Severe sepsis with septic shock Status: Acute Assessment and Plan: off pressor therapy blood cultures with E.coli off antibiotics. (5) Acute respiratory failure: Code(s): J96.00 - Acute respiratory failure, unspecified whether with hypoxia or hypercapnia Status: Acute Assessment and Plan: on ventilator support ongoing fluid removal as tolerated wean as tolerated Family deciding about tracheostomy. (6) UTI (urinary tract infection): Code(s): N39.0 - Urinary tract infection, site not specified Status: Acute Assessment and Plan: finished atbs. Subjective Date/time seen: 05/17/20 14:55 Interval history: Patient is still on the ventilator. not much swelling. due for dialysis Tomorrow Review of Systems Review of Systems: ROS unobtainable: Yes unobtainable due to medical condition Exam Narrative: Exam Narrative: General: Large male intubated/sedated but in NAD Heart: normal S1 and S2; no rub; tachycardic Lungs: coarse bilaterally Abdomen: soft, nontender, nondistended, positive bowel sounds Extremities: minimal edema Skin: no rash or sq nodules Objective Data Vital Signs Vital Signs: Vital Signs - 24 hr 05/16/20 15:00 05/16/20 15:15 05/16/20 15:22 Temperature Pulse Rate 116 H 114 H 116 H Respiratory Rate Blood Pressure 107/62 87/45 L 87/45 L Pulse Oximetry 05/16/20 15:24 05/16/20 15:30 05/16/20 15:35 Temperature Pulse Rate 116 H 113 H 114 H Respiratory Rate 24 H Blood Pressure 99/52 L 108/68 Pulse Oximetry 100 05/16/20 15:40 05/16/20 16:00 05/16/20 16:22 Temperature 36.8 C 37.1 C Pulse Rate 112 H 116 H 105 H Respiratory Rate 27 H 28 H Blood Pressure 108/54 L 116/56 L Pulse Oximetry 100 96 100 05/16/20 17:47 05/16/20 18:00 05/16/20 20:00 Temperature 37.6 C Pulse Rate 115 H 114 H 112 H Respiratory Rate 20 21 H Blood Pressure 97/70 L 106/55 L 104/45 L Pulse Oximetry 100 98 05/16/20 20:11 05/16/20 20:14 05/16/20 20:32 Temperature Pulse Rate 109 H 109 H 107 H Respiratory Rate 23 H 22 H Blood Pressure Pulse Oximetry 99 05/16/20 20:42 05/16/20 21:00 05/16/20 22:00 Temperature Pulse Rate 110 H 107 H Respiratory Rate 21 H 18 Blood Pressure 114/47 L 102/44 L Pulse Oximetry 98 99 98 05/16/20 23:10 05/16/20 23:42 05/17/20 00:00 Temperature 37.3 C Pulse Rate 107 H 113 H 115 H Respiratory Rate 23 H 22 H Blood Pressure 97/44 L 134/68 Pulse Oximetry 100 98 98 05/17/20 01:53 05/17/20 01:56 05/17/20 02:00 Temperature Pulse Rate 111 H 111 H 117 H Respiratory Rate 26 H 19 Blood Pressure 118/56 L Pulse Oximetry 98 98 05/17/20 02:14 05/17/20 03:33 05/17/20 04:00 Temperature 37.5 C Pulse Rate 110 H 112 H 111 H Respiratory Rate 24 H 21 H Blood Pressure 118/56 L 105/44 L Pulse Oximetry 99 100 05/17/20 04:47 05/17/20 06:00 05/17/20 07:57 Temperature Pulse Rate 112 H 109 H 115 H Respiratory Rate 25 H 24 H Blood Pressure 112/46 L Puls
--- NOTE | 2020-05-17 15:31 | PM.IMPN ---
Progress Note: A&P Assessment and Plan (1) Acute respiratory failure: Code(s): J96.00 - Acute respiratory failure, unspecified whether with hypoxia or hypercapnia Status: Acute Assessment and Plan: Patient currently intubated. He is off sedation now. Plan for weaning trial but may need trach if unsuccessful. Sputum growing candidia of unclear significance. Appreciate verification engineer input. (2) Septic shock: Code(s): A41.9 - Sepsis, unspecified organism; R65.21 - Severe sepsis with septic shock Status: Acute Assessment and Plan: Related to EColi septicemia but this has resolved and patient still requiring Levophed. Related to skin infection? Wean Levophed as tolerated. Will continue with the current plan of management. Will monitor electrolytes and hemoglobin. BCx 05/14 positive today for Yeast. Verified at 1152 but not clear when released. No documentation that a provider was notified. Tunneled HD catheter placed today. Will notify ID for antifungal treatment. Explains why he still requires levophed. (3) GONZALO (acute kidney injury): Code(s): N17.9 - Acute kidney failure, unspecified Status: Acute Assessment and Plan: Mitch has developed renal failure to the point of requiring replacement therapy. Continue HD as needed. Monitor UOP. Monitor electrolytes. Tunneled catheter to be placed today. (4) Skin ulcer of abdomen: Code(s): L98.499 - Non-pressure chronic ulcer of skin of other sites with unspecified severity Status: Acute Assessment and Plan: Noted on exam and extensive. Continue current wound care. Concern for cellulitis. Coloring Checker will discuss with ID to see antibiotics are appropriate. Discussed with verification engineer (5) UTI (urinary tract infection): Code(s): N39.0 - Urinary tract infection, site not specified Status: Acute Assessment and Plan: On admission, blood culture (1of2) growing EColi; UCx also growing EColi. Repeat BCx negative. Repeat UCx growing candidia. Off abx currently. (6) [place] (obstructive sleep apnea): Code(s): G47.33 - Obstructive sleep apnea (adult) (pediatric) Status: Chronic Assessment and Plan: The patient is currently intubated. (7) Chronic respiratory failure with hypercapnia: Code(s): J96.12 - Chronic respiratory failure with hypercapnia Status: Acute Assessment and Plan: Patient currently intubated. As above (8) Asthma: Qualifiers: Asthma complication type: unspecified Asthma persistence: unspecified Asthma severity: unspecified severity Qualified Code(s): J45.909 - Unspecified asthma, uncomplicated Code(s): J45.909 - Unspecified asthma, uncomplicated Status: Acute Assessment and Plan: Patient with hx of asthma. Has atopy as well. IgE level 6400 in 2019. No wheezing today. Will continue with ventilation support. Continue Xopenex and Pulmicort. (9) Anemia: Code(s): D64.9 - Anemia, unspecified Status: Acute Assessment and Plan: Hemoglobin 7.7 on admission and has been running in the 6-7 range mostly. Hemoglobin 6.7 on 05/16 and patient received 1U PRBC transfusion. He has received a total of 4 units of packed red blood cells since admission. Stool for occult blood is negative. Iron studies more consistent with anemia of chronic disease. Continue to follow. Transfuse as necessary. (10) Hyponatremia: Code(s): E87.1 - Hypo-osmolality and hyponatremia Status: Acute Assessment and Plan: Sodium better. Continue to monitor. (11) COVID-19: Code(s): U07.1 - COVID-19 Status: Acute Assessment and Plan: Patient was diagnosed earlier in February. Apparently the patient had been intubated at [facility]. (12) Autism: Code(s): F84.0 - Autistic disorder Status: Chronic Assessment and Plan: Unsure of
--- NOTE | 2020-05-17 15:44 | WPDHPUPDATE1 ---
History and Physical Update Update Date/Time: 05/17/20 15:44 History and Physical has been reviewed, including an updated exam of the patient. There are changes in the patient's condition. It appears the patient will now need to routinely have hemodialysis. Therefore, I have been asked to place a tunneled hemodialysis catheter. In the interim a lower extremity PICC line has been placed to be used for the patient's routine medications and IV fluids. Therefore, the plan is to carefully cleanse the current Right internal temporary hemodialysis catheter and pass a guidewire, then take this catheter out and then use that wire to have access to the internal jugular vein on the right to place his tunneled dialysis catheter. Risks, benefits, and alternatives of a tunneled dialysis catheter placement have been discussed by Dr. Root and the nurses with pt's POA to obtain consent to place a tunnelled dialysis catheter and questions answered. Patient's POA agrees to proceed with procedure.
--- NOTE | 2020-05-17 16:04 | WPDGICN ---
Assessment and Plan Assessment and plan (1) Dysphagia: Code(s): R13.10 - Dysphagia, unspecified Status: Acute Assessment and Plan: prolonged hospitalization and still intubated will proceed with EGD and g-tube placement for penitentiary nutrition (2) Acute respiratory failure: Code(s): J96.00 - Acute respiratory failure, unspecified whether with hypoxia or hypercapnia Status: Acute Assessment and Plan: by primary, also ENT to evaluate for possible trach (3) Septic shock: Code(s): A41.9 - Sepsis, unspecified organism; R65.21 - Severe sepsis with septic shock Status: Acute Assessment and Plan: completed antibiotics (4) COVID-19: Code(s): U07.1 - COVID-19 Status: Acute Assessment and Plan: he is not longer on isolation (5) GONZALO (acute kidney injury): Code(s): N17.9 - Acute kidney failure, unspecified Status: Acute Assessment and Plan: nephrology on board, he has been on dialysis now (6) [place] (obstructive sleep apnea): Code(s): G47.33 - Obstructive sleep apnea (adult) (pediatric) Status: Chronic (7) Morbid obesity: Code(s): E66.01 - Morbid (severe) obesity due to excess calories Status: Acute Assessment and Plan: placement of G-tube probably will be challenging GI Consult Note Consult date/time: 05/17/20 16:04 Reason for consult: dyphagia, respiratory failure unable to wean ventilation HPI: Francisco Holbrook is a 39 year old male with multiple medical problems admitted with respiratory failure. He was diagnosed with COVID-19 on 03/05/2020, originally admitted to [facility] for few days, then transferred to [facility] and finally to Rehab. He was admitted here 04/30/20 with septic shock, respiratory failure, kidney failure and still requiring mechanical ventilation, unable to wean. ENT will place tracheostomy and I was called to place G-tube for watermelon inspector feeding. He is on low dose of Levophed, also has getting dialysis since admission because renal failure. He had E coli bacteremia and already completed treatment. Review of Systems Review of Systems: ROS unobtainable: Yes unobtainable due to endotracheal tube and unobtainable due to medical condition PMFSH Past Medical History Medical History (Updated 05/17/20 @ 16:14 by Can Combs MD) GONZALO (acute kidney injury) Asthma Atopy Autism Body mass index (BMI) of 50-59.9 in adult (01/26/18) Chronic respiratory failure with hypercapnia Diabetes type 2, controlled Dysphagia Hepatitis C Morbid obesity [place] (obstructive sleep apnea) It was noted on [facility] note from 05/14/2019 that it was a follow-up visit for trilogy. Pulmonary hypertension Seasonal allergic rhinitis Surgical History Surgical History History of carpal tunnel release History of eye surgery History of testicular surgery Family History Family History Father Diabetes mellitus, Onset Age: 46 Acute myocardial infarction, Onset Age: 46 Mother Family history of throat cancer Other Carcinoma of colon Family history of chronic obstructive pulmonary disease Social History Social History Social History: the patient is single and has no children. The patient is listed as a full code. He resides at at [facility]. The patient has only been a resident there for the last week. The brother Delgado his the service advocate contact at [phone]. the patient is disabled. Smoking status: Never smoker Second hand tobacco smoke exposure: Yes Spiritual care concerns: No Meds Home Medications and Allergies Home Medications Medication Instructions Recorded Confirmed Type montelukast 10 mg tablet 10 mg PO DAILY 05/12/19 04/30/20 History ergocalci
[2020-05-17] MEDS: CLINDAMYCIN 900 MG/D5W 50 ML 900 MG/50 ML PIGGYBACK 50 MG IVPB (16:19)
[2020-05-17] MEDS: BUPIVACAINE/EPINEPHRINE 0.25% 50 ML VIAL 10 ML INFILTRATE (16:47)
[2020-05-17] MEDS: HEPARIN SODIUM 1,000 UNITS/ML VIAL 1000 UNITS IV PUSH (16:48)
[2020-05-17] MEDS: HEPARIN SODIUM, PORCINE 10,000 UNITS/10 ML VIAL 4000 UNITS IRRIGATION (16:54)
--- NOTE | 2020-05-17 18:00 | PM.PROC ---
Procedure Note - Detailed Date of procedure: 05/17/20 Pre-op diagnosis: septic shock/UTI/chronic resp failure/acute renal End-stage renal disease Post-op diagnosis: same Procedure performed: Ultrasound-guided Placement of tunneled dialysis catheter Description of procedure: The patient was placed in the supine position on the operating table and after induction of general anesthesia by the nurse manager floor through the existing endotracheal tube, we carefully rotated the patient's head and tilted it slightly to the left then prepping the side of the neck and chest with chlorhexidine. After waiting 3 minutes I carefully draped the patient, and we performed a time-out confirming the patient's site of surgery. The patient had a pre-existing percutaneous triple-lumen dialysis catheter in place in the right IJ position. My intention was to place a wire through this remove it and then used that access to place his dura flow dialysis catheter. The catheter was kept in place and prepped into the field. We then sterilely draped the field. Following this a separate [id number] size guidewire was placed down the pigtail coming off the temporary dialysis catheter. We used C-arm to confirm that the wire was out through the tip of the catheter and seemed to be. I then tried to advance the wire as I pulled the catheter back however in doing so the wire seem to stick at the side port of the catheter and before I realized this both the wire and the catheter were out of the patient's neck. We lost about 10 cc of blood after this pulled out. We applied pressure to the site on the internal jugular where the catheter used to be and held pressure until we passed this off the field. I then began doing a standard placement with a new stick in the right neck. Because of his size, a 36 cm DuraFlow catheter was selected. We imaged the right neck with the OR ultrasound and a single picture was taken of the vascular anatomy of the right neck which appeared to be normal but the vein was fairly deep in the subcutaneous tissues consistent with his size.. I then used ultrasound to identify the right jugular vein in the mid neck and this was cannulated under direct vision with an 18-gauge Arrow needle on a syringe. Good dark blood was aspirated, the J-guidewire was advanced through the needle and into the central venous system under usual Seldinger technique. C-arm fluoroscopy was used to confirm that the wire was then through into the central venous system and then we removed the needle and blue guide off the wire. Following this, we measured the DuraFlow catheter such that the tip would be just into the right atrium or in the distal superior vena cava. A hemostat was placed on the drapes over the chest to guide where we would place this. Then the catheter was measured back to the entry site of the J- wire in a curvilinear fashion and down to his chest overlying the right clavicle. Local anesthetic was placed into 3 harris, the exit site on the anterior Right chest, and then 2 more on his lateral neck such that a curvilinear path could be dissected through the subcutaneous tissues up to the insertion site on his right neck. Local anesthetic was infiltrated along the tract prior to tunneling. Incisions were made with a 15 blade knife at the exit site and the 2 counter incisions and then an 11 blade at the wire. The tunneling device was connected to the catheter and this was pulled through these incisions to make the subcutaneous tunnel a curvilinear course through the subcutaneous tissues to the insertion site. Then the wire was serially dilated with a 12, 14, and then a 16-Italian dilator over the pull away sheath. We watched the 16-Italian dilator and sheath go down into the central venous system with C-arm fluoroscopy and then removed the dilator wire after carefully covering the end of the catheter. I lost some blood, as we then inserted the catheter down into the central venous system. The cath
[2020-05-17 18:06] LABS: Glucose Point of Care 115 (65-105)
--- NOTE | 2020-05-17 20:17 | PC.NURSE ---
Updated Dr. Root regarding blood cultures and Micafungin. No further orders.
[2020-05-17] MEDS: MICAFUNGIN SODIUM 100 MG in SODIUM CHLORIDE 0.9% IV 100 ML IVPB (21:18)
[2020-05-17] MEDS: HEPARIN SODIUM 5,000 UNITS/ML VIAL 5000 UNITS SUB-Q (21:20)
[2020-05-18] VITALS (48 sets, daily range): BP systolic 78–142; BP diastolic 44–81; PULSE 96–127; RESP 13–32; TEMP 35.8–37.5; O2SAT 90–100
[2020-05-18] MEDS: METOCLOPRAMIDE HCL INJ 10 MG/2 ML VIAL IV PUSH ×3 (00:02→23:34)
[2020-05-18 00:30] LABS: Glucose Point of Care 105 (65-105)
[2020-05-18 04:47] LABS: Alveolar/Arterial O2 Gradient 120.4 mmHg; Base Excess ABG -1.3 mEq/l (+/-2.0); Carboxyhemoglobin 0.8 % THb (0-2.0); Fractional Inspired Oxygen 40 %; HCO3 ABG 23.2 mEq/l (22.0-26.0); Methemoglobin ABG 0.5 %THb (0-1.5); Oxygen Content ABG 12.1 %vol (16.0-22.0); Oxygen Saturation ABG 98.4 % (95.0-100.0); Oxyhemoglobin 96.6 % THb (90.0-100.0); PO2 ABG 121.1 mmHg (80.0-100.0); PO2 FiO2 Ratio Arterial Blood 3.03 %; Reduced Hemoglobin 2.1 %THb (0-5.0); Total Hemoglobin 8.7 g/dL (12.0-18.0); pH ABG 7.404 (7.350-7.450)
[2020-05-18 04:49] LABS: Device VENTILATOR; Site Drawn RIGHT BRACHIAL
[2020-05-18 04:51] LABS: Arterial Blood Gas PEEP 8 cmH2O; Arterial Blood Gas Tidal Volume 350 ml; Arterial Blood Gas Vent Mode CMV; Arterial Blood Gas Ventilator rate 20 /MIN
[2020-05-18] MEDS: NOREPINEPHRINE 8 MG/D5W 250 ML 8 MG/250 ML BAG 3.75 MG IV CONT (04:56)
[2020-05-18] MEDS: CENTRAL LINE FLUSH 10 ML IV PUSH ×4 (05:06→22:35)
[2020-05-18 05:19] LABS: Basophils Percent Auto 0.1 % (0.2-1.2); Eosinophils Absolute Auto 0.1 K/mm3 (0-0.3); Eosinophils Percent Auto 0.9 % (0-4.4); Hematocrit 25.4 % (42.0-52.0); Hemoglobin 7.6 g/dL (14.0-18.0); Immature Granulocyte Absolute 0.43 K/mm3 (0.00-0.031); Immature Granulocyte Percent A 4.5 % (0-0.5); Lymphocytes Absolute Auto 0.78 K/mm3 (0.9-3.2); Lymphocytes Percent Auto 8.2 % (18.3-44.2); Mean Corpuscular HGB Conc 29.9 g/dl (32-36); Mean Corpuscular Hemoglobin 29.5 pg (26-34); Mean Corpuscular Volume 98.4 fl (80-100); Mean Platelet Volume 11.2 fl (7.4-10.4); Monocytes Absolute Auto 0.3 K/mm3 (0.1-0.6); Monocytes Percent Auto 2.9 % (2.6-8.5); Neutrophils Absolute Auto 7.9 K/mm3 (1.3-6.7); Neutrophils Percent Auto 83.4 % (45.5-73.1); Nucleated Red Blood Cells Perc 0.4 % (0.0-0.2); Platelet Count Result 168 k/mm3 (150-375); Red Blood Count 2.58 M/mm3 (4.6-6.20); Red Cell Distribution Width 19.8 % (11.5-14.5); White Blood Count 9.5 K/mm3 (4.5-10.0)
[2020-05-18 05:37] LABS: Albumin Level 2.5 g/dL (3.5-5.1); Anion Gap 11 mmol/L (8-16); Blood Urea Nitrogen 56 mg/dL (9-20); Calcium 7.9 mg/dL (8.4-10.2); Carbon Dioxide 25 mmol/L (22-30); Chloride 99 mmol/L (98-107); Estimated CRCL calculation 57 ml/min; Estimated Glomerular Filt Rate 40; Glucose 114 mg/dL (75-110); Magnesium 2.2 mg/dL (1.6-2.3); Phosphorus 4.3 mg/dL (2.5-4.5); Potassium 3.4 mmol/L (3.4-5.0); Sodium 135 mmol/L (137-145)
[2020-05-18 05:38] LABS: INR 1.2; Partial Thromboplastin Time 33.7 SECONDS (22.3-36.8)
[2020-05-18 05:48] LABS: Anisocytosis 1+ (NORMAL); Hypochromasia 1+ (NORMAL); Platelet Estimate Adequate (Adequate)
--- NOTE | 2020-05-18 07:48 | WPDANESPN ---
Anes - Prog Note Post-Op Date/Time: 05/18/20 07:48 Cardiovascular status: other Respiratory status: other Airway patency: other Mental status: other Post-Op hydration status: other Vital Signs: Last Vital Signs Temp 37.2 C 05/18/20 04:00 Pulse 98 05/18/20 06:12 Resp 20 05/18/20 06:00 BP 104/44 L 05/18/20 06:12 Pulse Ox 100 05/18/20 06:00 Pain Score (VAS): 0 I/O: Intake & Output 05/17/20 05/17/20 05/18/20 15:59 23:59 07:59 Intake Total 100 150 84 Output Total 50 10 Balance 100 100 74 Laboratory Tests 05/18/20 05:11 05/18/20 05:11 05/17/20 05/17/20 05/17/20 12:13 12:26 17:52 WBC RBC Hgb Hct MCV MCH MCHC RDW Plt Count MPV Immature Gran % (Auto) Neut % (Auto) Lymph % (Auto) Sargent % (Auto) Eos % (Auto) Baso % (Auto) Lymph # (Auto) Sargent # (Auto) Eos # (Auto) Baso # (Auto) Abs Immat Gran (auto) Absolute Neuts (auto) Absolute Nucleated RBC Nucleated RBC % Platelet Estimate Hypochromasia Anisocytosis PT INR APTT Puncture Site ABG pH ABG pCO2 ABG pO2 ABG PO2/FiO2 Ratio ABG HCO3 ABG O2 Saturation ABG O2 Content ABG Base Excess A-a Gradient Oxyhemoglobin Carboxyhemoglobin Methemoglobin Reduced Hemoglobin Total Hemoglobin O2 Delivery Device O2 Liters/Min Minute Volume Vent Rate Vent Mode FiO2 Tidal Volume PEEP Peak Inspir Pressure Pressure Support Sodium Potassium 3.8 Chloride Carbon Dioxide Anion Gap BUN Creatinine Estim Creat Clear Calc Estimated GFR Glucose POC Capillary Glucose 105 115 H Calcium Phosphorus Magnesium Albumin 05/17/20 05/18/20 05/18/20 23:59 04:40 05:11 WBC RBC Hgb Hct MCV MCH MCHC RDW Plt Count MPV Immature Gran % (Auto) Neut % (Auto) Lymph % (Auto) Sargent % (Auto) Eos % (Auto) Baso % (Auto) Lymph # (Auto) Sargent # (Auto) Eos # (Auto) Baso # (Auto) Abs Immat Gran (auto) Absolute Neuts (auto) Absolute Nucleated RBC Nucleated RBC % Platelet Estimate Hypochromasia Anisocytosis PT INR APTT Puncture Site Right brachial ABG pH 7.404 ABG pCO2 38.0 ABG pO2 121.1 H ABG PO2/FiO2 Ratio 3.03 ABG HCO3 23.2 ABG O2 Saturation 98.4 ABG O2 Content 12.1 L ABG Base Excess -1.3 A-a Gradient 120.4 Oxyhemoglobin 96.6 Carboxyhemoglobin 0.8 Methemoglobin 0.5 Reduced Hemoglobin 2.1 Total Hemoglobin 8.7 L O2 Delivery Device Ventilator O2 Liters/Min Not Reportable Minute Volume Not Reportable Vent Rate 20 Vent Mode Cmv FiO2 40 Tidal Volume 350 PEEP 8 Peak Inspir Pressure Not Reportable Pressure Support Not Reportable Sodium 135 L Potassium 3.4 Chloride 99 Carbon Dioxide 25 Anion Gap 11 BUN 56 H D Creatinine 1.90 H Estim Creat Clear Calc 57 Estimated GFR 40 L Glucose 114 H POC Capillary Glucose 105 Calcium 7.9 L Phosphorus 4.3 Magnesium 2.2 Albumin 2.5 L 05/18/20 05/18/20 05:11 05:11 WBC 9.5 RBC 2.58 L Hgb 7.6 L Hct 25.4 L MCV 98.4 MCH 29.5 MCHC 29.9 L RDW 19.8 H Plt Count 168 MPV 11.2 H Immature Gran % (Auto) 4.5 H Neut % (Auto) 83.4 H Lymph % (Auto) 8.2 L Sargent % (Auto) 2.9 Eos % (Auto) 0.9 Baso % (Auto) 0.1 L Lymph # (Auto) 0.78 L Sargent # (Auto) 0.3 Eos # (Auto) 0.1 Baso # (Auto) 0.0 Abs Immat Gran (auto) 0.43 H Absolute Neuts (auto) 7.9 H Absolute Nucleated RBC 0.0 Nucleated RBC % 0.4 H Platelet Estimate Adequate Hypochromasia 1+ Anisocytosis 1+ PT 16.0 H INR 1.2 APTT 33.7 Puncture Site ABG pH ABG pCO2 ABG pO2 ABG PO2/FiO2 Ratio ABG HCO3 ABG O2 Saturation ABG O2 Content ABG Base Excess A-a Gradie
[2020-05-18] MEDS: BUDESONIDE RESPULE NEB 0.5 MG/2 ML AMP INHALATION (08:20)
--- NOTE | 2020-05-18 08:33 | WPDINTPN ---
Progress Note: A&P Assessment and Plan (1) Acute respiratory failure: Code(s): J96.00 - Acute respiratory failure, unspecified whether with hypoxia or hypercapnia Status: Acute Assessment and Plan: Acute respiratory failure likely related to septic shock, altered mental status, metabolic acidosis. Intubated on 04/30/2020 -chest x-ray and ABGs reviewed -patient on CMV mode of ventilation, peep of 8 in 40% FiO2. -patient did tolerate pressure support ventilation 13/11 until dialysis yesterday and was tachypneic, tachycardic with low tidal volumes. Patient was placed back on CMV mode. -patient very weak and it may take him time to wean of the ventilator. Has been intubated for almost 17 days. Discussed with brother Delgado and he is agreeable for tracheostomy and PEG tube placement. Will have ENT and GI consulted -Patient is off all sedation keep him off all sedation for now -significant amount of volume has been removed with hemodialysis (2) Septic shock: Code(s): A41.9 - Sepsis, unspecified organism; R65.21 - Severe sepsis with septic shock Status: Acute Assessment and Plan: Back on Levophed since 05/16/2020 -05/13/2020 urine cultures growing Lindy albicans, sputum cultures negative, blood cultures growing YEAST 1/2 bottles -patient has been started on Micafungin ( 05/17/2020) -appreciate infectious disease recommendations hold of antibiotics at this time, -04/30/2020 E coli bacteremia and UTI status post 10 days of ceftriaxone -echocardiogram 05/01/2020: Showed EF of >70%, no pulmonary hypertension, no valvular issues -venous Dopplers 05/01/2020: Negative for DVT -off of stress dose steroids (3) Fever: Code(s): R50.9 - Fever, unspecified Status: Acute Assessment and Plan: Fevers improving, White count normal He has completed a 10 day course of Rocephin for his E coli bacteremia and UTI Blood cultures were repeated 05/10 sputum culture 05/11 negative till now Central venous catheter in left IJ was removed Venous Dopplers on 05/12/2020 upper and lower extremities were negative for DVT -may need to remove temporary dialysis catheter and place a tunneled dialysis catheter -will discuss with infectious disease (4) UTI (urinary tract infection): Code(s): N39.0 - Urinary tract infection, site not specified Status: Acute Assessment and Plan: E coli in urine, completed 10 day course of Rocephin (5) GONZALO (acute kidney injury): Code(s): N17.9 - Acute kidney failure, unspecified Status: Acute Assessment and Plan: Acute kidney injury, patient oliguric/anuric -renal ultrasound normal kidneys with no hydronephrosis -tunneled dialysis catheter was inserted on 05/17/2020 by surgery - Dialysis as per nephrology. (6) COVID-19: Code(s): U07.1 - COVID-19 Status: Acute Assessment and Plan: Patient was positive on 03/25/2020 for COVID-19. Currently not on any treatment or isolation (7) Asthma: Qualifiers: Asthma severity: unspecified severity Asthma persistence: unspecified Asthma complication type: unspecified Qualified Code(s): J45.909 - Unspecified asthma, uncomplicated Code(s): J45.909 - Unspecified asthma, uncomplicated Status: Acute Assessment and Plan: Continue scheduled albuterol 2.5 mg q.6 hours along with Pulmicort 0.5 mg q.12 hours nebulized. (8) DVT prophylaxis: Code(s): Z29.9 - Encounter for prophylactic measures, unspecified Status: Acute Assessment and Plan: Heparin subcu (9) Dietary counseling and surveillance: Code(s): Z71.3 - Dietary counseling and surveillance Status: Acute Assessment and Plan: Stress ulcer prophylaxis: Protonix -tolerating tube feeds (10) Anemia: Code(s): D64.9 - Anemia, unspecified Status: Acute Assessment and Plan: 05/05 1 unit packed red cell transfusion 05/07 Hemoglobin 6
[2020-05-18] MEDS: HEPARIN SODIUM 5,000 UNITS/ML VIAL 5000 UNITS SUB-Q ×2 (10:02→22:33)
[2020-05-18] MEDS: PANTOPRAZOLE SODIUM IV 40 MG VIAL IV PUSH ×2 (10:02→22:35)
[2020-05-18] MEDS: TOLNAFTATE 1% POWDER 45 GM BTL 1 APPLIC TOPICAL ×2 (10:03→22:35)
[2020-05-18] MEDS: ACETAMINOPHEN ELIXIR 325 MG/10.15 ML UDC 650 MG PO ×2 (10:04→23:26)
--- NOTE | 2020-05-18 10:54 | PCDIET ---
ICU Rounding Note: Patient NPO for PEG placement today. Had tunneled dialysis cath placed 05/17/20. Last recorded weight is 136kg which is stable with last review. Plan for dialysis today. Bowel Motility: BM x 1 today. Labs Reviewed: Hgb (7.6), Hct (25.4), Glu (114), BUN (56), Cr (1.9), Na (135), Alb (2.5), Natalya Ca (9.1) Meds Noted: Heparin, Xopenex, Reglan, Micafungin, Levophed, Protonix Additional Notes: Bilateral groin macerated. Abdomen with blisters. Deep tissue injury on coccyx. Following daily in ICU rounds. Assessing/reassessing every Friday/Friday
--- NOTE | 2020-05-18 11:47 | PM.PNNEP ---
Progress Note: A&P Assessment and Plan (1) GONZALO (acute kidney injury): Code(s): N17.9 - Acute kidney failure, unspecified Status: Acute Assessment and Plan: evaluation to date demonstrates: - renal ultrasound unremarkable - urinalysis shows blood and leukocytes - urine electrolytes are non pre renal u.o. still poor. I agree with removing norris (2) Hyponatremia: Code(s): E87.1 - Hypo-osmolality and hyponatremia Status: Acute Assessment and Plan: just barely low. (3) Hyperkalemia: Code(s): E87.5 - Hyperkalemia Status: Acute Assessment and Plan: resolved (4) Septic shock: Code(s): A41.9 - Sepsis, unspecified organism; R65.21 - Severe sepsis with septic shock Status: Acute Assessment and Plan: off pressor therapy blood cultures with E.coli off antibiotics. Recent cultures show yeast. This came back after PermCath had already been placed yesterday. He is currently on micro function. We can treat the PermCath like a temporary catheter. If infectious disease wants to pull the catheter we can. Otherwise we can treat for a couple of treatments and then leave the catheter out for a few days before placing another 1. (5) Acute respiratory failure: Code(s): J96.00 - Acute respiratory failure, unspecified whether with hypoxia or hypercapnia Status: Acute Assessment and Plan: on ventilator support ongoing fluid removal as tolerated wean as tolerated To get trach and PEG soon. (6) UTI (urinary tract infection): Code(s): N39.0 - Urinary tract infection, site not specified Status: Acute Assessment and Plan: finished at. Subjective Date/time seen: 05/18/20 11:47 Interval history: Patient is still on the ventilator. not much swelling. due for dialysis today Exam Narrative: Exam Narrative: General: Large male intubated/sedated but in NAD Heart: normal S1 and S2; no rub; tachycardic Lungs: coarse and symmetic. Abdomen: soft, nontender, nondistended, positive bowel sounds Extremities: minimal edema Skin: no rash Objective Data Vital Signs Vital Signs: Vital Signs - 24 hr 05/17/20 12:00 05/17/20 13:54 05/17/20 14:00 Temperature 37.2 C Pulse Rate 113 H 113 H 117 H Respiratory Rate 29 H 33 H Blood Pressure 112/48 L 127/75 Pulse Oximetry 99 98 05/17/20 14:02 05/17/20 14:03 05/17/20 14:14 Temperature Pulse Rate 114 H 117 H 112 H Respiratory Rate 24 H 28 H Blood Pressure Pulse Oximetry 97 05/17/20 16:00 05/17/20 17:52 05/17/20 18:00 Temperature Pulse Rate 110 H 106 H 103 H Respiratory Rate 24 H Blood Pressure Pulse Oximetry 100 95 05/17/20 18:06 05/17/20 20:00 05/17/20 20:42 Temperature 37.5 C Pulse Rate 106 H 107 H 98 Respiratory Rate 27 H 25 H 21 H Blood Pressure 110/56 L 135/58 L Pulse Oximetry 97 98 98 05/17/20 20:54 05/17/20 22:00 05/17/20 23:33 Temperature Pulse Rate 97 99 99 Respiratory Rate 20 24 H Blood Pressure 110/50 L Pulse Oximetry 100 100 05/17/20 23:49 05/18/20 00:00 05/18/20 02:00 Temperature 37.5 C Pulse Rate 99 99 105 H Respiratory Rate 20 24 H 25 H Blood Pressure 111/46 L 113/46 L Pulse Oximetry 100 100 96 05/18/20 02:14 05/18/20 03:47 05/18/20 04:00 Temperature 37.2 C Pulse Rate 101 H 97 98 Respiratory Rate 22 H 22 H 22 H Blood Pressure 106/52 L Pulse Oximetry 98 100 100 05/18/20 04:56 05/18/20 04:59 05/18/20 06:00 Temperature Pulse Rate 98 98 97 Respiratory Rate 20 Blood Pressure 119/57 L 104/44 L Pulse Oximetry 100 100 05/18/20 06:12 05/18/20 08:00 05/18/20 08:23 Temperature 36.4 C Pulse Rate 98 108 H 105 H Respiratory Rate 29 H 31 H Blood Pressure 104/44 L 126/47 L Pulse Oximetry 96 05/18/20 08:26 05/18/20 10:00 05/18/20 11:09 Temperature Pulse Rate 107 H 106 H 109 H
[2020-05-18 13:13] LABS: Glucose Point of Care 111 (65-105)
[2020-05-18] MEDS: PROPOFOL IV EMULSION 100 ML 12.24 MG IV CONT (13:41)
--- NOTE | 2020-05-18 13:51 | WPDINFPN2 ---
Progress Note: A&P Assessment and Plan (1) Septic shock: Code(s): A41.9 - Sepsis, unspecified organism; R65.21 - Severe sepsis with septic shock Status: Acute Assessment and Plan: 1. Septic shock due to E coli UTI with bacteremia, resolved. 2. MSOF 3. CoVid 19 infection 03/25/20 4. Persistent fever due to Lindy bloodstream infection, the temporary HD cath is likely source, urine or lung less likely REC The new HD catheter can remain in place for now. Fluconazole #1 (antifungal #2), and adjust for low CrCl. No empiric antibacterials. Subjective Date/time seen: 05/18/20 13:51 Interval history: intubated, eyes open, looks in no distress Exam Narrative: Exam Narrative: t max 37.5 Const: General: no acute distress Eyes: General: appearance normal, both eyes and all related structures Resp: Effort & Inspection: normal respiratory effort Auscultation: clear to auscultation bilaterally and diminished lung sounds Cardio: Rate: tachycardic Rhythm: regular rhythm Heart sounds: no murmurs GI: Inspection: non-distended GI Palp: Yes Soft to palpation and No Tenderness to palpation present (GI) Other: luq partial thickness necrosis, no cellulitis Urinary Catheter: Urinary Catheter: patent and draining Objective Data Vital Signs Vital Signs: Vital Signs - 24 hr 05/17/20 13:54 05/17/20 14:00 05/17/20 14:02 Temperature Pulse Rate 113 H 117 H 114 H Respiratory Rate 33 H 24 H Blood Pressure 127/75 Pulse Oximetry 98 05/17/20 14:03 05/17/20 14:14 05/17/20 16:00 Temperature Pulse Rate 117 H 112 H 110 H Respiratory Rate 28 H 24 H Blood Pressure Pulse Oximetry 97 100 05/17/20 17:52 05/17/20 18:00 05/17/20 18:06 Temperature Pulse Rate 106 H 103 H 106 H Respiratory Rate 27 H Blood Pressure 110/56 L Pulse Oximetry 95 97 05/17/20 20:00 05/17/20 20:42 05/17/20 20:54 Temperature 37.5 C Pulse Rate 107 H 98 97 Respiratory Rate 25 H 21 H 20 Blood Pressure 135/58 L Pulse Oximetry 98 98 05/17/20 22:00 05/17/20 23:33 05/17/20 23:49 Temperature Pulse Rate 99 99 99 Respiratory Rate 24 H 20 Blood Pressure 110/50 L Pulse Oximetry 100 100 100 05/18/20 00:00 05/18/20 02:00 05/18/20 02:14 Temperature 37.5 C Pulse Rate 99 105 H 101 H Respiratory Rate 24 H 25 H 22 H Blood Pressure 111/46 L 113/46 L Pulse Oximetry 100 96 98 05/18/20 03:47 05/18/20 04:00 05/18/20 04:56 Temperature 37.2 C Pulse Rate 97 98 98 Respiratory Rate 22 H 22 H Blood Pressure 106/52 L 119/57 L Pulse Oximetry 100 100 05/18/20 04:59 05/18/20 06:00 05/18/20 06:12 Temperature Pulse Rate 98 97 98 Respiratory Rate 20 Blood Pressure 104/44 L 104/44 L Pulse Oximetry 100 100 05/18/20 08:00 05/18/20 08:23 05/18/20 08:26 Temperature 36.4 C Pulse Rate 108 H 105 H 107 H Respiratory Rate 29 H 31 H Blood Pressure 126/47 L Pulse Oximetry 96 96 05/18/20 10:00 05/18/20 11:09 05/18/20 12:00 Temperature Pulse Rate 106 H 109 H 102 H Respiratory Rate 27 H 27 H Blood Pressure 103/46 L Pulse Oximetry 98 99 98 Intake/Output Intake/Output: Intake & Output 05/15/20 05/16/20 05/17/20 05/18/20 23:59 23:59 23:59 23:59 Intake Total 1352 940 740 84 Output Total 40 1460 50 10 Balance 1312 -520 690 74 Meds/Results Medications: Active Medications Generic Name Dose Route Start Last Admin Trade Name Freq PRN Reason Stop Dose Admin Acetaminophen 650 mg 05/14/20 20:07 05/18/20 10:04 Acetaminophen Elixir 325 Mg/10.15 Ml Udc PO 650 mg Q4H PRN Administration Mild Pain (1-3) or Fever Alteplase, Recombinant 2 mg 05/03/20 10:26 05/05/20 12:13 Alteplase 2 Mg Vial (Cathflo) IV PUSH 2 mg ONCE PRN Administration Line Occlusion Alteplase, Recombinant 2 mg 05/03/20 10:29 05/05/20 16:07 Alteplase 2 Mg Vial (Cathflo) IV PUSH 2 mg ONCE PRN Administration Line Occlusion Alteplase, Recombinant 2 mg
[2020-05-18] MEDS: LACTATED RINGERS 1,000 ML 100 ML IV CONT (14:40)
--- NOTE | 2020-05-18 16:06 | PM.IMPN ---
Progress Note: A&P Assessment and Plan (1) Acute respiratory failure: Code(s): J96.00 - Acute respiratory failure, unspecified whether with hypoxia or hypercapnia Status: Acute Assessment and Plan: Patient currently intubated. He is off sedation now. Plan for weaning trial but may need trach if unsuccessful. Sputum growing lindy of unclear significance. Appreciate general ophthalmologist input. (2) Septic shock: Code(s): A41.9 - Sepsis, unspecified organism; R65.21 - Severe sepsis with septic shock Status: Acute Assessment and Plan: Related to EColi septicemia but this has resolved. BCx 05/14 positive for Yeast. Tunneled HD catheter placed 05/17. ID notified and antifungal treatment started. Explains why he still requires levophed. Lindy in urine and sputum as well. Related to skin infection or recent central line or lung? Continue current anti-fungal treatment (3) GONZALO (acute kidney injury): Code(s): N17.9 - Acute kidney failure, unspecified Status: Acute Assessment and Plan: Patient has developed renal failure to the point of requiring replacement therapy. Continue HD as needed. Monitor UOP. Monitor electrolytes. Tunneled catheter placed 05/17. (4) Skin ulcer of abdomen: Code(s): L98.499 - Non-pressure chronic ulcer of skin of other sites with unspecified severity Status: Acute Assessment and Plan: Noted on exam and extensive. Continue current wound care. (5) UTI (urinary tract infection): Code(s): N39.0 - Urinary tract infection, site not specified Status: Acute Assessment and Plan: On admission, blood culture (1of2) growing EColi; UCx also growing EColi. Repeat UCx growing lindy. Off abx currently. BCx positive for yeast - as above. (6) [place] (obstructive sleep apnea): Code(s): G47.33 - Obstructive sleep apnea (adult) (pediatric) Status: Chronic Assessment and Plan: The patient is currently intubated. (7) Chronic respiratory failure with hypercapnia: Code(s): J96.12 - Chronic respiratory failure with hypercapnia Status: Acute Assessment and Plan: Patient currently intubated. As above (8) Asthma: Qualifiers: Asthma complication type: unspecified Asthma persistence: unspecified Asthma severity: unspecified severity Qualified Code(s): J45.909 - Unspecified asthma, uncomplicated Code(s): J45.909 - Unspecified asthma, uncomplicated Status: Acute Assessment and Plan: Patient with hx of asthma. Has atopy as well. IgE level 6400 in 2019. No wheezing today. Will continue with ventilation support. Continue Xopenex and Pulmicort. (9) Anemia: Code(s): D64.9 - Anemia, unspecified Status: Acute Assessment and Plan: Hemoglobin 7.7 on admission and has been running in the 6-7 range mostly. Hemoglobin 6.7 on 05/16 and patient received 1U PRBC transfusion. He has received a total of 4 units of packed red blood cells since admission. Stool for occult blood is negative. Iron studies more consistent with anemia of chronic disease. Continue to follow. Transfuse as necessary. (10) Hyponatremia: Code(s): E87.1 - Hypo-osmolality and hyponatremia Status: Acute Assessment and Plan: Sodium better. Continue to monitor. (11) COVID-19: Code(s): U07.1 - COVID-19 Status: Acute Assessment and Plan: Patient was diagnosed earlier in February resulting in intubation at [facility] at that time. (12) Autism: Code(s): F84.0 - Autistic disorder Status: Chronic Assessment and Plan: Unsure of baseline. The patient had lived home alone at 1 time. (13) DVT prophylaxis: Code(s): Z29.9 - Encounter for prophylactic measures, unspecified Status: Acute Assessment and Plan: Heparin SQ (14) Hyperkalemia: Code(s): E87.5 - Hyperkalemi
[2020-05-18] MEDS: EPOETIN ALFA-EPBX 10,000 UNITS/ML VIAL 10000 UNITS IV PUSH (20:54)
[2020-05-18] MEDS: HEPARIN SODIUM 1,000 UNITS/ML VIAL 1000 UNITS IV PUSH (22:20)
[2020-05-18] MEDS: FLUCONAZOLE 200 MG/NACL 100 ML 200 MG/100 ML BAG 100 MG IVPB (22:33)
[2020-05-18 23:43] LABS: Glucose Point of Care 99 (65-105)
[2020-05-19] VITALS (36 sets, daily range): BP systolic 84–117; BP diastolic 41–58; PULSE 105–127; RESP 20–35; TEMP 37.7–39.1; O2SAT 97–100
[2020-05-19] MEDS: BUDESONIDE RESPULE NEB 0.5 MG/2 ML AMP INHALATION ×3 (00:07→19:29)
[2020-05-19 05:31] LABS: Hematocrit 27.6 % (42.0-52.0); Hemoglobin 8.4 g/dL (14.0-18.0); Mean Corpuscular HGB Conc 30.4 g/dl (32-36); Mean Corpuscular Hemoglobin 29.8 pg (26-34); Mean Corpuscular Volume 97.9 fl (80-100); Mean Platelet Volume 11.1 fl (7.4-10.4); Platelet Count Result 187 k/mm3 (150-375); Red Blood Count 2.82 M/mm3 (4.6-6.20); Red Cell Distribution Width 19.4 % (11.5-14.5); White Blood Count 12.2 K/mm3 (4.5-10.0)
[2020-05-19 05:50] LABS: Alveolar/Arterial O2 Gradient 167.4 mmHg; Carboxyhemoglobin 0.1 % THb (0-2.0); Fractional Inspired Oxygen 45 %; HCO3 ABG 26.5 mEq/l (22.0-26.0); Methemoglobin ABG 0.2 %THb (0-1.5); Oxygen Content ABG 13.7 %vol (16.0-22.0); Oxyhemoglobin 97.2 % THb (90.0-100.0); PO2 ABG 106.8 mmHg (80.0-100.0); PO2 FiO2 Ratio Arterial Blood 2.37 %; Reduced Hemoglobin 2.5 %THb (0-5.0); Total Hemoglobin 9.9 g/dL (12.0-18.0); pH ABG 7.428 (7.350-7.450)
[2020-05-19 05:53] LABS: Arterial Blood Gas Ventilator rate 20 /MIN; Device VENTILATOR; Modified Allen's Test Pass; Site Drawn RIGHT RADIAL
[2020-05-19 05:54] LABS: Alanine Aminotransferase 36 U/L (4-50); Albumin Level 2.7 g/dL (3.5-5.1); Alkaline Phosphatase 954 U/L (38-126); Anion Gap 8 mmol/L (8-16); Aspartate Amino Transferase 31 U/L (17-59); Blood Urea Nitrogen 24 mg/dL (9-20); Calcium 8.1 mg/dL (8.4-10.2); Carbon Dioxide 29 mmol/L (22-30); Chloride 99 mmol/L (98-107); Estimated CRCL calculation 89 ml/min; Estimated Glomerular Filt Rate > 60; Glucose 134 mg/dL (75-110); Potassium 2.8 mmol/L (3.4-5.0); Sodium 136 mmol/L (137-145)
[2020-05-19 05:54] LABS: Arterial Blood Gas PEEP 8 cmH2O; Arterial Blood Gas Tidal Volume 350 ml; Arterial Blood Gas Vent Mode CMV
[2020-05-19] MEDS: CENTRAL LINE FLUSH 10 ML IV PUSH ×6 (06:04→20:24)
[2020-05-19] MEDS: METOCLOPRAMIDE HCL INJ 10 MG/2 ML VIAL IV PUSH (06:04)
--- NOTE | 2020-05-19 08:04 | WPDANESPN ---
Anes - Prog Note Post-Op Date/Time: 05/19/20 08:04 Cardiovascular status: other (on norepinephrine gtt) Respiratory status: other (on ventilator) Airway patency: other (ETT) Mental status: other (HNAS) Post-Op hydration status: normal Vital Signs: Last Vital Signs Temp 37.7 C H 05/19/20 04:00 Pulse 120 H 05/19/20 07:59 Resp 29 H 05/19/20 07:58 BP 101/45 L 05/19/20 06:02 Pulse Ox 100 05/19/20 07:59 Pain Score (VAS): HANS I/O: Intake & Output 05/18/20 05/19/20 05/19/20 23:59 07:59 15:59 Intake Total 100 395 Output Total 1999 50 Balance -1900 345 Laboratory Tests 05/19/20 05:12 05/19/20 05:12 05/18/20 05/18/20 05/19/20 13:11 23:24 05:12 WBC 12.2 H RBC 2.82 L Hgb 8.4 L Hct 27.6 L MCV 97.9 MCH 29.8 MCHC 30.4 L RDW 19.4 H Plt Count 187 MPV 11.1 H Puncture Site ABG pH ABG pCO2 ABG pO2 ABG PO2/FiO2 Ratio ABG HCO3 ABG O2 Saturation ABG O2 Content ABG Base Excess A-a Gradient Oxyhemoglobin Carboxyhemoglobin Methemoglobin Reduced Hemoglobin Total Hemoglobin O2 Delivery Device O2 Liters/Min Minute Volume Vent Rate Vent Mode FiO2 Tidal Volume PEEP Peak Inspir Pressure Pressure Support Sodium Potassium Chloride Carbon Dioxide Anion Gap BUN Creatinine Estim Creat Clear Calc Estimated GFR Glucose POC Capillary Glucose 111 H 99 Calcium Total Bilirubin AST ALT Alkaline Phosphatase Total Protein Albumin 05/19/20 05/19/20 05:12 05:34 WBC RBC Hgb Hct MCV MCH MCHC RDW Plt Count MPV Puncture Site Right radial ABG pH 7.428 ABG pCO2 41.0 ABG pO2 106.8 H ABG PO2/FiO2 Ratio 2.37 ABG HCO3 26.5 H ABG O2 Saturation 98.0 ABG O2 Content 13.7 L ABG Base Excess 2.0 A-a Gradient 167.4 Oxyhemoglobin 97.2 Carboxyhemoglobin 0.1 Methemoglobin 0.2 Reduced Hemoglobin 2.5 Total Hemoglobin 9.9 L O2 Delivery Device Ventilator O2 Liters/Min Not Reportable Minute Volume Not Reportable Vent Rate 20 Vent Mode Cmv FiO2 45 Tidal Volume 350 PEEP 8 Peak Inspir Pressure Not Reportable Pressure Support Not Reportable Sodium 136 L Potassium 2.8 L* Chloride 99 Carbon Dioxide 29 Anion Gap 8 BUN 24 H D Creatinine 1.20 Estim Creat Clear Calc 89 Estimated GFR > 60 Glucose 134 H POC Capillary Glucose Calcium 8.1 L Total Bilirubin 1.0 AST 31 ALT 36 Alkaline Phosphatase 954 H Total Protein 6.0 L Albumin 2.7 L Microbiology 05/17/20 12:31 Flank Wound Culture - Preliminary 05/14/20 13:54 Blood Blood Culture - Final Lindy albicans Post-procedural complaints: none Patient Feedback: Patient satisfied with anesthetic care.
[2020-05-19] MEDS: HEPARIN SODIUM 5,000 UNITS/ML VIAL 5000 UNITS SUB-Q ×2 (09:27→20:22)
[2020-05-19] MEDS: TOLNAFTATE 1% POWDER 45 GM BTL 1 APPLIC TOPICAL ×2 (09:28→20:23)
[2020-05-19] MEDS: PANTOPRAZOLE SODIUM IV 40 MG VIAL IV PUSH ×2 (09:28→20:22)
[2020-05-19] MEDS: INSULIN GLARGINE (*BKC) 100 UNITS/ML 20 UNITS SUB-Q (09:28)
--- NOTE | 2020-05-19 09:34 | WPDINTPN ---
Progress Note: A&P Assessment and Plan (1) Acute respiratory failure: Code(s): J96.00 - Acute respiratory failure, unspecified whether with hypoxia or hypercapnia Status: Acute Assessment and Plan: Acute respiratory failure likely related to septic shock, altered mental status, metabolic acidosis. Intubated on 04/30/2020 -chest x-ray and ABGs reviewed -patient on CMV mode of ventilation, peep of 8 in 40% FiO2. -patient did tolerate pressure support ventilation 11/11 until dialysis yesterday and was tachypneic, tachycardic with low tidal volumes. Patient was placed back on CMV mode. -patient very weak and it may take him time to wean of the ventilator. Has been intubated for almost 19 days. -PEG tube placed 05/18 Tracheostomy scheduled for 05/22 -Patient is off all sedation keep him off all sedation for now -significant amount of volume has been removed with hemodialysis (2) Septic shock: Code(s): A41.9 - Sepsis, unspecified organism; R65.21 - Severe sepsis with septic shock Status: Acute Assessment and Plan: Back on Levophed since 05/16/2020 -05/13/2020 urine cultures growing Lindy albicans, sputum cultures negative, blood cultures growing Lindy AlbicansT 04/01 bottles -on Diflucan per ID. ( 05/18/2020) -appreciate infectious disease recommendations hold of antibiotics at this time, -04/30/2020 E coli bacteremia and UTI status post 10 days of ceftriaxone -echocardiogram 05/01/2020: Showed EF of >70%, no pulmonary hypertension, no valvular issues -venous Dopplers 05/01/2020: Negative for DVT -off of stress dose steroids (3) Fever: Code(s): R50.9 - Fever, unspecified Status: Acute Assessment and Plan: Fevers improving, White count normal He has completed a 10 day course of Rocephin for his E coli bacteremia and UTI Blood cultures were repeated 05/10 sputum culture 05/11 negative till now Central venous catheter in left IJ was removed Venous Dopplers on 05/12/2020 upper and lower extremities were negative for DVT -will discuss with infectious disease (4) UTI (urinary tract infection): Code(s): N39.0 - Urinary tract infection, site not specified Status: Acute Assessment and Plan: E coli in urine, completed 10 day course of Rocephin (5) GONZALO (acute kidney injury): Code(s): N17.9 - Acute kidney failure, unspecified Status: Acute Assessment and Plan: Acute kidney injury, patient oliguric/anuric -renal ultrasound normal kidneys with no hydronephrosis -tunneled dialysis catheter was inserted on 05/17/2020 by surgery - Dialysis as per nephrology. (6) COVID-19: Code(s): U07.1 - COVID-19 Status: Acute Assessment and Plan: Patient was positive on 03/25/2020 for COVID-19. Currently not on any treatment or isolation (7) Asthma: Qualifiers: Asthma severity: unspecified severity Asthma persistence: unspecified Asthma complication type: unspecified Qualified Code(s): J45.909 - Unspecified asthma, uncomplicated Code(s): J45.909 - Unspecified asthma, uncomplicated Status: Acute Assessment and Plan: Continue scheduled albuterol 2.5 mg q.6 hours along with Pulmicort 0.5 mg q.12 hours nebulized. (8) DVT prophylaxis: Code(s): Z29.9 - Encounter for prophylactic measures, unspecified Status: Acute Assessment and Plan: Heparin subcu (9) Dietary counseling and surveillance: Code(s): Z71.3 - Dietary counseling and surveillance Status: Acute Assessment and Plan: Stress ulcer prophylaxis: Protonix -tolerating tube feeds (10) Anemia: Code(s): D64.9 - Anemia, unspecified Status: Acute Assessment and Plan: 2/5 1 unit packed red cell transfusion 2/7 Hemoglobin 6.5 again today transfuse 1 more unit of packed red cells. Changed PPI to q.12 hours Continue to monitor and transfuse as needed -Stool for occult blood was neg
--- NOTE | 2020-05-19 10:04 | P.PNNP_ITS ---
Progress Note: A&P Assessment and Plan (1) GONZALO (acute kidney injury): Code(s): N17.9 - Acute kidney failure, unspecified Status: Acute Assessment and Plan: * evaluation to date demonstrates: - renal ultrasound unremarkable - urinalysis shows blood and leukocytes - urine electrolytes are non pre renal * u.o. still poor. * Guan catheter is out. * Persistent renal failure is probably related to the fungemia. * Potassium was low so this was supplemented. (2) Hyponatremia: Code(s): E87.1 - Hypo-osmolality and hyponatremia Status: Acute Assessment and Plan: * just barely low. (3) Hyperkalemia: Code(s): E87.5 - Hyperkalemia Status: Acute Assessment and Plan: * resolved (4) Septic shock: Code(s): A41.9 - Sepsis, unspecified organism; R65.21 - Severe sepsis with septic shock Status: Acute Assessment and Plan: * off pressor therapy * blood cultures with E.coli * off antibiotics. * Recent cultures show yeast. This came back after PermCath had already been placed yesterday. * He is currently on micro function. Dr. monson okay with leaving PermCath in place for now. (5) Acute respiratory failure: Code(s): J96.00 - Acute respiratory failure, unspecified whether with hypoxia or hypercapnia Status: Acute Assessment and Plan: * on ventilator support * ongoing fluid removal as tolerated * wean as tolerated * To get trach and PEG at some point (6) UTI (urinary tract infection): Code(s): N39.0 - Urinary tract infection, site not specified Status: Acute Assessment and Plan: * finished at. Subjective Date/time seen: 05/19/20 10:04 Interval history: Patient is still on the ventilator. not much swelling. His eyes are open and he regards the examiner but does not interact very much currently. Review of Systems Review of Systems: ROS unobtainable: Yes unobtainable due to medical condition Exam Narrative: Exam Narrative: General: Large male intubated/sedated but in NAD Heart: normal S1 and S2; no rub; tachycardic Lungs: coarse and symmetric. Abdomen: soft, nontender, nondistended, positive bowel sounds Extremities: minimal edema Skin: no rash or subcu nodules Objective Data Vital Signs Vital Signs: Vital Signs - 24 hr 05/18/20 11:09 05/18/20 12:00 05/18/20 14:00 Temperature Pulse Rate 109 H 102 H 106 H Respiratory Rate 27 H Blood Pressure Pulse Oximetry 99 98 05/18/20 14:23 05/18/20 14:28 05/18/20 14:33 Temperature Pulse Rate 105 H 105 H 103 H Respiratory Rate 19 21 H 20 Blood Pressure 104/47 L 108/52 L 112/58 L Pulse Oximetry 97 97 99 05/18/20 14:38 05/18/20 14:43 05/18/20 14:55 Temperature Pulse Rate 102 H 96 103 H Respiratory Rate 23 H 21 H 20 Blood Pressure 103/59 L 102/54 L Pulse Oximetry 99 98 97 05/18/20 15:33 05/18/20 15:43 05/18/20 16:00 Temperature 36.2 C L Pulse Rate 106 H 107 H 109 H Respiratory Rate 19 20 Blood Pressure 110/49 L Pulse Oximetry 100 100 05/18/20 16:31 05/18/20
--- NOTE | 2020-05-19 10:04 | PM.PNNEP ---
Progress Note: A&P Assessment and Plan (1) GONZALO (acute kidney injury): Code(s): N17.9 - Acute kidney failure, unspecified Status: Acute Assessment and Plan: evaluation to date demonstrates: - renal ultrasound unremarkable - urinalysis shows blood and leukocytes - urine electrolytes are non pre renal u.o. still poor. Guan catheter is out. Persistent renal failure is probably related to the fungemia. Potassium was low so this was supplemented. (2) Hyponatremia: Code(s): E87.1 - Hypo-osmolality and hyponatremia Status: Acute Assessment and Plan: just barely low. (3) Hyperkalemia: Code(s): E87.5 - Hyperkalemia Status: Acute Assessment and Plan: resolved (4) Septic shock: Code(s): A41.9 - Sepsis, unspecified organism; R65.21 - Severe sepsis with septic shock Status: Acute Assessment and Plan: off pressor therapy blood cultures with E.coli off antibiotics. Recent cultures show yeast. This came back after PermCath had already been placed yesterday. He is currently on micro function. Dr. painter sueay with leaving PermCath in place for now. (5) Acute respiratory failure: Code(s): J96.00 - Acute respiratory failure, unspecified whether with hypoxia or hypercapnia Status: Acute Assessment and Plan: on ventilator support ongoing fluid removal as tolerated wean as tolerated To get trach and PEG at some point (6) UTI (urinary tract infection): Code(s): N39.0 - Urinary tract infection, site not specified Status: Acute Assessment and Plan: finished atbs. Subjective Date/time seen: 05/19/20 10:04 Interval history: Patient is still on the ventilator. not much swelling. His eyes are open and he regards the examiner but does not interact very much currently. Review of Systems Review of Systems: ROS unobtainable: Yes unobtainable due to medical condition Exam Narrative: Exam Narrative: General: Large male intubated/sedated but in NAD Heart: normal S1 and S2; no rub; tachycardic Lungs: coarse and symmetric. Abdomen: soft, nontender, nondistended, positive bowel sounds Extremities: minimal edema Skin: no rash or subcu nodules Objective Data Vital Signs Vital Signs: Vital Signs - 24 hr 05/18/20 11:09 05/18/20 12:00 05/18/20 14:00 Temperature Pulse Rate 109 H 102 H 106 H Respiratory Rate 27 H Blood Pressure Pulse Oximetry 99 98 05/18/20 14:23 05/18/20 14:28 05/18/20 14:33 Temperature Pulse Rate 105 H 105 H 103 H Respiratory Rate 19 21 H 20 Blood Pressure 104/47 L 108/52 L 112/58 L Pulse Oximetry 97 97 99 05/18/20 14:38 05/18/20 14:43 05/18/20 14:55 Temperature Pulse Rate 102 H 96 103 H Respiratory Rate 23 H 21 H 20 Blood Pressure 103/59 L 102/54 L Pulse Oximetry 99 98 97 05/18/20 15:33 05/18/20 15:43 05/18/20 16:00 Temperature 36.2 C L Pulse Rate 106 H 107 H 109 H Respiratory Rate 19 20 Blood Pressure 110/49 L Pulse Oximetry 100 100 05/18/20 16:31 05/18/20 17:50 05/18/20 18:00 Temperature Pulse Rate 109 H 108 H 111 H Respiratory Rate 13 Blood Pressure 142/81 H Pulse Oximetry 97 96 05/18/20 18:34 05/18/20 18:45 05/18/20 19:00 Temperature 35.8 C L Pulse Rate 111 H 105 H 114 H Respiratory Rate 22 H Blood Pressure 102/54 L 98/54 L 99/58 L Pulse Oximetry 90 05/18/20 19:15 05/18/20 19:30 05/18/20 19:36 Temperature Pulse Rate 116 H 118 H 110 H Respiratory Rate Blood Pressure 88/54 L 78/56 L 99/49 L Pulse Oximetry 05/18/20 19:45 05/18/20 20:00 05/18/20 20:15 Temperature 36.7 C Pulse Rate 111 H 113 H 115 H Respiratory Rate 24 H Blood Pressure 92/59 L 97/60 L 106/57 L Pulse Oximetry 97 05/18/20 20:30 05/18/20 20:45 05/18/20 21:00 Temperature Pulse Rate 120 H 120 H 115 H Respiratory Rate Blood Pressur
--- NOTE | 2020-05-19 10:55 | PCDIET ---
Nutrition Follow-Up Complete: Nutrition Diagnosis: Inadequate oral intake related to oral intubation as evidenced by NPO status. Nutrition Goal: Patient to meet estimated nutritional needs. Goal in progress. Tube feedings resumed on 05/18/20 after feeding tube placement. Currently receiving Nepro at 40mL/hr with 30mL water flush every 4 hours. Tube feeding goal rate is 50mL/hr. Clarified order to continue Pro-Stat BID with MD. Last recorded weight is 131.5 kg which is decreased from last review. Patient had 1.8L UF on 05/18/20. Bowel Motility: BM x 1 on 05/18/20. Labs Reviewed: Hgb (8.4), Hct (27.6), Glu (134), K (2.8), Na (136), Alb (2.7), Natalya Ca (9.14) Meds Noted: Pulmicort, Diflucan, Lantus, Xopenex, Reglan, Levophed, Protonix, Epogen, KCl Additional Notes: Blister to abdomen. Coccyx with deep tissue injury. Abdomen also with blister. Will continue to monitor with same goal. Nutrition Monitoring and Evaluation: Follow up every Friday/Friday. Follow daily in ICU rounds.
[2020-05-19 11:51] LABS: Glucose Point of Care 162 (65-105)
[2020-05-19] MEDS: NOREPINEPHRINE 8 MG/D5W 250 ML 8 MG/250 ML BAG 5.63 MG IV CONT (11:52)
--- NOTE | 2020-05-19 13:35 | WPDINFPN2 ---
Progress Note: A&P Assessment and Plan (1) Septic shock: Code(s): A41.9 - Sepsis, unspecified organism; R65.21 - Severe sepsis with septic shock Status: Acute Assessment and Plan: 1. Septic shock due to E coli UTI with bacteremia, resolved. 2. MSOF 3. CoVid 19 infection 03/25/20 4. Persistent fever due to Lindy bloodstream infection, the temporary HD cath is likely source, urine or lung less likely REC The new HD catheter can remain in place for now, exam today demonstrates no superficial infection. Fluconazole #2 (antifungal #3), adjusted for low CrCl. No empiric antibacterials. Follow fever over time. New leukocytosis is not surprising. Subjective Date/time seen: 05/19/20 13:35 Interval history: norepi 3 mcg. Intubated, eyes kept closed Exam Narrative: Exam Narrative: t max 38.3 Const: General: no acute distress Other: obese Neck: Neck: supple Resp: Effort & Inspection: normal respiratory effort Auscultation: rales and diminished lung sounds Cardio: Rate: tachycardic Rhythm: regular rhythm Heart sounds: no murmurs GI: Inspection: non-distended GI Palp: Yes Soft to palpation and No Tenderness to palpation present (GI) Other: luq partial thickness necrosis, no cellulitis Objective Data Vital Signs Vital Signs: Vital Signs - 24 hr 05/18/20 14:00 05/18/20 14:23 05/18/20 14:28 Temperature Pulse Rate 106 H 105 H 105 H Respiratory Rate 19 21 H Blood Pressure 104/47 L 108/52 L Pulse Oximetry 97 97 05/18/20 14:33 05/18/20 14:38 05/18/20 14:43 Temperature Pulse Rate 103 H 102 H 96 Respiratory Rate 20 23 H 21 H Blood Pressure 112/58 L 103/59 L 102/54 L Pulse Oximetry 99 99 98 05/18/20 14:55 05/18/20 15:33 05/18/20 15:43 Temperature 36.2 C L Pulse Rate 103 H 106 H 107 H Respiratory Rate 20 19 20 Blood Pressure 110/49 L Pulse Oximetry 97 100 100 05/18/20 16:00 05/18/20 16:31 05/18/20 17:50 Temperature Pulse Rate 109 H 109 H 108 H Respiratory Rate 13 Blood Pressure 142/81 H Pulse Oximetry 97 96 05/18/20 18:00 05/18/20 18:34 05/18/20 18:45 Temperature 35.8 C L Pulse Rate 111 H 111 H 105 H Respiratory Rate 22 H Blood Pressure 102/54 L 98/54 L Pulse Oximetry 90 05/18/20 19:00 05/18/20 19:15 05/18/20 19:30 Temperature Pulse Rate 114 H 116 H 118 H Respiratory Rate Blood Pressure 99/58 L 88/54 L 78/56 L Pulse Oximetry 05/18/20 19:36 05/18/20 19:45 05/18/20 20:00 Temperature 36.7 C Pulse Rate 110 H 111 H 113 H Respiratory Rate 24 H Blood Pressure 99/49 L 92/59 L 97/60 L Pulse Oximetry 97 05/18/20 20:15 05/18/20 20:30 05/18/20 20:45 Temperature Pulse Rate 115 H 120 H 120 H Respiratory Rate Blood Pressure 106/57 L 102/63 103/58 L Pulse Oximetry 05/18/20 21:00 05/18/20 21:15 05/18/20 21:30 Temperature Pulse Rate 115 H 121 H 122 H Respiratory Rate Blood Pressure 99/59 L 106/54 L 112/62 Pulse Oximetry 98 05/18/20 21:45 05/18/20 22:00 05/18/20 22:15 Temperature Pulse Rate 122 H 127 H 124 H Respiratory Rate 26 H Blood Pressure 97/60 L 97/53 L 97/80 L Pulse Oximetry 95 05/18/20 22:25 05/18/20 23:46 05/19/20 00:00 Temperature 35.9 C L 37.7 C H Pulse Rate 119 H 119 H Respiratory Rate 32 H 27 H Blood Pressure 96/56 L 109/50 L Pulse Oximetry 93 98 98 05/19/20 00:12 05/19/20 00:22 05/19/20 02:00 Temperature Pulse Rate 119 H 119 H 111 H Respiratory Rate 29 H 23 H Blood Pressure 99/56 L Pulse Oximetry 99 98 05/19/20 03:09 05/19/20 04:00 05/19/20 04:43 Temperature 37.7 C H Pulse Rate 113 H 109 H 114 H Respiratory Rate 20 23 H Blood Pressure 104/56 L Pulse Oximetry 99 98 05/19/20 05:08 05/19/20 06:00 05/19/20 06:02 Temperature Pulse Rate 116 H 117 H Respiratory Rate 25 H Blood Pressure 101/45 L 101/45 L Pulse Oximetry 98 99 05/19/20 07:58 05/19/20 07:59 05/19/20 08:00 Temperature 38.0 C H Pulse Rate 121 H 120 H 105 H
--- NOTE | 2020-05-19 15:38 | PM.IMPN ---
Progress Note: A&P Assessment and Plan (1) Acute respiratory failure: Code(s): J96.00 - Acute respiratory failure, unspecified whether with hypoxia or hypercapnia Status: Acute Assessment and Plan: Patient currently intubated. He is off sedation now. Plan for weaning trial but may need trach if unsuccessful. Sputum growing lindy of unclear significance. Appreciate passenger service supervisor input. (2) Septic shock: Code(s): A41.9 - Sepsis, unspecified organism; R65.21 - Severe sepsis with septic shock Status: Acute Assessment and Plan: Initially related to EColi septicemia but this has resolved. Now with fungemia with BCx 05/14 positive for Lidny albicans. Tunneled HD catheter placed 05/17. ID notified and antifungal treatment started. Explains why he still requires levophed and the persistent fevers. Lindy in urine and sputum as well. Related to skin infection or recent central line or lung? Continue current anti-fungal treatment. Appreciate ID input. (3) GONZALO (acute kidney injury): Code(s): N17.9 - Acute kidney failure, unspecified Status: Acute Assessment and Plan: Patient has developed renal failure to the point of requiring replacement therapy. Continue HD as needed. Monitor UOP. Monitor electrolytes. Tunneled catheter placed 05/17. (4) Skin ulcer of abdomen: Code(s): L98.499 - Non-pressure chronic ulcer of skin of other sites with unspecified severity Status: Acute Assessment and Plan: Noted on exam and extensive. Continue current wound care. (5) UTI (urinary tract infection): Code(s): N39.0 - Urinary tract infection, site not specified Status: Acute Assessment and Plan: On admission, blood culture (1of2) growing EColi; UCx also growing EColi. Repeat UCx growing lindy. Off abx currently. BCx positive for yeast - as above. (6) [place] (obstructive sleep apnea): Code(s): G47.33 - Obstructive sleep apnea (adult) (pediatric) Status: Chronic Assessment and Plan: The patient is currently intubated. (7) Chronic respiratory failure with hypercapnia: Code(s): J96.12 - Chronic respiratory failure with hypercapnia Status: Acute Assessment and Plan: Patient currently intubated. As above (8) Asthma: Qualifiers: Asthma complication type: unspecified Asthma persistence: unspecified Asthma severity: unspecified severity Qualified Code(s): J45.909 - Unspecified asthma, uncomplicated Code(s): J45.909 - Unspecified asthma, uncomplicated Status: Acute Assessment and Plan: Patient with hx of asthma. Has atopy as well. IgE level 6400 in 2019. No wheezing today. Will continue with ventilation support. Continue Xopenex and Pulmicort. (9) Anemia: Code(s): D64.9 - Anemia, unspecified Status: Acute Assessment and Plan: Hemoglobin 7.7 on admission and has been running in the 6-7 range mostly. Hemoglobin 6.7 on 05/16 and patient received 1U PRBC transfusion. He has received a total of 4 units of packed red blood cells since admission. Stool for occult blood is negative. Iron studies more consistent with anemia of chronic disease. Hgb better at 8.4 today. Continue to follow. Transfuse as necessary. (10) Hyponatremia: Code(s): E87.1 - Hypo-osmolality and hyponatremia Status: Acute Assessment and Plan: Sodium better. Continue to monitor. (11) COVID-19: Code(s): U07.1 - COVID-19 Status: Acute Assessment and Plan: Patient was diagnosed earlier in February resulting in intubation at [facility] at that time. (12) Autism: Code(s): F84.0 - Autistic disorder Status: Chronic Assessment and Plan: Unsure of baseline. The patient had lived home alone at 1 time. (13) DVT prophylaxis: Code(s): Z29.9 - Encounter for prophylactic measures, unspecified
[2020-05-19] MEDS: ACETAMINOPHEN ELIXIR 325 MG/10.15 ML UDC 650 MG PO (16:19)
--- NOTE | 2020-05-19 16:44 | WPDGIPROGNO ---
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 Still in ICU Review of Systems Review of Systems: All systems reviewed & are unremarkable except as noted in HPI and below Exam Narrative: Exam Narrative: intubated and sedated Const: General: comfortable and no acute distress Nutritional Appearance: obese HENMT: Head: normocephalic and atraumatic Other: ETT in place Eyes: General: appearance normal, both eyes and all related structures Neck: Neck: trachea midline and supple Resp: Effort & Inspection: normal respiratory effort Auscultation: rhonchi and diminished lung sounds Cardio: Jugular venous distension: no JVD Rhythm: regular rhythm Heart sounds: S1 normal heart sound present and S2 normal heart sound present GI: Inspection: normal to inspection and non-distended GI Palp: Yes Soft to palpation and No Tenderness to palpation present (GI) Auscultation: normal bowel sounds Other: Morbidly obese, G-tube in place, looks ok : Other: Guan catheter in place Urinary Catheter: Urinary Catheter: patent and draining and urine dark Skin: General skin exam: normal color and no rashes or lesions noted Other: Ruptured/open Blisters on the back, feet and abdomen Neuro: Cranial nerves: Yes Equal, round and reactive pupils present Other: Patient is off all sedation, nods to questions. Extrem: General: edema and pedal edema Psych: Other: Unable to assess at this time Objective Data Vital Signs Vital Signs: Vital Signs - 24 hr 05/18/20 17:50 05/18/20 18:00 05/18/20 18:34 Temperature 96.5 F L Pulse Rate 108 H 111 H 111 H Respiratory Rate 13 22 H Blood Pressure 142/81 H 102/54 L Pulse Oximetry 96 90 05/18/20 18:45 05/18/20 19:00 05/18/20 19:15 Temperature Pulse Rate 105 H 114 H 116 H Respiratory Rate Blood Pressure 98/54 L 99/58 L 88/54 L Pulse Oximetry 05/18/20 19:30 05/18/20 19:36 05/18/20 19:45 Temperature Pulse Rate 118 H 110 H 111 H Respiratory Rate Blood Pressure 78/56 L 99/49 L 92/59 L Pulse Oximetry 05/18/20 20:00 05/18/20 20:15 05/18/20 20:30 Temperature 98.1 F Pulse Rate 113 H 115 H 120 H Respiratory Rate 24 H Blood Pressure 97/60 L 106/57 L 102/63 Pulse Oximetry 97 05/18/20 20:45 05/18/20 21:00 05/18/20 21:15 Temperature Pulse Rate 120 H 115 H 121 H Respiratory Rate Blood Pressure 103/58 L 99/59 L 106/54 L Pulse Oximetry 98 05/18/20 21:30 05/18/20 21:45 05/18/20 22:00 Temperature Pulse Rate 122 H 122 H 127 H Respiratory Rate 26 H Blood Pressure 112/62 97/60 L 97/53 L Pulse Oximetry 95 05/18/20 22:15 05/18/20 22:25 05/18/20 23:46 Temperature 96.7 F L Pulse Rate 124 H 119 H Respiratory Rate 32 H Blood Pressure 97/80 L 96/56 L Pulse Oximetry 93 98 05/19/20 00:00 05/19/20 00:12 05/19/20 00:22 Temperature 100 F H Pulse Rate 119 H 119 H 119 H Respiratory Rate 27 H 29 H Blood Pressure 109/50 L Pulse Oximetry 98 99 05/19/20 02:00 05/19/20 03:09 05/19/20 04:00 Temperature 100 F H Pulse Rate 111 H 113 H 109 H Respiratory Rat
--- NOTE | 2020-05-19 16:50 | PC.NURSE ---
1625-NOTIFIED DR. KEYS OF PATIENTS ORAL TEMPERATURE 102.4. TYLENOL ELIXIR 600 MG GIVEN THROUGH [facility]. WILL CONTINUE TO MONITOR.
[2020-05-19 17:52] LABS: Glucose Point of Care 167 (65-105)
[2020-05-20] VITALS (60 sets, daily range): BP systolic 76–182; BP diastolic 43–166; PULSE 109–151; RESP 21–34; TEMP 36.4–40.2; O2SAT 92–100
[2020-05-20] MEDS: ACETAMINOPHEN ELIXIR 325 MG/10.15 ML UDC 650 MG PO ×4 (00:59→22:05)
[2020-05-20 01:14] LABS: Glucose Point of Care 172 (65-105)
[2020-05-20 05:19] LABS: Hematocrit 27.1 % (42.0-52.0); Hemoglobin 8.1 g/dL (14.0-18.0); Mean Corpuscular HGB Conc 29.9 g/dl (32-36); Mean Corpuscular Hemoglobin 29.6 pg (26-34); Mean Corpuscular Volume 98.9 fl (80-100); Mean Platelet Volume 11.2 fl (7.4-10.4); Platelet Count Result 186 k/mm3 (150-375); Red Blood Count 2.74 M/mm3 (4.6-6.20); Red Cell Distribution Width 19.1 % (11.5-14.5); White Blood Count 10.2 K/mm3 (4.5-10.0)
[2020-05-20 05:35] LABS: Lactic Acid Reflex 2.2 mmol/L (0.7-2.1)
[2020-05-20 05:54] LABS: Alanine Aminotransferase 32 U/L (4-50); Albumin Level 2.6 g/dL (3.5-5.1); Alkaline Phosphatase 1064 U/L (38-126); Anion Gap 10 mmol/L (8-16); Aspartate Amino Transferase 32 U/L (17-59); Bilirubin,Total 0.8 mg/dL (0.2-1.3); Blood Urea Nitrogen 44 mg/dL (9-20); Calcium 8.6 mg/dL (8.4-10.2); Carbon Dioxide 26 mmol/L (22-30); Chloride 100 mmol/L (98-107); Estimated CRCL calculation 66 ml/min; Estimated Glomerular Filt Rate 49; Glucose 193 mg/dL (75-110); Magnesium 2.2 mg/dL (1.6-2.3); Phosphorus 3.2 mg/dL (2.5-4.5); Potassium 2.7 mmol/L (3.4-5.0); Sodium 136 mmol/L (137-145)
[2020-05-20] MEDS: CENTRAL LINE FLUSH 10 ML IV PUSH ×5 (06:18→21:00)
[2020-05-20 06:55] LABS: Glucose Point of Care 176 (65-105)
[2020-05-20 07:05] LABS: CRP 40.1 mg/dL (<1.0)
[2020-05-20 07:21] LABS: Band Neutrophils Percent 3 % (0-6); Eosinophils Percent Manual 3 % (0-4); Lymphocytes Absolute Manual 1.93 K/mm3 (1.1-4.5); Monocytes Absolute Manual 1.32 K/mm3 (0.1-0.90); Monocytes Percent Manual 13 % (3-9); Neutrophils Absolute Manual 6.63 K/mm3 (1.3-6.7); Neutrophils Percent Manual 62 % (46-73); Total Cells Counted 100
[2020-05-20 07:22] LABS: Large Platelets Present; Platelet Estimate Adequate (Adequate); Polychromasia 1+ (NORMAL)
[2020-05-20 08:16] LABS: Reflex Lactic Acid Yes or No Add Lactic
[2020-05-20] MEDS: IPRATROPIUM BR 0.02% INH SOLN 0.5 MG/2.5 ML VIAL INHALATION ×3 (09:20→19:52)
[2020-05-20] MEDS: BUDESONIDE RESPULE NEB 0.5 MG/2 ML AMP INHALATION ×2 (09:20→19:52)
[2020-05-20] MEDS: INSULIN GLARGINE (*BKC) 100 UNITS/ML 20 UNITS SUB-Q (09:39)
[2020-05-20] MEDS: HEPARIN SODIUM 5,000 UNITS/ML VIAL 5000 UNITS SUB-Q ×2 (09:39→21:01)
[2020-05-20] MEDS: PANTOPRAZOLE SODIUM IV 40 MG VIAL IV PUSH (09:39)
[2020-05-20] MEDS: TOLNAFTATE 1% POWDER 45 GM BTL 1 APPLIC TOPICAL ×2 (09:39→21:00)
--- NOTE | 2020-05-20 10:48 | P.PNNP_ITS ---
Progress Note: A&P Assessment and Plan (1) GONZALO (acute kidney injury): Code(s): N17.9 - Acute kidney failure, unspecified Status: Acute Assessment and Plan: * evaluation to date demonstrates: - renal ultrasound unremarkable - urinalysis shows blood and leukocytes - urine electrolytes are non pre renal * u.o. still poor. * Guan catheter is out. * Persistent renal failure is probably related to the fungemia. * Potassium was low so this was supplemented. (2) Hyponatremia: Code(s): E87.1 - Hypo-osmolality and hyponatremia Status: Acute Assessment and Plan: * just barely low. (3) Hyperkalemia: Code(s): E87.5 - Hyperkalemia Status: Acute Assessment and Plan: * resolved (4) Septic shock: Code(s): A41.9 - Sepsis, unspecified organism; R65.21 - Severe sepsis with septic shock Status: Acute Assessment and Plan: * off pressor therapy * blood cultures with E.coli * off antibiotics. * Recent cultures show yeast. This came back after PermCath had already been placed yesterday. * He is currently on micofungin * repeat cx neg so far. Dr. monson okay with leaving PermCath in place for now. (5) Acute respiratory failure: Code(s): J96.00 - Acute respiratory failure, unspecified whether with hypoxia or hypercapnia Status: Acute Assessment and Plan: * on ventilator support * ongoing fluid removal as tolerated * wean as tolerated * To get trach and PEG at some point (6) UTI (urinary tract infection): Code(s): N39.0 - Urinary tract infection, site not specified Status: Acute Assessment and Plan: * finished atbs. Subjective Date/time seen: 05/20/20 10:48 Interval history: Patient is still on the ventilator. He looks comfortable. Eyes are open but does not interact very much. Review of Systems Review of Systems: ROS unobtainable: Yes unobtainable due to medical condition Exam Narrative: Exam Narrative: General: Large male intubated/sedated but in NAD Heart: normal S1 and S2; no rub; tachycardic Lungs: coarse Abdomen: soft, nontender, nondistended, positive bowel sounds Extremities: minimal edema Skin: no rash Objective Data Vital Signs Vital Signs: Vital Signs - 24 hr 05/19/20 11:52 05/19/20 12:00 05/19/20 14:00 Temperature 38.3 C H 38.3 C H Pulse Rate 120 H 120 H 116 H Respiratory Rate 35 H 35 H Blood Pressure 116/50 L 108/46 L 106/44 L Pulse Oximetry 98 99 05/19/20 14:44 05/19/20 14:48 05/19/20 16:00 Temperature 39.1 C H Pulse Rate 123 H 127 H 122 H Respiratory Rate 32 H 35 H Blood Pressure 101/41 L Pulse Oximetry 97 100 05/19/20 16:19 05/19/20 16:49 05/19/20 17:20 Temperature 39.1 C H 38.3 C H Pulse Rate 121 H Respiratory Rate Blood Pressure Pulse Oximetry 99 05/19/20 17:57 05/19/20 18:00 05/19/20 19:30 Temperature 38.3 C H Pulse Rate 122 H 119 H 120 H Respiratory Rate 35 H 35 H Blood Pressure 100/46 L 108/43 L Pulse Oximetry 99 05/19/20 19:34 05/19/20 19:38 05/19/20
--- NOTE | 2020-05-20 10:48 | PM.PNNEP ---
Progress Note: A&P Assessment and Plan (1) GONZALO (acute kidney injury): Code(s): N17.9 - Acute kidney failure, unspecified Status: Acute Assessment and Plan: evaluation to date demonstrates: - renal ultrasound unremarkable - urinalysis shows blood and leukocytes - urine electrolytes are non pre renal u.o. still poor. Guan catheter is out. Persistent renal failure is probably related to the fungemia. Potassium was low so this was supplemented. (2) Hyponatremia: Code(s): E87.1 - Hypo-osmolality and hyponatremia Status: Acute Assessment and Plan: just barely low. (3) Hyperkalemia: Code(s): E87.5 - Hyperkalemia Status: Acute Assessment and Plan: resolved (4) Septic shock: Code(s): A41.9 - Sepsis, unspecified organism; R65.21 - Severe sepsis with septic shock Status: Acute Assessment and Plan: off pressor therapy blood cultures with E.coli off antibiotics. Recent cultures show yeast. This came back after PermCath had already been placed yesterday. He is currently on micofungin repeat cx neg so far. Dr. monson okay with leaving PermCath in place for now. (5) Acute respiratory failure: Code(s): J96.00 - Acute respiratory failure, unspecified whether with hypoxia or hypercapnia Status: Acute Assessment and Plan: on ventilator support ongoing fluid removal as tolerated wean as tolerated To get trach and PEG at some point (6) UTI (urinary tract infection): Code(s): N39.0 - Urinary tract infection, site not specified Status: Acute Assessment and Plan: finished atbs. Subjective Date/time seen: 05/20/20 10:48 Interval history: Patient is still on the ventilator. He looks comfortable. Eyes are open but does not interact very much. Review of Systems Review of Systems: ROS unobtainable: Yes unobtainable due to medical condition Exam Narrative: Exam Narrative: General: Large male intubated/sedated but in NAD Heart: normal S1 and S2; no rub; tachycardic Lungs: coarse Abdomen: soft, nontender, nondistended, positive bowel sounds Extremities: minimal edema Skin: no rash Objective Data Vital Signs Vital Signs: Vital Signs - 24 hr 05/19/20 11:52 05/19/20 12:00 05/19/20 14:00 Temperature 38.3 C H 38.3 C H Pulse Rate 120 H 120 H 116 H Respiratory Rate 35 H 35 H Blood Pressure 116/50 L 108/46 L 106/44 L Pulse Oximetry 98 99 05/19/20 14:44 05/19/20 14:48 05/19/20 16:00 Temperature 39.1 C H Pulse Rate 123 H 127 H 122 H Respiratory Rate 32 H 35 H Blood Pressure 101/41 L Pulse Oximetry 97 100 05/19/20 16:19 05/19/20 16:49 05/19/20 17:20 Temperature 39.1 C H 38.3 C H Pulse Rate 121 H Respiratory Rate Blood Pressure Pulse Oximetry 99 05/19/20 17:57 05/19/20 18:00 05/19/20 19:30 Temperature 38.3 C H Pulse Rate 122 H 119 H 120 H Respiratory Rate 35 H 35 H Blood Pressure 100/46 L 108/43 L Pulse Oximetry 99 05/19/20 19:34 05/19/20 19:38 05/19/20 20:00 Temperature 38.6 C H Pulse Rate 118 H 119 H 118 H Respiratory Rate 35 H 26 H Blood Pressure 95/47 L Pulse Oximetry 99 99 05/19/20 20:06 05/19/20 20:21 05/19/20 20:33 Temperature Pulse Rate 120 H 120 H 118 H Respiratory Rate Blood Pressure 95/47 L 84/43 L Pulse Oximetry 99 05/19/20 22:00 05/19/20 22:46 05/20/20 00:00 Temperature Pulse Rate 120 H 117 H 118 H Respiratory Rate 24 H Blood Pressure 94/48 L Pulse Oximetry 99 100 05/20/20 00:56 05/20/20 00:59 05/20/20 01:11 Temperature 39.2 C H 39.2 C H Pulse Rate 120 H 115 H Respiratory Rate 25 H 23 H Blood Pressure 98/45 L Pulse Oximetry 100 05/20/20 01:12 05/20/20 01:21 05/20/20 01:59 Temperature 38.8 C H Pulse Rate 115 H 116 H Respiratory Rate 24 H Blood Pressure Pulse Oximetry 100 02/2
[2020-05-20 13:26] LABS: Glucose Point of Care 150 (65-105)
--- NOTE | 2020-05-20 13:53 | P.PNINT_ITS ---
Progress Note: A&P Assessment and Plan (1) Acute respiratory failure: Code(s): J96.00 - Acute respiratory failure, unspecified whether with hypoxia or hypercapnia Status: Acute Assessment and Plan: Acute respiratory failure likely related to septic shock, altered mental status, metabolic acidosis. Intubated on 04/30/2020 -chest x-ray and ABGs reviewed -patient on CMV mode of ventilation, peep of 8 in 40% FiO2. -patient did tolerate pressure support ventilation 11/11 until dialysis yesterday and was tachypneic, tachycardic with low tidal volumes. Patient was placed back on CMV mode. -patient very weak and it may take him time to wean of the ventilator. Has been intubated for almost 19 days. -PEG tube placed 05/18 Tracheostomy scheduled for 05/22 -Patient is off all sedation keep him off all sedation for now -significant amount of volume has been removed with hemodialysis (2) Septic shock: Code(s): A41.9 - Sepsis, unspecified organism; R65.21 - Severe sepsis with septic shock Status: Acute Assessment and Plan: Back on Levophed since 05/16/2020 -05/13/2020 urine cultures growing Lindy albicans, sputum cultures negative, blood cultures growing Lindy AlbicansT 04/01 bottles -on Diflucan per ID. ( 05/18/2020) -appreciate infectious disease recommendations hold of antibiotics at this time, -04/30/2020 E coli bacteremia and UTI status post 10 days of ceftriaxone -echocardiogram 05/01/2020: Showed EF of >70%, no pulmonary hypertension, no valvular issues -venous Dopplers 05/01/2020: Negative for DVT -off of stress dose steroids (3) Fever: Code(s): R50.9 - Fever, unspecified Status: Acute Assessment and Plan: Fevers improving, White count normal He has completed a 10 day course of Rocephin for his E coli bacteremia and UTI Blood cultures were repeated 05/10 sputum culture 05/11 negative till now Central venous catheter in left IJ was removed Venous Dopplers on 05/12/2020 upper and lower extremities were negative for DVT -will discuss with infectious disease (4) UTI (urinary tract infection): Code(s): N39.0 - Urinary tract infection, site not specified Status: Acute Assessment and Plan: E coli in urine, completed 10 day course of Rocephin (5) GONZALO (acute kidney injury): Code(s): N17.9 - Acute kidney failure, unspecified Status: Acute Assessment and Plan: Acute kidney injury, patient oliguric/anuric -renal ultrasound normal kidneys with no hydronephrosis -tunneled dialysis catheter was inserted on 05/17/2020 by surgery - Dialysis as per nephrology. (6) COVID-19: Code(s): U07.1 - COVID-19 Status: Acute Assessment and Plan: Patient was positive on 03/25/2020 for COVID-19. Currently not on any treatment or isolation (7) Asthma: Qualifiers: Asthma severity: unspecified severity Asthma persistence: unspecified Asthma complication type: unspecified Qualified Code(s): J45.909 - Unspecified asthma, uncomplicated Code(s): J45.909 - Unspecified asthma, uncomplicated Status: Acute Assessment and Plan: Continue scheduled albuterol 2.5 mg q.6 hours along with Pulmicort 0.5 mg q.12 hours nebulized. (8) DVT prophylaxis: Code(s): Z29.9 - Encounter for prophylactic measures, unspecified Status: Acute Assessment and Plan: Heparin subcu (9) Dietary counseling and surveillance: Code(s): Z71.3 - Dietary counseling and surveillance Status: Acute
[2020-05-20] MEDS: NOREPINEPHRINE 8 MG/D5W 250 ML 8 MG/250 ML BAG 15 MG IV CONT (13:57)
[2020-05-20] MEDS: MICAFUNGIN SODIUM 100 MG in SODIUM CHLORIDE 0.9% IV 100 ML IVPB (13:58)
--- NOTE | 2020-05-20 16:14 | PM.IMPN ---
Progress Note: A&P Assessment and Plan (1) Acute respiratory failure: Code(s): J96.00 - Acute respiratory failure, unspecified whether with hypoxia or hypercapnia Status: Acute Assessment and Plan: Patient currently intubated. He is off sedation now. Plan for trach next week. Sputum growing lindy of unclear significance. 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 (2) Septic shock: Code(s): A41.9 - Sepsis, unspecified organism; R65.21 - Severe sepsis with septic shock Status: Acute Assessment and Plan: Initially related to EColi septicemia but this has resolved. Now with fungemia with BCx 05/14 positive for Lindy albicans. Tunneled HD catheter placed 05/17. ID notified and antifungal treatment started. Explains why he still requires levophed and the persistent fevers. Lindy in urine and sputum as well. Related to skin infection or recent central line or lung? Repeat BCx 05/18 NGTD. Lactic acid level elevated. Still having fevers on Diflucan; changed to Micafungin. Appreciate ID input. (3) GONZALO (acute kidney injury): Code(s): N17.9 - Acute kidney failure, unspecified Status: Acute Assessment and Plan: Patient has developed renal failure to the point of requiring replacement therapy. Tunneled catheter placed 05/17. Monitor UOP. Monitor electrolytes. Continue HD as needed. (4) Skin ulcer of abdomen: Code(s): L98.499 - Non-pressure chronic ulcer of skin of other sites with unspecified severity Status: Acute Assessment and Plan: Noted on exam and extensive. Continue current wound care. (5) UTI (urinary tract infection): Code(s): N39.0 - Urinary tract infection, site not specified Status: Acute Assessment and Plan: On admission, blood culture (1of2) growing EColi; UCx also growing EColi. Resolved and off abx now. Repeat UCx growing lindy. BCx positive for yeast - as above. (6) [place] (obstructive sleep apnea): Code(s): G47.33 - Obstructive sleep apnea (adult) (pediatric) Status: Chronic Assessment and Plan: The patient is currently intubated. (7) Chronic respiratory failure with hypercapnia: Code(s): J96.12 - Chronic respiratory failure with hypercapnia Status: Acute Assessment and Plan: Patient currently intubated. As above (8) Asthma: Qualifiers: Asthma complication type: unspecified Asthma persistence: unspecified Asthma severity: unspecified severity Qualified Code(s): J45.909 - Unspecified asthma, uncomplicated Code(s): J45.909 - Unspecified asthma, uncomplicated Status: Acute Assessment and Plan: Patient with hx of asthma. Has atopy as well. IgE level 6400 in 2019. Will continue with ventilation support. Continue Pulmicort. Xopenex changed to Atrovent (9) Anemia: Code(s): D64.9 - Anemia, unspecified Status: Acute Assessment and Plan: Hemoglobin 7.7 on admission and has been running in the 6-7 range mostly. Hemoglobin 6.7 on 05/16 and patient received 1U PRBC transfusion. He has received a total of 4 units of packed red blood cells since admission. Stool for occult blood is negative. Iron studies more consistent with anemia of chronic disease. Hgb stable in the 8 range. Continue to follow. Transfuse as necessary. (10) Hyponatremia: Code(s): E87.1 - Hypo-osmolality and hyponatremia Status: Acute Assessment and Plan: Sodium better. Continue to monitor. (11) COVID-19: Code(s): U07.1 - COVID-19 Status: Acute Assessment and Plan: Patient was diagnosed earlier in February resulting in intubation at [facility] at that time. (12) Autism: Code(s): F84.0 - Autistic disorder Status: Chronic Assessment and Plan: Unsure of baseline. The patient had lived home alone at 1 time. (13) DVT prophylaxis: Code(s): Z29.9 - Encount
[2020-05-20] MEDS: HEPARIN SODIUM 1,000 UNITS/ML VIAL 1000 UNITS IV PUSH ×2 (16:55→20:35)
[2020-05-20] MEDS: HEPARIN SODIUM 1,000 UNITS/ML VIAL 500 UNITS IV PUSH ×4 (16:58→20:00)
[2020-05-20 17:36] LABS: Glucose Point of Care 165 (65-105)
--- NOTE | 2020-05-20 18:08 | PC.NURSE ---
Notified MD Salazar of pt HR 150s, temp 103.5, no additional orders received. HD in progress, BP stable. Pt awake, mental status waxing and waning, follows commands at times. Will cont to monitor.
[2020-05-20] MEDS: EPOETIN ALFA-EPBX 10,000 UNITS/ML VIAL 10000 UNITS IV PUSH (19:40)
--- NOTE | 2020-05-20 21:18 | PC.NURSE ---
Three liters removed during dialysis. Pt's BP stable while on levophed. Body temperature continues to increase despite the use of Tylenol and ice packs. Cooling blanket applied.
[2020-05-20] MEDS: NOREPINEPHRINE 8 MG/D5W 250 ML 8 MG/250 ML BAG 35.63 MG IV CONT (23:25)
[2020-05-20 23:57] LABS: Glucose Point of Care 255 (65-105)
[2020-05-21] VITALS (38 sets, daily range): BP systolic 91–125; BP diastolic 49–72; PULSE 111–142; RESP 22–32; TEMP 37.9–40.1; O2SAT 94–100
[2020-05-21] MEDS: IPRATROPIUM BR 0.02% INH SOLN 0.5 MG/2.5 ML VIAL INHALATION ×3 (01:51→20:31)
[2020-05-21] MEDS: ACETAMINOPHEN ELIXIR 325 MG/10.15 ML UDC 650 MG PO ×2 (03:17→13:58)
[2020-05-21 06:00] LABS: Glucose Point of Care 208 (65-105)
[2020-05-21 06:04] LABS: Hematocrit 30.5 % (42.0-52.0); Mean Corpuscular HGB Conc 29.5 g/dl (32-36); Mean Corpuscular Hemoglobin 29.1 pg (26-34); Mean Corpuscular Volume 98.7 fl (80-100); Mean Platelet Volume 11.1 fl (7.4-10.4); Platelet Count Result 191 k/mm3 (150-375); Red Blood Count 3.09 M/mm3 (4.6-6.20); White Blood Count 15.1 K/mm3 (4.5-10.0)
[2020-05-21] MEDS: CENTRAL LINE FLUSH 10 ML IV PUSH ×7 (06:06→21:28)
[2020-05-21] MEDS: INSULIN ASPART (*BKC) 100 UNITS/ML SUB-Q ×2 (06:07)
[2020-05-21 06:16] LABS: Lactic Acid Reflex 2.9 mmol/L (0.7-2.1)
[2020-05-21 06:17] LABS: Albumin Level 2.8 g/dL (3.5-5.1); Anion Gap 7 mmol/L (8-16); Blood Urea Nitrogen 40 mg/dL (9-20); Calcium 8.6 mg/dL (8.4-10.2); Carbon Dioxide 29 mmol/L (22-30); Chloride 98 mmol/L (98-107); Estimated CRCL calculation 74 ml/min; Estimated Glomerular Filt Rate 57; Glucose 222 mg/dL (75-110); Magnesium 2.2 mg/dL (1.6-2.3); Phosphorus 2.1 mg/dL (2.5-4.5); Sodium 134 mmol/L (137-145)
[2020-05-21 06:58] LABS: Band Neutrophils Percent 2 % (0-6); Basophils Absolute Manual 0.15 K/mm3 (0.0-0.1); Basophils Percent Manual 1 % (0-1); Lymphocytes Absolute Manual 2.86 K/mm3 (1.1-4.5); Monocytes Absolute Manual 0.75 K/mm3 (0.1-0.90); Monocytes Percent Manual 5 % (3-9); Neutrophils Absolute Manual 11.32 K/mm3 (1.3-6.7); Neutrophils Percent Manual 73 % (46-73); Total Cells Counted 100
[2020-05-21 07:00] LABS: Atypical Lymphocytes Present; Platelet Estimate Adequate (Adequate); Smudge Cells PRESENT
[2020-05-21 07:01] LABS: Hypochromasia 1+ (NORMAL)
[2020-05-21] MEDS: NOREPINEPHRINE 8 MG/D5W 250 ML 8 MG/250 ML BAG 31.88 MG IV CONT (07:10)
--- NOTE | 2020-05-21 08:39 | PM.PNNEP ---
Progress Note: A&P Assessment and Plan (1) GONZALO (acute kidney injury): Code(s): N17.9 - Acute kidney failure, unspecified Status: Acute Assessment and Plan: evaluation to date demonstrates: - renal ultrasound unremarkable - urinalysis shows blood and leukocytes - urine electrolytes are non pre renal Guan catheter is back in for a temp probe. The turns out that he is making a little bit more urine. He made 400cc since the probe was put in yesterday and made another 250 overnight. Because of the deterioration in condition, if Dr. Grant wishes to remove all lines, I would be okay with removing the PermCath. Because he is hypotensive and because his electrolytes and BUN are under such good control we could probably go 3 days or more without dialysis, especially since he is making more urine. Potassium was low. I asked the nurse to supplement with 40 mEq of potassium (2) Hyponatremia: Code(s): E87.1 - Hypo-osmolality and hyponatremia Status: Acute Assessment and Plan: just barely low. (3) Hyperkalemia: Code(s): E87.5 - Hyperkalemia Status: Acute Assessment and Plan: resolved (4) Septic shock: Code(s): A41.9 - Sepsis, unspecified organism; R65.21 - Severe sepsis with septic shock Status: Acute Assessment and Plan: Back on pressors now. blood cultures with E.coli off antibiotics. Cultures from May 14 are positive 1/2 sets. Cultures from the and the are negative to date He is currently on micofungin repeat cx neg so far. Dr. monson okay with leaving PermCath in place for now. (5) Acute respiratory failure: Code(s): J96.00 - Acute respiratory failure, unspecified whether with hypoxia or hypercapnia Status: Acute Assessment and Plan: on ventilator support (6) UTI (urinary tract infection): Code(s): N39.0 - Urinary tract infection, site not specified Status: Acute Assessment and Plan: finished atbs. He grew yeast on the . He is on Diflucan. Subjective Date/time seen: 05/21/20 08:39 Interval history: Patient is still on the ventilator. He looks comfortable. Condition has worsened. High fevers overnight. He is on more of the norepinephrine. Up to 18 mics now. Nursing says that he may have some tunneling of wounds in the presacral area. Review of Systems Review of Systems: ROS unobtainable: Yes unobtainable due to medical condition Exam Narrative: Exam Narrative: General: Large male intubated/sedated but in NAD Heart: normal S1 and S2; no rub; tachycardic Lungs: coarse bilaterally Abdomen: soft, nontender, nondistended, positive bowel sounds Extremities: minimal edema Skin: no rash or subcu nodules Objective Data Vital Signs Vital Signs: Vital Signs - 24 hr 05/20/20 09:20 05/20/20 10:00 05/20/20 10:11 Temperature Pulse Rate 123 H 123 H 123 H Respiratory Rate 23 H Blood Pressure 90/49 L Pulse Oximetry 92 95 05/20/20 10:49 05/20/20 12:00 05/20/20 13:43 Temperature 39.1 C H Pulse Rate 124 H 128 H 109 H Respiratory Rate 23 H 27 H Blood Pressure 117/59 L Pulse Oximetry 96 97 05/20/20 13:44 05/20/20 13:54 05/20/20 13:57 Temperature 39.2 C H Pulse Rate 128 H 128 H Respiratory Rate 21 H Blood Pressure Pulse Oximetry 97 05/20/20 14:00 05/20/20 14:57 05/20/20 16:00 Temperature 39.5 C H 39.6 C H 39.6 C H Pulse Rate 127 H 131 H Respiratory Rate 27 H 25 H Blood Pressure 101/48 L 117/70 Pulse Oximetry 98 98 05/20/20 16:45 05/20/20 16:49 05/20/20 16:58 Temperature 39.6 C H Pulse Rate 129 H 125 H 131 H Respiratory Rate 24 H Blood Pressure 114/61 101/51 L 108/63 Pulse Oximetry 98 05/20/20 17:11 05/20/20 17:15 05/20/20 17:20 Temperature Pulse Rate 131 H 133 H 137 H Respiratory Rate Blood Pressure 117/70 105/57 L Pu
[2020-05-21 09:02] LABS: Reflex Lactic Acid Yes or No Add Lactic
[2020-05-21] MEDS: INSULIN GLARGINE (*BKC) 100 UNITS/ML 20 UNITS SUB-Q (09:32)
[2020-05-21] MEDS: HEPARIN SODIUM 5,000 UNITS/ML VIAL 5000 UNITS SUB-Q ×2 (09:32→21:27)
[2020-05-21] MEDS: TOLNAFTATE 1% POWDER 45 GM BTL 1 APPLIC TOPICAL ×2 (09:33→21:26)
[2020-05-21] MEDS: PANTOPRAZOLE SODIUM IV 40 MG VIAL IV PUSH (09:33)
[2020-05-21] MEDS: fentaNYL CITRATE INJ (*CRX) 100 MCG/2 ML VIAL 50 MCG IV PUSH ×2 (10:26→13:58)
[2020-05-21] MEDS: MICAFUNGIN SODIUM 100 MG in SODIUM CHLORIDE 0.9% IV 100 ML IVPB (10:27)
--- NOTE | 2020-05-21 10:47 | PCRCNOTE ---
Window of time for administration has passed. See next scheduled administration.
[2020-05-21 12:09] LABS: Glucose Point of Care 169 (65-105)
--- NOTE | 2020-05-21 12:18 | PM.PROC ---
Procedure Note - Detailed Date of procedure: 05/21/20 Pre-op diagnosis: septic shock/UTI/chronic resp failure/acute renal Suspected infected dialysis catheter Post-op diagnosis: same Procedure performed: Removal of tunneled dialysis catheter with culture of the tip. Description of procedure: No sedation was needed. The patient is on a ventilator. Dressing was removed at the tunneled cathater exit site and after cutting the 2 sutures holding the catheter in place I carefully slid the dialysis catheter out. Pressure was applied to the area of the Rt.jugular vein where the catheter would come out of the vein for 2 minutes. As I pulled the last part of the catheter out we carefully dangled this over a sterile container and cut off the distal tip to send for cultures of a catheter tip. Appropriate order was placed in the computer by Lor the ICU nurse for checking for colony-forming units of yeast or bactertia on this catheter tip since fungemia is suggested by blood cultures. Patient is currently on antifungal drugs. Sterile dressing was applied over the site on the chest where the catheter was removed. after releasing the pressure on the neck there was some dark venous bleeding at the exit site so we again went back and placed 5 minutes of pressure on the neck and the exit site. After this with releasing slowly there was no further bleeding. Careful inspection of the other incisions on the rt.neck from the previous catheter placement show that there is no significant inflammation at this time. Implants: none Anesthesia: none Surgeon: Asim Newton MD Electrician Second: MARY Fuentes, ICU nurse Estimated blood loss (mL): 0 Drains: No Packing: No Pathology: other ( catheter tip sent for culture and fungal culture) Complications: No immediate complications Condition: critical Disposition: ICU
--- NOTE | 2020-05-21 12:31 | PM.IMPN ---
Progress Note: A&P Assessment and Plan (1) Acute respiratory failure: Code(s): J96.00 - Acute respiratory failure, unspecified whether with hypoxia or hypercapnia Status: Acute Assessment and Plan: Patient currently intubated. He is off sedation now. Plan for trach next week. Sputum growing lindy of unclear significance. Appreciate envelope adjuster input. (2) Septic shock: Code(s): A41.9 - Sepsis, unspecified organism; R65.21 - Severe sepsis with septic shock Status: Acute Assessment and Plan: Initially related to EColi septicemia but this has resolved. Now with fungemia with BCx 05/14 positive for Lindy albicans. Tunneled HD catheter placed 05/17. ID notified and antifungal treatment started. Explains why he still requires levophed and the persistent fevers. Lindy in urine and sputum as well. Related to skin infection or recent central line or lung? Given one dose on micafungin on 05/17 when BCx turned positive but then changed to Diflucan. Still having fevers on Diflucan so changed back to Micafungin 05/20. Temperature higher and more consistent; requiring higher dose of Levophed. Repeat BCx 05/18 and 05/20 NGTD. Plan to remove all lines. Appreciate ID input. (3) GONZALO (acute kidney injury): Code(s): N17.9 - Acute kidney failure, unspecified Status: Acute Assessment and Plan: Patient has developed renal failure to the point of requiring replacement therapy. Tunneled catheter placed 05/17. Monitor UOP. Monitor electrolytes. Continue HD as needed. Plan to remove tunneled catheter. (4) Skin ulcer of abdomen: Code(s): L98.499 - Non-pressure chronic ulcer of skin of other sites with unspecified severity Status: Acute Assessment and Plan: Noted on exam and extensive. Continue current wound care. (5) UTI (urinary tract infection): Code(s): N39.0 - Urinary tract infection, site not specified Status: Acute Assessment and Plan: On admission, blood culture (1of2) growing EColi; UCx also growing EColi. Resolved and off abx now. Repeat UCx growing lindy. BCx positive for yeast - as above. (6) GEORGIA (obstructive sleep apnea): Code(s): G47.33 - Obstructive sleep apnea (adult) (pediatric) Status: Chronic Assessment and Plan: The patient is currently intubated. (7) Chronic respiratory failure with hypercapnia: Code(s): J96.12 - Chronic respiratory failure with hypercapnia Status: Acute Assessment and Plan: Patient currently intubated. As above (8) Asthma: Qualifiers: Asthma complication type: unspecified Asthma persistence: unspecified Asthma severity: unspecified severity Qualified Code(s): J45.909 - Unspecified asthma, uncomplicated Code(s): J45.909 - Unspecified asthma, uncomplicated Status: Acute Assessment and Plan: Patient with hx of asthma. Has atopy as well. IgE level 6400 in 2019. Will continue with ventilation support. Continue Pulmicort and Atrovent (9) Anemia: Code(s): D64.9 - Anemia, unspecified Status: Acute Assessment and Plan: Hemoglobin 7.7 on admission and has been running in the 6-7 range mostly. Hemoglobin 6.7 on 05/16 and patient received 1U PRBC transfusion. He has received a total of 4 units of packed red blood cells since admission. Stool for occult blood is negative. Iron studies more consistent with anemia of chronic disease. Since his last transfusion, his Hgb has been running in the 8-9 range. Continue to follow. Transfuse as necessary. (10) Hyponatremia: Code(s): E87.1 - Hypo-osmolality and hyponatremia Status: Acute Assessment and Plan: Sodium stable in the mid 130 range for past many days. Continue to monitor. (11) COVID-19: Code(s): U07.1 - COVID-19 Status: Acute Assessment and Plan: Patient was diagnosed earlier in [facility]
--- NOTE | 2020-05-21 13:32 | PM.PNGS ---
Progress Note: A&P Assessment and Plan (1) Fungemia: Code(s): B49 - Unspecified mycosis Status: Acute Assessment and Plan: At this time a decision was made to remove the current indwelling tunneled dialysis catheter in case that is the continuing source of infection. (2) Morbid obesity: Code(s): E66.01 - Morbid (severe) obesity due to excess calories Status: Acute (3) Septic shock: Code(s): A41.9 - Sepsis, unspecified organism; R65.21 - Severe sepsis with septic shock Status: Acute (4) GONZALO (acute kidney injury): Code(s): N17.9 - Acute kidney failure, unspecified Status: Acute Assessment and Plan: At this time a decision was made to remove the current indwelling tunneled dialysis catheter in case that is the continuing source of infection. see separate procedure note for this date. Subjective Subjective Date/Time Seen: 05/21/20 13:32 Post Op day: 4 ( Status post removal of RT. jugular temporary percutaneous dialysis catheter and US guided RT. jugular placement of a tunneled dialysis catheter.) Interval history: Patient discussed with our fsr and Dr. Menendez today. He is requiring increasing levels of pressor and and they are suspecting sepsis. This may be on the basis of fungemia. Unfortunately, several days ago when we set him up to have the tunneled dialysis catheter placed, we did not know that he had blood cultures done the day or two before which then on the day of my procedure came back growing fungus in the blood. This may have been from the previous indwelling percutaneous dialysis catheter in the right jugular vein that was removed at the time of the procedure of placement of the new tunneled dialysis catheter. Of note although I did place a wire through the old catheter I did not use that wire to place the new catheter. The wire did not go out far enough and when I pulled it back the wire came out of the vein and therefore I had to reaccess the Right internal jugular vein and at different site along the right neck in order to place a tunneled dialysis catheter. At this time a decision was made to remove the current indwelling tunneled dialysis catheter in case that is the continuing source of infection. Review of Systems Review of Systems: ROS unobtainable: Yes unobtainable due to endotracheal tube Exam Const: General: patient obtunded ( On ventilator) Neck: Other: open site on Rt. neck from previous percutaneous dialysis catheter is clean and dry without purulent drainage. incisions from recent tunneled dialysis catheter with surgical glue in place and no significant erythema. Resp: Other: On ventilator Objective Data Vital Signs Vital Signs: Vital Signs - 24 hr 05/20/20 13:43 05/20/20 13:44 05/20/20 13:54 Temperature Pulse Rate 109 H 128 H 128 H Respiratory Rate 27 H 21 H Blood Pressure Pulse Oximetry 97 05/20/20 13:57 05/20/20 14:00 05/20/20 14:57 Temperature 39.2 C H 39.5 C H 39.6 C H Pulse Rate 127 H Respiratory Rate 27 H Blood Pressure 101/48 L Pulse Oximetry 98 05/20/20 16:00 05/20/20 16:45 05/20/20 16:49 Temperature 39.6 C H 39.6 C H Pulse Rate 131 H 129 H 125 H Respiratory Rate 25 H 24 H Blood Pressure 117/70 114/61 101/51 L Pulse Oximetry 98 98 05/20/20 16:58 05/20/20 17:11 05/20/20 17:15 Temperature Pulse Rate 131 H 131 H 133 H Respiratory Rate Blood Pressure 108/63 117/70 105/57 L Pulse Oximetry 05/20/20 17:20 05/20/20 17:24 05/20/20 17:30 Temperature Pulse Rate 137 H 135 H 140 H Respiratory Rate Blood Pressure 105/57 L 110/49 L Pulse Oximetry 98 05/20/20 17:45 05/20/20 18:00 05/20/20 18:02 Temperature 39.7 C H 39.7 C H Pulse Rate 140 H 151 H Respiratory Rate 34 H Blood Pressure 93/69 L 103/63 Pulse Oximetry 98 05/20/20 18:15 05/20/20 18:30 05/20/20 18:45 Temperature Pulse Rate 150 H 146 H 140 H Respiratory Rate Bloo
[2020-05-21 13:56] LABS: Lactic Acid 3.4 mmol/L (0.7-2.1)
--- NOTE | 2020-05-21 14:26 | WPDINTPN ---
Progress Note: A&P Assessment and Plan (1) Acute respiratory failure: Code(s): J96.00 - Acute respiratory failure, unspecified whether with hypoxia or hypercapnia Status: Acute Assessment and Plan: Acute respiratory failure likely related to septic shock, altered mental status, metabolic acidosis. Intubated on 04/30/2020 -chest x-ray and ABGs reviewed -patient on CMV mode of ventilation, peep of 8 in 40% FiO2. -patient did tolerate pressure support ventilation 11/11 until dialysis yesterday and was tachypneic, tachycardic with low tidal volumes. Patient was placed back on CMV mode. -patient very weak and it may take him time to wean of the ventilator. Has been intubated for almost 19 days. -PEG tube placed 05/18 Tracheostomy scheduled for 05/22 -Patient is off all sedation keep him off all sedation for now -significant amount of volume has been removed with hemodialysis (2) Septic shock: Code(s): A41.9 - Sepsis, unspecified organism; R65.21 - Severe sepsis with septic shock Status: Acute Assessment and Plan: Back on Levophed since 05/16/2020 Likely due to fungemia with Lindy albicans. He was switched to Micafungin 100 mg IV Q 24 hours yesterday. An echocardiogram is pending to rule out fungal endocarditis. His dialysis catheter and PICC line will be removed today and a new PICC line will be placed after consultation with Nephrology, id and General surgery. other possibilities or sources could be the left abdominal wound that is necrotic appearing and tender. I do not know if there is a component of panniculitis that is present. This may require a higher level of care such as a burn center. (3) Fever: Code(s): R50.9 - Fever, unspecified Status: Acute Assessment and Plan: Fevers improving, White count normal He has completed a 10 day course of Rocephin for his E coli bacteremia and UTI Blood cultures were repeated 05/10 sputum culture 05/11 negative till now Central venous catheter in left IJ was removed Venous Dopplers on 05/12/2020 upper and lower extremities were negative for DVT -will discuss with infectious disease (4) UTI (urinary tract infection): Code(s): N39.0 - Urinary tract infection, site not specified Status: Acute Assessment and Plan: E coli in urine, completed 10 day course of Rocephin (5) GONZALO (acute kidney injury): Code(s): N17.9 - Acute kidney failure, unspecified Status: Acute Assessment and Plan: Dialysis will be held for a few days. He may be intravascularly dry and I will give him a fluid bolus with lactated Ringer's 2 L today in an effort to wean down or wean off Levophed. (6) COVID-19: Code(s): U07.1 - COVID-19 Status: Acute Assessment and Plan: Patient was positive on 03/25/2020 for COVID-19. Currently not on any treatment or isolation (7) Asthma: Qualifiers: Asthma severity: unspecified severity Asthma persistence: unspecified Asthma complication type: unspecified Qualified Code(s): J45.909 - Unspecified asthma, uncomplicated Code(s): J45.909 - Unspecified asthma, uncomplicated Status: Acute Assessment and Plan: Continue scheduled albuterol 2.5 mg q.6 hours along with Pulmicort 0.5 mg q.12 hours nebulized. (8) DVT prophylaxis: Code(s): Z29.9 - Encounter for prophylactic measures, unspecified Status: Acute Assessment and Plan: Heparin subcu (9) Dietary counseling and surveillance: Code(s): Z71.3 - Dietary counseling and surveillance Status: Acute Assessment and Plan: Stress ulcer prophylaxis: Protonix -tolerating tube feeds (10) Anemia: Code(s): D64.9 - Anemia, unspecified Status: Acute Assessment and Plan: 2/ 1 unit packed red cell transfusion 2/ Hemoglobin 6.5 again today transfuse 1 more unit of packed red cells. Changed PPI to q.12 hours Continue to monit
[2020-05-21 16:11] LABS: Hematocrit 27.1 % (42.0-52.0); Hemoglobin 8.1 g/dL (14.0-18.0)
[2020-05-21] MEDS: NOREPINEPHRINE 8 MG/D5W 250 ML 8 MG/250 ML BAG 15 MG IV CONT (16:11)
[2020-05-21] MEDS: LACTATED RINGERS 1,000 ML 999 ML IV CONT ×2 (16:11→18:36)
--- NOTE | 2020-05-21 17:08 | WPDINFPN2 ---
Progress Note: A&P Additional Plan 1. Septic shock secondary to E coli bacteremia resolved. 2. Lindy albicans fungemia. Source of infection most likely line related. PICC line as well as hemodialysis catheter has been removed. Was on fluconazole day 2 switched over to Mycamine day 2. Repeat fungal culture from the and are pending. New PICC line on the right upper extremity placed. Continue current care. Follow up on cultures and reassess. 3. Acute renal failure was previously on dialysis. HD catheter has been removed. 4. Multiorgan failure secondary to sepsis. Currently patient is intubated. On hemodialysis. 5. Extensive skin necrosis with eschar. No signs of acute infection. Large patch of skin are necrotic on the abdominal wall and lower back area. No surrounding erythema or drainage. Continue local care. 6. Date of service 05/21/2020 Subjective Date/time seen: 05/21/20 17:08 Exam HENMT: Head: normal to inspection and other (ET tube in place) Neck: Neck: normal visual inspection Chest: Chest palpation & inspection: normal inspection of the chest Resp: Auscultation: clear to auscultation bilaterally Cardio: Rhythm: regular rhythm GI: Inspection: normal to inspection Auscultation: normal bowel sounds Skin: General skin exam: other (Patches of large eschar on and abdominal wall area and lower gluteal area.) Neuro: General: other (Sedated on a ventilator) Objective Data Vital Signs Vital Signs: Vital Signs - 24 hr 05/20/20 17:11 05/20/20 17:15 05/20/20 17:20 Temperature Pulse Rate 131 H 133 H 137 H Respiratory Rate Blood Pressure 117/70 105/57 L Pulse Oximetry 98 05/20/20 17:24 05/20/20 17:30 05/20/20 17:45 Temperature Pulse Rate 135 H 140 H 140 H Respiratory Rate Blood Pressure 105/57 L 110/49 L 93/69 L Pulse Oximetry 05/20/20 18:00 05/20/20 18:02 05/20/20 18:15 Temperature 39.7 C H 39.7 C H Pulse Rate 151 H 150 H Respiratory Rate 34 H Blood Pressure 103/63 109/54 L Pulse Oximetry 98 05/20/20 18:30 05/20/20 18:45 05/20/20 18:55 Temperature Pulse Rate 146 H 140 H 139 H Respiratory Rate Blood Pressure 90/53 L 81/62 L 80/51 L Pulse Oximetry 05/20/20 19:00 05/20/20 19:02 05/20/20 19:15 Temperature 39.9 C H Pulse Rate 138 H 134 H Respiratory Rate Blood Pressure 76/43 L 136/114 H Pulse Oximetry 05/20/20 19:30 05/20/20 19:45 05/20/20 19:52 Temperature Pulse Rate 134 H 139 H 138 H Respiratory Rate 28 H Blood Pressure 172/157 H 182/166 H Pulse Oximetry 05/20/20 19:53 05/20/20 20:00 05/20/20 20:15 Temperature 40.1 C H Pulse Rate 141 H 142 H 145 H Respiratory Rate 29 H Blood Pressure 96/69 L 76/49 L Pulse Oximetry 100 100 05/20/20 20:28 05/20/20 20:35 05/20/20 21:17 Temperature 40 C H Pulse Rate 145 H 141 H 139 H Respiratory Rate 28 H Blood Pressure 83/50 L 99/57 L 81/44 L Pulse Oximetry 100 05/20/20 21:45 05/20/20 22:00 05/20/20 22:05 Temperature 40.2 C H 40.2 C H Pulse Rate 141 H 145 H Respiratory Rate 25 H Blood Pressure 87/54 L 114/58 L Pulse Oximetry 98 05/20/20 23:00 05/20/20 23:05 05/20/20 23:19 Temperature 40.2 C H 40.2 C H Pulse Rate 140 H 144 H Respiratory Rate 26 H Blood Pressure 108/47 L Pulse Oximetry 96 96 05/20/20 23:25 05/21/20 00:00 05/21/20 01:00 Temperature 40.1 C H 39.8 C H Pulse Rate 146 H 139 H 127 H Respiratory Rate 27 H 23 H Blood Pressure 104/43 L 94/49 L 95/57 L Pulse Oximetry 99 99 05/21/20 01:51 05/21/20 01:53 05/21/20 02:00 Temperature 39.6 C H Pulse Rate 128 H 129 H 127 H Respiratory Rate 25 H 23 H Blood Pressure 108/56 L Pulse Oximetry 99 99 05/21/20 02:14 05/21/20 02:22 05/21/20 03:00 Temperature 39.5 C H Pulse Rate 122 H 127 H 126 H Respiratory Rate 26 H 23 H Blood Pressure 100/53 L 99/58 L Pulse Oximetry 99 05/21/20 03:17 05/21/20 03:42 05/21/20 04:00 Temperature 39.5 C H 39
[2020-05-21 18:25] LABS: Glucose Point of Care 121 (65-105)
[2020-05-21] MEDS: LACTATED RINGERS 1,000 ML 100 ML IV CONT (19:40)
[2020-05-21] MEDS: BUDESONIDE RESPULE NEB 0.5 MG/2 ML AMP INHALATION (20:31)
[2020-05-21 23:53] LABS: Glucose Point of Care 163 (65-105)
[2020-05-22] VITALS (21 sets, daily range): BP systolic 87–116; BP diastolic 50–71; PULSE 112–133; RESP 22–28; TEMP 37.9–38.2; O2SAT 93–98
--- NOTE | 2020-05-22 | ECHOL_ITS ---
Patient Info Name: Francisco Holbrook Age: 39 years : 1980 Gender: Male Ht: 68 in Wt: 287 lbs BSA: 2.56 m2 HR: 113 bpm BP: 116 / 71 mmHg Heart Rhythm: Sinus Rhythm, Tachycardia Technical Quality: Good Exam Date: 05/22/2020 8:29 AM Exam Location: [facility] Pulmonary Patient Status: Inpatient Admit Date: 04/30/2020 Staff Ordering Physician: Cherie Grant MD Commutator Presser: Maximo Verdin, WILMANCS, RT Attending Provider: Keith Galvan MD Referring Physician: Juainta MAHAN; Exam Type: CA echo limited Study Info Indications I39 - Endocarditis and heart valve disorders in diseases classified elsewhere Limited two-dimensional transthoracic echocardiogram is performed. Summary 1. Left ventricular systolic function is hyperdynamic, estimated at >70%. 2. Definity contrast injected to improve visualization. 3. Small amount of mitral and tricuspid regurgitation are seen similar to echo from last month. 4. Difficult image quality precludes me from excluding the presence of an infective vegetation. Left Ventricle Left ventricular chamber dimension is normal. Left ventricular systolic function is hyperdynamic, estimated at >70%. The left ventricular diastolic function is grade I diastolic dysfunction. Definity contrast injected to improve visualization. Small amount of mitral and tricuspid regurgitation are seen similar to echo from last month. Difficult image quality precludes me from excluding the presence of an infective vegetation. Right Ventricle Right ventricular chamber dimension is normal. Left Atria Left atrial chamber dimension is not well visualized. Right Atria Right atrial chamber dimension is not well visualized. Aortic Valve The aortic valve is not well visualized. There is no aortic valve regurgitation. Pulmonic Valve The pulmonic valve is not well visualized. Mitral Valve The mitral valve has not well visualized. There is trace mitral valve regurgitation. Tricuspid Valve The tricuspid valve leaflets are normal. There is trace tricuspid valve regurgitation. Pericardium/Pleural The pericardium appears normal. Aorta The aortic root size at the sinus of Valsalva is normal. Ventricles Name Value Normal LV Fractional Shortening/Ejection Fraction 2D/MM LV Diastolic Volume (4C MOD) 64 ml LV EF (4C MOD) 73 % LV Diastolic Volume (2C MOD) 65 ml LV EF (2C MOD) 70 % LV Diastolic Volume (BP MOD) 68 ml 62-150 LV Diastolic Volume Index (BP MOD) 26 ml/m2 34-74 LV Systolic Volume (BP MOD) 19 ml 21-61 LV Systolic Volume Index (BP MOD) 7 ml/m2 11-31 LV EF (BP MOD) 72 % 52-72 LV Diastolic Length (4C) 6.9 cm LV Systolic Length (4C) 5.2 cm LV Stroke Volume (4C MOD) 47 ml Report Signatures
[2020-05-22] MEDS: IPRATROPIUM BR 0.02% INH SOLN 0.5 MG/2.5 ML VIAL INHALATION ×2 (02:02→08:59)
[2020-05-22 05:13] LABS: Basophils Percent Auto 0.2 % (0.2-1.2); Eosinophils Absolute Auto 0.1 K/mm3 (0-0.3); Eosinophils Percent Auto 0.6 % (0-4.4); Hematocrit 26.5 % (42.0-52.0); Hemoglobin 7.9 g/dL (14.0-18.0); Immature Granulocyte Absolute 0.67 K/mm3 (0.00-0.031); Immature Granulocyte Percent A 6.1 % (0-0.5); Lymphocytes Absolute Auto 1.54 K/mm3 (0.9-3.2); Lymphocytes Percent Auto 14.1 % (18.3-44.2); Mean Corpuscular HGB Conc 29.8 g/dl (32-36); Mean Corpuscular Hemoglobin 29.4 pg (26-34); Mean Corpuscular Volume 98.5 fl (80-100); Monocytes Absolute Auto 0.4 K/mm3 (0.1-0.6); Monocytes Percent Auto 3.6 % (2.6-8.5); Neutrophils Absolute Auto 8.2 K/mm3 (1.3-6.7); Neutrophils Percent Auto 75.4 % (45.5-73.1); Nucleated Red Blood Cells Absolute Auto 0.2 K/mm3 (0.0-0.012); Red Blood Count 2.69 M/mm3 (4.6-6.20); Red Cell Distribution Width 18.7 % (11.5-14.5); White Blood Count 10.9 K/mm3 (4.5-10.0)
[2020-05-22 05:50] LABS: Alanine Aminotransferase 34 U/L (4-50); Albumin Level 2.6 g/dL (3.5-5.1); Alkaline Phosphatase 895 U/L (38-126); Anion Gap 9 mmol/L (8-16); Aspartate Amino Transferase 34 U/L (17-59); Bilirubin,Total 0.6 mg/dL (0.2-1.3); Blood Urea Nitrogen 62 mg/dL (9-20); Carbon Dioxide 25 mmol/L (22-30); Chloride 97 mmol/L (98-107); Estimated CRCL calculation 70 ml/min; Estimated Glomerular Filt Rate 52; Glucose 173 mg/dL (75-110); Magnesium 2.2 mg/dL (1.6-2.3); Phosphorus 2.9 mg/dL (2.5-4.5); Potassium 3.5 mmol/L (3.4-5.0); Sodium 131 mmol/L (137-145)
[2020-05-22 05:51] LABS: Anisocytosis 1+ (NORMAL); Hypochromasia 1+ (NORMAL); Platelet Estimate Adequate (Adequate)
[2020-05-22] MEDS: CENTRAL LINE FLUSH 10 ML IV PUSH (06:10)
[2020-05-22 07:35] LABS: CRP 33.3 mg/dL (<1.0)
[2020-05-22] MEDS: NOREPINEPHRINE 8 MG/D5W 250 ML 8 MG/250 ML BAG 15 MG IV CONT (07:48)
[2020-05-22] MEDS: fentaNYL CITRATE INJ (*CRX) 100 MCG/2 ML VIAL 50 MCG IV PUSH (07:53)
[2020-05-22] MEDS: PERFLUTREN LIPID MICROSPHERES 1.5 ML VIAL DILUTED TO 10 ML TOTAL VOLUME IV PUSH (08:51)
[2020-05-22] MEDS: BUDESONIDE RESPULE NEB 0.5 MG/2 ML AMP INHALATION (08:59)
--- NOTE | 2020-05-22 11:16 | PCDIET ---
ICU Rounding Note: Tube feedings held this morning for CT scan but previously well tolerated at goal of 50mL/hr Nepro with Pro-Stat flush BID. Last recorded weight is 129.2kg which is decreased from last review. +I/O. Patient had 3L UF on 05/20/20. Bowel Motility: +BMs - rectal tube in place Labs Reviewed: Hgb (7.9), Hct (26.5), Glu (173), BUN (62), Cr (1.5), Na (131), Alb (2.6) Meds Noted: Pulmicort, Micafungin, Lantus, Atrovent, Levophed, Protonix Additional Notes: Multiple skin issues discussed. Following daily in ICU rounds. Assessing/reassessing every Friday/Friday.
--- NOTE | 2020-05-22 11:18 | PM.IMPN ---
Progress Note: A&P Assessment and Plan (1) Septic shock: Code(s): A41.9 - Sepsis, unspecified organism; R65.21 - Severe sepsis with septic shock Status: Acute Assessment and Plan: Initially related to EColi septicemia but this has resolved. Now with fungemia with BCx 05/14 positive for Lindy albicans. Lindy in urine and sputum as well. Tunneled HD catheter placed 05/17. ID notified and antifungal treatment started. Related to skin infection or recent central line or lung? Given one dose on micafungin on 05/17 when BCx turned positive but then changed to Diflucan. Still having fevers on Diflucan so changed back to Micafungin 05/20. Repeat BCx 05/18 and 05/20 NGTD. Temperature higher and requiring higher dose of Levophed so lines removed. Now with excessive drainage from abd wound. CT scan showing left-sided superficial gas forming bacteria with necrotizing fasciitis and basilar atelectasis and pneumonia, with completely collapsed right lower lobe. Aztreonam and Clinida added. Appreciate ID input. (2) Necrotizing fasciitis: Onset Date: ~05/22/20 Code(s): M72.6 - Necrotizing fasciitis Status: Acute Assessment and Plan: Patietn with necrotic skin ulcers of the abdomen the worse in the left flank/back. CT scan showing left-sided superficial gas forming bacteria with necrotizing fasciitis. Images reviewed and gas tracks medially almost to midline abdomen. Will need extensive debridement. Continue current wound care. Continue IV abx. Family updated and end of life discussion undertaken; family coming to visit today and discussion of hospice will take place at that time. (3) Acute respiratory failure: Code(s): J96.00 - Acute respiratory failure, unspecified whether with hypoxia or hypercapnia Status: Acute Assessment and Plan: Patient currently intubated. He is off sedation now. Plan for trach this week. Sputum growing lindy of unclear significance. Appreciate a r collections rep input. (4) Fungemia: Code(s): B49 - Unspecified mycosis Status: Acute Assessment and Plan: BCx returned positive for Candidia on 05/17. Started on anti-fungal treatment. Repeat BCx NGTD. As above. (5) GONZALO (acute kidney injury): Code(s): N17.9 - Acute kidney failure, unspecified Status: Acute Assessment and Plan: Patient has developed renal failure to the point of requiring replacement therapy. Tunneled catheter placed 05/17 but removed on 05/21. UOP scant; monitor UOP. Monitor electrolytes. Continue HD as needed. Will need a new HD catheter if family decides to continue care. (6) Skin ulcer of abdomen: Code(s): L98.499 - Non-pressure chronic ulcer of skin of other sites with unspecified severity Status: Acute Assessment and Plan: As above regarding the necrotizing fascitits. Continue current wound care to the other wounds. (7) Dysphagia: Code(s): R13.10 - Dysphagia, unspecified Status: Acute Assessment and Plan: GTube placed 05/18/20. EGD also showed gastritis at that time. Continue TF (8) UTI (urinary tract infection): Code(s): N39.0 - Urinary tract infection, site not specified Status: Acute Assessment and Plan: On admission, blood culture (1of2) growing EColi; UCx also growing EColi. Resolved and off abx now. Repeat UCx growing lindy. BCx positive for yeast - as above. (9) [place] (obstructive sleep apnea): Code(s): G47.33 - Obstructive sleep apnea (adult) (pediatric) Status: Chronic Assessment and Plan: The patient is currently intubated. (10) Chronic respiratory failure with hypercapnia: Code(s): J96.12 - Chronic respiratory failure with hypercapnia Status: Acute Assessment and Plan: Patient currently intubated. As above (11) Asthma: Qualifiers: Asthma complication type: unspecified Ast
[2020-05-22 11:49] LABS: Glucose Point of Care 126 (65-105)
[2020-05-22] MEDS: INSULIN GLARGINE (*BKC) 100 UNITS/ML 20 UNITS SUB-Q (11:56)
[2020-05-22] MEDS: TOLNAFTATE 1% POWDER 45 GM BTL 1 APPLIC TOPICAL (11:58)
[2020-05-22] MEDS: CLINDAMYCIN 900 MG/D5W 50 ML 900 MG/50 ML PIGGYBACK 50 MG IVPB (11:59)
[2020-05-22] MEDS: AZTREONAM 2 GM in DEXTROSE 5% 100 ML IVPB (11:59)
--- NOTE | 2020-05-22 11:59 | PM.IMHP ---
H&P: HPI History of Present Illness Date/Time: 05/22/20 11:59 Chief Complaint: Respiratory failure, respiratory insufficiency Narrative: Francisco Holbrook is a 39 year old male whom I was consulted on for a planned surgical procedure. Review of Systems Review of Systems: ROS unobtainable: Yes unobtainable due to endotracheal tube PMFSH Past Medical History Medical History (Updated 05/22/20 @ 12:01 by Shay Christine MD) GONZALO (acute kidney injury) Asthma Atopy Autism Body mass index (BMI) of 50-59.9 in adult (01/26/18) Chronic respiratory failure with hypercapnia Diabetes type 2, controlled Dysphagia Fungemia Hepatitis C Morbid obesity [place] (obstructive sleep apnea) It was noted on [facility] note from 05/14/2019 that it was a follow-up visit for trilogy. Pulmonary hypertension Seasonal allergic rhinitis Surgical History Surgical History History of carpal tunnel release History of eye surgery History of testicular surgery Family History Family History Father Diabetes mellitus, Onset Age: 46 Acute myocardial infarction, Onset Age: 46 Mother Family history of throat cancer Other Carcinoma of colon Family history of chronic obstructive pulmonary disease Social History Social History Social History: the patient is single and has no children. The patient is listed as a full code. He resides at at [facility]. The patient has only been a resident there for the last week. The brother Delgado his the contact lens blocker at [phone]. the patient is disabled. Smoking status: Never smoker Second hand tobacco smoke exposure: Yes Spiritual care concerns: No Meds Home Medications and Allergies Home Medications Medication Instructions Recorded Confirmed Type montelukast 10 mg tablet 10 mg PO DAILY 05/12/19 04/30/20 History ergocalciferol (vitamin D2) 1,250 mcg PO WEEKLY 04/30/20 04/30/20 History ferrous sulfate 325 mg PO DAILY 04/30/20 04/30/20 History fluticasone propionate 1 spray INTRANASAL DAILY 04/30/20 04/30/20 History ipratropium-albuterol 3 ml INHALATION TID 04/30/20 04/30/20 History loratadine 10 mg PO DAILY 04/30/20 04/30/20 History metoprolol tartrate 25 mg PO DAILY 04/30/20 04/30/20 History pantoprazole 40 mg PO DAILY 04/30/20 04/30/20 History prednisone 5 mg PO DAILY 04/30/20 04/30/20 History risperidone 2 mg PO HS 04/30/20 04/30/20 History Allergies Allergy/AdvReac Type Severity Reaction Status Date / Time cefaclor Allergy Unknown Verified 07/25/17 07:48 latex Allergy Unknown Verified 07/28/17 09:37 Penicillins Allergy Unknown Verified 07/25/17 07:48 Vital Signs Vital Signs - 24 hr 05/21/20 12:00 05/21/20 13:58 05/21/20 14:00 Temperature 39.0 C H 39.1 C H Pulse Rate 129 H 130 H Respiratory Rate 26 H 25 H Blood Pressure 113/60 116/63 Pulse Oximetry 100 97 05/21/20 14:58 05/21/20 15:50 05/21/20 15:57 Temperature 39.1 C H Pulse Rate 119 H 121 H Respiratory Rate 23 H Blood Pressure Pulse Oximetry 96 05/21/20 16:00 05/21/20 16:11 05/21/20 16:12 Temperature Pulse Rate 121 H 122 H 123 H Respiratory Rate 24 H 25 H Blood Pressure 102/56 L 112/72 Pulse Oximetry 100 05/21/20 18:00 05/21/20 18:12 05/21/20 20:00 Temperature 38.2 C H 38.2 C H Pulse Rate 116 H 116 H 114 H Respiratory Rate 23 H 23 H Blood Pressure 91/54 L 96/53 L Pulse Oximetry 98 97 99 05/21/20 20:26 05/21/20 20:31 05/21/20 20:40 Temperature Pulse Rate 112 H 113 H 119 H Respiratory Rate 22 H 25 H Blood Pressure 96/53 L Pulse Oximetry 95 05/21/20 22:00 05/21/20 23:20 05/22/20 00:00 Temperature 37.9 C H 37.9 C H Pulse Rate 116 H 120 H 114 H Respiratory Rate 27 H 24 H Blood Pressure 97/58 L 94/56 L Pulse Oximetry 97 98 97 05/22/20 0
[2020-05-22] MEDS: MICAFUNGIN SODIUM 100 MG in SODIUM CHLORIDE 0.9% IV 100 ML IVPB (12:00)
[2020-05-22] MEDS: PANTOPRAZOLE SODIUM IV 40 MG VIAL IV PUSH (12:00)
[2020-05-22] MEDS: HEPARIN SODIUM 5,000 UNITS/ML VIAL 5000 UNITS SUB-Q (12:01)
[2020-05-22] MEDS: FENTANYL 2,500MCG/NS250ML(*CRX 2,500 MCG/250 ML BAG IV CONT (12:26)
--- NOTE | 2020-05-22 12:54 | WPDINTPN ---
Progress Note: A&P Assessment and Plan (1) Acute respiratory failure: Code(s): J96.00 - Acute respiratory failure, unspecified whether with hypoxia or hypercapnia Status: Acute Assessment and Plan: Acute respiratory failure likely related to septic shock, altered mental status, metabolic acidosis. Intubated on 04/30/2020 -patient on CMV mode of ventilation, peep of 8 in 40% FiO2. - -PEG tube placed 05/18 -will discuss with patient's brother regarding tracheostomy -patient started on small dose of fentanyl as he is tachycardic (2) Septic shock: Code(s): A41.9 - Sepsis, unspecified organism; R65.21 - Severe sepsis with septic shock Status: Acute Assessment and Plan: Back on Levophed since 05/16/2020 -likely due to fungemia with Lindy albicans, continue micafungin per Infectious Disease. -echocardiogram done today on 05/22/2020, pending report -CT scan of the chest abdomen and pelvis was done 05/22/2020: Findings consistent with left-sided superficial gas forming bacteria, necrotizing fasciitis. No drainable intra-abdominal abscess. -surgery evaluated the patient, will require debridement of the necrotizing fasciitis and possible wound VAC, surgery was also of the view that if patient needs surgery he should be transferred to a larger center we probably would get skin grafting -started patient on clindamycin and aztreonam (3) Fever: Code(s): R50.9 - Fever, unspecified Status: Acute Assessment and Plan: Tunnel dialysis catheter and right thigh PICC line were removed on 05/21/2020 Venous Dopplers on 05/12/2020 upper and lower extremities were negative for DVT -will discuss with infectious disease (4) UTI (urinary tract infection): Code(s): N39.0 - Urinary tract infection, site not specified Status: Acute Assessment and Plan: E coli in urine, completed 10 day course of Rocephin (5) GONZALO (acute kidney injury): Code(s): N17.9 - Acute kidney failure, unspecified Status: Acute Assessment and Plan: Dialysis will be held for a few days. Patient was given IV fluids on 05/21/2020 -continue Levophed -nephrology following the patient -tunnel dialysis catheter was also removed on 04/19/2020 due to fungemia and on infectious disease recommendation (6) COVID-19: Code(s): U07.1 - COVID-19 Status: Acute Assessment and Plan: Patient was positive on 03/25/2020 for COVID-19. Currently not on any treatment or isolation (7) Asthma: Qualifiers: Asthma severity: unspecified severity Asthma persistence: unspecified Asthma complication type: unspecified Qualified Code(s): J45.909 - Unspecified asthma, uncomplicated Code(s): J45.909 - Unspecified asthma, uncomplicated Status: Acute Assessment and Plan: Continue scheduled albuterol 2.5 mg q.6 hours along with Pulmicort 0.5 mg q.12 hours nebulized. (8) DVT prophylaxis: Code(s): Z29.9 - Encounter for prophylactic measures, unspecified Status: Acute Assessment and Plan: Heparin subcu (9) Dietary counseling and surveillance: Code(s): Z71.3 - Dietary counseling and surveillance Status: Acute Assessment and Plan: Stress ulcer prophylaxis: Protonix -tolerating tube feeds (10) Anemia: Code(s): D64.9 - Anemia, unspecified Status: Acute Assessment and Plan: 05/05 1 unit packed red cell transfusion 05/07 Hemoglobin 6.5 again today transfuse 1 more unit of packed red cells. Changed PPI to q.12 hours Continue to monitor and transfuse as needed -Stool for occult blood was negative -normal vitamin B12, folic acid -05/16/2020 hemoglobin dropped to 6.7, received 1 unit of packed RBCs (11) Left arm weakness: Code(s): R29.898 - Other symptoms and signs involving the musculoskeletal system Status: Acute Assessment and Plan: Patient with generalized weakness in all extremities -patie
--- NOTE | 2020-05-22 13:27 | WPDINFPN2 ---
Progress Note: A&P Assessment and Plan (1) Septic shock: Code(s): A41.9 - Sepsis, unspecified organism; R65.21 - Severe sepsis with septic shock Status: Acute Assessment and Plan: 1. Septic shock due to E coli UTI with bacteremia, resolved. 2. MSOF 3. CoVid 19 infection 03/25/20 4. Persistent fever due to Lindy bloodstream infection, the temporary HD cath is source. HD catheter out for now altogether. REC Micafungin #[address] Acevedo's recs[address] (antifungal #6). Exam of abdominal wall does not suggest necrotizing fasciitis, despite CT findings, but await surgical opinion. I meantime, agree with Aztreo and Clinda. C diff assay Subjective Date/time seen: 05/22/20 13:27 Interval history: sedated, norepi Exam Narrative: Exam Narrative: t max 39.2 core Const: General: no acute distress Other: obese Resp: Effort & Inspection: normal respiratory effort Auscultation: rales Cardio: Rate: tachycardic Rhythm: regular rhythm Heart sounds: no murmurs GI: Inspection: non-distended GI Palp: Yes Soft to palpation and No Tenderness to palpation present (GI) Other: multiple superficial necrotic areas over L abdominal wall Flexiseal watery brown Urinary Catheter: Urinary Catheter: patent and draining and urine clear Skin: General skin exam: normal color Objective Data Vital Signs Vital Signs: Vital Signs - 24 hr 05/21/20 13:58 05/21/20 14:00 05/21/20 14:58 Temperature 39.1 C H 39.1 C H Pulse Rate 130 H Respiratory Rate 25 H Blood Pressure 116/63 Pulse Oximetry 97 05/21/20 15:50 05/21/20 15:57 05/21/20 16:00 Temperature Pulse Rate 119 H 121 H 121 H Respiratory Rate 23 H 24 H Blood Pressure 102/56 L Pulse Oximetry 96 100 05/21/20 16:11 05/21/20 16:12 05/21/20 18:00 Temperature 38.2 C H Pulse Rate 122 H 123 H 116 H Respiratory Rate 25 H 23 H Blood Pressure 112/72 91/54 L Pulse Oximetry 98 05/21/20 18:12 05/21/20 20:00 05/21/20 20:26 Temperature 38.2 C H Pulse Rate 116 H 114 H 112 H Respiratory Rate 23 H Blood Pressure 96/53 L 96/53 L Pulse Oximetry 97 99 05/21/20 20:31 05/21/20 20:40 05/21/20 22:00 Temperature 37.9 C H Pulse Rate 113 H 119 H 116 H Respiratory Rate 22 H 25 H 27 H Blood Pressure 97/58 L Pulse Oximetry 95 97 05/21/20 23:20 05/22/20 00:00 05/22/20 02:00 Temperature 37.9 C H 37.9 C H Pulse Rate 120 H 114 H 121 H Respiratory Rate 24 H 25 H Blood Pressure 94/56 L 104/61 Pulse Oximetry 98 97 97 05/22/20 02:02 05/22/20 02:09 05/22/20 02:27 Temperature Pulse Rate 112 H 113 H 121 H Respiratory Rate 22 H 23 H Blood Pressure 104/61 Pulse Oximetry 98 05/22/20 03:32 05/22/20 04:00 05/22/20 04:57 Temperature 38.0 C H Pulse Rate 116 H 117 H 116 H Respiratory Rate 26 H Blood Pressure 87/50 L 102/57 L 104/66 Pulse Oximetry 93 05/22/20 05:21 05/22/20 06:00 05/22/20 06:09 Temperature 38.0 C H Pulse Rate 114 H 115 H 115 H Respiratory Rate 26 H Blood Pressure 116/71 116/71 Pulse Oximetry 98 97 05/22/20 07:48 05/22/20 08:00 05/22/20 09:00 Temperature 38.0 C H Pulse Rate 120 H 120 H 112 H Respiratory Rate 26 H Blood Pressure 98/63 L 98/63 L Pulse Oximetry 95 98 05/22/20 09:04 05/22/20 09:51 05/22/20 10:00 Temperature 38.0 C H Pulse Rate 112 H 120 H 127 H Respiratory Rate 27 H 22 H Blood Pressure 106/71 Pulse Oximetry 97 94 05/22/20 10:44 05/22/20 12:00 05/22/20 12:26 Temperature 38.2 C H Pulse Rate 132 H 132 H 133 H Respiratory Rate 23 H 28 H Blood Pressure 106/62 Pulse Oximetry 97 96 Intake/Output Intake/Output: Intake & Output 05/19/20 05/20/20 05/21/20 05/22/20 23:59 23:59 23:59 23:59 Intake Total 3709 1840 3994 1491 Output Total 100 1765 545 310 Balance 604 -8216 6664 1181 Meds/Results Medications: Active Medications Generic Name Dose Route Start Last Admin Trade Name Freq PRN Reason Stop Dose Admin Acetaminophen 650 mg 05/14
[2020-05-22] MEDS: LORazepam INJ (*CRX) 2 MG/ML VIAL IV PUSH (13:37)
[2020-05-22] MEDS: MORPHINE SULFATE INJ (*CRX) 10 MG/ML AMP 5 MG IV PUSH (13:37)
--- NOTE | 2020-05-22 17:39 | PM.PNGS ---
Progress Note: A&P Assessment and Plan (1) Necrotizing fasciitis: Onset Date: ~05/22/20 Code(s): M72.6 - Necrotizing fasciitis Status: Acute Assessment and Plan: Re-evaluation of the area of skin breakdown today reveals surrounding erythema and induration 100. CT scan shows gas in the tissues under this and it this most consistent with necrotizing fasciitis. Have discussed this with Dr. Joelle mcclure. He subsequently discussed with the patient's [id number] brother who because of all the patient's current medical problems including respiratory failure and need for pressor support for his cardiovascular system that he would make the patient comfort care only and withdraw intensive care. Most of this care now seems to be futile. 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 I agree with the brother's decision to make the patient comfort care only. (2) Respiratory failure: Onset Date: Unknown Code(s): J96.90 - Respiratory failure, unspecified, unspecified whether with hypoxia or hypercapnia Status: Acute Assessment and Plan: Patient is still on ventilatory assistance and trach was plan for tomorrow should he continue to survive. (3) Fungemia: Code(s): B49 - Unspecified mycosis Status: Acute Time Spent With Patient Time with patient: less than 15 minutes Subjective Subjective Date/Time Seen: 05/22/20 11:39 Dr. Choi called me today to evaluate wounds on the patient's lateral left thorax and abdomen. Because the way these looked in because the patient's continuing sepsis Dr. Conchita lau ordered a CT scan of the abdomen chest and pelvis today. This showed gas in the subcutaneous tissues and along the space between his abdominal musculature and the overlying fat. This laid in a wide area of the lateral abdominal wall extending down toward the right groin issues me left groin. I went to CT and review the CT with Dr. jourdan mata. We could see the gas starting at the level of the G-tube but lateral to it extending inferiorly and at 1 point this did extend out to the skin in the low left abdomen. I suspect that he does have gas in the subcu tissues and possible fasciitis along the lateral abdominal wall. Exam Const: Nutritional Appearance: obese ( Morbid obesity BMI 55) Urinary Catheter: Urinary Catheter: urine dark Skin: Full body images: 1. Area of induration described number to below extends toward the lower abdominal wall but does not cry reach the groin area. 2. area of skin breakdown and necrosis with at least a site of leathery full-thickness skin loss on the left lateral abdominal wall 12 x 15 cm in size. There is induration surrounding this area. 3. There is a separate area of skin breakdown and leathery full-thickness loss of skin with some underlying fat expose that appears to be grayish in necrotic. Objective Data Vital Signs Vital Signs: Vital Signs - 24 hr 05/21/20 18:00 05/21/20 18:12 05/21/20 20:00 Temperature 38.2 C H 38.2 C H Pulse Rate 116 H 116 H 114 H Respiratory Rate 23 H 23 H Blood Pressure 91/54 L 96/53 L Pulse Oximetry 98 97 99 05/21/20 20:26 05/21/20 20:31 05/21/20 20:40 Temperature Pulse Rate 112 H 113 H 119 H Respiratory Rate 22 H 25 H Blood Pressure 96/53 L Pulse Oximetry 95 05/21/20 22:00 05/21/20 23:20 05/22/20 00:00 Temperature 37.9 C H 37.9 C H Pulse Rate 116 H 120 H 114 H Respiratory Rate 27 H 24 H Blood Pressure 97/58 L 94/56 L Pulse Oximetry 97 98 97 05/22/20 02:00 05/22/20 02:02 05/22/20 02:09 Temperature 37.9 C H Pulse Rate 121 H 112 H 113 H Respiratory Rate 25 H 22 H 23 H Blood Pressure 104/61 Pulse Oximetry 97 98 05/22/20 02:27 05/22/20 03:32 05/22/20 04:00 Temperature 38.0 C H Pulse Rate 121 H 116 H 117 H Respiratory Rate 26 H Blood P
--- NOTE | 2020-05-22 19:58 | P.DN_ITS ---
Discharge Sum: Prov Provider Primary care physician: Jermain Rangel, PA Admitting provider: Cornel Li MD Consults: 04/30/20 11:20 Consult to Physician Routine Comment: Consulting Provider: Cherie Grant Reason for consultation: septic shock Has provider been notified: Yes 05/01/20 08:36 Consult to Physician Routine Comment: SPOKE WITH DR MENENDEZ WITH CONSULT INFORMATION Consulting Provider: Waqar Menendez call center support representative/MD group to consult: NEPHROLOGY Reason for consultation: GONZALO, Has provider been notified: Yes 05/01/20 08:37 Consult to Physician Routine Comment: CALLED PAGER FOR CONSULT Consulting Provider: Ralph Avina call center support representative/MD group to consult: INFECTIOUS DISEASE Reason for consultation: severe leukocytosis, shock Has provider been notified: Yes 05/02/20 Wound/ET Consult Routine Reason for Consult:: Significant blistering to left lateral abdomen. Small maceration to coccyx. Patient on several pressor. 05/16/20 08:47 Consult to Physician Routine Comment: Consulting Provider: Asim Newton call center support representative/MD group to consult: Surgery Reason for consultation: Tunneled dialysis catheter and central line insertion Has provider been notified: Yes 05/17/20 Consult to Physician Routine Comment: Consulting Provider: Shay Christine Reason for consultation: tracheostomy placement Has provider been notified: Yes Consult to Physician Routine Comment: Consulting Provider: Can Combs call center support representative/MD group to consult: Reason for consultation: g tube placement Has provider been notified: Yes Pronouncing clinician: Keith Galvan Discharge Sum: Diag PCOD septic shock Contributing Factors (1) Septic shock: (2) Necrotizing fasciitis: (3) Acute respiratory failure: (4) Fungemia: (5) GONZALO (acute kidney injury): (6) Skin ulcer of abdomen: (7) Dysphagia: (8) UTI (urinary tract infection): (9) [place] (obstructive sleep apnea): (10) Chronic respiratory failure with hypercapnia: (11) Asthma: (12) Anemia: (13) Morbid obesity: (14) Hyponatremia: (15) COVID-19: (16) Autism: (17) Hyperkalemia: Discharge Sum: Summary Date and Time Date of admission: 04/30/20 11:19 Date of : 05/22/20 Time of : 14:00 Summary Details: 39yo male with asthma, autism and [place] here for septic shock and acute respiratory failure. Initially sepsis was related to EColi septicemia but this resolved with treatment. Patient however had a shubham course. He developed fungemia with Lindy albicans. Lindy in urine and sputum as well. He had acute kidney injury resulting in hemodialysis. He did have a PEG tube placed. Plan was also for a tracheostomy given his prolonged intubation. He had multiple abdominal skin wounds that became infected and developed necrotizing fasciitis. He had septic shock from this and long-term outcome was felt to be poor. Family was kept up-to-date on the clinical course of the patient. Family was contacted and the dire circumstances of the patient's condition was explained in detail. All questions were answered. Brother came in to visit. They wish to keep the patient comfortable. Patient was made comfortable and on 05/22/2020. Additional Data Attending physician: Reynold Galvan MD
== END 2020-05-22 14:00 | disposition expired | DRG 720 ==
LOC: ANHED 07:36 → ANHICU 14:25
PROVIDERS: Family Medicine; Internal Medicine; Internal Medicine Gastroenterology; Internal Medicine Nephrology; Nurse Practitioner; Surgery; Admitting Provider Family Medicine; Emergency Provider General Practice; PCP Physician Assistant; Visit Provider Internal Medicine
PROC: 05PYX3Z Removal of Infusion Device from Upper Vein, External Approach (ICD-10-PCS; CPT 36908; principal; 2020-05-17 15:00)
PROC: 0DH63UZ Insertion of Feeding Device into Stomach, Percutaneous Approach (ICD-10-PCS; CPT 43246; principal; 2020-05-18 12:00)
DX: A41.51 Sepsis due to Escherichia coli [E. coli] (principal); J96.22 Acute and chronic respiratory failure with hypercapnia; R65.21 Severe sepsis with septic shock; M72.6 Necrotizing fasciitis; K29.70 Gastritis, unspecified, without bleeding; Z66 Do not resuscitate; G47.33 Obstructive sleep apnea (adult) (pediatric); I27.20 Pulmonary hypertension, unspecified; J45.909 Unspecified asthma, uncomplicated; F84.0 Autistic disorder; N39.0 Urinary tract infection, site not specified; N17.9 Acute kidney failure, unspecified; E87.5 Hyperkalemia; E87.1 Hypo-osmolality and hyponatremia; Z68.44 Body mass index [BMI] 60.0-69.9, adult; D64.9 Anemia, unspecified; Z91.040 Latex allergy status; E66.01 Morbid (severe) obesity due to excess calories; R13.10 Dysphagia, unspecified; L98.499 Non-pressure chronic ulcer of skin of other sites with unspecified severity; R29.898 Other symptoms and signs involving the musculoskeletal system; B49 Unspecified mycosis; Z79.899 Other long term (current) drug therapy; Z86.16 Personal history of COVID-19; Z88.0 Allergy status to penicillin; Z88.1 Allergy status to other antibiotic agents
CPT/HCPCS: 31500; 36415; 36430; 36556; 36569; 36600; 43246; 51701; 51702; 70450; 71045; 71250; 74018; 74176; 76775; 77001; 80048; 80053; 80069; 80076; 81001; 82274; 82375; 82533; 82550; 82570; 82607; 82746; 82805; 82948; 83050; 83540; 83550; 83605; 83690; 83735; 83880; 84100; 84132; 84156; 84295; 84300; 84478; 84484; 85014; 85018; 85025; 85027; 85055; 85610; 85730; 85999; 86140; 86706; 86850; 86900; 86901; 86923; 87040; 87070; 87075; 87077; 87086; 87088; 87102; 87106; 87186; 87205; 87206; 87340; 93005; 93306; 93308; 93970; 94002; 94003; 94640; 96361; 96365; 96366; 96367; 96375; 99291; A9270; C1750; C1751; C1752; C9113; G0257; J0610; J0692; J0696; J1450; J1644; J1720; J1815; J1956; J2060; J2248; J2250; J2270; J2370; J2704; J2765; J2930; J2997; J3010; J3370; J3475; J3480; J7030; J7040; J7060; J7070; J7120; J7131; P9016; P9047; Q4081; Q5106; Q9957